=== PATIENT | female | born 1935 | race Caucasian/White ===

== ENCOUNTER → 2017-12-05 | Outpatient (CLI) | payer MEDICARE, OTHER | END | disposition home or self-care (01) | LOC: RADCTMAIN 14:11 | PROVIDERS: ATTEND Thoracic Surgery (Cardiothoracic Vascular Surgery) | DX: I70.213 Atherosclerosis of native arteries of extremities with intermittent claudication, bilateral legs (principal); Z95.828 Presence of other vascular implants and grafts | CPT/HCPCS: 82565; 84520 ==

== ENCOUNTER → 2017-12-12 | Outpatient (CLI) | payer MEDICARE, OTHER | END | disposition home or self-care (01) | LOC: RADCTMAIN 11:49 | PROVIDERS: ATTEND Thoracic Surgery (Cardiothoracic Vascular Surgery) | DX: I70.213 Atherosclerosis of native arteries of extremities with intermittent claudication, bilateral legs (principal); Z95.828 Presence of other vascular implants and grafts | CPT/HCPCS: 82565; 84520 ==

== ENCOUNTER → 2017-12-17 | Outpatient (CLI) | payer MEDICARE, OTHER ==
[~2017-12-17] MED LIST: SODIUM CHLORIDE 0.9% 500 ML IV ONE
== END | disposition home or self-care (01) ==
LOC: RADCTMAIN 07:17
PROVIDERS: ATTEND Thoracic Surgery (Cardiothoracic Vascular Surgery)
DX: Z53.8 Procedure and treatment not carried out for other reasons (principal)
CPT/HCPCS: 82565; 84520

== ENCOUNTER → 2017-12-24 | Outpatient (CLI) | payer MEDICARE, OTHER ==
[2017-12-24 14:59] LABS: Partial Thromboplastin Time 23.9 sec (22.0-30.0); Potassium 4.2 mmol/L (3.5-5.1); Prothrombin Time 10.2 sec (9.0-12.0)
[2017-12-24 15:47] LABS: Appearance,Urine Clear (Clear); Bilirubin,Urine Negative (Negative); Blood,Urine Negative (Negative); Color,Urine Yellow; Glucose,Urine (UA) Negative (Negative); Ketones,Urine Negative (Negative); Leukocyte Esterase,Urine Negative (Negative); Nitrite,Urine Negative (Negative); PH, Urine 5.5 (5.0-8.0); Protein,Urine Negative (Negative); Specific Gravity,Urine 1.009 (1.001-1.035); Urobilinogen,Urine <2.0 mg/dL (<2.0)
[2017-12-24 15:51] LABS: Basophils # (A) 0.1 k/uL (0-0.2); Basophils % (A) 1 %; Eosinophils # (A) 0.3 k/uL (0-0.7); Eosinophils % (A) 4 %; HCT 31.4 % (34.0-46.0); HGB 10.2 gm/dL (11.4-16.0); Lymphocytes # (A) 1.5 k/uL (1.0-4.8); Lymphocytes % (A) 21 %; MCH 32.8 pg (25.0-35.0); MCHC 32.5 g/dL (31.0-37.0); MCV 100.9 fL (80.0-100.0); Macrocytosis Slight; Mean Platelet Volume 8.2; Monocytes # (A) 0.4 k/uL (0-1.0); Monocytes % (A) 6 %; Neutrophils # (A) 4.8 k/uL (1.3-7.7); Neutrophils % (A) 67 %; Platelet Count 311 k/uL (150-450); RBC 3.11 m/uL (3.80-5.40); RDW 13.3 % (11.5-15.5); WBC 7.3 k/uL (3.8-10.6)
== END | disposition home or self-care (01) ==
LOC: LABPAT 14:15
PROVIDERS: ATTEND Thoracic Surgery (Cardiothoracic Vascular Surgery)
DX: Z01.812 Encounter for preprocedural laboratory examination (principal); I73.9 Peripheral vascular disease, unspecified
CPT/HCPCS: 36415; 80051; 81003; 82565; 82947; 84520; 85025; 85610; 85730

== ENCOUNTER 2018-01-07 06:45 | Day surgery (SDC) | payer MEDICARE, OTHER ==
[2018-01-02 15:23] VITALS: BMI 22.3
[~2018-01-07 06:45] MED LIST changes: +ALPRAZolam 0.25 MG TAB PO PRN; +ASPIRIN 325 MG TAB PO STA; +SODIUM CHLORIDE 0.9% 1,000 ML in EMPTY BAG 1 BAG IV ONE; -SODIUM CHLORIDE 0.9% 500 ML IV ONE
[2018-01-07 07:20] LABS: Glucose,Whole Blood 98 mg/dL (75-99)
[2018-01-07] MEDS ORDERED: METOPROLOL TARTRATE 50 MG TAB PO STA (07:25)
[2018-01-07] MEDS ORDERED: LISINOPRIL 20 MG TAB PO STA (07:25)
[2018-01-07] MEDS ORDERED: ISOSORBIDE MONONITRATE ER 60 MG TAB.ER.24H PO STA (07:26)
[2018-01-07 07:32] VITALS: TEMP 98.3
[2018-01-07] MEDS ORDERED: LIDOCAINE 2% INJ 20 MG/ML SQ ONE (11:28)
[2018-01-07] MEDS ORDERED: MIDAZOLAM 2 MG/2 ML VIAL IVP ONE (11:30)
[2018-01-07] MEDS ORDERED: IODIXANOL 320 MG/ML 100 ML INTRAARTER ONE (11:54)
[2018-01-07] MEDS ORDERED: HYDROcodone/APAP 5-325MG 1 EACH TAB PO PRN (12:09)
--- NOTE | 2018-01-07 12:21 | P.OP ---
Date of Procedure: 01/07/18 Preoperative Diagnosis: Bilateral lower extremity disabling claudication Postoperative Diagnosis: 1. 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 2. 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 3. Three-vessel runoff to the ankle. Procedure(s) Performed: Aortogram with bilateral lower extremity runoffs via left brachial artery access under ultrasound guidance. Implants: None Anesthesia: MAC (Moderate sedation 20 minutes with Versed), local Surgeon: Jacinto James Estimated Blood Loss (ml): 5 Pathology: none sent Condition: stable Disposition: PACU Indications for Procedure: This is a 82-year-old female with history of aortobifem bypass presented to the office with complaints of bilateral lower extremity pain with ambulation. She underwent ABIs which demonstrated 0.66 bilaterally. We attempted to perform in a CAT scan which was unable to be obtained due to patient's small vessels. She presents today for aortogram via the left brachial artery. Operative Findings: Aorta: Patent with evidence of aortobifemoral bypass graft which is patent. Iliac: Bilateral common iliac arteries are occluded with bypass grafts in place. Femorals: Bilateral common femoral arteries demonstrate calcification and after scrubbing disease at the anastomosis. The right deep profunda femoral has significant, severe calcification and atherosclerotic disease. The left profunda demonstrates mild calcific atherosclerotic disease. Bilateral SFA vessels are diseased with the left occluded at the takeoff and the right occluded at the midportion just above Yosvany's canal. Both SFAs reconstitute distally at the popliteal. Popliteals: Bilateral popliteal arteries have mild after scrubbing disease but are patent. Tibials: Bilateral TPT trunks are patent with three-vessel runoff to the ankles. Description of Procedure: After written informed consent was obtained the patient all risks benefits competitions were described the patient is brought to the [employer] laid in a supine position with the left arm outstretched on arm board.. The left arm was prepped and draped in usual sterile fashion. Patient was administered Versed and fentanyl for moderate sedation. Timeout was performed in normal fashion. Utilizing ultrasound the left brachial artery was visualized and shown to be patent. Utilizing a micropuncture kit and Salinger technique a 5-Spanish sheath was placed in normal fashion. A .035 J-wire was then placed followed by pigtail catheter and the descending thoracic aorta was entered. Pigtail catheter was then placed at the L1 position and aortogram was obtained. There was then advanced to just above the aortobifem bypass graft and lower extremity runoff was obtained in normal fashion. Due to the significant disease at the bilateral femoral arteries angled views were then obtained of both femoral vessels. Guidewire was then placed in the pigtail on the pigtail and guidewire were removed. Sheath was removed and pressure was placed for hemostasis. Hemostasis was achieved and dressings were placed. The patient all procedure well was sent to PACU for recovery Plan - Discharge Summary Discharge Rx Participant: No New Discharge Prescriptions: No Action Lisinopril [Prinivil] 20 mg PO BID Isosorbide Mononitrate ER [Imdur] 60 mg PO DAILY Aspirin 81 mg PO HS Rosuvastatin Calcium [Crestor] 10 mg PO HS sitaGLIPtin PHOSPHATE [Januvia] 50 mg PO DAILY hydrALAZINE HCL 50 mg PO BID Metoprolol Tartrate [Lopressor] 50 mg PO BID Furosemide [Lasix] 20 mg PO BID Folic Acid 0.4 mg PO DAILY Cyanocobalamin (Vitamin B-12) [Vitamin B-12] 1,000 mcg PO DAILY Cholecalciferol [Vitamin D3] 1,000 unit PO DAILY Discharge Medication List Aspirin 81 mg PO HS 08/10/14 [History] Isosorbide Mononitrate ER [Imdur] 60 mg PO DAILY 08/10/14 [History] Lisinopril [Prinivil] 20 mg PO BID 08/10/14 [History] Rosuvastatin Calcium [Crestor] 10 mg PO HS 01/02/15 [History] Cholecalciferol [Vitamin D3] 1,000 unit PO DAILY 01/02/18 [History] Cyanocobalamin (Vitamin B-12) [Vitamin B-12] 1,000 mcg PO DAILY 01/02/18 [ History] Folic Acid 0.4 mg PO DAILY 01/02/18 [History] Furosemide [Lasix] 20 mg PO BID 01/02/18 [History] Metoprolol Tartrate [Lopressor] 50 mg PO BID 01/02/18 [History] hydrALAZINE HCL 50 mg PO BID 01/02/18 [History] sitaGLIPtin PHOSPHATE [Januvia] 50 mg PO DAILY 01/02/18 [History] Follow up Appointment(s)/Referral(s): Jacinto aJmes DO [STAFF PHYSICIAN] - 1 Week Discharge Disposition: HOME SELF-CARE
[2018-01-07 12:25] LABS: Glucose,Whole Blood 90 mg/dL (75-99)
[2018-01-07 12:46] VITALS: RESP 16
[2018-01-07 14:04] VITALS: BP 146/72; PULSE 77
--- NOTE | 2018-01-09 07:09 | IR ---
EXAMINATION TYPE: IR angio abdominal w runoff DATE OF EXAM: 01/07/2018 CLINICAL HISTORY: Bilateral leg pain. TECHNIQUE: Fluoroscopy. COMPARISON: None. FINDINGS: Fluoroscopic guidance was provided during abdominal angiogram with lower extremity runoff procedure performed by Dr. James. A total of 1.5 minutes of fluoroscopic time was utilized during the procedure and 7 cine runs are acquired. Images acquired show placement of pigtail catheter from upper extremity approach with opacification o f iliac arteries in the pelvis and then subsequent bilateral lower extremity runoff down to feet. Ple ase refer to procedure note for further details as I was not present nor performed procedure. IMPRESSION: As Above.
== END 2018-01-07 14:23 | disposition home or self-care (01) ==
LOC: CATHCVL 06:45
PROVIDERS: ATTEND Surgery
DX: I70.213 Atherosclerosis of native arteries of extremities with intermittent claudication, bilateral legs (principal); I70.92 Chronic total occlusion of artery of the extremities; F17.210 Nicotine dependence, cigarettes, uncomplicated; Z95.820 Peripheral vascular angioplasty status with implants and grafts; I11.0 Hypertensive heart disease with heart failure; I50.9 Heart failure, unspecified; Z95.0 Presence of cardiac pacemaker; E11.51 Type 2 diabetes mellitus with diabetic peripheral angiopathy without gangrene; Z79.84 Long term (current) use of oral hypoglycemic drugs; Z79.82 Long term (current) use of aspirin; Z79.899 Other long term (current) drug therapy
CPT/HCPCS: 36200; 75625; 75716; 76937; C1894 ×2; C1769 ×2; J2001; J2250; Q9967

== ENCOUNTER 2020-03-12 11:44 | Inpatient (IN) | payer MEDICARE, OTHER ==
[2020-03-12] MEDS ORDERED: DIPH,PERTUS(ACELL)TETVAC-LF 0.5 ML VIAL IM ONE (11:52)
--- NOTE | 2020-03-12 11:54 | ED ---
Fall HPI - General Chief Complaint: Fall Stated Complaint: FALL Time Seen by Provider: 03/12/20 11:44 Source: patient, EMS, RN notes reviewed Mode of arrival: EMS - History of Present Illness Initial Comments: This 85-year-old female brought in by EMS secondary to a fall with left hip pain. Patient states she tripped over a rug she did fall onto her left side she complains left hip pain and inability to walk. She has some abrasions apparently to her left hand and wrist area that were bandaged by paramedics. She denies any head neck or back pain no loss of consciousness no other modifying factors. No focal weakness except for the pain to the left hip and decreased mobility left lower extremity. MD Complaint: fall - Related Data Home Medications Medication Instructions Recorded Confirmed Aspirin 81 mg PO HS 08/10/14 01/07/18 Isosorbide Mononitrate ER [Imdur] 60 mg PO DAILY 08/10/14 01/07/18 Lisinopril [Prinivil] 20 mg PO BID 08/10/14 01/07/18 Rosuvastatin Calcium [Crestor] 10 mg PO HS 01/02/15 01/07/18 Cholecalciferol [Vitamin D3] 1,000 unit PO DAILY 01/02/18 01/07/18 Cyanocobalamin (Vitamin B-12) 1,000 mcg PO DAILY 01/02/18 01/07/18 [Vitamin B-12] Folic Acid 0.4 mg PO DAILY 01/02/18 01/07/18 Furosemide [Lasix] 20 mg PO BID 01/02/18 01/07/18 Metoprolol Tartrate [Lopressor] 50 mg PO BID 01/02/18 01/07/18 hydrALAZINE HCL 50 mg PO BID 01/02/18 01/07/18 sitaGLIPtin PHOSPHATE [Januvia] 50 mg PO DAILY 01/02/18 01/07/18 Allergies Allergy/AdvReac Type Severity Reaction Status Date / Time No Known Allergies Allergy Verified 01/02/18 15:04 Review of Systems ROS Statement: Those systems with pertinent positive or pertinent negative responses have been documented in the HPI. ROS Other: All systems not noted in ROS Statement are negative. Past Medical History Past Medical History: Hyperlipidemia, Hypertension, Myocardial Infarction ([place]) Additional Past Medical History / Comment(s): SCIATICA, irregular heartbeat, hx bergers disease Last Myocardial Infarction Date:: 2004 History of Any Multi-Drug Resistant Organisms: None Reported Past Surgical History: AICD, Heart Catheterization, Pacemaker Additional Past Surgical History / Comment(s): aortic bypass with bilateral femoral grafting. RONEY CATARACTS, AICD removed and changed to pacemaker Past Anesthesia/Blood Transfusion Reactions: No Reported Reaction Type of Cardiac Device: Permanent Pacemaker Device Placement Date:: UNKNOWN Past Psychological History: No Psychological Hx Reported Smoking Status: Current every day smoker - Past Family History Father Family Medical History: Cancer Additional Family Medical History / Comment(s): . Mother Family Medical History: No Reported History Additional Family Medical History / Comment(s): MOTHER AT AGE 97 YRS. General Exam - General Exam Comments Initial Comments: This is a well-developed asthenic appearing female who is awake alert oriented 3 demonstrates a Chidi Coma Scale of 15 Limitations: physical limitation General appearance: alert, in no apparent distress Head exam: Present: atraumatic, normocephalic, normal inspection Eye exam: Present: normal appearance, PERRL, EOMI. Absent: scleral icterus, conjunctival injection, periorbital swelling ENT exam: Present: normal exam, mucous membranes moist Neck exam: Present: normal inspection, full ROM. Absent: tenderness, meningismus, lymphadenopathy Respiratory exam: Present: normal lung sounds bilaterally. Absent: respiratory distress, wheezes, rales, rhonchi, stridor Cardiovascular Exam: Present: normal rhythm, bradycardia, normal heart sounds. Absent: systolic murmur, diastolic murmur, rubs, gallop, clicks GI/Abdominal exam: Present: soft, normal bowel sounds. Absent: distended, tenderness, guarding, rebound, rigid Extremities exam: Present: tenderness, normal capillary refill, other (There is shortening and lateral rotation left lower extremity with tenderness palpation of left hip. No definite crepitation or step-off.). Absent: full ROM, pedal edema, joint swelling, calf tenderness Back exam: Present: normal inspection Neurological exam: Present: alert, oriented X3, CN II-XII intact Psychiatric exam: Present: normal affect, normal mood Skin exam: Present: warm, dry, intact, normal color. Absent: rash Course Vital Signs 03/12/20 03/12/20 11:46 11:52 Temperature 98.1 F Pulse Rate 56 L 71 Respiratory 18 18 Rate Blood Pressure 159/69 155/64 O2 Sat by Pulse 98 95 Oximetry Medical Decision Making - Medical Decision Making Did discuss findings with patient as well as with Dr. Lezama facial be admitted for repair of the left hip fracture sound group will be consulted for medical clearance. - Lab Data Result diagrams: 03/12/20 12:05 Lab Results 03/12/20 03/12/20 Range/Units 12:05 12:05 WBC 10.2 (3.8-10.6) k/uL RBC 3.90 (3.80-5.40) m/uL Hgb 13.5 (11.4-16.0) gm/dL Hct 41.5 (34.0-46.0) % MCV 106.2 H (80.0-100.0) fL MCH 34.6 (25.0-35.0) pg MCHC 32.6 (31.0-37.0) g/dL RDW 12.5 (11.5-15.5) % Plt Count 197 (150-450) k/uL Neutrophils % 81 % Lymphocytes % 10 % Monocytes % 5 % Eosinophils % 3 % Basophils % 1 % Neutrophils # 8.2 H (1.3-7.7) k/uL Lymphocytes # 1.0 (1.0-4.8) k/uL Monocytes # 0.5 (0-1.0) k/uL Eosinophils # 0.3 (0-0.7) k/uL Basophils # 0.1 (0-0.2) k/uL Macrocytosis Slight PT 10.3 (9.0-12.0) sec INR 1.0 (<1.2) APTT 22.7 (22.0-30.0) sec - EKG Data -: EKG Interpreted by Me (Paced rhythm frequent premature complexes rate 84 QRS 136 daily since QTC 4) - Radiology Data Radiology results: report reviewed (I did review the imaging and report is evidence of a subcapital left hip fracture), image reviewed Disposition Clinical Impression: Fall, Closed left hip fracture Disposition: ADMITTED IP TO THIS [facility] Condition: Fair Referrals: Mitesh oLwe MD [Primary Care Provider] - 1-2 days
[2020-03-12 12:13] LABS: Basophils # (A) 0.1 k/uL (0-0.2); Basophils % (A) 1 %; Eosinophils # (A) 0.3 k/uL (0-0.7); Eosinophils % (A) 3 %; HCT 41.5 % (34.0-46.0); HGB 13.5 gm/dL (11.4-16.0); Lymphocytes % (A) 10 %; MCH 34.6 pg (25.0-35.0); MCHC 32.6 g/dL (31.0-37.0); MCV 106.2 fL (80.0-100.0); Macrocytosis Slight; Monocytes # (A) 0.5 k/uL (0-1.0); Monocytes % (A) 5 %; Neutrophils # (A) 8.2 k/uL (1.3-7.7); Neutrophils % (A) 81 %; Platelet Count 197 k/uL (150-450); RDW 12.5 % (11.5-15.5); WBC 10.2 k/uL (3.8-10.6)
[2020-03-12 12:22] LABS: Prothrombin Time 10.3 sec (9.0-12.0)
[2020-03-12 12:23] LABS: Partial Thromboplastin Time 22.7 sec (22.0-30.0)
[2020-03-12] MEDS: fentaNYL (PF) 50 MCG/ML 2 ML AMP IVP PRN ×2 (12:24→13:17)
--- NOTE | 2020-03-12 13:01 | XR ---
EXAMINATION TYPE: XR chest 1V portable DATE OF EXAM: 03/12/2020 COMPARISON: Chest x-ray September 28, 2015. CT chest January 02, 2015. HISTORY: Fall injury with chest pain. TECHNIQUE: Single AP portable frontal upright view of the chest is obtained. FINDINGS: There is chronic parenchymal change without suspicious focal air space opacity, pleural effusion, or pneumothorax seen. Marked cardiomegaly with multi lead pacemaker/ICD is redemonstrated along with atherosclerotic thoracic aorta. The osseous structures r emain demineralized. IMPRESSION: Chronic changes and cardiomegaly without acute pulmonary process.
--- NOTE | 2020-03-12 13:04 | XR ---
EXAMINATION TYPE: XR Hip LT and AP Pelvis DATE OF EXAM: 03/12/2020 COMPARISON: NONE HISTORY: Fall injury with pelvic and left hip pain. TECHNIQUE: A single AP view of the pelvis is obtained. Two views of the left hip are obtained. FINDINGS: Osseous structures are demineralized. Acute impacted fracture through the left proximal fem ur felt to basicervical in location is present. No hip joint dislocation. Mild axial joint space loss in both hips. Pubic symphysis is intact. No additional pelvic fracture. Scattered pelvic phleboliths and clips along with vascular calcification extending into bilateral groin region noted. IMPRESSION: There is an acute impacted fracture femoral neck level left hip. (Initial encounter closed type posttraumatic fracture)
[2020-03-12] MEDS ORDERED: NALOXONE 0.4 MG/ML 1 ML VIAL IV PRN (14:11)
[2020-03-12] MEDS ORDERED: ONDANSETRON 4 MG/2 ML VIAL IVP PRN (14:11)
[2020-03-12] MEDS ORDERED: HYDROmorphone 1 MG/ML 1 ML SYRINGE IVP PRN (14:11)
[2020-03-12 15:09] LABS: Albumin 3.5 g/dL (3.5-5.0); Calcium 8.9 mg/dL (8.4-10.2); Potassium 4.3 mmol/L (3.5-5.1); Total Bilirubin 0.5 mg/dL (0.2-1.3); Total Protein 5.9 g/dL (6.3-8.2)
[2020-03-12 15:35] LABS: Appearance,Urine Clear (Clear); Bilirubin,Urine Negative (Negative); Blood,Urine Negative (Negative); Color,Urine Yellow; Glucose,Urine (UA) Negative (Negative); Ketones,Urine Negative (Negative); Leukocyte Esterase,Urine Negative (Negative); Mucus,Urine Rare /hpf; Nitrite,Urine Negative (Negative); PH, Urine 6.5 (5.0-8.0); Protein,Urine 2+ (Negative); RBC,Urine 2 /hpf (0-5); Specific Gravity,Urine 1.015 (1.001-1.035); WBC,Urine 1 /hpf (0-5)
--- NOTE | 2020-03-12 16:01 | P.HPOR ---
History of Present Illness H&P Date: 03/12/20 This patient is an 85-year-old female with a past medical history of coronary artery disease post aortic bypass with bilateral femoral grafting, pacemaker, hyperlipidemia, hypertension, and who is a current cigarette smoker that presented to [facility] emergency department today via EMS after a fall in the home. The patient states she was in a hurry this morning taking care of her who has dementia, and she tripped over a rug. She states she landed directly onto the left side of her body. She experienced immediate pain in the left hip, and she was unable to stand on her own. She called her 's home health aide for help, the aide helped the patient up and called EMS. The patient was then transported to the emergency department for evaluation. Upon arrival in the emergency department, x-rays of the left hip revealed a femoral neck fracture. The patient was admitted under the care of Dr. Avila for surgical intervention, with a consult placed to internal medicine for medical clearance. At the time of my exam, the patient is complaining of isolated left hip pain. She states she has abrasions to the left wrist, which was bandaged by EMS. She states she is not experiencing any pain in the left wrist or hand currently. She denies pain with wrist motion. Patient states the pain in her left hip is currently well controlled. She has no additional complaints at the time of my exam. She denies chest pain, shortness of breath, nausea, vomiting, fevers, chills. Vital signs stable. Past Medical History Past Medical History: Hyperlipidemia, Hypertension, Myocardial Infarction ([place]) Additional Past Medical History / Comment(s): SCIATICA, irregular heartbeat, hx bergers disease Last Myocardial Infarction Date:: 2004 History of Any Multi-Drug Resistant Organisms: None Reported Past Surgical History: AICD, Heart Catheterization, Pacemaker Additional Past Surgical History / Comment(s): aortic bypass with bilateral femoral grafting. RONEY CATARACTS, AICD removed and changed to pacemaker Past Anesthesia/Blood Transfusion Reactions: No Reported Reaction Type of Cardiac Device: Permanent Pacemaker Device Placement Date:: UNKNOWN Past Psychological History: No Psychological Hx Reported Smoking Status: Current every day smoker - Past Family History Father Family Medical History: Cancer Additional Family Medical History / Comment(s): . Mother Family Medical History: No Reported History Additional Family Medical History / Comment(s): MOTHER AT AGE 97 YRS. Medications and Allergies Home Medications Medication Instructions Recorded Confirmed Type Aspirin 81 mg PO HS 08/10/14 03/12/20 History Isosorbide Mononitrate ER [Imdur] 60 mg PO DAILY 08/10/14 03/12/20 History Rosuvastatin Calcium [Crestor] 10 mg PO HS 01/02/15 03/12/20 History Cholecalciferol [Vitamin D3] 1,000 unit PO DAILY 01/02/18 03/12/20 History Cyanocobalamin (Vitamin B-12) 1,000 mcg PO DAILY 01/02/18 03/12/20 History [Vitamin B-12] Folic Acid 0.4 mg PO DAILY 01/02/18 03/12/20 History Furosemide [Lasix] 20 mg PO BID 01/02/18 03/12/20 History Metoprolol Tartrate [Lopressor] 50 mg PO BID 01/02/18 03/12/20 History hydrALAZINE HCL 50 mg PO BID 01/02/18 03/12/20 History Lisinopril [Prinivil] 5 mg PO DAILY 03/12/20 03/12/20 History Allergies Allergy/AdvReac Type Severity Reaction Status Date / Time No Known Allergies Allergy Verified 03/12/20 14:31 Physical Examination On examination, the patient is lying in bed in no apparent distress. She is alert and oriented 3. Her head appears normocephalic and atraumatic. Her breathing appears nonlabored. On inspection of the bilateral upper extremities, there is a bandage overlying the left wrist. There is a very small superficial abrasion overlying the left dorsal hand. No pain on palpation of the fingers, hand, wrist, elbow. No pain with passive range of motion of the left wrist. The right upper extremity shows no signs of trauma or deformity. The right lower extremity shows no obvious deformity or signs of trauma. No pain with passive range of motion of the right hip, knee, ankle. On inspection of the left lower extremity, the extremity is shortened and externally rotated. Inspection of the left hip, there are no lacerations or abrasions. The skin is intact. There is moderate pain on palpation of the left hip. Range of motion of the hip was not tested at this time. No pain on palpation of the right knee, lower leg, ankle, foot. Patient has good strength and range of motion of the left ankle. Dorsalis pedis pulse +2. Left lower extremity is warm and well perfused with brisk capillary refill distally. Motor and sensory function appear to be intact to the left lower extremity. The calves are soft and nontender to palpation bilaterally. Results Left hip x-ray 03/12/20: Left femoral neck fracture - Labs Labs: Abnormal Lab Results - Last 24 Hours (Table) 03/12/20 03/12/20 Range/Units 12:05 14:50 MCV 106.2 H (80.0-100.0) fL Neutrophils # 8.2 H (1.3-7.7) k/uL Chloride 108 H (98-107) mmol/L BUN 20 H (7-17) mg/dL Creatinine 1.33 H (0.52-1.04) mg/dL Total Protein 5.9 L (6.3-8.2) g/dL H & H 03/12/20 Range/Units 12:05 Hgb 13.5 (11.4-16.0) gm/dL Hct 41.5 (34.0-46.0) % Coagulation 03/12/20 Range/Units 12:05 INR 1.0 (<1.2) Result Diagrams: 03/12/20 12:05 03/12/20 14:50 Assessment and Plan Assessment: Left femoral neck fracture status-post fall Plan: - The clinical and imaging findings were discussed with the patient. We will plan for a left hip hemiarthroplasty tomorrow morning with Dr. Avila, pending medical clearance and consent. Patient provided verbal consent for surgery. - Non-weight bearing on left lower extremity. - Pain management as needed. - NPO diet at midnight. - Internal medicine has been consulted for medical clearance, as well as jessy- operative medical management. Patient discussed with Dr. Avila.
[2020-03-12] MEDS: SODIUM CHLORIDE 0.9% 1,000 ML IV SCH (16:11)
--- NOTE | 2020-03-12 16:31 | XR ---
EXAMINATION TYPE: XR wrist complete LT DATE OF EXAM: 03/12/2020 COMPARISON: NONE HISTORY: Wrist pain after fall TECHNIQUE: 4 views FINDINGS: There is narrowing and spurring at the first carpometacarpal joint. Radiocarpal joint space is fairly normal. I see no fracture nor dislocation. IMPRESSION: No fracture seen. 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
--- NOTE | 2020-03-12 17:18 | P.HPIM ---
History of Present Illness H&P Date: 03/12/20 Chief Complaint: fall, left hip pain 85 yo female presents to the ED after falling at home. She had been in her normal state of health this morning, until she tripped over a rug and fell on her left side. Most of the impact was absorbed by her left hip but she did hit her head. She denies any LOC, no syncope, no changes in vision, no new focal weakness or numbness. She denies any dizziness or lightheadedness prior to falling, no chest pain, no dyspnea, no palpitations, no fevers or chills. XR of the hip shows fracture of left femur distally at the hip. Her vitals were stable on admission, but she did become hypoxic after receiving 1 mg of Dilaudid, oxygen saturation dropped to 86% but improved with 2L NC. CXR does not show any acute process. Her pain is currently well controlled, patient has been otherwise stable and has no other complaints. Review of Systems Constitutional: Denies chills, Denies chronic headaches, Denies fever, Denies night sweats, Denies weakness Ears: bilateral: decreased hearing Ears, nose, mouth and throat: Denies dysphagia, Denies headache, Denies sore throat Cardiovascular: Reports high blood pressure, Denies chest pain, Denies dyspnea on exertion, Denies edema, Denies leg edema, Denies lightheadedness, Denies orth opnea, Denies palpitations, Denies paroxysmal nocturnal dyspnea, Denies shortness of breath, Denies syncope Respiratory: Reports cough, Denies dyspnea, Denies home oxygen, Denies wheezing Gastrointestinal: Denies abdominal pain, Denies change in bowel habits, Denies diarrhea, Denies nausea, Denies vomiting Musculoskeletal: Reports fractures, Reports limitation of motion, Reports myalgias, Denies arm numbness/tingling, Denies leg numbness/tingling, Denies morning stiffness, Denies neck pain, Denies neck stiffness Musculoskeletal: left: hip pain Neurological: Denies aphasia, Denies balance difficulties, Denies change in mentation, Denies change in speech, Denies confusion, Denies double vision, Denies headaches, Denies motor disturbance, Denies numbness, Denies seizures, Denies syncope, Denies weakness Past Medical History Past Medical History: Hyperlipidemia, Hypertension, Myocardial Infarction ([place]) Additional Past Medical History / Comment(s): SCIATICA, irregular heartbeat, hx bergers disease Last Myocardial Infarction Date:: 2004 History of Any Multi-Drug Resistant Organisms: None Reported Past Surgical History: AICD, Heart Catheterization, Pacemaker Additional Past Surgical History / Comment(s): aortic bypass with bilateral femoral grafting. RONEY CATARACTS, AICD removed and changed to pacemaker Past Anesthesia/Blood Transfusion Reactions: No Reported Reaction Type of Cardiac Device: Permanent Pacemaker Device Placement Date:: UNKNOWN Past Psychological History: No Psychological Hx Reported Smoking Status: Current every day smoker - Past Family History Father Family Medical History: Cancer Additional Family Medical History / Comment(s): . Mother Family Medical History: No Reported History Additional Family Medical History / Comment(s): MOTHER AT AGE 97 YRS. Medications and Allergies Home Medications Medication Instructions Recorded Confirmed Type Aspirin 81 mg PO HS 08/10/14 03/12/20 History Isosorbide Mononitrate ER [Imdur] 60 mg PO DAILY 08/10/14 03/12/20 History Rosuvastatin Calcium [Crestor] 10 mg PO HS 01/02/15 03/12/20 History Cholecalciferol [Vitamin D3] 1,000 unit PO DAILY 01/02/18 03/12/20 History Cyanocobalamin (Vitamin B-12) 1,000 mcg PO DAILY 01/02/18 03/12/20 History [Vitamin B-12] Folic Acid 0.4 mg PO DAILY 01/02/18 03/12/20 History Furosemide [Lasix] 20 mg PO BID 01/02/18 03/12/20 History Metoprolol Tartrate [Lopressor] 50 mg PO BID 01/02/18 03/12/20 History hydrALAZINE HCL 50 mg PO BID 01/02/18 03/12/20 History Lisinopril [Prinivil] 5 mg PO DAILY 03/12/20 03/12/20 History Allergies Allergy/AdvReac Type Severity Reaction Status Date / Time No Known Allergies Allergy Verified 03/12/20 14:31 Physical Exam Osteopathic Statement: *. No significant issues noted on an osteopathic structural exam other than those noted in the History and Physical/Consult. Vitals: Vital Signs Temp Pulse Pulse Resp BP BP Pulse Ox 03/12/20 16:19 98.1 F 86 16 164/91 94 L 03/12/20 15:24 98.1 F 71 18 155/64 95 03/12/20 15:23 71 18 155/64 95 03/12/20 11:52 71 18 155/64 95 03/12/20 11:46 98.1 F 56 L 18 159/69 98 Intake and Output 03/12/20 03/12/20 03/12/20 06:59 14:59 22:59 Other: Weight 54.431 kg - Constitutional General appearance: average body habitus, cooperative, no acute distress - EENT Eyes: EOMI, PERRLA - Neck Neck: normal ROM, no rigidity - Respiratory Respiratory: bilateral: CTA - Cardiovascular Rhythm: regular Heart sounds: normal: S1, S2 Abnormal Heart Sounds: no systolic murmur - Gastrointestinal General gastrointestinal: no distended, normal bowel sounds, no tenderness - Integumentary Integumentary: no cellulitis, no cyanotic, no jaundiced, normal, no pale - Neurologic Neurologic: CNII-XII intact - Musculoskeletal left lower ext tenderness to palpation proximally. limited range of motion, flexion at the hip and knee due to pain. no gross sensory deficits to light tough, DP and PT pulses 2+ b/l Results CBC & Chem 7: 03/12/20 12:05 03/12/20 14:50 Labs: Abnormal Lab Results - Last 24 Hours (Table) 03/12/20 03/12/20 03/12/20 Range/Units 12:05 14:50 15:20 MCV 106.2 H (80.0-100.0) fL Neutrophils # 8.2 H (1.3-7.7) k/uL Chloride 108 H (98-107) mmol/L BUN 20 H (7-17) mg/dL Creatinine 1.33 H (0.52-1.04) mg/dL Total Protein 5.9 L (6.3-8.2) g/dL Urine Protein 2+ H (Negative) Urine Mucus Rare H (None) /hpf Chest x-ray: report reviewed Thrombosis Risk Factor Assmnt - Choose All That Apply Each Factor Represents 1 point: Medical pt on bed rest Each Risk Factor Represents 3 Points: Age 75 years or older Each Risk Factor Represents 5 Points: Elective major lower extremity arthoplasty, Hip, pelvis, or leg fracture (< 1 month) Thrombosis Risk Factor Assessment Total Risk Factor Score: 14 Thrombosis Risk Factor Assessment Level: High Risk Assessment and Plan Assessment: # Left Femoral Neck Fracture -secondary to fall from ground level -bed rest, immobilize hip -pain control -NPO after midnight -patient has an extensive cardiovascular history with a pacemaker, CAD s/ stents, etc... but has not had any signs or symptoms of decompensation -EKG shows no acute ischemic changes, transient hypoxia in the ED was secondary to IV narcotics, CXR show no acute process -plan for OR tomorrow at 8 am per orthopedic surgery -at acceptable cardiovascular risk for surgery # CKD III -Cr at baseline, avoid nephrotoxins or IV contrast # HTN -continue Metoprolol and Hydralazine for now -Lisinopril on hold, may resume after surgery # CAD -ASA on hold for surgery -continue Statin # regular diet, NPO after midnight # DVT PPX
[2020-03-12] MEDS: FUROSEMIDE 20 MG TAB PO SCH (17:36)
[2020-03-12] MEDS: HEPARIN SODIUM,PORCINE 5,000 UNIT/ML 1 ML VIAL SQ SCH (20:41)
[2020-03-12] MEDS: hydrALAZINE HCL 50 MG TAB PO SCH (20:41)
[2020-03-12] MEDS: ATORVASTATIN 20 MG TAB PO SCH (20:41)
[2020-03-12] MEDS: METOPROLOL TARTRATE 50 MG TAB PO SCH (20:41)
[2020-03-12] MEDS: HYDROmorphone 1 MG/ML 1 ML SYRINGE IVP PRN (20:48)
[2020-03-13] MEDS: SODIUM CHLORIDE 0.9% 1,000 ML IV SCH ×3 (00:56→15:23)
[2020-03-13] MEDS ORDERED: KETAMINE 10 MG/ML 20 ML VIAL ONE (08:15)
[2020-03-13] MEDS ORDERED: fentaNYL (PF) 50 MCG/ML 2 ML AMP ONE (08:15)
[2020-03-13] MEDS ORDERED: MIDAZOLAM 2 MG/2 ML VIAL ONE (08:15)
[2020-03-13] MEDS ORDERED: LACTATED RINGERS 1,000 ML IV ONE ×2 (08:19→08:35)
[2020-03-13] MEDS ORDERED: SODIUM CHLORIDE 0.9% 50 ML with ceFAZolin 1,000 MG IV ONE ×2 (08:40)
[2020-03-13] MEDS ORDERED: ceFAZolin 3,000 MG in SODIUM CHLORIDE 0.9% IRRIGATIO 3,000 ML IRRIGATION ONE (08:53)
--- NOTE | 2020-03-13 09:37 | P.OP ---
Date of Procedure: 03/13/20 Procedure(s) Performed: PREOPERATIVE DIAGNOSIS: Left hip femoral neck fracture POSTOPERATIVE DIAGNOSIS: Left hip femoral neck fracture OPERATION: Left hip cemented unipolar hemiarthroplasty. ANESTHESIA: Spinal ESTIMATED BLOOD LOSS: 100 ml. SEWING MACHINE OPERATOR ZIPPER: Desiree Morse PA-C (assistance with: patient positioning, retraction, exposure, hemostasis, leg positioning, implantation, irrigation, closure, dressing) COMPLICATIONS: None apparent. COMPONENTS IMPLANTED: Jimmy LDFx cemented femoral stem; unipolar femoral head; neck extension augments as needed. INDICATIONS: Mrs. Shay is an 85-year-old female with a history of falling and sustaining a femoral neck fracture. She is extremely hard of hearing, among other issues. I have recommended surgical treatment with a cemented unipolar hemiarthroplasty. I have discussed this procedure in detail and explained the potential risks and complications as being inclusive of, but not limited to: Bleeding, infection, scarring, discomfort, blood vessel and/or nerve damage, limb length inequality, gait disturbance, blood clot, pulmonary embolism, , and other risks. The consent form has been signed. PROCEDURE: After appropriate consent was obtained, the patient was taken to the operating room and placed in supine position. Spinal anesthetic was administered and after confirmation of adequate anesthesia, the patient was placed into the lateral decubitus position with the affected side up. Care was taken to make sure that all pressure points were adequately padded and a Bryan hip positioner was utilized for positioning. The hip was prepped and draped in the usual aseptic fashion using a combination of Chloraprep and alcohol. [place] drape was used for the case and the patient received intravenous antibiotics. The incision was created directly over the greater trochanter and carried slightly posteriorly for a posterior approach to the hip. The incision was then deepened down to subcutaneous tissue and fascia tirso. Fascia tirso was split in line with the incision and split proximally along the fibers of the gluteus max imus. The underlying fibers of the muscle were teased apart using finger dissection and bleeding vessels were picked up and coagulated. Retractor was then placed posteriorly consisting of a blunt Howie. The short external rotators and capsule were exposed and good visualization of the attachment of the external rotators to the femur was established. The short external rotators and capsule were released using electrocautery from their femoral attachments. A hockey stick shaped incision was created in the capsule. Joint fluid and hemarthrosis was evacuated and the patient's hip was internally rotated to expose the fracture site. The femoral neck cut was created approximately 1 cm superior to the lesser trochanter using a reciprocating saw. The femoral head and neck fragment was removed and visualization and palpation of the acetabular vault showed intact hyaline cartilage with no bone exposure or significant degeneration. Attention was then directed back to the proximal femur. Retractors were placed around the proximal femur and box osteotome was used followed by canal finder and trochanteric reamer. Cylindrical reaming was performed. Progressive broaching was then performed starting with a #10 broach and progressing final size, in a position of 10-15 degrees anteversion. [place] anteversion was within 5 degrees of stem position. The final size broach had excellent fit and fill of the patient's metaphysis and diaphysis. Calcar planing was performed. Trial reduction was then performed starting with appropriately sized femoral head and various neck extensions to evaluate stability, limb length equality, and soft tissue tension. Once these parameters were satisfactory, the corresponding final components were then called for. Trial components were removed. The femoral canal was sized for the centralizer and cement plug. Once the cement plug had been inserted distal to the planned length of the femoral component, the canal was pulse lavaged and brushed to remove any unstable bone. It was then dried with a lap sponge. Cement was mixed under vacuum conditions to decrease porosity and inserted into a cement gun. Distal centralizer was placed onto the femoral component with a bit of cement. The cement was allowed to reach a slightly doughy consistency and then the canal was filled retrograde with the cement gun. Thumb pressurization was performed three times. The femoral component was then inserted with the previously determined degree of anteversion. Excess cement was removed before it hardened completely. The femoral head was then impacted onto the Bello taper. Blood and debris were removed from the acetabular socket and the hip was then reduced and checked for stability, limb length and soft tissue tension. These parameters were found to be satisfactory; the wound was then thoroughly irrigated with normal saline. Final hemostasis was obtained using electrocautery. Closure of the capsule was performed meticulously using #3 Vicryl suture. Four [id number] sutures were placed in the posterior capsule along with repair of the external rotators. The fascia tirso was then repaired using combination of #3 Vicryl suture in interrupted fashion and Quill and running fashion. 2-0 Vicryl suture was used for the subcutaneous tissues and 3-0 Quill for the skin. Dermabond or Steri-Strips were then applied. The patient tolerated the procedure well. There were no complications and the wound bed was dry and there was no need for drain placement. Sterile dressing was then applied and the patient was carefully removed from the operating room table, placed on the stretcher and was taken to the recovery room in stable condition. Sponge and needle counts were correct.
[2020-03-13] MEDS: hydrALAZINE HCL 50 MG TAB PO SCH ×2 (09:41→21:03)
[2020-03-13] MEDS: HEPARIN SODIUM,PORCINE 5,000 UNIT/ML 1 ML VIAL SQ SCH ×2 (09:41→21:04)
[2020-03-13] MEDS ORDERED: hydrOXYzine PAMOATE 25 MG CAP PO PRN (10:11)
--- NOTE | 2020-03-13 10:26 | XR ---
EXAMINATION TYPE: XR Hip Limited LT DATE OF EXAM: 03/13/2020 CLINICAL HISTORY: Left hip pain and osteoarthritis. TECHNIQUE: Single AP portable view of left hip is obtained immediately postoperatively. COMPARISON: None. FINDINGS: Metallic hardware from left hip arthroplasty is seen and appears satisfactory in alignment and position. There is evidence of recent surgery with subcutaneous gas noted laterally. Surgical c lips in the left hemipelvis and extensive atherosclerosis noted. IMPRESSION: Metallic hardware from left hip arthroplasty is satisfactory in position.
[2020-03-13] MEDS: FUROSEMIDE 20 MG TAB PO SCH (11:28)
[2020-03-13] MEDS: METOPROLOL TARTRATE 50 MG TAB PO SCH ×2 (11:28→21:03)
[2020-03-13] MEDS: LACTATED RINGERS 1,000 ML IV SCH ×2 (11:29→22:35)
[2020-03-13 12:00] LABS: Basophils % (A) 0 %; Eosinophils # (A) 0.1 k/uL (0-0.7); Eosinophils % (A) 1 %; HCT 41.8 % (34.0-46.0); HGB 12.8 gm/dL (11.4-16.0); Hypochromasia Slight; Lymphocytes # (A) 0.7 k/uL (1.0-4.8); Lymphocytes % (A) 6 %; MCH 32.9 pg (25.0-35.0); MCHC 30.7 g/dL (31.0-37.0); MCV 107.2 fL (80.0-100.0); Macrocytosis Moderate; Mean Platelet Volume 9.6; Monocytes # (A) 0.6 k/uL (0-1.0); Monocytes % (A) 5 %; Neutrophils # (A) 11.1 k/uL (1.3-7.7); Neutrophils % (A) 88 %; Platelet Count 154 k/uL (150-450); RDW 12.2 % (11.5-15.5); WBC 12.6 k/uL (3.8-10.6)
[2020-03-13] MEDS: HYDROmorphone 1 MG/ML 1 ML SYRINGE IVP PRN ×2 (12:04→17:36)
--- NOTE | 2020-03-13 16:45 | P.PN ---
Subjective Progress Note Date: 03/13/20 85-year-old female admitted yesterday for a left distal femur fracture after falling at home. She underwent a hemiarthroplasty this morning which she tolerated well, minimal blood loss, no significant perioperative events. After surgery the patient was brought back to her room in stable condition, her pain is well-controlled, denies any weakness of lower extremities, no fevers or chills, no shortness of breath, no chest pain, nausea or vomiting. She is on 2 L of oxygen as she transiently becomes hypoxic after receiving IV narcotics. Objective - Vital Signs Vital signs: Vital Signs Temp 98.1 F 03/13/20 12:50 Pulse 72 03/13/20 14:56 Resp 17 03/13/20 14:56 BP 142/63 03/13/20 12:50 Pulse Ox 95 03/13/20 12:50 Intake & Output 03/12/20 03/13/20 03/13/20 18:59 06:59 18:59 Intake Total 1480 2621 Output Total 200 900 350 Balance -909 244 0585 Weight 54.431 kg Intake: IV 751 Intake, IV Titration 1000 950 Amount Lactated Ringers 1,000 ml 700 @ 100 mls/hr IV .Q10H [facility] Rx#:[id number] Sodium Chloride 0.9% 1, 1000 200 000 ml @ 100 mls/hr IV . Q10H [facility] Rx#:[id number] ceFAZolin 2 gm In Sodium 50 Chloride 0.9% 50 ml @ 100 mls/hr IVPB Q8HR [facility] Rx# :[id number] Oral 480 920 Output: Urine 200 900 200 Uretheral (Silva) 200 200 Estimated Blood Loss 150 Other: Voiding Method Indwelling Catheter Indwelling Catheter Indwelling Catheter # Voids 1 - Exam Constitutional General appearance: average body habitus, cooperative, no acute distress - EENT Eyes: EOMI, PERRLA - Neck Neck: normal ROM, no rigidity - Respiratory Respiratory: bilateral: CTA - Cardiovascular Rhythm: regular Heart sounds: normal: S1, S2 Abnormal Heart Sounds: no systolic murmur - Gastrointestinal General gastrointestinal: no distended, normal bowel sounds, no tenderness - Integumentary Integumentary: no cellulitis, no cyanotic, no jaundiced, normal, no pale - Neurologic Neurologic: CNII-XII intact - Musculoskeletal left lower ext tenderness to palpation proximally. limited range of motion, flexion at the hip and knee due to pain. no gross sensory deficits to light tough, DP and PT pulses 2+ b/l - Labs CBC & Chem 7: 03/13/20 11:00 03/12/20 14:50 Labs: Abnormal Lab Results - Last 24 Hours (Table) 03/13/20 Range/Units 11:00 WBC 12.6 H (3.8-10.6) k/uL MCV 107.2 H (80.0-100.0) fL MCHC 30.7 L (31.0-37.0) g/dL Neutrophils # 11.1 H (1.3-7.7) k/uL Lymphocytes # 0.7 L (1.0-4.8) k/uL Assessment and Plan Assessment: # Left Femoral Neck Fracture -Status post left hemiarthroplasty on 03/13/2020 -secondary to fall from ground level -pain well-controlled -PT and OT once cleared by Raffy # CKD III -Cr at baseline, avoid nephrotoxins or IV contrast # HTN -continue Metoprolol and Hydralazine -Home doses lisinopril restarted # CAD -ASA restarted -continue Statin # regular diet # DVT PPX
[2020-03-13] MEDS: ATORVASTATIN 20 MG TAB PO SCH (21:03)
[2020-03-13] MEDS: ASPIRIN 81 MG PO SCH (21:03)
[2020-03-13] MEDS: SENNOSIDES-DOCUSATE SODIUM 1 EACH TAB PO SCH (21:03)
[2020-03-13 21:58] LABS: Glucose,Whole Blood 109 mg/dL (75-99)
[2020-03-14] MEDS: SODIUM CHLORIDE 0.9% 1,000 ML IV SCH ×2 (07:23→17:36)
[2020-03-14] MEDS: LACTATED RINGERS 1,000 ML IV SCH ×2 (07:23→17:36)
[2020-03-14 07:41] LABS: Albumin 2.6 g/dL (3.5-5.0); Calcium 8.3 mg/dL (8.4-10.2); Potassium 3.8 mmol/L (3.5-5.1); Total Bilirubin 0.5 mg/dL (0.2-1.3); Total Protein 4.9 g/dL (6.3-8.2)
[2020-03-14] MEDS: HEPARIN SODIUM,PORCINE 5,000 UNIT/ML 1 ML VIAL SQ SCH ×2 (08:32→20:18)
[2020-03-14] MEDS: METOPROLOL TARTRATE 50 MG TAB PO SCH ×2 (08:32→20:19)
[2020-03-14] MEDS: LISINOPRIL 5 MG TAB PO SCH (08:32)
[2020-03-14] MEDS: hydrALAZINE HCL 50 MG TAB PO SCH ×2 (08:32→20:19)
[2020-03-14] MEDS: FUROSEMIDE 20 MG TAB PO SCH (08:32)
[2020-03-14] MEDS: ASPIRIN 81 MG PO SCH ×2 (08:32→20:19)
[2020-03-14] MEDS: HYDROcodone/APAP 7.5-325MG 1 EACH TAB PO PRN (08:46)
--- NOTE | 2020-03-14 14:05 | P.PN ---
Subjective Progress Note Date: 03/14/20 This patient is an 85-year-old female who is status-post left hip arthroplasty on 03/13/2020 Dr. Avila. Today is post-operative day #1. The patient is examined bedside. Patient states the pain in her left hip is currently well-controlled. She has been up with physical therapy this morning and transferred to the bedside chair with no issues. She is ambulating with the use of walker with minimal issues or pain. She has not yet had postoperatively and she denies abdominal pain. She denies chest pain, shortness breath, nausea, vomiting, fevers, chills. Overall the patient feels well this morning. The patient is planning to discharge home with home health services. She has no complaints at the time of my exam. Vital signs stable. Objective - Vital Signs Vital signs: Vital Signs Temp 99.1 F 03/14/20 04:45 Pulse 80 03/14/20 04:45 Resp 16 03/14/20 04:45 BP 136/69 03/14/20 04:45 Pulse Ox 96 03/14/20 04:45 Intake & Output 03/13/20 03/14/20 03/14/20 18:59 06:59 18:59 Intake Total 2621 700 Output Total 1150 300 Balance 1471 400 Intake: IV 751 Intake, IV Titration 950 700 Amount Lactated Ringers 1,000 ml 700 @ 100 mls/hr IV .Q10H [facility] Rx#:[id number] Sodium Chloride 0.9% 1, 200 700 000 ml @ 100 mls/hr IV . Q10H [facility] Rx#:[id number] ceFAZolin 2 gm In Sodium 50 Chloride 0.9% 50 ml @ 100 mls/hr IVPB Q8HR [facility] Rx# :[id number] Oral 920 Output: Urine 1000 300 Uretheral (Silva) 800 Estimated Blood Loss 150 Other: Voiding Method Indwelling Catheter Indwelling Catheter Indwelling Catheter # Voids 1 - Exam On examination, the patient is sitting up at the bedside chair in no apparent distress. She is alert and oriented 3. On inspection of the left hip, there is a clean, dry, intact surgical dressing in place. There is no bleeding or drainage to the dressing. There is mild swelling of the thigh. The thigh is s oft and compressible. The patient has good strength and range of motion of her left ankle. Left lower extremity is warm and well perfused with brisk capillary refill distally. Motor and sensory function are intact in the left lower extremity. Calves are soft and nontender to palpation bilaterally. - Labs CBC & Chem 7: 03/13/20 11:00 03/14/20 06:19 Labs: Abnormal Lab Results - Last 24 Hours (Table) 03/13/20 03/13/20 03/14/20 Range/Units 11:00 21:16 06:19 WBC 12.6 H (3.8-10.6) k/uL MCV 107.2 H (80.0-100.0) fL MCHC 30.7 L (31.0-37.0) g/dL Neutrophils # 11.1 H (1.3-7.7) k/uL Lymphocytes # 0.7 L (1.0-4.8) k/uL Chloride 110 H (98-107) mmol/L Creatinine 1.09 H (0.52-1.04) mg/dL POC Glucose (mg/dL) 109 H (75-99) mg/dL Calcium 8.3 L (8.4-10.2) mg/dL Total Protein 4.9 L (6.3-8.2) g/dL Albumin 2.6 L (3.5-5.0) g/dL Assessment and Plan Assessment: Left femoral neck fracture status-post left hip hemiarthroplasty on 03/13/[address] Avila. Postoperative day #1. Plan: - Patient may weight-bear as tolerated on her operative leg. Up with assistance, up with a walker. - Physical therapy for gait and balance training. - Leave Optifoam dressing in place for 710 days. - [place] and Diluadid as needed for pain control. Decrease use of IV diluadid as tolerated. - 2 doses of post-operative antibiotics complete. - 81mg aspirin BID for DVT prophylaxis. Per internal medicine, patient will also be on Heparin while inpatient. - Anticipate discharge home with home health services tomorrow, pending medical clearance. Patient discussed with Dr. Avila.
--- NOTE | 2020-03-14 19:57 | P.PN ---
Progress Note - Text Progress Note Date: 03/14/20 Presenting complaint: Left hip fracture Interval history: Patient presented with a fall resulting in a femoral neck fracture. Underwent hemiarthroplasty. Today-sitting up in a chair. Pain is controlled. Does not like hospital food. No nausea vomiting. No chest pain. Review of systems: Was done for constitutional, cardiovascular, GI, pulmonary. Musculoskeletal relevant finding as above Active Medications Hydrocodone Bitart/Acetaminophen ([place] 7.5-325) 1 - 2 each PO Q6H PRN PRN Reason: Pain Last Admin: 03/14/20 08:46 Dose: 1 each Documented by: Aspirin (Aspirin) 81 mg PO BID [facility] Last Admin: 03/14/20 08:32 Dose: 81 mg Documented by: Atorvastatin Calcium (Lipitor) 20 mg PO HS [facility] Last Admin: 03/13/20 21:03 Dose: 20 mg Documented by: Furosemide (Lasix) 20 mg PO DAILY [facility] Last Admin: 03/14/20 08:32 Dose: 20 mg Documented by: Heparin Sodium (Porcine) (Heparin) 5,000 unit SQ Q12HR [facility] Last Admin: 03/14/20 08:32 Dose: 5,000 unit Documented by: Hydralazine HCl (Apresoline) 50 mg PO BID [facility] Last Admin: 03/14/20 08:32 Dose: 50 mg Documented by: Hydromorphone HCl (Dilaudid) 1 mg IVP Q3HR PRN PRN Reason: Pain Last Admin: 03/13/20 17:36 Dose: 1 mg Documented by: Hydroxyzine Pamoate (Vistaril) 25 mg PO Q4HR PRN PRN Reason: Mild Nausea and/or Anxiety Sodium Chloride (Saline 0.9%) 1,000 mls @ 100 mls/hr IV .Q10H [facility] Last Admin: 03/14/20 17:36 Dose: Not Given Documented by: Lactated Ringer's (Lactated Ringers) 1,000 mls @ 100 mls/hr IV .Q10H [facility] Last Admin: 03/14/20 17:36 Dose: Not Given Documented by: Lisinopril (Zestril) 5 mg PO DAILY [facility] Last Admin: 03/14/20 08:32 Dose: 5 mg Documented by: Metoprolol Tartrate (Lopressor) 50 mg PO BID [facility] Last Admin: 03/14/20 08:32 Dose: 50 mg Documented by: Naloxone HCl (Narcan) 0.2 mg IV Q2M PRN PRN Reason: Opioid Reversal Ondansetron HCl (Zofran) 4 mg IVP Q8HR PRN PRN Reason: Nausea And Vomiting Senna/Docusate Sodium (Senokot-S) 2 each PO HS [facility] Last Admin: 03/13/20 21:03 Dose: 2 each Documented by: On examination: VITAL SIGNS: 98, 81, 18, 138/68, 96% on 3 L GENERAL APPEARANCE: BMI 20.6, sitting up in a chair, comfortable HEENT: Normal external appearance of nose and ear. Oral cavity normal EYES: Pupils equal. Conjunctiva normal. NECK: JVD not raised. Mass not palpable. RESPIRATORY: Respiratory effort normal. Lungs-decreased breath sounds CARDIOVASCULAR: First and second sounds normal. No edema. ABDOMEN: Soft. Liver and spleen not palpable. No tenderness. No mass palpable. PSYCHIATRY: Alert and oriented x3. Mood and affect normal. MUSCULOSKELETAL: No bruising over the left hip. 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 INVESTIGATIONS, reviewed in the clinical context: White count 12.6 hemoglobin 12.8 potassium 3.8 creatinine 1.09 COVID-19 PCR-not detected Assessment: -Left femoral neck fracture followed by hemiarthroplasty -Hyperlipidemia -Essential hypertension -Coronary artery disease -Peripheral artery disease with prior aortic bypass and bilateral femoral grafting -Permanent pacemaker -Chronic nicotine dependence cigarette smoker Plan: Home medications to continue. Patient's aspirin for DVT prophylaxis. We'll give nicotine patch. Care was discussed with the patient. DC IV fluids Thank you Dr. Avila
[2020-03-14] MEDS: SENNOSIDES-DOCUSATE SODIUM 1 EACH TAB PO SCH (20:18)
[2020-03-14] MEDS: ATORVASTATIN 20 MG TAB PO SCH (20:19)
[2020-03-14] MEDS: NICOTINE 14MG/24HR PATCH TRANSDERM SCH (20:19)
[2020-03-15] MEDS: LACTATED RINGERS 1,000 ML IV SCH ×2 (02:29→13:32)
[2020-03-15] MEDS: HYDROcodone/APAP 7.5-325MG 1 EACH TAB PO PRN ×2 (03:57→14:59)
[2020-03-15 05:52] VITALS: RESP 18
[2020-03-15 07:47] LABS: Basophils % (A) 0 %; Eosinophils # (A) 0.1 k/uL (0-0.7); Eosinophils % (A) 2 %; HCT 32.9 % (34.0-46.0); HGB 10.3 gm/dL (11.4-16.0); Lymphocytes # (A) 0.7 k/uL (1.0-4.8); Lymphocytes % (A) 11 %; MCHC 31.3 g/dL (31.0-37.0); MCV 105.3 fL (80.0-100.0); Macrocytosis Slight; Mean Platelet Volume 10.4; Monocytes # (A) 0.4 k/uL (0-1.0); Monocytes % (A) 7 %; Neutrophils % (A) 78 %; Platelet Count 115 k/uL (150-450); RBC 3.13 m/uL (3.80-5.40); RDW 12.4 % (11.5-15.5); WBC 6.3 k/uL (3.8-10.6)
[2020-03-15] MEDS: FUROSEMIDE 20 MG TAB PO SCH (08:06)
[2020-03-15] MEDS: ASPIRIN 81 MG PO SCH (08:06)
[2020-03-15] MEDS: LISINOPRIL 5 MG TAB PO SCH (08:06)
[2020-03-15] MEDS: hydrALAZINE HCL 50 MG TAB PO SCH (08:06)
[2020-03-15] MEDS: METOPROLOL TARTRATE 50 MG TAB PO SCH (08:06)
[2020-03-15] MEDS: HEPARIN SODIUM,PORCINE 5,000 UNIT/ML 1 ML VIAL SQ SCH (08:07)
[2020-03-15] MEDS: NICOTINE 14MG/24HR PATCH TRANSDERM SCH (08:07)
--- NOTE | 2020-03-15 11:16 | P.DS ---
Providers Date of admission: 03/12/20 14:12 Expected date of discharge: 03/15/20 Attending physician: Jordan Avila Consults: 03/12/20 14:12 Consult Physician Routine Consulting Provider: Bib Yoon Consult Reason/Comments: Medical clearance for surgery Do you want consulting provider notified?: Yes Primary care physician: Mitesh Lowe - Discharge Diagnosis(es) (1) Fracture of femoral neck, left Current Visit: Yes Status: Acute (2) Left hip pain Current Visit: Yes Status: Acute (3) Fall Current Visit: Yes Status: Acute (4) Coronary artery disease Current Visit: Yes Status: Acute (5) History of permanent cardiac pacemaker placement Current Visit: Yes Status: Acute (6) Cigarette smoker Current Visit: Yes Status: Acute (7) HTN (hypertension) Current Visit: No Status: Acute (8) Hyperlipemia Current Visit: No Status: Acute Hospital Course: This is a pleasant 85-year-old female vwho presented with left hip femoral neck fracture status post fall. She was admitted for further treatment and ev aluation. She underwent a left hip hemiarthroplasty performed by Dr. Avila on 03/13/2020. Postoperatively she has had improvement of her left hip pain. She is able to ambulate on the left lower extremity. She does have some pain in her left hip which has been controlled with narcotic pain medication. She does feel she is continuing to improve postoperatively and is ready for discharge today. Condition on day of discharge stable. Patient has been cleared by medicine for discharge home. Patient was cleared preoperatively for surgery by Dr. Padilla. Patient currently denies any nausea, vomiting, fever, or chills. Patient is eating and voiding freely without difficulty. Patient may shower OptiFoam dressing intact. Patient should keep dressing intact until her follow-up appointment with Dr. Avila in 2 weeks postoperatively. Patient may weight-bear as tolerated on the left lower extremity. Patient may use walker to aid in ambulation as needed. Patient states she has 2 walkers at home. Patient will be discharged home with home health services. MAPS has been reviewed today, 03/15/2020, with an Overall Overdose Risk Score of 000. An "Opiod Start Talking" Form has been signed by the patient and myself in place in the patient's chart. A prescription has been written for [place] 7.5 mg/325 mg 1 tab every 6 hours as needed for pain, dispense #28. Patient may resume other previously prescribed home medications. Prescription for aspirin 81 mg in the evening has been discontinued by medicine. Patient is given a new prescription for aspirin 81 mg twice a day. She should take this medicine over the next 30 days and then may resume aspirin 81 mg daily following the completion of the 30 day prescription for twice a day. Medicine has also given prescription for Senokot and nicotine patch. Patient's past medical history includes coronary artery disease with aortic bypass and bilateral femoral grafting, pacemaker, hyperlipidemia, hypertension, and current cigarette smoker. Physical Exam Hip Hemiarthroplasty: Status post surgical day number 2 Patient is examined sitting bedside upright in a chair Patient is awake, alert, and oriented 3 Vital signs stable Good chest excursion with deep inspiration and expiration No signs or symptoms of DVT; no calf pain Lower extremity cuffs not currently in place bilaterally Dressing of the left hip is clean, dry, and intact; no erythema, purulence, or signs of infection No significant pain with palpation over the surgical site Full range of motion of ankles bilaterally Dorsiflexion, plantarflexion, and extensor hallucis longus positive sustained bilaterally Neurovascularly intact bilateral lower extremities Capillary refill less than 2 seconds bilateral lower extremities Procedures: Left hip hemiarthroplasty Patient Condition at Discharge: Stable Plan - Discharge Summary New Discharge Prescriptions: New Sennosides-Docusate Sodium [Senokot-S] 2 each PO HS tab Nicotine 14Mg/24Hr Patch [Habitrol] 1 patch TRANSDERM DAILY #14 patch Aspirin 81 mg PO BID 30 Days #60 chewable HYDROcodone/APAP 7.5-325MG [[place] 7.5-325] 1 each PO Q6HR PRN #28 tab PRN Reason: Pain Continue Isosorbide Mononitrate ER [Imdur] 60 mg PO DAILY Rosuvastatin Calcium [Crestor] 10 mg PO HS hydrALAZINE HCL 50 mg PO BID Metoprolol Tartrate [Lopressor] 50 mg PO BID Folic Acid 0.4 mg PO DAILY Cyanocobalamin (Vitamin B-12) [Vitamin B-12] 1,000 mcg PO DAILY Cholecalciferol [Vitamin D3 (25 Mcg = 1000 Iu)] 1,000 unit PO DAILY Lisinopril [Prinivil] 5 mg PO DAILY Changed Furosemide [Lasix] 20 mg PO DAILY #0 Discontinued Aspirin 81 mg PO HS Discharge Medication List Isosorbide Mononitrate ER [Imdur] 60 mg PO DAILY 08/10/14 [History] Rosuvastatin Calcium [Crestor] 10 mg PO HS 01/02/15 [History] Cholecalciferol [Vitamin D3 (25 Mcg = 1000 Iu)] 1,000 unit PO DAILY 01/02/18 [History] Cyanocobalamin (Vitamin B-12) [Vitamin B-12] 1,000 mcg PO DAILY 01/02/18 [Histor y] Folic Acid 0.4 mg PO DAILY 01/02/18 [History] Metoprolol Tartrate [Lopressor] 50 mg PO BID 01/02/18 [History] hydrALAZINE HCL 50 mg PO BID 01/02/18 [History] Lisinopril [Prinivil] 5 mg PO DAILY 03/12/20 [History] Furosemide [Lasix] 20 mg PO DAILY #0 03/14/20 [Rx] Sennosides-Docusate Sodium [Senokot-S] 2 each PO HS tab 03/14/20 [Rx] Aspirin 81 mg PO BID 30 Days #60 chewable 03/15/20 [Rx] HYDROcodone/APAP 7.5-325MG [[place] 7.5-325] 1 each PO Q6HR PRN #28 tab 03/15/20 [Rx] Nicotine 14Mg/24Hr Patch [Habitrol] 1 patch TRANSDERM DAILY #14 patch 03/15/20 [Rx] Follow up Appointment(s)/Referral(s): Mitesh Lowe MD [Primary Care Provider] - 1-2 days Jordan Avila MD [STAFF PHYSICIAN] - 2 Weeks [facility] Visiting Nurse, [NON-STAFF] - 1 Week Activity/Diet/Wound Care/Special Instructions: 1. Weight-bear as tolerated on left lower extremity. 2. Keep dressing intact over the left hip until her follow-up appointment with Dr. Avila in 2 weeks 3. Take medications as prescribed; take aspirin 81 mg twice a day for 1 month for anticoagulation 4. Any questions concerns may contact [facility] at [phone] Discharge Disposition: HOME WITH HOME HEALTH SERVICES
[2020-03-15 11:49] VITALS: BP 138/63; PULSE 80; TEMP 98.1
--- NOTE | 2020-03-16 21:05 | P.PN ---
Progress Note - Text Progress Note Date: 03/16/20 Presenting complaint: Left hip fracture Interval history: Patient presented with a fall resulting in a femoral neck fracture. Underwent hemiarthroplasty. Today-comfortable. Sitting up in a chair. Did eat some breakfast. Her nausea vomiting. Review of systems: Was done for constitutional, cardiovascular, GI, pulmonary. Musculoskeletal relevant finding as above Current medications reviewed in today's electronic records On examination: VITAL SIGNS: 98.4, 57, 18, 112/66, 93% on room air GENERAL APPEARANCE: sitting up in a chair, comfortable HEENT: Normal external appearance of nose and ear. Oral cavity normal EYES: Pupils equal. Conjunctiva normal. NECK: JVD not raised. Mass not palpable. RESPIRATORY: Respiratory effort normal. Lungs-decreased breath sounds CARDIOVASCULAR: First and second sounds normal. No edema. ABDOMEN: Soft. Liver and spleen not palpable. No tenderness. No mass palpable. PSYCHIATRY: Alert and oriented x3. Mood and affect normal. MUSCULOSKELETAL: No bruising over the left hip. 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 INVESTIGATIONS, reviewed in the clinical context: White count 6.3 hemoglobin 10.3 Previous testing White count 12.6 hemoglobin 12.8 potassium 3.8 creatinine 1.09 COVID-19 PCR-not detected Assessment: -Left femoral neck fracture followed by hemiarthroplasty -Hyperlipidemia -Essential hypertension -Coronary artery disease -Peripheral artery disease with prior aortic bypass and bilateral femoral grafting -Permanent pacemaker -Chronic nicotine dependence cigarette smoker -Acute postprocedure bloodless anemia, expected from surgery Plan: -Continue current medication treatment plan. Discussed with the patient. To follow with family doctor. Thank you Dr. Avila
== END 2020-03-15 16:18 | disposition home health service (06) | DRG 470 ==
LOC: EC 11:44 → 5NMEDONC 14:12
PROVIDERS: ADMIT Orthopaedic Surgery; ATTEND Orthopaedic Surgery
PROC: 0SRS0J9 Replacement of Left Hip Joint, Femoral Surface with Synthetic Substitute, Cemented, Open Approach (ICD-10-PCS; principal; 2020-03-13 08:00)
DX: S72.012A Unspecified intracapsular fracture of left femur, initial encounter for closed fracture (principal); D62 Acute posthemorrhagic anemia; M25.052 Hemarthrosis, left hip; Z11.59 Encounter for screening for other viral diseases; I73.1 Thromboangiitis obliterans [Buerger's disease]; N18.3 Chronic kidney disease, stage 3 (moderate); I73.9 Peripheral vascular disease, unspecified; H91.90 Unspecified hearing loss, unspecified ear; S60.512A Abrasion of left hand, initial encounter; S60.812A Abrasion of left wrist, initial encounter; I12.9 Hypertensive chronic kidney disease with stage 1 through stage 4 chronic kidney disease, or unspecified chronic kidney disease; E78.5 Hyperlipidemia, unspecified; M54.30 Sciatica, unspecified side; F17.210 Nicotine dependence, cigarettes, uncomplicated; R09.02 Hypoxemia; I25.10 Atherosclerotic heart disease of native coronary artery without angina pectoris; T40.2X5A Adverse effect of other opioids, initial encounter; R11.2 Nausea with vomiting, unspecified; W01.0XXA Fall on same level from slipping, tripping and stumbling without subsequent striking against object, initial encounter; Y92.019 Unspecified place in single-family (private) house as the place of occurrence of the external cause; I25.2 Old myocardial infarction; Z79.82 Long term (current) use of aspirin; Z79.899 Other long term (current) drug therapy; Z79.84 Long term (current) use of oral hypoglycemic drugs; Z98.42 Cataract extraction status, left eye; Z98.41 Cataract extraction status, right eye; Z95.828 Presence of other vascular implants and grafts; Z95.0 Presence of cardiac pacemaker; Z95.5 Presence of coronary angioplasty implant and graft; Z80.9 Family history of malignant neoplasm, unspecified
CPT/HCPCS: 36415; 71045; 73501; 73502; 80053; 81001; 82550; 83735; 85025; 85610; 85730; 88305; 88311; 90471; 90715; 93005; 94760; 96374; 96376; 99285

== ENCOUNTER → 2020-03-28 | Outpatient (CLI) | payer MEDICARE, OTHER ==
--- NOTE | 2020-03-28 10:58 | US ---
EXAMINATION TYPE: US venous doppler duplex LE LT DATE OF EXAM: 03/28/2020 10:48 AM COMPARISON: NONE CLINICAL HISTORY: 85-year-old female M25.552 PAIN LT HIP,M25.472 EFFUSION LT ANKLE,I80.9 PHLEBITIS. L eft leg swelling post hip repair 03/12/20 SIDE PERFORMED: Left TECHNIQUE: The lower extremity deep venous system is examined utilizing real time linear array sonog felicia with graded compression, doppler sonography and color-flow sonography. FINDINGS: VESSELS IMAGED: External Iliac Vein (EIV) Common Femoral Vein Deep Femoral Vein Greater Saphenous Vein * Femoral Vein Popliteal Vein Small Saphenous Vein * Proximal Calf Veins (* superficial vessels) Left Leg: Appears negative for DVT *tech impression to office @ 10:52 IMPRESSION: No evidence for DVT within the left lower extremity imaged from the groin to the upper calf.
== END | disposition home or self-care (01) ==
LOC: RADUSWWP 10:21
PROVIDERS: ATTEND Orthopaedic Surgery
DX: M25.552 Pain in left hip (principal); Z48.89 Encounter for other specified surgical aftercare; I80.9 Phlebitis and thrombophlebitis of unspecified site; M79.89 Other specified soft tissue disorders

== ENCOUNTER 2021-04-20 05:06 | Inpatient (IN) | payer MEDICARE, OTHER ==
[2021-04-20] MEDS ORDERED: SODIUM CHLORIDE 0.9% 1,000 ML IV STA ×2 (05:45→06:49)
[2021-04-20] MEDS ORDERED: SODIUM CHLORIDE 0.9% 500 ML 500 ML IV STA (05:45)
[2021-04-20] MEDS ORDERED: PANTOPRAZOLE 40 MG/10 ML VIAL IVP STA (05:45)
--- NOTE | 2021-04-20 05:58 | ED ---
GI Bleed HPI - General Chief complaint: GI Bleed Stated complaint: GI Bleed Time Seen by Provider: 04/20/21 05:14 Source: patient, family, RN notes reviewed, old records reviewed Mode of arrival: wheelchair Limitations: no limitations - History of Present Illness Initial comments: This is an 86-year-old female to the ER for evaluation is today. She presents today for evaluation of bright red blood per rectum. Today patient presents for evaluation regards to bilateral blood pressure rectum and diarrhea. Patient's brought in by family member who noticed bleeding from her rectum. Patient is very weak and frail, With difficulty hearing suicidal poor strain. Presents with daughter for evaluation of bleeding, she has have history of similar GI bl eed complaint: blood streaked emesis, blood streaked stool -: days(s) Radiation: none Severity scale (1-10): 7 Quality: painless Consistency: constant Improves with: none Worsens with: none Context: history of GI bleed Associated Symptoms: denies other symptoms, nausea, vomiting - Related Data Home Medications Medication Instructions Recorded Confirmed Isosorbide Mononitrate ER [Imdur] 60 mg PO DAILY 08/10/14 04/20/21 Rosuvastatin Calcium [Crestor] 10 mg PO HS 01/02/15 04/20/21 Cyanocobalamin (Vitamin B-12) 1,000 mcg PO DAILY 01/02/18 04/20/21 [Vitamin B-12] Folic Acid 0.4 mg PO DAILY 01/02/18 04/20/21 Metoprolol Tartrate [Lopressor] 50 mg PO BID 01/02/18 04/20/21 hydrALAZINE HCL 50 mg PO BID 01/02/18 04/20/21 lisinopriL [Prinivil] 5 mg PO DAILY 03/12/20 04/20/21 Aspirin 81 mg PO DAILY 04/20/21 04/20/21 Cholecalciferol [Vitamin D3 (25 25 mcg PO DAILY 04/20/21 04/20/21 Mcg = 1000 Iu)] Furosemide [Lasix] 20 mg PO BID 04/20/21 04/20/21 Allergies Allergy/AdvReac Type Severity Reaction Status Date / Time No Known Allergies Allergy Verified 04/20/21 07:18 Review of Systems ROS Statement: Those systems with pertinent positive or pertinent negative responses have been documented in the HPI. ROS Other: All systems not noted in ROS Statement are negative. Past Medical History Past Medical History: Hyperlipidemia, Hypertension, Myocardial Infarction ([place]) Additional Past Medical History / Comment(s): SCIATICA, irregular heartbeat, hx bergers disease Last Myocardial Infarction Date:: 2004 History of Any Multi-Drug Resistant Organisms: None Reported Past Surgical History: AICD, Heart Catheterization, Pacemaker Additional Past Surgical History / Comment(s): aortic bypass with bilateral femoral grafting. RONEY CATARACTS, AICD removed and changed to pacemaker Past Anesthesia/Blood Transfusion Reactions: No Reported Reaction Type of Cardiac Device: Permanent Pacemaker Device Placement Date:: UNKNOWN Past Psychological History: No Psychological Hx Reported Smoking Status: Current every day smoker Past Alcohol Use History: Occasional Past Drug Use History: None Reported - Past Family History Father Family Medical History: Cancer Additional Family Medical History / Comment(s): . Mother Family Medical History: No Reported History Additional Family Medical History / Comment(s): MOTHER AT AGE 97 YRS. General Exam Limitations: no limitations General appearance: alert, in no apparent distress Head exam: Present: atraumatic, normocephalic, normal inspection Eye exam: Present: normal appearance, PERRL, EOMI. Absent: scleral icterus, conjunctival injection, periorbital swelling ENT exam: Present: normal exam, mucous membranes moist Neck exam: Present: normal inspection. Absent: tenderness, meningismus, lymphadenopathy Respiratory exam: Present: normal lung sounds bilaterally. Absent: respiratory distress, wheezes, rales, rhonchi, stridor Cardiovascular Exam: Present: regular rate, normal rhythm, normal heart sounds. Absent: systolic murmur, diastolic murmur, rubs, gallop, clicks GI/Abdominal exam: Present: soft, normal bowel sounds. Absent: distended, tenderness, guarding, rebound, rigid Extremities exam: Present: normal inspection, full ROM, normal capillary refill. Absent: tenderness, pedal edema, joint swelling, calf tenderness Back exam: Present: normal inspection Neurological exam: Present: alert, oriented X3, CN II-XII intact Psychiatric exam: Present: normal affect, normal mood Skin exam: Present: warm, dry, intact, normal color. Absent: rash Course Vital Signs 04/20/21 04/20/21 04/20/21 05:11 07:39 09:59 Temperature 98.1 F 98.4 F Pulse Rate 89 80 77 Respiratory 16 16 16 Rate Blood Pressure 98/59 106/51 120/62 O2 Sat by Pulse 95 100 Oximetry 04/20/21 04/20/21 04/20/21 12:22 13:49 15:03 Temperature Pulse Rate 75 73 79 Respiratory 18 16 Rate Blood Pressure 126/63 93/49 O2 Sat by Pulse 96 94 L Oximetry 04/20/21 04/20/21 15:13 16:40 Temperature 97.8 F Pulse Rate 79 77 Respiratory 18 Rate Blood Pressure 117/52 O2 Sat by Pulse 94 L Oximetry - Reevaluation(s) Reevaluation #1: 04/20/21 07:29 Medical record is reviewed Patient symptoms are improved here in the ER Patient is in no acute distress Patient informed results and questions answered Reevaluation #2: Patient does have bleeding per rectum here in the ER clotting blood Medical Decision Making - Medical Decision Making 86 female to the ER for evaluation patient presents for evaluation of bright red blood per rectum. Patient currently not on blood thinners patient will be admitted for monitoring of hemoglobin possible surgical evaluation - Lab Data Result diagrams: 04/20/21 05:49 04/20/21 05:49 Lab Results 04/20/21 04/20/21 04/20/21 Range/Units 05:49 05:49 05:49 WBC 14.6 H (3.8-10.6) k/uL RBC 4.05 (3.80-5.40) m/uL Hgb 13.8 (11.4-16.0) gm/dL Hct 41.0 (34.0-46.0) % MCV 101.1 H (80.0-100.0) fL MCH 34.1 (25.0-35.0) pg MCHC 33.7 (31.0-37.0) g/dL RDW 12.1 (11.5-15.5) % Plt Count 264 (150-450) k/uL MPV 8.5 Neutrophils % 90 % Lymphocytes % 5 % Monocytes % 4 % Eosinophils % 0 % Basophils % 0 % Neutrophils # 13.1 H (1.3-7.7) k/uL Lymphocytes # 0.7 L (1.0-4.8) k/uL Monocytes # 0.6 (0-1.0) k/uL Eosinophils # 0.0 (0-0.7) k/uL Basophils # 0.0 (0-0.2) k/uL PT 10.5 (9.0-12.0) sec INR 1.0 (<1.2) APTT 23.4 (22.0-30.0) sec Sodium 138 (137-145) mmol/L Potassium 4.3 (3.5-5.1) mmol/L Chloride 106 (98-107) mmol/L Carbon Dioxide 22 (22-30) mmol/L Anion Gap 10 mmol/L BUN 40 H (7-17) mg/dL Creatinine 1.76 H (0.52-1.04) mg/dL Est GFR (CKD-EPI)AfAm 30 (>60 ml/min/1.73 sqM) Est GFR (CKD-EPI)NonAf 26 (>60 ml/min/1.73 sqM) Glucose 131 H (74-99) mg/dL Calcium 9.8 (8.4-10.2) mg/dL Magnesium 2.0 (1.6-2.3) mg/dL Total Bilirubin 0.6 (0.2-1.3) mg/dL AST 22 (14-36) U/L ALT 11 (4-34) U/L Alkaline Phosphatase 54 (38-126) U/L Creatine Kinase 37 (30-135) U/L Troponin I (0.000-0.034) ng/mL Total Protein 5.9 L (6.3-8.2) g/dL Albumin 3.6 (3.5-5.0) g/dL Blood Type Blood Type Recheck Bld Type Recheck Status Antibody Screen Spec Expiration Date 04/20/21 04/20/21 Range/Units 05:49 05:49 WBC (3.8-10.6) k/uL RBC (3.80-5.40) m/uL Hgb (11.4-16.0) gm/dL Hct (34.0-46.0) % MCV (80.0-100.0) fL MCH (25.0-35.0) pg MCHC (31.0-37.0) g/dL RDW (11.5-15.5) % Plt Count (150-450) k/uL MPV Neutrophils % % Lymphocytes % % Monocytes % % Eosinophils % % Basophils % % Neutrophils # (1.3-7.7) k/uL Lymphocytes # (1.0-4.8) k/uL Monocytes # (0-1.0) k/uL Eosinophils # (0-0.7) k/uL Basophils # (0-0.2) k/uL PT (9.0-12.0) sec INR (<1.2) APTT (22.0-30.0) sec Sodium (137-145) mmol/L Potassium (3.5-5.1) mmol/L Chloride (98-107) mmol/L Carbon Dioxide (22-30) mmol/L Anion Gap mmol/L BUN (7-17) mg/dL Creatinine (0.52-1.04) mg/dL Est GFR (CKD-EPI)AfAm (>60 ml/min/1.73 sqM) Est GFR (CKD-EPI)NonAf (>60 ml/min/1.73 sqM) Glucose (74-99) mg/dL Calcium (8.4-10.2) mg/dL Magnesium (1.6-2.3) mg/dL Total Bilirubin (0.2-1.3) mg/dL AST (14-36) U/L ALT (4-34) U/L Alkaline Phosphatase (38-126) U/L Creatine Kinase (30-135) U/L Troponin I <0.012 (0.000-0.034) ng/mL Total Protein (6.3-8.2) g/dL Albumin (3.5-5.0) g/dL Blood Type O Positive Blood Type Recheck O Pos Bld Type Recheck Status No Antibody Screen NEGATIVE Spec Expiration Date 04/23/20212348 Disposition Clinical Impression: Atrial fibrillation, Lower gastrointestinal hemorrhage Disposition: ADMITTED IP TO THIS HOSP Condition: Fair Is patient prescribed a controlled substance at d/c from ED?: No
[2021-04-20 06:04] LABS: Basophils % (A) 0 %; Eosinophils % (A) 0 %; HGB 13.8 gm/dL (11.4-16.0); Lymphocytes # (A) 0.7 k/uL (1.0-4.8); Lymphocytes % (A) 5 %; MCH 34.1 pg (25.0-35.0); MCHC 33.7 g/dL (31.0-37.0); MCV 101.1 fL (80.0-100.0); Mean Platelet Volume 8.5; Monocytes # (A) 0.6 k/uL (0-1.0); Monocytes % (A) 4 %; Neutrophils # (A) 13.1 k/uL (1.3-7.7); Neutrophils % (A) 90 %; Platelet Count 264 k/uL (150-450); RBC 4.05 m/uL (3.80-5.40); RDW 12.1 % (11.5-15.5); WBC 14.6 k/uL (3.8-10.6)
[2021-04-20 06:15] LABS: Partial Thromboplastin Time 23.4 sec (22.0-30.0); Prothrombin Time 10.5 sec (9.0-12.0)
[2021-04-20 06:35] LABS: Albumin 3.6 g/dL (3.5-5.0); Calcium 9.8 mg/dL (8.4-10.2); Potassium 4.3 mmol/L (3.5-5.1); Total Bilirubin 0.6 mg/dL (0.2-1.3); Total Protein 5.9 g/dL (6.3-8.2)
[2021-04-20] MEDS ORDERED: NALOXONE 0.4 MG/ML 1 ML VIAL IV PRN (06:49)
[2021-04-20] MEDS ORDERED: MORPHINE SULFATE 4 MG/ML SYRINGE IV PRN (06:49)
[2021-04-20] MEDS ORDERED: ONDANSETRON 4 MG/2 ML VIAL IVP PRN (06:49)
[2021-04-20] MEDS: FOLIC ACID 1 MG TAB PO SCH (11:59)
[2021-04-20] MEDS: METOPROLOL TARTRATE 50 MG TAB PO SCH ×2 (11:59→20:49)
[2021-04-20] MEDS: ISOSORBIDE MONONITRATE ER 60 MG TAB.ER.24H PO SCH (12:20)
[2021-04-20] MEDS: hydrALAZINE HCL 50 MG TAB PO SCH ×2 (12:20→22:39)
[2021-04-20] MEDS: NICOTINE 21MG/24HR PATCH TRANSDERM SCH ×2 (13:56→14:01)
[2021-04-20] MEDS: guaiFENesin 600 MG TABLET.ER PO SCH ×3 (13:56→20:50)
[2021-04-20] MEDS: BUDESONIDE 1 MG/2 ML NEBU INHALATION SCH ×2 (14:31→19:12)
--- NOTE | 2021-04-20 14:31 | CT ---
EXAMINATION TYPE: CT abdomen pelvis wo con DATE OF EXAM: 04/20/2021 COMPARISON: None HISTORY: 86-year-old female Abdominal pain, rectal bleeding CT DLP: 386.4 mGycm. Automated exposure control for dose reduction was used. TECHNIQUE: Contiguous axial scanning of the abdomen and pelvis without IV contrast. Coronal and sagit paul reconstructions performed. FINDINGS: Right atrial, right ventricular, and coronary sinus. AICD leads. Heart borderline enlarged with small 5 mm thick anterior pericardial effusion. There is some circumferential wall thickening of the dista l esophagus and trace right pleural effusion. There is a 1.1 cm inferior posterior right liver lobe cyst. Periportal edema noted. Gallbladder borde rline hydropic measuring 9.7 cm long and 4.1 cm wide. No appreciable wall thickening on this noncontr ast study. Diffuse low-density thickening of the bilateral adrenal glands Right kidney shows an exophytic intermediate attenuating lesion anterior upper pole, probable mildly complex cyst. Additional cortical lesions are present. One along the lateral mid pole could be solid measuring 1.3 cm. Others likely represent hemorrhagic cysts. One is a simple cyst anteriorly and 2.1 cm. Multiple cysts left kidney, at least one is hemorrhagic at the lower pole measuring 1.4 cm. Large kassy tral cyst measuring 4.8 cm. Ureter appears separate from this structure suggesting a large parapelvic cyst rather than hydronephrosis. Lack of IV contrast mild generalized anasarca changes limits the evaluation. Spleen and pancreas show no gross abnormality by noncontrast CT. Unable to exclude focal thickening throughout the stomach. Mild perihepatic and perisplenic ascites. Ascites fluid tracks down the paracolic gutters. Segment of thickened bowel, likely right-sided colon on axial image 46. There is sigmoid diverticulos is. There is moderate to severe wall thickening suggested at the distal sigmoid and rectum with some associated surrounding fluid. Unable to delineate bowel in the pelvis, axial image 65 D8. Bladder appears partially distended. Mild pelvic ascites. Unable to adequately assess for any foci of extraluminal air due to the clumped up crowded bowel and other soft tissue structures in the pelvis. Abdominal aortic bifemoral bypass graft noted. Patency cannot be assessed on this noncontrast study. Bones: Left hip hemiarthroplasty. Osteopenia. Hypertrophic facet arthropathy mid to lower lumbar spin e. Trace grade 1 anterolisthesis L4-L5. IMPRESSION: 1. Very limited exam due to anasarca, lack of IV/oral contrast, and clumped up and crowded soft tiss ue structures. Cardiomegaly, small 5 mm anterior pericardial effusion, trace right pleural effusion, periportal leo a, and mild abdominal ascites. Correlate for fluid overload state or CHF. 2. Sigmoid diverticulosis. Suggestion of moderate to severe wall thickening at the distal sigmoid and rectum and with some associated surrounding fluid. Unable to exclude nonspecific colitis/acute diver ticulitis or neoplasm at this level. 3. Additional areas of wall thickening include the distal esophagus, stomach, and a segment of right hemicolon. Inflammation at some or all of these sites difficult to exclude. 4. Suspect a large 4.8 cm parapelvic cyst rather than left-sided hydronephrosis. Multiple bilateral c ysts demonstrate varying degrees of internal complication. One cortical lesion along the lateral righ t mid pole could be solid measuring 1.3 cm. Follow-up contrast enhanced CT in 6 months to reassess th mamta lesions.
--- NOTE | 2021-04-20 14:52 | P.CONS ---
History of Present Illness - Reason for Consult Consult date: 04/20/21 GI bleed, rectal bleeding Requesting physician: Bib Yoon - Chief Complaint Diarrhea with rectal bleeding - History of Present Illness This is an 86-year-old white female who presented to emergency department this morning with complaints of diarrhea mixed with blood that started last night. She has a past medical history of aortic bypass with femoral graft, coronary artery disease, atrial fibrillation with pacemaker, hypertension and hyperlipidemia. She denies any previous GI bleed in the past. But she does state that she has had a bowel resection which she is unsure why, may be due to diverticulitis in 1996. She states that she had diarrhea a week ago for 1 week along with vomiting, no bleeding at that time. States the diarrhea started again last night with lower abdominal cramping. She denies any sick contacts, new medications, or recent antibiotic use. She denies any previous history of colitis. She states she's had a colonoscopy but that was many years ago. No previous EGD. She denies taking any anticoagulation, she is does take a daily l ow-dose aspirin. Admitting labs WBC 14.5, hemoglobin 13.8, hematocrit 41, platelet count 264,000, INR 1.0, total bilirubin 0.6, alkaline phosphatase 54, AST 22, ALT 11, BUN 40, creatinine 1. on 6. Patient denies any fevers or chills, she was afebrile on presentation. Review of Systems REVIEW OF SYSTEMS: CARDIOPULMONARY: No chest pain or shortness of breath. Gastrointestinal: Lower abdominal cramping. No nausea or vomiting. No hematemesis, coffee-ground emesis. Diarrhea with bright red blood.. GENITOURINARY: No dysuria or hematuria. MUSCULOSKELETAL: Reports normal range of motion., Joint pain. SKIN: No rashes. No jaundice. ENDOCRINE: No chills, fevers. No excessive weight gain or loss. No polydipsia or polyuria. PSYCHIATRIC: Unremarkable. NEUROLOGY: No change in mental status. Denies dizziness, headache. ENT: Vision unremarkable. CONSTITUTIONAL: No recent weight loss. No fever, chills, night sweats. Past Medical History Past Medical History: Hyperlipidemia, Hypertension, Myocardial Infarction ([place]) Additional Past Medical History / Comment(s): SCIATICA, irregular heartbeat, hx bergers disease Last Myocardial Infarction Date:: 2004 History of Any Multi-Drug Resistant Organisms: None Reported Past Surgical History: AICD, Heart Catheterization, Pacemaker Additional Past Surgical History / Comment(s): aortic bypass with bilateral femoral grafting. RONEY CATARACTS, AICD removed and changed to pacemaker Past Anesthesia/Blood Transfusion Reactions: No Reported Reaction Type of Cardiac Device: Permanent Pacemaker Device Placement Date:: UNKNOWN Past Psychological History: No Psychological Hx Reported Smoking Status: Current every day smoker Past Alcohol Use History: Occasional Past Drug Use History: None Reported - Past Family History Father Family Medical History: Cancer Additional Family Medical History / Comment(s): . Mother Family Medical History: No Reported History Additional Family Medical History / Comment(s): MOTHER AT AGE 97 YRS. Medications and Allergies Home Medications Medication Instructions Recorded Confirmed Type Isosorbide Mononitrate ER [Imdur] 60 mg PO DAILY 08/10/14 04/20/21 History Rosuvastatin Calcium [Crestor] 10 mg PO HS 01/02/15 04/20/21 History Cyanocobalamin (Vitamin B-12) 1,000 mcg PO DAILY 01/02/18 04/20/21 History [Vitamin B-12] Folic Acid 0.4 mg PO DAILY 01/02/18 04/20/21 History Metoprolol Tartrate [Lopressor] 50 mg PO BID 01/02/18 04/20/21 History hydrALAZINE HCL 50 mg PO BID 01/02/18 04/20/21 History lisinopriL [Prinivil] 5 mg PO DAILY 03/12/20 04/20/21 History Aspirin 81 mg PO DAILY 04/20/21 04/20/21 History Cholecalciferol [Vitamin D3 (25 25 mcg PO DAILY 04/20/21 04/20/21 History Mcg = 1000 Iu)] Furosemide [Lasix] 20 mg PO BID 04/20/21 04/20/21 History Allergies Allergy/AdvReac Type Severity Reaction Status Date / Time No Known Allergies Allergy Verified 04/20/21 07:18 Physical Exam Vitals: Vital Signs Temp Pulse Resp BP Pulse Ox 04/20/21 09:59 77 16 120/62 100 04/20/21 07:39 98.4 F 80 16 106/51 04/20/21 05:11 98.1 F 89 16 98/59 95 Intake and Output 04/19/21 04/20/21 04/20/21 22:59 06:59 14:59 Other: Weight 52.617 kg General appearance: The patient is alert, oriented, appears in no acute distress. HET: Head is normocephalic and atraumatic. Conjunctiva pink. Sclera anicteric. Neck: Supple without lymphadenopathy. Trachea midline. Heart: S1 S2. Regular rate and rhythm. Lungs: Clear to auscultation. Abdomen: Soft, lower abdominal tenderness, left greater than right, nondistended with bowel sounds. No guarding or rigidity. Skin: No rashes. No jaundice. Extremities: Normal skin color and turgor. No pedal edema. Neurological: No focal deficits. Alert and oriented 3.. Results CBC & Chem 7: 04/20/21 05:49 04/20/21 05:49 Labs: Abnormal Lab Results - Last 24 Hours (Table) 04/20/21 04/20/21 Range/Units 05:49 05:49 WBC 14.6 H (3.8-10.6) k/uL MCV 101.1 H (80.0-100.0) fL Neutrophils # 13.1 H (1.3-7.7) k/uL Lymphocytes # 0.7 L (1.0-4.8) k/uL BUN 40 H (7-17) mg/dL Creatinine 1.76 H (0.52-1.04) mg/dL Glucose 131 H (74-99) mg/dL Total Protein 5.9 L (6.3-8.2) g/dL Assessment and Plan (1) Lower GI bleed Narrative/Plan: 86-year-old female who presented to the emergency room with complaints of bloody diarrhea that began last night. She had previous diarrhea a week ago for one week, and was associated with nausea and vomiting. She had improvement and again last night had an episode of diarrhea and noticed bright red blood mixed in with stool. The patient denies any sick contacts, recent antibiotic use, or new medications. She denies any fever. She has a prior history of bowel resection for which she is unsure of reason, possible diverticulitis. She is complaints of cramping followed by loose stools mixed with blood. She has a history of atrial fibrillation with a pacemaker, she is not on any anticoagulation. She only takes a low-dose aspirin daily. She's had no prior history of GI bleed. Likely dealing with colitis, possible etiologies infectious, inflammatory, or ischemic. Will order CT of the abdomen without contrast due to kidney function. Current Visit: Yes Status: Acute Code(s): K92.2 - GASTROINTESTINAL HEMORRHAGE, UNSPECIFIED SNOMED Code(s): 89320710 (2) Diarrhea Current Visit: Yes Status: Acute Code(s): R19.7 - DIARRHEA, UNSPECIFIED SNOMED Code(s): 78496767 (3) Atrial fibrillation Current Visit: Yes Status: Chronic Code(s): I48.91 - UNSPECIFIED ATRIAL FIBRILLATION SNOMED Code(s): 03484684 Plan: 1. Nothing by mouth except ice chips 2. CT of the abdomen without contrast ordered due to kidney function 3. Stool studies ordered 4. Repeat daily CBC 5. Continue IV fluids 6. Further recommendations pending clinical course Thank you for this consultation, we will continue to follow Dr. Dennis I agree with the dictator's note, documented as a scribe by Ana German.
[2021-04-20] MEDS: IPRATROPIUM-ALBUTEROL 3 ML NEB INHALATION SCH ×2 (15:02→19:12)
--- NOTE | 2021-04-20 15:47 | P.HPIM ---
History of Present Illness H&P Date: 04/20/21 Chief Complaint: Abdominal pain History of presenting complaint: This is a pleasant 86-year-old patient who follows with visiting physicians Dr. Lowe. Chronic stable medical conditions include hyperlipidemia, hypertension, peripheral arterial disease with Bergers disease, AICD permanent pacemaker. Patient continues to smoke a pack a day. Patient about 2 weeks ago had an episode of abdominal pain diarrhea or vomiting. Yesterday started off with having him go pain yet again. We'll do some blood in the stool. No fever no chills. The blood is mixed in the stool. Pain is across the lower abdomen. No exacerbating or relieving features. Patient's niece Marah was also D POA and her sisters both present. Patient also has a congested cough. Not able to expectorate much. Some cough and wheezing. Review of systems: GEN.: Tired EYES: None HEENT: None NECK: None RESPIRATORY: [As above CARDIOVASCULAR: None GASTROINTESTINAL: As above GENITOURINARY: None MUSCULOSKELETAL: Joint pains LYMPHATICS: None HEMATOLOGICAL: None PSYCHIATRY: None NEUROLOGICAL: None Past medical history to include: Hypertension, hyperlipidemia, coronary artery disease with [place], irregular heartbeat,bergers disease about a bypass and bilateral femoral grafting, AICD/removed and changed to permanent pacemaker Social history: Occasionally uses a cane. Lives alone. Smokes over a pack a day for many years. Alcohol occasionally. Family history: Cancer Physical examination: VITAL SIGNS: 98.4, 77, 16, 1 20 x 62, 100% room air GENERAL: BMI 19.9, reclining in bed, tired,. EYES: Pupils equal. Conjunctiva normal. HEENT: External appearance of nose and ears normal, oral cavity grossly normal. NECK: JVD not raised; masses not palpable. HEART: First and second heart sounds are normal; no edema. LUNGS: Respiratory rate increased, decreased breath sounds expiratory wheezing. ABDOMEN: Soft, lower abdominal tenderness, no guarding rigidity, liver spleen not palpable, no masses palpable. 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 NEUROLOGICAL: Cranial nerves grossly intact; no facial asymmetry, power and sensation grossly intact. LYMPHATICS: No lymph nodes palpable in the axilla and neck INVESTIGATIONS, reviewed in the clinical context: WBC 14.6 hemoglobin 13.8 platelets 264 potassium 4.3 BUN 40 creatinine 1.76 Computed tomography scan of the abdomen and pelvis with and without contrast: Cyst present on both the kidneys. Sigmoid diverticulosis. Moderate to severe wall thickening suggested at the distal sigmoid and rectum with some surrounding associated fluid. Abdominal aortic bifemoral bypass graft noted. Assessment and plan: -This is a patient with well known vasculopath long history of smoking now presents with abdominal pain and some blood in the stool. Computed tomography scan showing segment of thickened wall. Most likely ischemic colitis. Patient is put on clear liquids. IV Zosyn. -Acute COPD exacerbation in a current smoker DuoNeb, nebulized steroids, Mucinex -Chronic nicotine dependence, patient cigarette smoker Nicotine patch -Coronary artery disease with prior [place] And aspirin -Peripheral arterial disease Aspirin and continue Crestor -Essential hypertension Continue with Lopressor., Prinivil, hydralazine -Vitamin B12 deficiency Continue B12 supplement -Possible CK D. IV fluids. Renal ultrasound. Check UA -DO NOT RESUSCITATE -DPOA: Marah, niece Care was discussed with the patient's 2 nieces at the bedside. IV fluids. IV Zosyn. Clear liquids. Nebulized bronchodilators, 2-D echocardiogram, renal ultrasound, UA. GI consulted Given the complexity and severity of patient's condition expect the patient to be in the hospital at least for 2 overnights Past Medical History Past Medical History: Hyperlipidemia, Hypertension, Myocardial Infarction ([place]) Additional Past Medical History / Comment(s): SCIATICA, irregular heartbeat, hx bergers disease Last Myocardial Infarction Date:: 2004 History of Any Multi-Drug Resistant Organisms: None Reported Past Surgical History: AICD, Heart Catheterization, Pacemaker Additional Past Surgical History / Comment(s): aortic bypass with bilateral femoral grafting. RONEY CATARACTS, AICD removed and changed to pacemaker Past Anesthesia/Blood Transfusion Reactions: No Reported Reaction Type of Cardiac Device: Permanent Pacemaker Device Placement Date:: UNKNOWN Past Psychological History: No Psychological Hx Reported Smoking Status: Current every day smoker Past Alcohol Use History: Occasional Past Drug Use History: None Reported - Past Family History Father Family Medical History: Cancer Additional Family Medical History / Comment(s): . Mother Family Medical History: No Reported History Additional Family Medical History / Comment(s): MOTHER AT AGE 97 YRS. Medications and Allergies Home Medications Medication Instructions Recorded Confirmed Type Isosorbide Mononitrate ER [Imdur] 60 mg PO DAILY 08/10/14 04/20/21 History Rosuvastatin Calcium [Crestor] 10 mg PO HS 01/02/15 04/20/21 History Cyanocobalamin (Vitamin B-12) 1,000 mcg PO DAILY 01/02/18 04/20/21 History [Vitamin B-12] Folic Acid 0.4 mg PO DAILY 01/02/18 04/20/21 History Metoprolol Tartrate [Lopressor] 50 mg PO BID 01/02/18 04/20/21 History hydrALAZINE HCL 50 mg PO BID 01/02/18 04/20/21 History lisinopriL [Prinivil] 5 mg PO DAILY 03/12/20 04/20/21 History Aspirin 81 mg PO DAILY 04/20/21 04/20/21 History Cholecalciferol [Vitamin D3 (25 25 mcg PO DAILY 04/20/21 04/20/21 History Mcg = 1000 Iu)] Furosemide [Lasix] 20 mg PO BID 04/20/21 04/20/21 History Allergies Allergy/AdvReac Type Severity Reaction Status Date / Time No Known Allergies Allergy Verified 04/20/21 07:18 Physical Exam Vitals: Vital Signs Temp Pulse Resp BP Pulse Ox 04/20/21 09:59 77 16 120/62 100 04/20/21 07:39 98.4 F 80 16 106/51 04/20/21 05:11 98.1 F 89 16 98/59 95 Intake and Output 04/19/21 04/20/21 04/20/21 22:59 06:59 14:59 Other: Weight 52.617 kg Results CBC & Chem 7: 04/20/21 05:49 04/20/21 05:49 Labs: Abnormal Lab Results - Last 24 Hours (Table) 04/20/21 04/20/21 Range/Units 05:49 05:49 WBC 14.6 H (3.8-10.6) k/uL MCV 101.1 H (80.0-100.0) fL Neutrophils # 13.1 H (1.3-7.7) k/uL Lymphocytes # 0.7 L (1.0-4.8) k/uL BUN 40 H (7-17) mg/dL Creatinine 1.76 H (0.52-1.04) mg/dL Glucose 131 H (74-99) mg/dL Total Protein 5.9 L (6.3-8.2) g/dL
[2021-04-20] MEDS ORDERED: PIPERACILLIN-TAZOBACTAM 3.375 GM in SODIUM CHLORIDE 0.9% 100 ML IVPB SCH (16:00)
[2021-04-20] MEDS: SODIUM CHLORIDE 0.9% 1,000 ML IV SCH (16:54)
--- NOTE | 2021-04-20 17:22 | XR ---
EXAMINATION TYPE: XR chest 2V DATE OF EXAM: 04/20/2021 COMPARISON: Chest x-ray March 12, 2020 HISTORY: History of COPD with cough and congestion. TECHNIQUE: Frontal and lateral views of the chest are obtained. FINDINGS: There is chronic parenchymal change without suspicious new focal air space opacity, pleura l effusion, or pneumothorax seen. Persistent cardiomegaly with multi lead pacemaker/defibrillator and atherosclerotic aorta. The osseous structures are demineralized. IMPRESSION: Chronic changes and cardiomegaly without acute pulmonary process.
[2021-04-20] MEDS: PIPERACILLIN-TAZOBACTAM 3.375 GM in SODIUM CHLORIDE 0.9% 100 ML IVPB SCH (17:56)
[2021-04-20] MEDS: ATORVASTATIN 20 MG TAB PO SCH (20:50)
[2021-04-20] MEDS: FAMOTIDINE 20 MG TAB PO SCH (20:50)
[2021-04-20] MEDS ORDERED: PANTOPRAZOLE 40 MG/10 ML VIAL IV SCH (21:00)
--- NOTE | 2021-04-21 00:20 | US ---
EXAMINATION TYPE: US kidneys/renal and bladder DATE OF EXAM: 04/20/2021 COMPARISON: CT CLINICAL HISTORY: assess for CK D. Assess for CKD. EXAM MEASUREMENTS: Right Kidney: 11.4 x 5.1 x 5.2 cm Left Kidney: 12.1 x 5.8 x 6.0 cm Right Kidney: Multiple anechoic areas seen. -Hypoechoic area seen upper pole medially: 1.8 x 2.8 x 1.8 cm. -Hypoechoic area seen mid pole laterally: 1.9 x 1.6 x 1.0 cm. -Largest anechoic area seen upper pole medially: 2.5 x 2.6 x 1.9 cm. Left Kidney: Measures upper limits of normal. Multiple anechoic areas seen. -Anechoic area seen upper pole: 3.9 x 3.5 x 3.9 cm. -Large complex area seen mid pole: 5.0 x 4.7 x 6.2 cm. -Anechoic area seen lower pole laterally: 2.6 x 2.4 x 2.0 cm. Bladder: Not fully distended. Bilateral Jets seen: Right jet seen during exam. Incidental finding: Anechoic-slightly hypoechoic area seen within the right lobe of the liver: 1.0 x 1.4 x 1.1 cm. IMPRESSION: Multiple renal cortical cysts. Some of these cysts are complex. No definite solid renal mass. Left si de ureteral jet was not visible. No evidence of a bladder mass. The renal cysts obscure the calyces o f the kidneys.
[2021-04-21] MEDS: SODIUM CHLORIDE 0.9% 1,000 ML IV SCH ×2 (03:19→16:17)
[2021-04-21] MEDS: PIPERACILLIN-TAZOBACTAM 3.375 GM in SODIUM CHLORIDE 0.9% 100 ML IVPB SCH ×3 (06:25→23:37)
[2021-04-21] MEDS: IPRATROPIUM-ALBUTEROL 3 ML NEB INHALATION SCH ×4 (08:11→20:50)
[2021-04-21] MEDS: BUDESONIDE 1 MG/2 ML NEBU INHALATION SCH ×2 (08:11→20:50)
[2021-04-21 09:30] LABS: Albumin 2.8 g/dL (3.5-5.0); Calcium 8.7 mg/dL (8.4-10.2); Magnesium 1.9 mg/dL (1.6-2.3); Phosphorus 3.5 mg/dL (2.5-4.5); Potassium 3.5 mmol/L (3.5-5.1); Total Bilirubin 0.5 mg/dL (0.2-1.3); Total Protein 4.9 g/dL (6.3-8.2)
--- NOTE | 2021-04-21 09:30 | ECHOF ---
Referral Reason:Assess LV function MEASUREMENTS -------- HEIGHT: 162.6 cm WEIGHT: 52.6 kg BP: RVIDd: 2.8 cm (< 3.3) IVSd: 1.2 cm (0.6 - 1.1) LVIDd: 4.3 cm (3.9 - 5.3) LVPWd: 1.2 cm (0.6 - 1.1) IVSs: 1.5 cm LVIDs: 3.4 cm LVPWs: 1.8 cm LA Diam: 4.3 cm (2.7 - 3.8) LAESV Index (A-L): 55.51 ml/m MV EXCURSION: 19.089 mm (> 18.000) MV EF SLOPE: 46 mm/s (70 - 150) EPSS: 1.3 cm MV E Damon: 0.46 m/s MV DecT: 281 ms MV A Damon: 0.99 m/s MV E/A Ratio: 0.47 RAP: 5.00 mmHg RVSP: 34.93 mmHg FINDINGS -------- Pacerwire seen in RV and RA. This was a technically good study. The left ventricular size is normal. There is mild concentric left ventricular hypertrophy. Overa ll left ventricular systolic function is mild-moderately impaired with, an EF between 40 - 45 %. Ba tra inferior LV wall motion is hypokinetic. The right ventricle is normal in size. LA is severely dilated >40 ml/m2 The right atrial size is normal. There is mild aortic valve sclerosis. There is mild aortic regurgitation. Mild mitral annular calcification present. Mild mitral regurgitation is present. Mild tricuspid regurgitation present. Right ventricular systolic pressure is normal at < 35 mmHg. Trace/mild (physiologic) pulmonic regurgitation. There is no pericardial effusion. CONCLUSIONS -------- 1. The left ventricular size is normal. 2. There is mild concentric left ventricular hypertrophy. 3. Overall left ventricular systolic function is mild-moderately impaired with, an EF between 40 - 45 %. 4. Basal inferior LV wall motion is hypokinetic. 5. The right ventricle is normal in size. 6. LA is severely dilated >40 ml/m2 7. The right atrial size is normal. 8. There is mild aortic valve sclerosis. 9. There is mild aortic regurgitation. 10. Mild mitral annular calcification present. 11. Mild mitral regurgitation is present. 12. Mild tricuspid regurgitation present. 13. Right ventricular systolic pressure is normal at < 35 mmHg. 14. Trace/mild (physiologic) pulmonic regurgitation. 15. There is no pericardial effusion. MAP COLORER: Birgit Anthony RDCS
[2021-04-21 09:55] LABS: Basophils % (A) 0 %; Eosinophils # (A) 0.1 k/uL (0-0.7); Eosinophils % (A) 1 %; HCT 33.8 % (34.0-46.0); HGB 11.6 gm/dL (11.4-16.0); Lymphocytes # (A) 0.8 k/uL (1.0-4.8); Lymphocytes % (A) 9 %; MCH 35.1 pg (25.0-35.0); MCHC 34.2 g/dL (31.0-37.0); MCV 102.6 fL (80.0-100.0); Macrocytosis Slight; Mean Platelet Volume 9.1; Monocytes # (A) 0.5 k/uL (0-1.0); Monocytes % (A) 6 %; Neutrophils # (A) 7.8 k/uL (1.3-7.7); Neutrophils % (A) 84 %; Platelet Count 210 k/uL (150-450); RBC 3.29 m/uL (3.80-5.40); RDW 12.1 % (11.5-15.5); WBC 9.3 k/uL (3.8-10.6)
[2021-04-21] MEDS: FAMOTIDINE 20 MG TAB PO SCH (09:55)
[2021-04-21] MEDS: CYANOCOBALAMIN 500 MCG TAB PO SCH (09:55)
[2021-04-21] MEDS: FOLIC ACID 1 MG TAB PO SCH (09:55)
[2021-04-21] MEDS: METOPROLOL TARTRATE 50 MG TAB PO SCH ×2 (09:56→19:53)
[2021-04-21] MEDS: hydrALAZINE HCL 50 MG TAB PO SCH ×2 (09:56→19:53)
[2021-04-21] MEDS: guaiFENesin 600 MG TABLET.ER PO SCH ×4 (09:56→19:53)
[2021-04-21] MEDS: ISOSORBIDE MONONITRATE ER 60 MG TAB.ER.24H PO SCH (09:56)
[2021-04-21] MEDS: NICOTINE 21MG/24HR PATCH TRANSDERM SCH (09:56)
--- NOTE | 2021-04-21 12:44 | P.PN ---
Subjective Progress Note Date: 04/21/21 Principal diagnosis: Abdominal pain, GI bleed 6-year-old female who presented to the emergency department yesterday with complaints of abdominal cramping followed by loose stools mixed with blood. Patient had no prior similar symptoms. No history of colitis. Patient does state she had a bowel resection in 1996 possibly due to diverticulitis. She had a CT of the abdomen and pelvis yesterday impression stating very limited exam due to anasarca, lack of IV or oral contrast and clumped up in crowded soft tissue structures. Cardiomegaly, small 5 mm anterior pericardial effusion, trace right pleural effusion,. Portal edema, and mild abdominal ascites. Correlate for fluid overload state or CHF. Sigmoid diverticulosis. Suggestion of moderate to severe wall thickening at the distal sigmoid and rectum with some associated surrounding fluid. Unable to exclude nonspecific colitis/acute diverticulitis or neoplasm at this level. Additional areas of wall thickening including the distal esophagus, stomach, kidneys segment of the right hemicolon. Inflammation at some or all of these sites difficult to exclude. Suspect a large 4.8 cm parapelvic cyst rather than left-sided hydronephrosis. Multiple bilateral cysts demonstrate varying degrees of internal complication. One cortical lesion along the lateral right mid pole could be solid measuring 1.3 cm. Follow-up contrast-enhanced CT in 6 months to reassess.the patient states her abdominal pain and cramping has improved, she has had no further bloody diarrhea, states she still passing some light pink tinged mucus. He denies any nausea or vomiting. She has been afebrile. She was started on Zosyn. Objective - Vital Signs Vital signs: Vital Signs Temp 98.4 F 04/21/21 08:00 Pulse 68 04/21/21 08:26 Resp 20 04/21/21 08:00 BP 128/58 04/21/21 08:00 Pulse Ox 95 04/21/21 08:00 Intake & Output 04/20/21 04/21/21 04/21/21 18:59 06:59 18:59 Intake Total 240 480 Output Total 400 Balance -160 480 Weight 52.617 kg 30.5 kg Intake: Oral 240 480 Output: Urine 400 Other: Voiding Method Toilet # Voids 1 # Bowel Movements 1 - Exam General appearance: The patient is alert, oriented, appears in no acute distres s. HET: Head is normocephalic and atraumatic. Conjunctiva pink. Sclera anicteric. Neck: Supple without lymphadenopathy. Abdomen: Soft, nontender, nondistended with bowel sounds. No guarding or rigidity. Extremities: Normal skin color and turgor. No pedal edema Skin: No rashes, no jaundice Neurological: No focal deficits. Alert and oriented 3. - Labs CBC & Chem 7: 04/21/21 07:36 04/21/21 07:36 Labs: Abnormal Lab Results - Last 24 Hours (Table) 04/21/21 04/21/21 Range/Units 07:36 07:36 RBC 3.29 L (3.80-5.40) m/uL Hct 33.8 L (34.0-46.0) % MCV 102.6 H (80.0-100.0) fL MCH 35.1 H (25.0-35.0) pg Neutrophils # 7.8 H (1.3-7.7) k/uL Lymphocytes # 0.8 L (1.0-4.8) k/uL Chloride 112 H (98-107) mmol/L BUN 30 H (7-17) mg/dL Creatinine 1.32 H (0.52-1.04) mg/dL Total Protein 4.9 L (6.3-8.2) g/dL Albumin 2.8 L (3.5-5.0) g/dL Microbiology - Last 24 Hours (Table) 04/20/21 14:10 Stool Culture - Preliminary Stool Assessment and Plan (1) Lower GI bleed Narrative/Plan: 86-year-old female who presented to the emergency room with complaints of bloody diarrhea that began last night. She had previous diarrhea a week ago for one week, and was associated with nausea and vomiting. She had improvement and again last night had an episode of diarrhea and noticed bright red blood mixed in with stool. The patient denies any sick contacts, recent antibiotic use, or new medications. She denies any fever. She has a prior history of bowel resection for which she is unsure of reason, possible diverticulitis. She is complaints of cramping followed by loose stools mixed with blood. She has a history of atrial fibrillation with a pacemaker, she is not on any anticoagulation. She only takes a low-dose aspirin daily. She's had no prior history of GI bleed. Likely dealing with colitis, possible etiologies infectious, inflammatory, or ischemic. Will order CT of the abdomen without contrast due to kidney function. Current Visit: Yes Status: Acute Code(s): K92.2 - GASTROINTESTINAL HEMORRHAGE, UNSPECIFIED SNOMED Code(s): 26050457 (2) Diarrhea Current Visit: Yes Status: Acute Code(s): R19.7 - DIARRHEA, UNSPECIFIED SNOMED Code(s): 84139089 (3) Atrial fibrillation Current Visit: Yes Status: Chronic Code(s): I48.91 - UNSPECIFIED ATRIAL FIBRILLATION SNOMED Code(s): 79728155 (4) Cigarette smoker Current Visit: No Status: Acute Code(s): F17.210 - NICOTINE DEPENDENCE, CIGARETTES, UNCOMPLICATED SNOMED Code(s): 63522854 Plan: 1. Advance to full liquid diet 2. CT of the abdomen and pelvis ordered and reviewed 3. Stool studies ordered, pending 4. Repeat daily CBC 5. Continue IV antibiotics 6. Discussed outpatient EGD/Colonoscopy with patient and her niece 7. Recommend smoking Cessation Thank you for this consultation, we will continue to follow Dr. Pj Duvall I agree with the dictator's note, documented as a scribe by Ana German.
--- NOTE | 2021-04-21 12:52 | P.PN ---
Progress Note - Text Progress Note Date: 04/21/21 Chief Complaint: Abdominal pain History of presenting complaint: This is a pleasant 86-year-old patient who follows with visiting physicians Dr. Lowe. Chronic stable medical conditions include hyperlipidemia, hypertension, peripheral arterial disease with Bergers disease, AICD permanent pacemaker. Patient continues to smoke a pack a day. Patient about 2 weeks ago had an episode of abdominal pain diarrhea or vomiting. Yesterday started off with having him go pain yet again. We'll do some blood in the stool. No fever no chills. The blood is mixed in the stool. Pain is across the lower abdomen. No exacerbating or relieving features. Patient's niece Marah was also D POA and her sisters both present. Patient also has a congested cough. Not able to expectorate much. Some cough and wheezing. Computed tomography scan suggestive of ischemic colitis. Started on IV Zosyn. IV fluids. Also been treated for acute COPD exacerbation. Nebulized bronchodilators and inhaled steroids. March 22: Laying in bed. Abdominal pain a bit better. No nausea and vomiting. Breathing a bit better. Was on a clear liquid diet. Review of systems: Was done for constitutional, cardiovascular, GI, pulmonary. relevant finding as above Active Medications Albuterol/Ipratropium (Ipratropium-Albuterol 3 Ml Neb) 3 ml INHALATION RT-QID [facility] Last Admin: 04/21/21 11:49 Dose: 3 ml Documented by: Atorvastatin Calcium (Atorvastatin 20 Mg Tab) 20 mg PO HS [facility] Last Admin: 04/20/21 20:50 Dose: 20 mg Documented by: Budesonide (Budesonide 1 Mg/2 Ml Nebu) 1 mg INHALATION RT-BID [facility] Last Admin: 04/21/21 08:11 Dose: 1 mg Documented by: Cyanocobalamin (Cyanocobalamin 500 Mcg Tab) 1,000 mcg PO DAILY [facility] Last Admin: 04/21/21 09:55 Dose: 1,000 mcg Documented by: Famotidine (Famotidine 20 Mg Tab) 20 mg PO BID [facility] Last Admin: 04/21/21 09:55 Dose: 20 mg Documented by: Folic Acid (Folic Acid 1 Mg Tab) 0.5 mg PO DAILY [facility] Last Admin: 04/21/21 09:55 Dose: 0.5 mg Documented by: Guaifenesin (Guaifenesin 600 Mg Tablet.Er) 600 mg PO QID [facility] Last Admin: 04/21/21 12:09 Dose: 600 mg Documented by: Hydralazine HCl (Hydralazine Hcl 50 Mg Tab) 50 mg PO BID [facility] Last Admin: 04/21/21 09:56 Dose: 50 mg Documented by: Sodium Chloride (Saline 0.9%) 1,000 mls @ 75 mls/hr IV .[id number] [facility] Last Admin: 04/21/21 03:19 Dose: 75 mls/hr Documented by: Piperacillin Sod/Tazobactam (Sod 3.375 gm/ Sodium Chloride) 100 mls @ 25 mls/hr IVPB Q12H [facility] Last Admin: 04/21/21 06:25 Dose: 25 mls/hr Documented by: Isosorbide Mononitrate (Isosorbide Mononitrate Er 60 Mg Tab.Er.24h) 60 mg PO DAILY [facility] Last Admin: 04/21/21 09:56 Dose: 60 mg Documented by: Metoprolol Tartrate (Metoprolol Tartrate 50 Mg Tab) 50 mg PO BID [facility] Last Admin: 04/21/21 09:56 Dose: 50 mg Documented by: Morphine Sulfate (Morphine Sulfate 4 Mg/Ml Syringe) 4 mg IV Q4HR PRN PRN Reason: Severe Pain Naloxone HCl (Naloxone 0.4 Mg/Ml 1 Ml Vial) 0.2 mg IV Q2M PRN PRN Reason: Opioid Reversal Nicotine (Nicotine 21mg/24hr Patch) 1 patch TRANSDERM DAILY [facility] Last Admin: 04/21/21 09:56 Dose: 1 patch Documented by: Ondansetron HCl (Ondansetron 4 Mg/2 Ml Vial) 4 mg IVP Q8HR PRN PRN Reason: Nausea And Vomiting Past medical history to include: Hypertension, hyperlipidemia, coronary artery disease with [place], irregular heartbeat,bergers disease about a bypass and bilateral femoral grafting, AICD/removed and changed to permanent pacemaker Social history: Occasionally uses a cane. Lives alone. Smokes over a pack a day for many years. Alcohol occasionally. Family history: Cancer Physical examination: VITAL SIGNS: 98.3, 81, 20, 116 x 56, 98% room air GENERAL: BMI 19.9, reclining in bed, awake EYES: Pupils equal. Conjunctiva normal. HEENT: External appearance of nose and ears normal, oral cavity grossly normal. NECK: JVD not raised; masses not palpable. HEART: First and second heart sounds are normal; no edema. LUNGS: Respiratory rate increased, decreased breath sounds improved wheezing ABDOMEN: Soft, decreased abdominal tenderness, no guarding rigidity, liver spleen not palpable, no masses palpable. 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 INVESTIGATIONS, reviewed in the clinical context: April 21: WBC 9.3 hemoglobin 11.6 potassium 3.5 creatinine 1.32 Renal ultrasound: 1. Of bilateral kidney cyst. 2-D echocardiogram: EF 40-45% wall motion abnormality. WBC 14.6 hemoglobin 13.8 platelets 264 potassium 4.3 BUN 40 creatinine 1.76 Computed tomography scan of the abdomen and pelvis with and without contrast: Cyst present on both the kidneys. Sigmoid diverticulosis. Moderate to severe wall thickening suggested at the distal sigmoid and rectum with some surrounding associated fluid. Abdominal aortic bifemoral bypass graft noted. Assessment and plan: -Acute ischemic colitis.: Slow to respond IV Zosyn. -Acute COPD exacerbation in a current smoker: Slow to respond DuoNeb, nebulized steroids, Mucinex -Chronic nicotine dependence, patient cigarette smoker Nicotine patch -Coronary artery disease with prior [place] And aspirin -Chronic congestive heart failure from systolic dysfunction, from ischemic cardiomyopathy. EF 40-45% Follow clinically. Add Aldactone -Peripheral arterial disease Aspirin and continue Crestor -Essential hypertension Continue with Lopressor., Prinivil, hydralazine -Vitamin B12 deficiency Continue B12 supplement -Possible CK D. IV fluids. Renal ultrasound. Check UA -Acute kidney injury, likely ATN Follow labs. Continue IV fluids -DO NOT RESUSCITATE -DPOA: damion Crystal Advance diet to full liquids. Continue with bronchodilators. Decreased IV fluids to 50 mL an hour. Have the patient sit up in a chair and increase activity. Discussed with the patient. Continue with IV Zosyn. Add Aldactone
[2021-04-21 13:56] VITALS: BMI 18.6
--- NOTE | 2021-04-21 14:40 | CDI ---
Documentation Clarification Form Date: 04/21/2021 02:02:05 PM From: Marylou Willoughby RN, CCDS Phone: [phone] Admit Date: 04/20/2021 03:42:00 PM Patient Name: Tatum Shay Visit Number: [id number] Discharge Date: ATTENTION: The Clinical Documentation Specialists (CDI) and [facility] Coding Staff appreciate your assistance in clarifying documentation. Please respond to the clarification below the line at the bottom and electronically sign. The CDI & [facility] Coding staff will review the response and follow-up if needed. Please note: Queries are made part of the Legal Health Record. If you have any questions, please contact the author of this message via ITS. Dr. Bib Yoon Unspecified possible CKD is documented in the H/P and subsequent progress notes Additional clarification regarding the stage of CKD is requested. History/Risk Factors: Patients Historical 03/12/2020 BUN 20 Cr 1.33 GFR 37 Clinical Indicators: 86 year-old female present with complaints of abdominal pain, bloody stools. CT abdomen showing segment of thickened wall. Most likely ischemic colitis. Suspect a large 4.8 cm parapelvic cyst rather than left-sided hydronephrosis 04/20 Admission BUN 40, CR 1.76, GFR 26 04/21 BUN 30, CR 1.32, GFR 37 Treatment: .9NS 1,000 MLS Bolus X2 (04/20) then @ 50 mls/hr 04/21 DC Monitor BUN, CR, GFR Please clarify the stage of the CKD, if known: [ ] CKD Stage 1 (GFR > 90) [ ] CKD Stage 2 (GFR 60-89) [ ] CKD Stage 3 (GFR 30-59) [ ] CKD Stage 3a (GFR 45-59) [ ] CKD Stage 3b (GFR 30-44) [ ] CKD Stage 4 (GFR 15-29) [ ] Other, please specify [ ] Unable to determine (Template Last revised: November 2020) Patient labs improving. Cannot be determined at the present time. MTDD
[2021-04-21] MEDS: ASPIRIN 81 MG PO SCH (16:16)
[2021-04-21] MEDS: ATORVASTATIN 20 MG TAB PO SCH (19:53)
[2021-04-22] MEDS: BUDESONIDE 1 MG/2 ML NEBU INHALATION SCH ×2 (07:32→19:17)
[2021-04-22] MEDS: IPRATROPIUM-ALBUTEROL 3 ML NEB INHALATION SCH ×4 (07:32→19:17)
[2021-04-22] MEDS: CYANOCOBALAMIN 500 MCG TAB PO SCH (08:15)
[2021-04-22] MEDS: ASPIRIN 81 MG PO SCH (08:15)
[2021-04-22] MEDS: NICOTINE 21MG/24HR PATCH TRANSDERM SCH (08:15)
[2021-04-22] MEDS: PIPERACILLIN-TAZOBACTAM 3.375 GM in SODIUM CHLORIDE 0.9% 100 ML IVPB SCH ×3 (08:15→23:58)
[2021-04-22] MEDS: FOLIC ACID 1 MG TAB PO SCH (08:16)
[2021-04-22] MEDS: FAMOTIDINE 20 MG TAB PO SCH (08:16)
[2021-04-22] MEDS: guaiFENesin 600 MG TABLET.ER PO SCH ×4 (08:17→20:03)
[2021-04-22] MEDS: ISOSORBIDE MONONITRATE ER 60 MG TAB.ER.24H PO SCH (08:17)
[2021-04-22] MEDS: hydrALAZINE HCL 50 MG TAB PO SCH ×2 (08:17→20:03)
[2021-04-22] MEDS: METOPROLOL TARTRATE 50 MG TAB PO SCH ×2 (08:17→20:03)
[2021-04-22] MEDS: SPIRONOLACTONE 25 MG TAB PO SCH (08:17)
[2021-04-22 11:36] LABS: Calcium 8.9 mg/dL (8.4-10.2); Potassium 4.1 mmol/L (3.5-5.1)
--- NOTE | 2021-04-22 13:24 | PN ---
PROGRESS NOTE PROGRESS NOTE: Patient is an 86-year-old pleasant white female, admitted to hospital with acute ischemic colitis. She presented with lower abdominal pain and bloody diarrhea of 2 days' duration. She is doing much better. In fact, she had no bowel movements for the last 3 days. Her abdominal pain has improved. No nausea, no vomiting. Hemoglobin continues to remain stable. Hemoglobin yesterday was 11.6 g/dL. PHYSICAL EXAMINATION: She appears comfortable. No apparent distress. Vital signs are stable. Blood pressure is 152/64, pulse rate 72, temperature 98.1. HEENT examination unremarkable. Conjunctivae pink. Sclerae anicteric. Oral cavity no lesions. Neck: No JVD or lymph node enlargement. Chest: Clear to auscultation. Heart: Regular rate and rhythm. Abdomen was soft, it was nontender, nondistended. Bowel sounds are positive. Very minimal tenderness in the left lower quadrant area. Extremities: No pedal edema. Skin: No rashes. Neurologic: Alert and oriented x3. No focal deficits. LABS: From yesterday, WBC 9.3, hemoglobin 11.6 and platelets normal. CBC from today is pending. IMPRESSION: This is a lady who presented to the hospital with acute onset of lower abdominal pain followed by rectal bleeding and CT scan showing thickening of the left colon, all consistent with acute ischemic colitis. The patient presently on broad-spectrum antibiotics and doing well. Her symptoms are resolved, hemoglobin remains stable. No further episodes of bleeding. RECOMMENDATION: 1. Continue with broad-spectrum antibiotics. 2. Advance to regular diet. 3. If her hemoglobin remains stable, she can be discharged home later today or tomorrow. 4. Outpatient colonoscopy in 3-4 weeks. The patient was advised to follow up in the office in 2 weeks following discharge from the hospital. Thank you for this consultation. MMODL / IJN: [id number] /
[2021-04-22] MEDS: SODIUM CHLORIDE 0.9% 1,000 ML IV SCH (15:24)
--- NOTE | 2021-04-22 18:26 | P.PN ---
Progress Note - Text Progress Note Date: 04/22/21 Chief Complaint: Abdominal pain History of presenting complaint: This is a pleasant 86-year-old patient who follows with visiting physicians Dr. Lowe. Chronic stable medical conditions include hyperlipidemia, hypertension, peripheral arterial disease with Bergers disease, AICD permanent pacemaker. Patient continues to smoke a pack a day. Patient about 2 weeks ago had an episode of abdominal pain diarrhea or vomiting. Yesterday started off with having him go pain yet again. We'll do some blood in the stool. No fever no chills. The blood is mixed in the stool. Pain is across the lower abdomen. No exacerbating or relieving features. Patient's niece Marah was also D POA and her sisters both present. Patient also has a congested cough. Not able to expectorate much. Some cough and wheezing. Computed tomography scan suggestive of ischemic colitis. Started on IV Zosyn. IV fluids. Also been treated for acute COPD exacerbation. Nebulized bronchodilators and inhaled steroids. March 22: Laying in bed. Abdominal pain a bit better. No nausea and vomiting. Breathing a bit better. Was on a clear liquid diet. March 23: No abdominal pain. Breathing better. Did tolerate a full liquid diet. Has been out of bed. Review of systems: Was done for constitutional, cardiovascular, GI, pulmonary. relevant finding as above Active Medications Albuterol/Ipratropium (Ipratropium-Albuterol 3 Ml Neb) 3 ml INHALATION RT-QID [facility] Last Admin: 04/22/21 15:38 Dose: 3 ml Documented by: Aspirin (Aspirin 81 Mg) 81 mg PO DAILY [facility] Last Admin: 04/22/21 08:15 Dose: 81 mg Documented by: Atorvastatin Calcium (Atorvastatin 20 Mg Tab) 20 mg PO HS [facility] Last Admin: 04/21/21 19:53 Dose: 20 mg Documented by: Budesonide (Budesonide 1 Mg/2 Ml Nebu) 1 mg INHALATION RT-BID [facility] Last Admin: 04/22/21 07:32 Dose: Not Given Documented by: Cyanocobalamin (Cyanocobalamin 500 Mcg Tab) 1,000 mcg PO DAILY [facility] Last Admin: 04/22/21 08:15 Dose: 1,000 mcg Documented by: Famotidine (Famotidine 20 Mg Tab) 20 mg PO DAILY [facility] Last Admin: 04/22/21 08:16 Dose: 20 mg Documented by: Folic Acid (Folic Acid 1 Mg Tab) 0.5 mg PO DAILY [facility] Last Admin: 04/22/21 08:16 Dose: 0.5 mg Documented by: Guaifenesin (Guaifenesin 600 Mg Tablet.Er) 600 mg PO QID [facility] Last Admin: 04/22/21 17:16 Dose: 600 mg Documented by: Hydralazine HCl (Hydralazine Hcl 50 Mg Tab) 50 mg PO BID [facility] Last Admin: 04/22/21 08:17 Dose: 50 mg Documented by: Sodium Chloride (Saline 0.9%) 1,000 mls @ 50 mls/hr IV .Q20H [facility] Last Admin: 04/22/21 15:24 Dose: Not Given Documented by: Piperacillin Sod/Tazobactam (Sod 3.375 gm/ Sodium Chloride) 100 mls @ 25 mls/hr IVPB Q8HR [facility] Last Admin: 04/22/21 15:37 Dose: 25 mls/hr Documented by: Isosorbide Mononitrate (Isosorbide Mononitrate Er 60 Mg Tab.Er.24h) 60 mg PO DAILY [facility] Last Admin: 04/22/21 08:17 Dose: 60 mg Documented by: Metoprolol Tartrate (Metoprolol Tartrate 50 Mg Tab) 50 mg PO BID [facility] Last Admin: 04/22/21 08:17 Dose: 50 mg Documented by: Morphine Sulfate (Morphine Sulfate 4 Mg/Ml Syringe) 4 mg IV Q4HR PRN PRN Reason: Severe Pain Naloxone HCl (Naloxone 0.4 Mg/Ml 1 Ml Vial) 0.2 mg IV Q2M PRN PRN Reason: Opioid Reversal Nicotine (Nicotine 21mg/24hr Patch) 1 patch TRANSDERM DAILY [facility] Last Admin: 04/22/21 08:15 Dose: 1 patch Documented by: Ondansetron HCl (Ondansetron 4 Mg/2 Ml Vial) 4 mg IVP Q8HR PRN PRN Reason: Nausea And Vomiting Spironolactone (Spironolactone 25 Mg Tab) 25 mg PO DAILY [facility] Last Admin: 04/22/21 08:17 Dose: 25 mg Documented by: Past medical history to include: Hypertension, hyperlipidemia, coronary artery disease with [place], irregular heartbeat,bergers disease about a bypass and bilateral femoral grafting, AICD/removed and changed to permanent pacemaker Social history: Occasionally uses a cane. Lives alone. Smokes over a pack a day for many years. Alcohol occasionally. Family history: Cancer Physical examination: VITAL SIGNS: 98.1, 78, 18, 129/60, 98% room air GENERAL: BMI 19.9, reclining in bed, awake EYES: Pupils equal. Conjunctiva normal. HEENT: External appearance of nose and ears normal, oral cavity grossly normal. NECK: JVD not raised; masses not palpable. HEART: First and second heart sounds are normal; no edema. LUNGS: Respiratory rate increased, decreased breath sounds improved wheezing ABDOMEN: Soft, no tenderness, no guarding rigidity, liver spleen not palpable, no masses palpable. 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 INVESTIGATIONS, reviewed in the clinical context: April 22: Potassium 4.1 creatinine 1.11 April 21: WBC 9.3 hemoglobin 11.6 potassium 3.5 creatinine 1.32 Renal ultrasound: f bilateral kidney cyst. 2-D echocardiogram: EF 40-45% wall motion abnormality. WBC 14.6 hemoglobin 13.8 platelets 264 potassium 4.3 BUN 40 creatinine 1.76 Computed tomography scan of the abdomen and pelvis with and without contrast: Cyst present on both the kidneys. Sigmoid diverticulosis. Moderate to severe wall thickening suggested at the distal sigmoid and rectum with some surrounding associated fluid. Abdominal aortic bifemoral bypass graft noted. Assessment and plan: -Acute ischemic colitis.: Improving IV Zosyn. Diet advanced to regular this afternoon. -Acute COPD exacerbation in a current smoker: Improving DuoNeb, nebulized steroids, Mucinex -Chronic nicotine dependence, patient cigarette smoker Nicotine patch -Coronary artery disease with prior [place] And aspirin -Chronic congestive heart failure from systolic dysfunction, from ischemic cardiomyopathy. EF 40-45% Follow clinically. Add Aldactone -Peripheral arterial disease Aspirin and continue Crestor -Essential hypertension Continue with Lopressor., Prinivil, hydralazine -Vitamin B12 deficiency Continue B12 supplement -Possible CK D. IV fluids. Renal ultrasound. Check UA -Acute kidney injury, likely ATN-improving Follow labs. Continue IV fluids -DO NOT RESUSCITATE -DPOA: Marah, niece Continue with IV fluids today. Diet advanced to regular. Repeat BMP in the morning. Discussed with the patient. Hopefully discharge tomorrow.
[2021-04-22] MEDS: ATORVASTATIN 20 MG TAB PO SCH (20:03)
[2021-04-23] MEDS: BUDESONIDE 1 MG/2 ML NEBU INHALATION SCH (07:18)
[2021-04-23] MEDS: IPRATROPIUM-ALBUTEROL 3 ML NEB INHALATION SCH ×2 (07:18→11:18)
[2021-04-23 07:52] LABS: Calcium 9.4 mg/dL (8.4-10.2); Potassium 4.2 mmol/L (3.5-5.1)
[2021-04-23] MEDS: PIPERACILLIN-TAZOBACTAM 3.375 GM in SODIUM CHLORIDE 0.9% 100 ML IVPB SCH (08:51)
[2021-04-23] MEDS: FAMOTIDINE 20 MG TAB PO SCH (08:52)
[2021-04-23] MEDS: guaiFENesin 600 MG TABLET.ER PO SCH ×2 (08:52→12:30)
[2021-04-23] MEDS: ASPIRIN 81 MG PO SCH (08:52)
[2021-04-23] MEDS: FOLIC ACID 1 MG TAB PO SCH (08:52)
[2021-04-23] MEDS: CYANOCOBALAMIN 500 MCG TAB PO SCH (08:52)
[2021-04-23] MEDS: SPIRONOLACTONE 25 MG TAB PO SCH (08:53)
[2021-04-23] MEDS: NICOTINE 21MG/24HR PATCH TRANSDERM SCH (08:53)
[2021-04-23] MEDS: hydrALAZINE HCL 50 MG TAB PO SCH (08:53)
[2021-04-23] MEDS: METOPROLOL TARTRATE 50 MG TAB PO SCH (08:53)
[2021-04-23] MEDS: ISOSORBIDE MONONITRATE ER 60 MG TAB.ER.24H PO SCH (08:53)
--- NOTE | 2021-04-23 10:20 | PN ---
PROGRESS NOTE DATE OF SERVICE: 04/23/2021 INTERVAL HISTORY: Patient is an 86-year-old pleasant white female admitted to the hospital with acute ischemic colitis. She is doing better. Abdominal pain has resolved. No further episodes of bleeding or diarrhea. She developed some cough yesterday and became somewhat short of breath and presently on 6 L of supplemental oxygen. She denies any chest pain, no shortness of breath. PHYSICAL EXAMINATION: GENERAL: She appears comfortable. VITAL SIGNS: Stable. Blood pressure 149/83, pulse rate 89, temperature 98. HEENT: Examination unremarkable. Conjunctivae are pink. Sclerae anicteric. Oral cavity no lesions. NECK: No JVD or lymph node enlargement. CHEST: Clear to auscultation. HEART: Regular rate and rhythm. ABDOMEN: Soft, bowel sounds were positive, no organomegaly. EXTREMITIES: No pedal edema. NEURO: She is alert and oriented x3. No focal deficits. LABS: Lab from today, BUN 19, creatinine 1.20. Basic metabolic panel is within normal limits. No CBC available. Stool was also negative. IMPRESSION: 1. Acute ischemic colitis, resolving. Patient doing well. Remains on IV antibiotics. 2. Shortness of breath and acute cough. Rule out bronchitis. Rule out pneumonia. RECOMMENDATION: 1. Continue with broad-spectrum antibiotics. 2. Advance diet as tolerated. 3. Monitor CBC daily. 4. Colonoscopy on an outpatient basis. Thank you for this consultation. MMCHASTITYL / SABINAN: [id number] /
[2021-04-23 11:11] VITALS: BP 125/67; RESP 18; TEMP 98.5
[2021-04-23 11:21] VITALS: PULSE 72
[2021-04-23] MEDS: SODIUM CHLORIDE 0.9% 1,000 ML IV SCH (12:20)
--- NOTE | 2021-04-24 19:47 | P.DS ---
Providers Date of admission: 04/20/21 15:42 Expected date of discharge: 04/23/21 Attending physician: Bib Yoon Consults: 04/20/21 06:50 Consult Physician Routine Consulting Provider: Sean Dennis Reason/Comments: gib Do you want consulting provider notified?: Yes Primary care physician: Mitesh [facility] Course: Chief Complaint: Abdominal pain History of presenting complaint: This is a pleasant 86-year-old patient who follows with visiting physicians Dr. Lowe. Chronic stable medical conditions include hyperlipidemia, hypertension, peripheral arterial disease with Bergers disease, AICD permanent pacemaker. Patient continues to smoke a pack a day. Patient about 2 weeks ago had an episode of abdominal pain diarrhea or vomiting. Yesterday started off with having him go pain yet again. We'll do some blood in the stool. No fever no chills. The blood is mixed in the stool. Pain is across the lower abdomen. No exacerbating or relieving features. Patient's niece Marah was also D POA and her sisters both present. Patient also has a congested cough. Not able to expectorate much. Some cough and wheezing. Computed tomography scan suggestive of ischemic colitis. Started on IV Zosyn. IV fluids. Also been treated for acute COPD exacerbation. Nebulized bronchodilators and inhaled steroids. March 22: Laying in bed. Abdominal pain a bit better. No nausea and vomiting. Breathing a bit better. Was on a clear liquid diet. March 23: No abdominal pain. Breathing better. Did tolerate a full liquid diet. Has been out of bed. March 24: Abdominal pain. Good oral intake. Had a bowel movement. Breathing is stable. Smoke counseling was done again. Questions were answered. Antibiotic being changed over to Augmentin Discussion and discharge planning more than 35 minutes Consultation: Dr. Pj Duvall from GI Past medical history to include: Hypertension, hyperlipidemia, coronary artery disease with ND, irregular heartbeat,bergers disease about a bypass and bilateral femoral grafting, AICD/removed and changed to permanent pacemaker Social history: Occasionally uses a cane. Lives alone. Smokes over a pack a day for many years. Alcohol occasionally. Family history: Cancer Physical examination: VITAL SIGNS: 98.5, 79, 18, 1 25 x 67, 97% room air GENERAL: BMI 19.9, reclining in bed, awake EYES: Pupils equal. Conjunctiva normal. HEENT: External appearance of nose and ears normal, oral cavity grossly normal. NECK: JVD not raised; masses not palpable. HEART: First and second heart sounds are normal; no edema. LUNGS: Respiratory rate increased, decreased breath sounds improved wheezing ABDOMEN: Soft, no tenderness, no guarding rigidity, liver spleen not palpable, no masses palpable. 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 INVESTIGATIONS, reviewed in the clinical context: April 23: Potassium 4.2 creatinine 1.2 April 22: Potassium 4.1 creatinine 1.11 April 21: WBC 9.3 hemoglobin 11.6 potassium 3.5 creatinine 1.32 Renal ultrasound: f bilateral kidney cyst. 2-D echocardiogram: EF 40-45% wall motion abnormality. WBC 14.6 hemoglobin 13.8 platelets 264 potassium 4.3 BUN 40 creatinine 1.76 Computed tomography scan of the abdomen and pelvis with and without contrast: Cyst present on both the kidneys. Sigmoid diverticulosis. Moderate to severe wall thickening suggested at the distal sigmoid and rectum with some surrounding associated fluid. Abdominal aortic bifemoral bypass graft noted. Assessment and plan: -Acute ischemic colitis.: Responded IV Zosyn. We'll discharge on Augmentin -Acute COPD exacerbation in a current smoker: Improved DuoNeb, nebulized steroids, Mucinex -Chronic nicotine dependence, patient cigarette smoker Nicotine patch. Counseled -Coronary artery disease with prior ND And aspirin -Chronic congestive heart failure from systolic dysfunction, from ischemic cardiomyopathy. EF 40-45% Follow clinically. Add Aldactone -Peripheral arterial disease Aspirin and continue Crestor -Essential hypertension Continue with Lopressor., Prinivil, hydralazine -Vitamin B12 deficiency Continue B12 supplement -Chronic kidney disease stage III likely nephrosclerosis Follow-up with PCP -Acute kidney injury, likely ATN-improving Creatinine did drop from 1.76 down to 1.2 -DO NOT RESUSCITATE -DPOA: Marah, niece Disposition: Home Patient Condition at Discharge: Stable Plan - Discharge Summary Discharge Rx Participant: Yes New Discharge Prescriptions: New Amoxicillin/Potassium Clav [Augmentin 875-125 Tablet] 1 tab PO Q12HR #6 tab Nicotine 21Mg/24Hr Patch [Habitrol] 1 patch TRANSDERM DAILY #30 patch guaiFENesin [Mucinex] 600 mg PO BID #60 tablet.er Famotidine [Pepcid] 20 mg PO DAILY #30 tab Budesonide/Formoterol Fumarate [Symbicort 80-4.5 Mcg Inhaler] 1 puff INHAL ATION BID #1 inhaler Albuterol Sulfate [Albuterol Sulfate Hfa] 1 puff PO Q4H PRN #1 inhaler PRN Reason: Wheezing Spironolactone [Aldactone] 25 mg PO DAILY #30 tab Continue Isosorbide Mononitrate ER [Imdur] 60 mg PO DAILY Rosuvastatin Calcium [Crestor] 10 mg PO HS hydrALAZINE HCL 50 mg PO BID Metoprolol Tartrate [Lopressor] 50 mg PO BID Folic Acid 0.4 mg PO DAILY Cyanocobalamin (Vitamin B-12) [Vitamin B-12] 1,000 mcg PO DAILY lisinopriL [Prinivil] 5 mg PO DAILY Aspirin 81 mg PO DAILY Cholecalciferol [Vitamin D3 (25 Mcg = 1000 Iu)] 25 mcg PO DAILY Discontinued Furosemide [Lasix] 20 mg PO BID Discharge Medication List Isosorbide Mononitrate ER [Imdur] 60 mg PO DAILY 08/10/14 [History] Rosuvastatin Calcium [Crestor] 10 mg PO HS 01/02/15 [History] Cyanocobalamin (Vitamin B-12) [Vitamin B-12] 1,000 mcg PO DAILY 01/02/18 [History] Folic Acid 0.4 mg PO DAILY 01/02/18 [History] Metoprolol Tartrate [Lopressor] 50 mg PO BID 01/02/18 [History] hydrALAZINE HCL 50 mg PO BID 01/02/18 [History] lisinopriL [Prinivil] 5 mg PO DAILY 03/12/20 [History] Aspirin 81 mg PO DAILY 04/20/21 [History] Cholecalciferol [Vitamin D3 (25 Mcg = 1000 Iu)] 25 mcg PO DAILY 04/20/21 [History] Albuterol Sulfate [Albuterol Sulfate Hfa] 1 puff PO Q4H PRN #1 inhaler 04/23/21 [Rx] Amoxicillin/Potassium Clav [Augmentin 875-125 Tablet] 1 tab PO Q12HR #6 tab 04/23/21 [Rx] Budesonide/Formoterol Fumarate [Symbicort 80-4.5 Mcg Inhaler] 1 puff INHALATION BID #1 inhaler 04/23/21 [Rx] Famotidine [Pepcid] 20 mg PO DAILY #30 tab 04/23/21 [Rx] Nicotine 21Mg/24Hr Patch [Habitrol] 1 patch TRANSDERM DAILY #30 patch 04/23/21 [Rx] Spironolactone [Aldactone] 25 mg PO DAILY #30 tab 04/23/21 [Rx] guaiFENesin [Mucinex] 600 mg PO BID #60 tablet.er 04/23/21 [Rx] Follow up Appointment(s)/Referral(s): Mitesh Lowe MD [Primary Care Provider] - 1-2 days Discharge Disposition: HOME SELF-CARE
== END 2021-04-23 13:05 | disposition home or self-care (01) | DRG 393 ==
LOC: EC 05:06 → 3SCARD 06:49 → OBSVTOIN 15:42 → 3SCARD 16:17
PROVIDERS: ADMIT Hospitalist; ATTEND Hospitalist
DX: K55.039 Acute (reversible) ischemia of large intestine, extent unspecified (principal); N17.0 Acute kidney failure with tubular necrosis; J44.1 Chronic obstructive pulmonary disease with (acute) exacerbation; I13.0 Hypertensive heart and chronic kidney disease with heart failure and stage 1 through stage 4 chronic kidney disease, or unspecified chronic kidney disease; I50.22 Chronic systolic (congestive) heart failure; R18.8 Other ascites; I31.3 Pericardial effusion (noninflammatory); N02.8 Recurrent and persistent hematuria with other morphologic changes; J90 Pleural effusion, not elsewhere classified; Q61.01 Congenital single renal cyst; I73.9 Peripheral vascular disease, unspecified; I25.10 Atherosclerotic heart disease of native coronary artery without angina pectoris; I48.91 Unspecified atrial fibrillation; F17.210 Nicotine dependence, cigarettes, uncomplicated; M54.30 Sciatica, unspecified side; E78.5 Hyperlipidemia, unspecified; E53.8 Deficiency of other specified B group vitamins; I25.5 Ischemic cardiomyopathy; K57.30 Diverticulosis of large intestine without perforation or abscess without bleeding; N18.30 Chronic kidney disease, stage 3 unspecified; Z20.822 Contact with and (suspected) exposure to COVID-19; I25.2 Old myocardial infarction; Z95.810 Presence of automatic (implantable) cardiac defibrillator; Z66 Do not resuscitate; Z79.82 Long term (current) use of aspirin; Z79.899 Other long term (current) drug therapy; Z90.49 Acquired absence of other specified parts of digestive tract; Z87.19 Personal history of other diseases of the digestive system; Z98.42 Cataract extraction status, left eye; Z98.41 Cataract extraction status, right eye
CPT/HCPCS: 36415; 71046; 74176; 76770; 80048; 80053; 82550; 83735; 84100; 84484; 85025; 85610; 85730; 86850; 86900; 86901; 87045; 87046; 87324; 87328; 87329; 93005; 93306; 94640; 96361; 96374; 99285

== ENCOUNTER 2021-05-08 01:02 | Emergency (ER) | payer MEDICARE, OTHER ==
[2021-05-08 01:08] VITALS: RESP 18
[2021-05-08] MEDS ORDERED: FAMOTIDINE 20 MG/2 ML VIAL IV STA (01:28)
[2021-05-08] MEDS ORDERED: methylPREDNISolone SOD SUCCI 125 MG/2 ML VIAL IV STA (01:28)
[2021-05-08] MEDS ORDERED: diphenhydrAMINE 50 MG/ML 1 ML VIAL IVP STA (01:28)
--- NOTE | 2021-05-08 01:33 | ED ---
Allergic Reaction HPI - General Source: patient Mode of arrival: ambulatory Limitations: no limitations <Julio Cesar Gar - Last Filed: 05/08/21 03:16> <Jacinto Helton - Last Filed: 05/08/21 10:26> - General Chief complaint: Allergic Reaction Stated complaint: Tongue Swelling Time Seen by Provider: 05/08/21 01:17 - History of Present Illness Initial Comments: 86-year-old female presents to emergency Department with a chief complaint of tongue swelling. Patient reports this occurred about 11 PM which was about 2 hours prior to arrival. Patient reports she went to sleep at 10 PM without any difficulties and then woke up one hour later and her tongue felt "weird." Patient reports she has difficulty speaking due to the large tongue. She denies any particular pain with a tongue. She denies any difficulty swallowing or breathing at this time. Denies any injuries or possible insect bites to the tongue. Denies taking new medications today. (Julio Cesar Gar) - Related Data Home Medications Medication Instructions Recorded Confirmed Isosorbide Mononitrate ER [Imdur] 60 mg PO DAILY 08/10/14 04/20/21 Rosuvastatin Calcium [Crestor] 10 mg PO HS 01/02/15 04/20/21 Cyanocobalamin (Vitamin B-12) 1,000 mcg PO DAILY 01/02/18 04/20/21 [Vitamin B-12] Folic Acid 0.4 mg PO DAILY 01/02/18 04/20/21 Metoprolol Tartrate [Lopressor] 50 mg PO BID 01/02/18 04/20/21 hydrALAZINE HCL 50 mg PO BID 01/02/18 04/20/21 lisinopriL [Prinivil] 5 mg PO DAILY 03/12/20 04/20/21 Aspirin 81 mg PO DAILY 04/20/21 04/20/21 Cholecalciferol [Vitamin D3 (25 25 mcg PO DAILY 04/20/21 04/20/21 Mcg = 1000 Iu)] Previous Rx's Medication Instructions Recorded Albuterol Sulfate [Albuterol 1 puff PO Q4H PRN #1 inhaler 04/23/21 Sulfate Hfa] Amoxicillin/Potassium Clav 1 tab PO Q12HR #6 tab 04/23/21 [Augmentin 875-125 Tablet] Budesonide/Formoterol Fumarate 1 puff INHALATION BID #1 inhaler 04/23/21 [Symbicort 80-4.5 Mcg Inhaler] Famotidine [Pepcid] 20 mg PO DAILY #30 tab 04/23/21 Nicotine 21Mg/24Hr Patch [Habitrol] 1 patch TRANSDERM DAILY #30 patch 04/23/21 Spironolactone [Aldactone] 25 mg PO DAILY #30 tab 04/23/21 guaiFENesin [Mucinex] 600 mg PO BID #60 tablet.er 04/23/21 Allergies Allergy/AdvReac Type Severity Reaction Status Date / Time No Known Allergies Allergy Verified 05/08/21 01:06 Review of Systems ROS Other: All systems not noted in ROS Statement are negative. <Julio Cesar Gar - Last Filed: 05/08/21 03:16> ROS Other: All systems not noted in ROS Statement are negative. <Jacinto Helton - Last Filed: 05/08/21 10:26> ROS Statement: Those systems with pertinent positive or pertinent negative responses have been documented in the HPI. Past Medical History Past Medical History: Hyperlipidemia, Hypertension, Myocardial Infarction ([place]) Additional Past Medical History / Comment(s): SCIATICA, irregular heartbeat, hx bergers disease Last Myocardial Infarction Date:: 2004 History of Any Multi-Drug Resistant Organisms: None Reported Past Surgical History: AICD, Heart Catheterization, Pacemaker Additional Past Surgical History / Comment(s): aortic bypass with bilateral femoral grafting. RONEY CATARACTS, AICD removed and changed to pacemaker Past Anesthesia/Blood Transfusion Reactions: No Reported Reaction Type of Cardiac Device: Permanent Pacemaker Device Placement Date:: UNKNOWN Past Psychological History: No Psychological Hx Reported Smoking Status: Current some day smoker Past Alcohol Use History: Occasional Past Drug Use History: None Reported - Past Family History Father Family Medical History: Cancer Additional Family Medical History / Comment(s): . Mother Family Medical History: No Reported History Additional Family Medical History / Comment(s): MOTHER AT AGE 97 YRS. <Julio Cesar Gar - Last Filed: 05/08/21 03:16> General Exam Limitations: no limitations General appearance: alert, in no apparent distress Head exam: Present: atraumatic, normocephalic, normal inspection Eye exam: Present: normal appearance, PERRL, EOMI Pupils: Present: normal accommodation ENT exam: Present: normal exam, normal oropharynx (Enlarged tongue), mucous membranes moist Neck exam: Present: normal inspection, full ROM. Absent: tenderness Respiratory exam: Present: normal lung sounds bilaterally. Absent: respiratory distress Cardiovascular Exam: Present: regular rate, normal rhythm, normal heart sounds. Absent: systolic murmur Extremities exam: Present: normal inspection, full ROM Back exam: Present: normal inspection, full ROM. Absent: tenderness Neurological exam: Present: alert, oriented X3 Psychiatric exam: Present: normal affect, normal mood Skin exam: Present: warm, dry, intact, normal color <Julio Cesar Gar - Last Filed: 05/08/21 03:16> Course Vital Signs 05/08/21 05/08/21 05/08/21 01:06 01:30 03:18 Temperature 97.4 F L 97.2 F L Pulse Rate 80 82 Respiratory 18 18 Rate Blood Pressure 199/69 193/98 176/84 O2 Sat by Pulse 98 97 Oximetry Medical Decision Making - Lab Data Result diagrams: 05/08/21 01:35 05/08/21 01:35 <Julio Cesar Gar - Last Filed: 05/08/21 03:16> - Lab Data Result diagrams: 05/08/21 01:35 05/08/21 01:35 <Jacinto Helton - Last Filed: 05/08/21 10:26> - Medical Decision Making 86-year-old female presents to emergency Department with a chief complaint of tongue swelling. On physical examination, patient had enlarged tongue, however she still able to speak. No signs of respiratory distress. Her vital signs are within normal limits. She was hypertensive, however states this is somewhat of her baseline. She was curling taking stephanie inhibitors. Patient was given Benadryl, Solu-Medrol and Pepcid. CBC is unremarkable. CMP shows elevated BUN/creatinine, however this appears to be the patient's baseline. On reevaluation, patient reports improvement in symptoms. The tongue was visibly smaller. She will follow up with a primary care physician. Return parameters were thoroughly discussed patient is a 11-year-old. Case discussed with physician (Julio Cesar Gar) I saw this patient in conjunction with the physician child development assistant. I performed independent history and physical exam. Agree with case management. (Jacinto Helton) - Lab Data Lab Results 05/08/21 05/08/21 Range/Units 01:35 01:35 WBC 9.3 (3.8-10.6) k/uL RBC 3.62 L (3.80-5.40) m/uL Hgb 12.3 (11.4-16.0) gm/dL Hct 38.0 (34.0-46.0) % MCV 105.1 H (80.0-100.0) fL MCH 33.9 (25.0-35.0) pg MCHC 32.2 (31.0-37.0) g/dL RDW 12.7 (11.5-15.5) % Plt Count 268 (150-450) k/uL MPV 8.7 Neutrophils % 74 % Lymphocytes % 15 % Monocytes % 9 % Eosinophils % 1 % Basophils % 1 % Neutrophils # 6.9 (1.3-7.7) k/uL Lymphocytes # 1.4 (1.0-4.8) k/uL Monocytes # 0.8 (0-1.0) k/uL Eosinophils # 0.1 (0-0.7) k/uL Basophils # 0.0 (0-0.2) k/uL Macrocytosis Slight Sodium 140 (137-145) mmol/L Potassium 4.5 (3.5-5.1) mmol/L Chloride 107 (98-107) mmol/L Carbon Dioxide 26 (22-30) mmol/L Anion Gap 7 mmol/L BUN 26 H (7-17) mg/dL Creatinine 1.32 H (0.52-1.04) mg/dL Est GFR (CKD-EPI)AfAm 43 (>60 ml/min/1.73 sqM) Est GFR (CKD-EPI)NonAf 37 (>60 ml/min/1.73 sqM) Glucose 118 H (74-99) mg/dL Calcium 10.4 H (8.4-10.2) mg/dL Total Bilirubin 0.4 (0.2-1.3) mg/dL AST 21 (14-36) U/L ALT 9 (4-34) U/L Alkaline Phosphatase 66 (38-126) U/L Total Protein 6.2 L (6.3-8.2) g/dL Albumin 3.8 (3.5-5.0) g/dL Disposition Is patient prescribed a controlled substance at d/c from ED?: No Time of Disposition: 03:19 <Julio Cesar Gar - Last Filed: 05/08/21 03:16> <Jacinto Helton - Last Filed: 05/08/21 10:26> Clinical Impression: Enlarged tongue Disposition: HOME SELF-CARE Condition: Stable Instructions (If sedation given, give patient instructions): Lisinopril (By mouth) Additional Instructions: Follow with her primary care physician. Return to emergency department if symptoms worsen. Referrals: Mitesh Lowe MD [Primary Care Provider] - 1-2 days
[2021-05-08 02:09] LABS: Basophils % (A) 1 %; Eosinophils # (A) 0.1 k/uL (0-0.7); Eosinophils % (A) 1 %; HGB 12.3 gm/dL (11.4-16.0); Lymphocytes # (A) 1.4 k/uL (1.0-4.8); Lymphocytes % (A) 15 %; MCH 33.9 pg (25.0-35.0); MCHC 32.2 g/dL (31.0-37.0); MCV 105.1 fL (80.0-100.0); Macrocytosis Slight; Mean Platelet Volume 8.7; Monocytes # (A) 0.8 k/uL (0-1.0); Monocytes % (A) 9 %; Neutrophils # (A) 6.9 k/uL (1.3-7.7); Neutrophils % (A) 74 %; Platelet Count 268 k/uL (150-450); RBC 3.62 m/uL (3.80-5.40); RDW 12.7 % (11.5-15.5); WBC 9.3 k/uL (3.8-10.6)
[2021-05-08 02:14] LABS: Albumin 3.8 g/dL (3.5-5.0); Calcium 10.4 mg/dL (8.4-10.2); Potassium 4.5 mmol/L (3.5-5.1); Total Bilirubin 0.4 mg/dL (0.2-1.3); Total Protein 6.2 g/dL (6.3-8.2)
[2021-05-08 03:20] VITALS: BP 176/84; PULSE 82; TEMP 97.2
== END 2021-05-08 03:50 | disposition home or self-care (01) ==
LOC: EC 01:02
DX: K14.8 Other diseases of tongue (principal); E78.5 Hyperlipidemia, unspecified; F17.200 Nicotine dependence, unspecified, uncomplicated; I10 Essential (primary) hypertension; I25.2 Old myocardial infarction; Z79.51 Long term (current) use of inhaled steroids; Z79.82 Long term (current) use of aspirin; Z95.810 Presence of automatic (implantable) cardiac defibrillator; Z79.899 Other long term (current) drug therapy
CPT/HCPCS: 36415; 80053; 85025; 99283; 96374; 96375; J1200; J2930

== ENCOUNTER 2021-05-24 09:38 | Inpatient (IN) | payer MEDICARE, OTHER ==
[2021-05-24] MEDS ORDERED: SODIUM CHLORIDE 0.9% 1,000 ML IV STA (09:56)
[2021-05-24] MEDS ORDERED: SODIUM CHLORIDE 0.9% 500 ML 500 ML IV STA (09:56)
--- NOTE | 2021-05-24 09:58 | ED ---
SOB HPI - General Chief Complaint: Shortness of Breath Stated Complaint: SOB Time Seen by Provider: 05/24/21 09:48 Source: patient, family, RN notes reviewed Mode of arrival: wheelchair Limitations: no limitations - History of Present Illness Initial Comments: This is an 86-year-old female who presents with complaints of the onset shortness of breath around 3:30 AM this morning. She denies any fevers chills nausea vomiting sweats has a slight cough and does states she feels a little dizzy when she gets up walks. No headache no focal weakness no other modifying factors or complaints at this time she was evaluated by home nurse and thought she might have some evidence a left lower lobe pneumonia. MD Complaint: shortness of breath - Related Data Home Medications Medication Instructions Recorded Confirmed Isosorbide Mononitrate ER [Imdur] 60 mg PO DAILY 08/10/14 05/24/21 Rosuvastatin Calcium [Crestor] 10 mg PO HS 01/02/15 05/24/21 Cyanocobalamin (Vitamin B-12) 1,000 mcg PO DAILY 01/02/18 05/24/21 [Vitamin B-12] Folic Acid 0.4 mg PO DAILY 01/02/18 05/24/21 Metoprolol Tartrate [Lopressor] 50 mg PO BID 01/02/18 05/24/21 hydrALAZINE HCL 50 mg PO BID 01/02/18 05/24/21 Aspirin 81 mg PO DAILY 04/20/21 05/24/21 Cholecalciferol [Vitamin D3 (25 25 mcg PO DAILY 04/20/21 05/24/21 Mcg = 1000 Iu)] Albuterol Sulfate [Albuterol 1 puff INHALATION RT-Q4H PRN 05/24/21 05/24/21 Sulfate Hfa] Budesonide/Formoterol Fumarate 1 puff INHALATION RT-BID 05/24/21 05/24/21 [Symbicort 80-4.5 Mcg Inhaler] Previous Rx's Medication Instructions Recorded Famotidine [Pepcid] 20 mg PO DAILY #30 tab 04/23/21 Nicotine 21Mg/24Hr Patch [Habitrol] 1 patch TRANSDERM DAILY #30 patch 04/23/21 Spironolactone [Aldactone] 25 mg PO DAILY #30 tab 04/23/21 guaiFENesin [Mucinex] 600 mg PO BID #60 tablet.er 04/23/21 Allergies Allergy/AdvReac Type Severity Reaction Status Date / Time lisinopril Allergy Anaphylaxis Verified 05/24/21 11:56 Review of Systems ROS Statement: Those systems with pertinent positive or pertinent negative responses have been documented in the HPI. ROS Other: All systems not noted in ROS Statement are negative. Past Medical History Past Medical History: Hyperlipidemia, Hypertension, Myocardial Infarction ([place]) Additional Past Medical History / Comment(s): SCIATICA, irregular heartbeat, hx bergers disease Last Myocardial Infarction Date:: 2004 History of Any Multi-Drug Resistant Organisms: None Reported Past Surgical History: AICD, Heart Catheterization, Pacemaker Additional Past Surgical History / Comment(s): aortic bypass with bilateral femoral grafting. RONEY CATARACTS, AICD removed and changed to pacemaker Past Anesthesia/Blood Transfusion Reactions: No Reported Reaction Type of Cardiac Device: Permanent Pacemaker Device Placement Date:: UNKNOWN Past Psychological History: No Psychological Hx Reported Smoking Status: Current some day smoker Past Alcohol Use History: Occasional Past Drug Use History: None Reported - Past Family History Father Family Medical History: Cancer Additional Family Medical History / Comment(s): . Mother Family Medical History: No Reported History Additional Family Medical History / Comment(s): MOTHER AT AGE 97 YRS. General Exam - General Exam Comments Initial Comments: This is a well-developed well-nourished awake alert oriented 3 female Limitations: no limitations General appearance: alert Head exam: Present: atraumatic, normocephalic, normal inspection Eye exam: Present: normal appearance, PERRL, EOMI. Absent: scleral icterus, conjunctival injection, periorbital swelling ENT exam: Present: mucous membranes dry Neck exam: Present: normal inspection. Absent: tenderness, meningismus, lymphadenopathy Respiratory exam: Present: rhonchi (Left lower lobe), decreased breath sounds. Absent: respiratory distress, wheezes, rales, stridor Cardiovascular Exam: Present: regular rate, normal rhythm, normal heart sounds. Absent: systolic murmur, diastolic murmur, rubs, gallop, clicks GI/Abdominal exam: Present: soft, normal bowel sounds. Absent: distended, tenderness, guarding, rebound, rigid Extremities exam: Present: normal inspection, full ROM, normal capillary refill. Absent: tenderness, pedal edema, joint swelling, calf tenderness Back exam: Present: normal inspection Neurological exam: Present: alert, oriented X3, CN II-XII intact Psychiatric exam: Present: normal affect, normal mood Skin exam: Present: warm, dry, intact, normal color. Absent: rash Course Vital Signs 05/24/21 05/24/21 05/24/21 09:41 09:49 11:00 Temperature 99 F Pulse Rate 77 73 86 Respiratory 16 20 20 Rate Blood Pressure 189/82 178/86 159/65 O2 Sat by Pulse 95 95 96 Oximetry 05/24/21 13:06 Temperature Pulse Rate 74 Respiratory Rate Blood Pressure O2 Sat by Pulse Oximetry Medical Decision Making - Medical Decision Making I did discuss findings with the patient family as well as with Dr. Greenberg the patient will be admitted for inpatient IV antibiotics - Lab Data Result diagrams: 05/24/21 09:59 05/24/21 09:59 Lab Results 05/24/21 05/24/21 05/24/21 Range/Units 09:59 09:59 09:59 WBC 12.9 H (3.8-10.6) k/uL RBC 3.66 L (3.80-5.40) m/uL Hgb 12.2 (11.4-16.0) gm/dL Hct 38.1 (34.0-46.0) % MCV 104.1 H (80.0-100.0) fL MCH 33.4 (25.0-35.0) pg MCHC 32.1 (31.0-37.0) g/dL RDW 12.4 (11.5-15.5) % Plt Count 274 (150-450) k/uL MPV 8.4 Neutrophils % 88 % Lymphocytes % 6 % Monocytes % 5 % Eosinophils % 1 % Basophils % 0 % Neutrophils # 11.4 H (1.3-7.7) k/uL Lymphocytes # 0.7 L (1.0-4.8) k/uL Monocytes # 0.6 (0-1.0) k/uL Eosinophils # 0.1 (0-0.7) k/uL Basophils # 0.1 (0-0.2) k/uL Macrocytosis Slight PT 10.5 (9.0-12.0) sec INR 1.0 (<1.2) APTT 24.6 (22.0-30.0) sec Sodium 137 (137-145) mmol/L Potassium 4.5 (3.5-5.1) mmol/L Chloride 109 H (98-107) mmol/L Carbon Dioxide 22 (22-30) mmol/L Anion Gap 6 mmol/L BUN 26 H (7-17) mg/dL Creatinine 1.35 H (0.52-1.04) mg/dL Est GFR (CKD-EPI)AfAm 42 (>60 ml/min/1.73 sqM) Est GFR (CKD-EPI)NonAf 36 (>60 ml/min/1.73 sqM) Glucose 110 H (74-99) mg/dL Plasma Lactic Acid Miguelito (0.7-2.0) mmol/L Calcium 9.9 (8.4-10.2) mg/dL Magnesium 2.0 (1.6-2.3) mg/dL Total Bilirubin 0.5 (0.2-1.3) mg/dL AST 26 (14-36) U/L ALT 11 (4-34) U/L Alkaline Phosphatase 68 (38-126) U/L Creatine Kinase 37 (30-135) U/L Troponin I (0.000-0.034) ng/mL NT-Pro-B Natriuret Pep pg/mL Total Protein 6.2 L (6.3-8.2) g/dL Albumin 3.7 (3.5-5.0) g/dL 05/24/21 05/24/21 05/24/21 Range/Units 09:59 09:59 09:59 WBC (3.8-10.6) k/uL RBC (3.80-5.40) m/uL Hgb (11.4-16.0) gm/dL Hct (34.0-46.0) % MCV (80.0-100.0) fL MCH (25.0-35.0) pg MCHC (31.0-37.0) g/dL RDW (11.5-15.5) % Plt Count (150-450) k/uL MPV Neutrophils % % Lymphocytes % % Monocytes % % Eosinophils % % Basophils % % Neutrophils # (1.3-7.7) k/uL Lymphocytes # (1.0-4.8) k/uL Monocytes # (0-1.0) k/uL Eosinophils # (0-0.7) k/uL Basophils # (0-0.2) k/uL Macrocytosis PT (9.0-12.0) sec INR (<1.2) APTT (22.0-30.0) sec Sodium (137-145) mmol/L Potassium (3.5-5.1) mmol/L Chloride (98-107) mmol/L Carbon Dioxide (22-30) mmol/L Anion Gap mmol/L BUN (7-17) mg/dL Creatinine (0.52-1.04) mg/dL Est GFR (CKD-EPI)AfAm (>60 ml/min/1.73 sqM) Est GFR (CKD-EPI)NonAf (>60 ml/min/1.73 sqM) Glucose (74-99) mg/dL Plasma Lactic Acid Miguelito 0.7 (0.7-2.0) mmol/L Calcium (8.4-10.2) mg/dL Magnesium (1.6-2.3) mg/dL Total Bilirubin (0.2-1.3) mg/dL AST (14-36) U/L ALT (4-34) U/L Alkaline Phosphatase (38-126) U/L Creatine Kinase (30-135) U/L Troponin I 0.023 (0.000-0.034) ng/mL NT-Pro-B Natriuret Pep 04358 pg/mL Total Protein (6.3-8.2) g/dL Albumin (3.5-5.0) g/dL - EKG Data -: EKG Interpreted by [place] EKG shows normal: sinus rhythm EKG Comments: Sinus rhythm with PVC rate 74 NH interval 114 QRS 140 QT/QTC 450/499 evidence of RVH nonspecific interventricular block nonspecific septal configuration also lateral changes seen - Radiology Data Radiology results: report reviewed (Imaging reviewed evidence of pneumonia exactly report), image reviewed Disposition Clinical Impression: Pneumonia, COPD (chronic obstructive pulmonary disease), Renal insufficiency syndrome, Febrile illness, acute Disposition: ADMITTED IP TO THIS [facility] Condition: Fair Referrals: Mitesh Lowe MD [Primary Care Provider] - 1-2 days
[2021-05-24 10:18] LABS: Basophils # (A) 0.1 k/uL (0-0.2); Basophils % (A) 0 %; Eosinophils # (A) 0.1 k/uL (0-0.7); Eosinophils % (A) 1 %; HCT 38.1 % (34.0-46.0); HGB 12.2 gm/dL (11.4-16.0); Lymphocytes # (A) 0.7 k/uL (1.0-4.8); Lymphocytes % (A) 6 %; MCH 33.4 pg (25.0-35.0); MCHC 32.1 g/dL (31.0-37.0); MCV 104.1 fL (80.0-100.0); Macrocytosis Slight; Mean Platelet Volume 8.4; Monocytes # (A) 0.6 k/uL (0-1.0); Monocytes % (A) 5 %; Neutrophils # (A) 11.4 k/uL (1.3-7.7); Neutrophils % (A) 88 %; Platelet Count 274 k/uL (150-450); RBC 3.66 m/uL (3.80-5.40); RDW 12.4 % (11.5-15.5); WBC 12.9 k/uL (3.8-10.6)
--- NOTE | 2021-05-24 10:19 | XR ---
EXAMINATION TYPE: XR chest 2V DATE OF EXAM: 05/24/2021 COMPARISON: 04/20/2021 INDICATION: Difficulty breathing short of breath TECHNIQUE: Single frontal view of the chest is obtained. FINDINGS: The heart size is moderately prominent. The pulmonary vasculature is normal. Some scattered infiltrate is present throughout the lung martinez. Findings are nonspecific. Consider a typical pneumonia. Atelectasis could be considered. IMPRESSION: 1. Cardiomegaly. 2. Scattered nonspecific infiltrate. Atelectasis and atypical pneumonia could be considered
[2021-05-24 10:31] LABS: Albumin 3.7 g/dL (3.5-5.0); Calcium 9.9 mg/dL (8.4-10.2); Potassium 4.5 mmol/L (3.5-5.1); Total Bilirubin 0.5 mg/dL (0.2-1.3); Total Protein 6.2 g/dL (6.3-8.2)
[2021-05-24 11:40] LABS: Partial Thromboplastin Time 24.6 sec (22.0-30.0); Prothrombin Time 10.5 sec (9.0-12.0)
[2021-05-24] MEDS ORDERED: PNEUMONIA PROTOCOL UTILIZED 1 EACH MISC PO PRN (13:48)
[2021-05-24] MEDS ORDERED: AZITHROMYCIN 500 MG in SODIUM CHLORIDE 0.9% 250 ML IVPB STA (13:48)
[2021-05-24] MEDS: cefTRIAXone IN SWFI 1,000 MG/10 ML SYRINGE IVP SCH ×2 (15:06→15:07)
[2021-05-24] MEDS: ALBUTEROL NEBULIZED 2.5 MG/3 ML INHALATION PRN ×2 (15:07→18:46)
[2021-05-24] MEDS ORDERED: SYMBICORT 80-4.5 MCG INHALER INHALATION SCH (20:00)
[2021-05-24] MEDS: hydrALAZINE HCL 50 MG TAB PO SCH (20:31)
[2021-05-24] MEDS: METOPROLOL TARTRATE 50 MG TAB PO SCH (20:31)
[2021-05-24] MEDS: guaiFENesin 600 MG TABLET.ER PO SCH (20:31)
[2021-05-24] MEDS: ATORVASTATIN 20 MG TAB PO SCH (20:31)
--- NOTE | 2021-05-24 21:26 | P.HPIM ---
History of Present Illness H&P Date: 05/24/21 Chief Complaint: Short of breath History of presenting complaint: This is a pleasant 86-year-old patient who follows with visiting physicians Dr. Lowe. Chronic stable medical conditions include hyperlipidemia, hypertension, peripheral arterial disease with Bergers disease, AICD permanent pacemaker. CHF EF 40-45%, CAD, CK D stage III Patient is admitted to the hospital about a month ago with acute ischemic colitis and COPD exacerbation. Patient discontinued smoking since then. Patient now presents with increasing shortness of breath wheezing. Dry cough. No fever no chills. Appetite is fair. Diet. Check stat x-rays in the ER did show some pneumonia and was started on antibiotics and bronchodilators. Review of systems: GEN.: Tired EYES: None HEENT: None NECK: None RESPIRATORY: As above CARDIOVASCULAR: None GASTROINTESTINAL: None GENITOURINARY: None MUSCULOSKELETAL: Joint pains LYMPHATICS: None HEMATOLOGICAL: None PSYCHIATRY: None NEUROLOGICAL: None Past medical history to include: Hypertension, hyperlipidemia, coronary artery disease with SC, irregular heartbeat,bergers disease , peripheral bypass and bilateral femoral grafting, AICD/removed and changed to permanent pacemaker, ischemic colitis Social history: Occasionally uses a cane. Lives alone. Smoked for many years, stopped 4 weeks ago. Alcohol occasionally. Family history: Cancer Physical examination: VITAL SIGNS: 99, 77, 16, 159/65, 96% room air GENERAL: BMI 19, laying in bed, tired EYES: Pupils equal. Conjunctiva normal. HEENT: External appearance of nose and ears normal, oral cavity grossly normal. NECK: JVD not raised; masses not palpable. HEART: First and second heart sounds are normal; no edema. LUNGS: Respiratory rate increased, decreased breath sounds expiratory wheezing. ABDOMEN: Soft, no tenderness, no guarding rigidity, liver spleen not palpable, no masses palpable. 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 NEUROLOGICAL: Cranial nerves grossly intact; no facial asymmetry, power and sensation grossly intact. LYMPHATICS: No lymph nodes palpable in the axilla and neck INVESTIGATIONS, reviewed in the clinical context: WBC 12.9 hemoglobin 12.2 platelets 234 potassium 4.5 BUN 26 creatinine 1.35 EKG tracing personally reviewed by me-normal sinus rhythm, intraventricular block Chest x-ray film: Possible infiltrate. Cardiomegaly Assessment and plan: -Acute COPD exacerbation in a previous smoker: DuoNeb every 4, nebulized steroids, inhaled long-acting beta agonist , IV Solu- Medrol -Possible pneumonia, suspect gram-negative organism IV ceftriaxone, Zithromax. Check pro-calcitonin -Coronary artery disease with prior SC aspirin -Chronic congestive heart failure from systolic dysfunction, from ischemic cardiomyopathy. EF 40-45% Follow clinically. Add Aldactone -Peripheral arterial disease Aspirin and continue Crestor -Essential hypertension Continue with Lopressor., Prinivil, hydralazine -Vitamin B12 deficiency Continue B12 supplement -Chronic kidney disease stage III likely nephrosclerosis Follow BMP -DO NOT RESUSCITATE -DPOA: Marah, niece IV ceftriaxone, Zithromax, nebulized bronchodilators, IV and inhaled steroids, long-acting beta agonist. Home medications renewed. Discussed with the patient. Subcu Lovenox. Check procalcitonin Given the complexity and severity of patient's condition expect the patient to be in the hospital at least for 2 overnights Past Medical History Past Medical History: Hyperlipidemia, Hypertension, Myocardial Infarction (SC) Additional Past Medical History / Comment(s): SCIATICA, irregular heartbeat, hx bergers disease Last Myocardial Infarction Date:: 2004 History of Any Multi-Drug Resistant Organisms: None Reported Past Surgical History: AICD, Heart Catheterization, Pacemaker Additional Past Surgical History / Comment(s): aortic bypass with bilateral femoral grafting. RONEY CATARACTS, AICD removed and changed to pacemaker Past Anesthesia/Blood Transfusion Reactions: No Reported Reaction Type of Cardiac Device: Permanent Pacemaker Device Placement Date:: UNKNOWN Past Psychological History: No Psychological Hx Reported Additional Psychological History / Comment(s): . Smoking Status: Former smoker Past Alcohol Use History: Occasional Additional Past Alcohol Use History / Comment(s): smokes 1- 1 1/2 PPD, STARTED SMOKING 1978, quit for 18 yrs and restarted Past Drug Use History: None Reported - Past Family History Father Family Medical History: Cancer Additional Family Medical History / Comment(s): . Mother Family Medical History: No Reported History Additional Family Medical History / Comment(s): MOTHER AT AGE 97 YRS. Medications and Allergies Home Medications Medication Instructions Recorded Confirmed Type Isosorbide Mononitrate ER [Imdur] 60 mg PO DAILY 08/10/14 05/24/21 History Rosuvastatin Calcium [Crestor] 10 mg PO HS 01/02/15 05/24/21 History Cyanocobalamin (Vitamin B-12) 1,000 mcg PO DAILY 01/02/18 05/24/21 History [Vitamin B-12] Folic Acid 0.4 mg PO DAILY 01/02/18 05/24/21 History Metoprolol Tartrate [Lopressor] 50 mg PO BID 01/02/18 05/24/21 History hydrALAZINE HCL 50 mg PO BID 01/02/18 05/24/21 History Aspirin 81 mg PO DAILY 04/20/21 05/24/21 History Cholecalciferol [Vitamin D3 (25 25 mcg PO DAILY 04/20/21 05/24/21 History Mcg = 1000 Iu)] Famotidine [Pepcid] 20 mg PO DAILY #30 tab 04/23/21 05/24/21 Rx Nicotine 21Mg/24Hr Patch [Habitrol] 1 patch TRANSDERM DAILY #30 patch 04/23/21 05/24/21 Rx Spironolactone [Aldactone] 25 mg PO DAILY #30 tab 04/23/21 05/24/21 Rx guaiFENesin [Mucinex] 600 mg PO BID #60 tablet.er 04/23/21 05/24/21 Rx Albuterol Sulfate [Albuterol 1 puff INHALATION RT-Q4H PRN 05/24/21 05/24/21 History Sulfate Hfa] Budesonide/Formoterol Fumarate 1 puff INHALATION RT-BID 05/24/21 05/24/21 History [Symbicort 80-4.5 Mcg Inhaler] Allergies Allergy/AdvReac Type Severity Reaction Status Date / Time lisinopril Allergy Anaphylaxis Verified 05/24/21 11:56 Physical Exam Vitals: Vital Signs Temp Pulse Pulse Resp BP BP Pulse Ox 05/24/21 19:08 98.1 F 93 14 144/60 98 05/24/21 18:59 92 05/24/21 18:46 96 05/24/21 17:09 98.7 F 81 18 184/81 100 05/24/21 16:02 78 20 182/68 96 05/24/21 15:19 74 05/24/21 15:16 75 20 182/68 98 05/24/21 15:10 76 05/24/21 13:06 74 05/24/21 11:00 86 20 159/65 96 05/24/21 09:49 73 20 178/86 95 05/24/21 09:41 99 F 77 16 189/82 95 Intake and Output 05/24/21 05/24/21 05/24/21 06:59 14:59 22:59 Intake Total 540 Balance 540 Intake: Oral 540 Other: Weight 47.174 kg 47.174 kg Results CBC & Chem 7: 05/24/21 09:59 05/24/21 09:59 Labs: Abnormal Lab Results - Last 24 Hours (Table) 05/24/21 05/24/21 Range/Units 09:59 09:59 WBC 12.9 H (3.8-10.6) k/uL RBC 3.66 L (3.80-5.40) m/uL MCV 104.1 H (80.0-100.0) fL Neutrophils # 11.4 H (1.3-7.7) k/uL Lymphocytes # 0.7 L (1.0-4.8) k/uL Chloride 109 H (98-107) mmol/L BUN 26 H (7-17) mg/dL Creatinine 1.35 H (0.52-1.04) mg/dL Glucose 110 H (74-99) mg/dL Total Protein 6.2 L (6.3-8.2) g/dL Thrombosis Risk Factor Assmnt - Choose All That Apply Any of the Below Risk Factors Present?: No Other Risk Factors: Yes Each Risk Factor Represents 3 Points: Age 75 years or older Other congenital or acquired thrombophilia - If yes, enter type in comment: No Thrombosis Risk Factor Assessment Total Risk Factor Score: 3 Thrombosis Risk Factor Assessment Level: Moderate Risk
[2021-05-24] MEDS: IPRATROPIUM-ALBUTEROL 3 ML NEB INHALATION SCH (22:30)
[2021-05-24] MEDS: methylPREDNISolone SOD SUCCI 40 MG/ML 1 ML VIAL IV SCH (22:35)
[2021-05-25] MEDS: methylPREDNISolone SOD SUCCI 40 MG/ML 1 ML VIAL IV SCH ×4 (00:43→23:45)
[2021-05-25] MEDS: IPRATROPIUM-ALBUTEROL 3 ML NEB INHALATION SCH ×6 (03:57→18:52)
[2021-05-25] MEDS: BUDESONIDE 1 MG/2 ML NEBU INHALATION SCH ×2 (07:11→18:52)
[2021-05-25] MEDS: FORMOTEROL FUMARATE 20 MCG/2 ML NEBU INHALATION SCH ×2 (07:11→18:52)
--- NOTE | 2021-05-25 07:20 | XR ---
EXAMINATION TYPE: XR chest 2V DATE OF EXAM: 05/25/2021 COMPARISON: 05/24/2021 HISTORY: 86-year-old female pneumonia TECHNIQUE: PA and lateral views FINDINGS: Left anterior chest wall AICD generator with right atrial, right ventricular, and a coronary sinus le ad. Heart is enlarged. Hyperinflation. Some interstitial densities persist. Mild patchy retrocardiac opacity similar to slightly increased. Trace effusions on the lateral view. IMPRESSION: 1. COPD and cardiomegaly with interstitial changes. Trace pleural effusions on the lateral view. Trang elate for possible CHF with pulmonary vascular congestion. 2. Mild patchy atelectasis or infiltrate at the retrocardiac region slightly increased.
[2021-05-25] MEDS: CYANOCOBALAMIN 500 MCG TAB PO SCH (08:52)
[2021-05-25] MEDS: guaiFENesin 600 MG TABLET.ER PO SCH ×4 (08:52→21:21)
[2021-05-25] MEDS: FOLIC ACID 1 MG TAB PO SCH (08:52)
[2021-05-25] MEDS: hydrALAZINE HCL 50 MG TAB PO SCH ×2 (08:52→21:21)
[2021-05-25] MEDS: SPIRONOLACTONE 25 MG TAB PO SCH (08:53)
[2021-05-25] MEDS: ISOSORBIDE MONONITRATE ER 60 MG TAB.ER.24H PO SCH (08:53)
[2021-05-25] MEDS: FAMOTIDINE 20 MG TAB PO SCH (08:53)
[2021-05-25] MEDS: ASPIRIN 81 MG PO SCH (08:53)
[2021-05-25] MEDS: CHOLECALCIFEROL 25 MCG (1000 IU) TABLET PO SCH (08:53)
[2021-05-25] MEDS: METOPROLOL TARTRATE 50 MG TAB PO SCH ×2 (08:53→21:21)
[2021-05-25] MEDS ORDERED: NICOTINE 21MG/24HR PATCH TRANSDERM SCH (09:00)
[2021-05-25] MEDS ORDERED: AZITHROMYCIN 500 MG in SODIUM CHLORIDE 0.9% 250 ML IVPB SCH (09:00)
[2021-05-25] MEDS ORDERED: ENOXAPARIN 40 MG/0.4 ML SYRINGE SQ SCH (09:00)
[2021-05-25] MEDS: AZITHROMYCIN 500 MG TAB PO SCH (09:47)
--- NOTE | 2021-05-25 12:15 | P.PN ---
Progress Note - Text Progress Note Date: 05/25/21 Chief Complaint: Short of breath History of presenting complaint: This is a pleasant 86-year-old patient who follows with visiting physicians Dr. Lowe. Chronic stable medical conditions include hyperlipidemia, hypertension, peripheral arterial disease with Bergers disease, AICD permanent pacemaker. CHF EF 40-45%, CAD, CK D stage III Patient is admitted to the hospital about a month ago with acute ischemic colitis and COPD exacerbation. Patient discontinued smoking since then. Patient now presents with increasing shortness of breath wheezing. Dry cough. No fever no chills. Appetite is fair. Diet. Check stat x-rays in the ER did show some pneumonia and was started on antibiotics and bronchodilators. Admitted with severe COPD exacerbation, possible pneumonia. Started on nebulized bronchodilators, IV steroids, long-acting beta agonist, IV ceftriaxone May 25: Slight improvement in shortness of breath. Congested cough. Not able to expectorate. Mucinex added. Had about 35% of her breakfast. Have patient set up in a chair Review of systems: Was done for constitutional, cardiovascular, GI, pulmonary. relevant finding as above Active Medications Albuterol Sulfate (Albuterol Nebulized 2.5 Mg/3 Ml) 2.5 mg INHALATION RT-Q4H PRN PRN Reason: Wheezing Last Admin: 05/24/21 18:46 Dose: 2.5 mg Documented by: Albuterol/Ipratropium (Ipratropium-Albuterol 3 Ml Neb) 3 ml INHALATION RT-Q4H [facility] Last Admin: 05/25/21 11:11 Dose: 3 ml Documented by: Aspirin (Aspirin 81 Mg) 81 mg PO DAILY [facility] Last Admin: 05/25/21 08:53 Dose: 81 mg Documented by: Atorvastatin Calcium (Atorvastatin 20 Mg Tab) 20 mg PO HS [facility] Last Admin: 05/24/21 20:31 Dose: 20 mg Documented by: Azithromycin (Azithromycin 500 Mg Tab) 500 mg PO DAILY [facility] Stop: 05/26/21 09:01 Last Admin: 05/25/21 09:47 Dose: 500 mg Documented by: Budesonide (Budesonide 1 Mg/2 Ml Nebu) 1 mg INHALATION RT-BID [facility] Last Admin: 05/25/21 07:11 Dose: 1 mg Documented by: Cholecalciferol (Cholecalciferol 25 Mcg (1000 Iu) Tablet) 25 mcg PO DAILY [facility] Last Admin: 05/25/21 08:53 Dose: 25 mcg Documented by: Cyanocobalamin (Cyanocobalamin 500 Mcg Tab) 1,000 mcg PO DAILY [facility] Last Admin: 05/25/21 08:52 Dose: 1,000 mcg Documented by: Enoxaparin Sodium (Enoxaparin 30 Mg/0.3 Ml Syringe) 30 mg SQ DAILY [facility] Famotidine (Famotidine 20 Mg Tab) 20 mg PO DAILY [facility] Last Admin: 05/25/21 08:53 Dose: 20 mg Documented by: Folic Acid (Folic Acid 1 Mg Tab) 1 mg PO DAILY [facility] Last Admin: 05/25/21 08:52 Dose: 1 mg Documented by: Formoterol Fumarate (Formoterol Fumarate 20 Mcg/2 Ml Nebu) 20 mcg INHALATION RT-BID [facility] Last Admin: 05/25/21 07:11 Dose: 20 mcg Documented by: Guaifenesin (Guaifenesin 600 Mg Tablet.Er) 600 mg PO QID [facility] Hydralazine HCl (Hydralazine Hcl 50 Mg Tab) 50 mg PO BID [facility] Last Admin: 05/25/21 08:52 Dose: 50 mg Documented by: Ceftriaxone Sodium 2 gm/ (Sodium Chloride) 50 mls @ 100 mls/hr IVPB Q24HR [facility] Stop: 05/28/21 09:29 Last Admin: 05/25/21 09:47 Dose: 100 mls/hr Documented by: Isosorbide Mononitrate (Isosorbide Mononitrate Er 60 Mg Tab.Er.24h) 60 mg PO DAILY [facility] Last Admin: 05/25/21 08:53 Dose: 60 mg Documented by: Methylprednisolone Sodium Succinate (Methylprednisolone Sod Succi 40 Mg/Ml 1 Ml Vial) 40 mg IV Q8HR [facility] Last Admin: 05/25/21 08:53 Dose: 40 mg Documented by: Metoprolol Tartrate (Metoprolol Tartrate 50 Mg Tab) 50 mg PO BID [facility] Last Admin: 05/25/21 08:53 Dose: 50 mg Documented by: Miscellaneous Information (Pneumonia Protocol Utilized 1 Each [facility] [place]) 1 each PO ONCE PRN PRN Reason: Per Protocol Spironolactone (Spironolactone 25 Mg Tab) 25 mg PO DAILY [facility] Last Admin: 05/25/21 08:53 Dose: 25 mg Documented by: Past medical history to include: Hypertension, hyperlipidemia, coronary artery disease with ID, irregular heartbeat,bergers disease , peripheral bypass and bilateral femoral grafting, AICD/removed and changed to permanent pacemaker, ischemic colitis Social history: Occasionally uses a cane. Lives alone. Smoked for many years, stopped 4 weeks ago. Alcohol occasionally. Family history: Cancer Physical examination: VITAL SIGNS: 98, 73, 16, 128/72, 95% on 2 L GENERAL: Awake,, reclining in bed EYES: Pupils equal. Conjunctiva normal. HEENT: External appearance of nose and ears normal, oral cavity grossly normal. NECK: JVD not raised; masses not palpable. HEART: First and second heart sounds are normal; no edema. LUNGS: Respiratory rate increased, decreased breath sounds , expiratory crackles ABDOMEN: Soft, no tenderness, no guarding rigidity, liver spleen not palpable, no masses palpable. 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 INVESTIGATIONS, reviewed in the clinical context: WBC 12.9 hemoglobin 12.2 platelets 234 potassium 4.5 BUN 26 creatinine 1.35 EKG tracing personally reviewed by me-normal sinus rhythm, intraventricular block Chest x-ray film: Possible infiltrate. Cardiomegaly Assessment and plan: -Acute COPD exacerbation in a previous smoker: DuoNeb every 4, nebulized steroids, inhaled long-acting beta agonist , IV Solu- Medrol -Possible pneumonia, suspect gram-negative organism IV ceftriaxone, Zithromax. Check pro-calcitonin -Coronary artery disease with prior ID aspirin -Chronic congestive heart failure from systolic dysfunction, from ischemic cardiomyopathy. EF 40-45% Follow clinically. Add Aldactone -Peripheral arterial disease Aspirin and continue Crestor -Essential hypertension Continue with Lopressor., Prinivil, hydralazine -Vitamin B12 deficiency Continue B12 supplement -Chronic kidney disease stage III likely nephrosclerosis Follow BMP -DO NOT RESUSCITATE -DPOA: Marah, niece Continue IV ceftriaxone, Zithromax, bronchodilators, IV steroids. Increase Mucinex. Has a patient sit up in a chair. Discussed with the patient.
[2021-05-25] MEDS: ATORVASTATIN 20 MG TAB PO SCH (21:21)
[2021-05-26] MEDS: IPRATROPIUM-ALBUTEROL 3 ML NEB INHALATION SCH ×7 (00:58→23:38)
[2021-05-26 06:54] LABS: African American GFR (CKD) 53 (>60 ml/min/1.73 sqM); Anion Gap 6 mmol/L; Blood Urea Nitrogen 31 mg/dL (7-17); Calcium 9.6 mg/dL (8.4-10.2); Carbon Dioxide 23 mmol/L (22-30); Chloride 109 mmol/L (98-107); Glucose 130 mg/dL (74-99); Non-African American GFR(CKD) 46 (>60 ml/min/1.73 sqM); Potassium 4.7 mmol/L (3.5-5.1); Sodium 138 mmol/L (137-145)
[2021-05-26] MEDS: FAMOTIDINE 20 MG TAB PO SCH (08:28)
[2021-05-26] MEDS: FORMOTEROL FUMARATE 20 MCG/2 ML NEBU INHALATION SCH ×2 (08:52→19:17)
[2021-05-26] MEDS: BUDESONIDE 1 MG/2 ML NEBU INHALATION SCH ×2 (08:52→19:17)
[2021-05-26] MEDS: METOPROLOL TARTRATE 50 MG TAB PO SCH ×2 (09:14→21:31)
[2021-05-26] MEDS: ISOSORBIDE MONONITRATE ER 60 MG TAB.ER.24H PO SCH (09:14)
[2021-05-26] MEDS: guaiFENesin 600 MG TABLET.ER PO SCH ×4 (09:14→21:31)
[2021-05-26] MEDS: hydrALAZINE HCL 50 MG TAB PO SCH ×2 (09:14→21:31)
[2021-05-26] MEDS: ASPIRIN 81 MG PO SCH (09:14)
[2021-05-26] MEDS: CHOLECALCIFEROL 25 MCG (1000 IU) TABLET PO SCH (09:14)
[2021-05-26] MEDS: SPIRONOLACTONE 25 MG TAB PO SCH (09:14)
[2021-05-26] MEDS: CYANOCOBALAMIN 500 MCG TAB PO SCH (09:14)
[2021-05-26] MEDS: FOLIC ACID 1 MG TAB PO SCH (09:14)
[2021-05-26] MEDS: ENOXAPARIN 30 MG/0.3 ML SYRINGE SQ SCH (09:14)
[2021-05-26] MEDS: methylPREDNISolone SOD SUCCI 40 MG/ML 1 ML VIAL IV SCH ×3 (09:23→23:49)
[2021-05-26] MEDS: AZITHROMYCIN 500 MG TAB PO SCH (09:27)
--- NOTE | 2021-05-26 19:40 | P.PN ---
Progress Note - Text Progress Note Date: 05/26/21 Chief Complaint: Short of breath History of presenting complaint: This is a pleasant 86-year-old patient who follows with visiting physicians Dr. Lowe. Chronic stable medical conditions include hyperlipidemia, hypertension, peripheral arterial disease with Bergers disease, AICD permanent pacemaker. CHF EF 40-45%, CAD, CK D stage III Patient is admitted to the hospital about a month ago with acute ischemic colitis and COPD exacerbation. Patient discontinued smoking since then. Patient now presents with increasing shortness of breath wheezing. Dry cough. No fever no chills. Appetite is fair. Diet. Check stat x-rays in the ER did show some pneumonia and was started on antibiotics and bronchodilators. Admitted with severe COPD exacerbation, possible pneumonia. Started on nebulized bronchodilators, IV steroids, long-acting beta agonist, IV ceftriaxone May 25: Slight improvement in shortness of breath. Congested cough. Not able to expectorate. Mucinex added. Had about 35% of her breakfast. Have patient set up in a chair May 26: Slight improvement in shortness breath. Oral intake better. This afternoon had an episode of wheezing shortness of breath. Better after bronchodilator. Review of systems: Was done for constitutional, cardiovascular, GI, pulmonary. relevant finding as above Active Medications Albuterol Sulfate (Albuterol Nebulized 2.5 Mg/3 Ml) 2.5 mg INHALATION RT-Q4H PRN PRN Reason: Wheezing Last Admin: 05/24/21 18:46 Dose: 2.5 mg Documented by: Albuterol/Ipratropium (Ipratropium-Albuterol 3 Ml Neb) 3 ml INHALATION RT-Q4H [facility] Last Admin: 05/26/21 19:17 Dose: 3 ml Documented by: Aspirin (Aspirin 81 Mg) 81 mg PO DAILY [facility] Last Admin: 05/26/21 09:14 Dose: 81 mg Documented by: Atorvastatin Calcium (Atorvastatin 20 Mg Tab) 20 mg PO HS [facility] Last Admin: 05/25/21 21:21 Dose: 20 mg Documented by: Budesonide (Budesonide 1 Mg/2 Ml Nebu) 1 mg INHALATION RT-BID [facility] Last Admin: 05/26/21 19:17 Dose: 1 mg Documented by: Cholecalciferol (Cholecalciferol 25 Mcg (1000 Iu) Tablet) 25 mcg PO DAILY [facility] Last Admin: 05/26/21 09:14 Dose: 25 mcg Documented by: Cyanocobalamin (Cyanocobalamin 500 Mcg Tab) 1,000 mcg PO DAILY [facility] Last Admin: 05/26/21 09:14 Dose: 1,000 mcg Documented by: Enoxaparin Sodium (Enoxaparin 30 Mg/0.3 Ml Syringe) 30 mg SQ DAILY [facility] Last Admin: 05/26/21 09:14 Dose: 30 mg Documented by: Famotidine (Famotidine 20 Mg Tab) 20 mg PO DAILY [facility] Last Admin: 05/26/21 08:28 Dose: 20 mg Documented by: Folic Acid (Folic Acid 1 Mg Tab) 1 mg PO DAILY [facility] Last Admin: 05/26/21 09:14 Dose: 1 mg Documented by: Formoterol Fumarate (Formoterol Fumarate 20 Mcg/2 Ml Nebu) 20 mcg INHALATION RT-BID [facility] Last Admin: 05/26/21 19:17 Dose: 20 mcg Documented by: Guaifenesin (Guaifenesin 600 Mg Tablet.Er) 600 mg PO QID [facility] Last Admin: 05/26/21 16:53 Dose: 600 mg Documented by: Hydralazine HCl (Hydralazine Hcl 50 Mg Tab) 50 mg PO BID [facility] Last Admin: 05/26/21 09:14 Dose: 50 mg Documented by: Ceftriaxone Sodium 2 gm/ (Sodium Chloride) 50 mls @ 100 mls/hr IVPB Q24HR [facility] Stop: 05/28/21 09:29 Last Admin: 05/26/21 09:14 Dose: 100 mls/hr Documented by: Isosorbide Mononitrate (Isosorbide Mononitrate Er 60 Mg Tab.Er.24h) 60 mg PO D AILY [facility] Last Admin: 05/26/21 09:14 Dose: 60 mg Documented by: Methylprednisolone Sodium Succinate (Methylprednisolone Sod Succi 40 Mg/Ml 1 Ml Vial) 40 mg IV Q8HR [facility] Last Admin: 05/26/21 16:53 Dose: 40 mg Documented by: Metoprolol Tartrate (Metoprolol Tartrate 50 Mg Tab) 50 mg PO BID [facility] Last Admin: 05/26/21 09:14 Dose: 50 mg Documented by: Miscellaneous Information (Pneumonia Protocol Utilized 1 Each Misc) 1 each PO ONCE PRN PRN Reason: Per Protocol Spironolactone (Spironolactone 25 Mg Tab) 25 mg PO DAILY [facility] Last Admin: 05/26/21 09:14 Dose: 25 mg Documented by: Past medical history to include: Hypertension, hyperlipidemia, coronary artery disease with CT, irregular heartbeat,bergers disease , peripheral bypass and bilateral femoral grafting, AICD/removed and changed to permanent pacemaker, ischemic colitis Social history: Occasionally uses a cane. Lives alone. Smoked for many years, stopped 4 weeks ago. Alcohol occasionally. Family history: Cancer Physical examination: VITAL SIGNS: 97.9, 76, 20, 149/68, 94% room air GENERAL: Awake, sitting on the edge of the bed, a bit tired EYES: Pupils equal. Conjunctiva normal. HEENT: External appearance of nose and ears normal, oral cavity grossly normal. NECK: JVD not raised; masses not palpable. HEART: First and second heart sounds are normal; no edema. LUNGS: Respiratory rate increased, decreased breath sounds , prolonged expiration ABDOMEN: Soft, no tenderness, no guarding rigidity, liver spleen not palpable, no masses palpable. 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 INVESTIGATIONS, reviewed in the clinical context: May 26: Potassium 4.7 BUN 31-1.11 WBC 12.9 hemoglobin 12.2 platelets 234 potassium 4.5 BUN 26 creatinine 1.35 EKG tracing personally reviewed by me-normal sinus rhythm, intraventricular block Chest x-ray film: Possible infiltrate. Cardiomegaly Assessment and plan: -Acute COPD exacerbation in a previous smoker: Slow to respond DuoNeb every 4, nebulized steroids, inhaled long-acting beta agonist , IV Solu- Medrol -Possible pneumonia, suspect gram-negative organism IV ceftriaxone, Zithromax. Check pro-calcitonin -Coronary artery disease with prior CT aspirin -Chronic congestive heart failure from systolic dysfunction, from ischemic cardiomyopathy. EF 40-45% Follow clinically. Add Aldactone -Peripheral arterial disease Aspirin and continue Crestor -Essential hypertension Continue with Lopressor., Prinivil, hydralazine -Vitamin B12 deficiency Continue B12 supplement -Chronic kidney disease stage III likely nephrosclerosis Follow BMP -DO NOT RESUSCITATE -DPOA: Marah, niece Patient had a bout of wheezing and shortness of breath this afternoon. Better after bronchodilators. Discussed with the patient. Watch for at least another 24 hours. Continue IV stretch bronchodilators
[2021-05-26] MEDS: ATORVASTATIN 20 MG TAB PO SCH (21:31)
[2021-05-27] MEDS: IPRATROPIUM-ALBUTEROL 3 ML NEB INHALATION SCH ×5 (02:22→19:22)
[2021-05-27] MEDS: hydrALAZINE HCL 50 MG TAB PO SCH ×4 (03:11→20:14)
[2021-05-27] MEDS: BUDESONIDE 1 MG/2 ML NEBU INHALATION SCH ×2 (07:16→19:23)
[2021-05-27] MEDS: FORMOTEROL FUMARATE 20 MCG/2 ML NEBU INHALATION SCH ×2 (07:16→19:23)
[2021-05-27 09:00] LABS: African American GFR (CKD) 56 (>60 ml/min/1.73 sqM); Anion Gap 10 mmol/L; Blood Urea Nitrogen 38 mg/dL (7-17); Calcium 9.9 mg/dL (8.4-10.2); Carbon Dioxide 17 mmol/L (22-30); Chloride 110 mmol/L (98-107); Glucose 131 mg/dL (74-99); Non-African American GFR(CKD) 48 (>60 ml/min/1.73 sqM); Potassium 4.6 mmol/L (3.5-5.1); Sodium 137 mmol/L (137-145)
[2021-05-27] MEDS: CHOLECALCIFEROL 25 MCG (1000 IU) TABLET PO SCH (09:59)
[2021-05-27] MEDS: ASPIRIN 81 MG PO SCH (09:59)
[2021-05-27] MEDS: FAMOTIDINE 20 MG TAB PO SCH (09:59)
[2021-05-27] MEDS: FOLIC ACID 1 MG TAB PO SCH (09:59)
[2021-05-27] MEDS: CYANOCOBALAMIN 500 MCG TAB PO SCH (09:59)
[2021-05-27] MEDS: methylPREDNISolone SOD SUCCI 40 MG/ML 1 ML VIAL IV SCH (09:59)
[2021-05-27] MEDS: ENOXAPARIN 30 MG/0.3 ML SYRINGE SQ SCH (09:59)
[2021-05-27] MEDS: guaiFENesin 600 MG TABLET.ER PO SCH ×4 (09:59→20:14)
[2021-05-27] MEDS: ISOSORBIDE MONONITRATE ER 60 MG TAB.ER.24H PO SCH (09:59)
[2021-05-27] MEDS: SPIRONOLACTONE 25 MG TAB PO SCH (09:59)
[2021-05-27] MEDS: METOPROLOL TARTRATE 50 MG TAB PO SCH ×2 (10:00→20:14)
[2021-05-27] MEDS: predniSONE 20 MG TAB PO SCH (12:56)
[2021-05-27] MEDS: SODIUM BICARBONATE TAB 650 MG TAB PO SCH ×3 (12:56→20:14)
--- NOTE | 2021-05-27 14:36 | P.PN ---
Progress Note - Text Progress Note Date: 05/27/21 Chief Complaint: Short of breath History of presenting complaint: This is a pleasant 86-year-old patient who follows with visiting physicians Dr. Lowe. Chronic stable medical conditions include hyperlipidemia, hypertension, peripheral arterial disease with Bergers disease, AICD permanent pacemaker. CHF EF 40-45%, CAD, CK D stage III Patient is admitted to the hospital about a month ago with acute ischemic colitis and COPD exacerbation. Patient discontinued smoking since then. Patient now presents with increasing shortness of breath wheezing. Dry cough. No fever no chills. Appetite is fair. Diet. Check stat x-rays in the ER did show some pneumonia and was started on antibiotics and bronchodilators. Admitted with severe COPD exacerbation, possible pneumonia. Started on nebulized bronchodilators, IV steroids, long-acting beta agonist, IV ceftriaxone May 25: Slight improvement in shortness of breath. Congested cough. Not able to expectorate. Mucinex added. Had about 35% of her breakfast. Have patient set up in a chair May 26: Slight improvement in shortness breath. Oral intake better. This afternoon had an episode of wheezing shortness of breath. Better after bronchodilator. May 27: Intermittently short of breath. But better than admission. Patient was slightly delirious last night. Patient's family at the bedside. Plan is to cut back on steroids. Questions answered. Overall guarded prognosis in view of COPD discussed. Changed to by mouth prednisone Review of systems: Was done for constitutional, cardiovascular, GI, pulmonary. relevant finding as above Active Medications Albuterol Sulfate (Albuterol Nebulized 2.5 Mg/3 Ml) 2.5 mg INHALATION RT-Q4H PRN PRN Reason: Wheezing Last Admin: 05/24/21 18:46 Dose: 2.5 mg Documented by: Albuterol/Ipratropium (Ipratropium-Albuterol 3 Ml Neb) 3 ml INHALATION RT-Q4H [facility] Last Admin: 05/27/21 10:54 Dose: 3 ml Documented by: Aspirin (Aspirin 81 Mg) 81 mg PO DAILY [facility] Last Admin: 05/27/21 09:59 Dose: 81 mg Documented by: Atorvastatin Calcium (Atorvastatin 20 Mg Tab) 20 mg PO HS [facility] Last Admin: 05/26/21 21:31 Dose: 20 mg Documented by: Budesonide (Budesonide 1 Mg/2 Ml Nebu) 1 mg INHALATION RT-BID [facility] Last Admin: 05/27/21 07:16 Dose: 1 mg Documented by: Cholecalciferol (Cholecalciferol 25 Mcg (1000 Iu) Tablet) 25 mcg PO DAILY [facility] Last Admin: 05/27/21 09:59 Dose: 25 mcg Documented by: Cyanocobalamin (Cyanocobalamin 500 Mcg Tab) 1,000 mcg PO DAILY [facility] Last Admin: 05/27/21 09:59 Dose: 1,000 mcg Documented by: Enoxaparin Sodium (Enoxaparin 30 Mg/0.3 Ml Syringe) 30 mg SQ DAILY [facility] Last Admin: 05/27/21 09:59 Dose: 30 mg Documented by: Famotidine (Famotidine 20 Mg Tab) 20 mg PO DAILY [facility] Last Admin: 05/27/21 09:59 Dose: 20 mg Documented by: Folic Acid (Folic Acid 1 Mg Tab) 1 mg PO DAILY [facility] Last Admin: 05/27/21 09:59 Dose: 1 mg Documented by: Formoterol Fumarate (Formoterol Fumarate 20 Mcg/2 Ml Nebu) 20 mcg INHALATION RT-BID [facility] Last Admin: 05/27/21 07:16 Dose: 20 mcg Documented by: Guaifenesin (Guaifenesin 600 Mg Tablet.Er) 600 mg PO QID [facility] Last Admin: 05/27/21 12:56 Dose: 600 mg Documented by: Hydralazine HCl (Hydralazine Hcl 50 Mg Tab) 50 mg PO TID [facility] Last Admin: 05/27/21 09:59 Dose: 50 mg Documented by: Ceftriaxone Sodium 2 gm/ (Sodium Chloride) 50 mls @ 100 mls/hr IVPB Q24HR [facility] Stop: 05/28/21 09:29 Last Admin: 05/27/21 10:00 Dose: 100 mls/hr Documented by: Isosorbide Mononitrate (Isosorbide Mononitrate Er 60 Mg Tab.Er.24h) 60 mg PO DAILY [facility] Last Admin: 05/27/21 09:59 Dose: 60 mg Documented by: Metoprolol Tartrate (Metoprolol Tartrate 50 Mg Tab) 50 mg PO BID [facility] Last Admin: 05/27/21 10:00 Dose: 50 mg Documented by: Miscellaneous Information (Pneumonia Protocol Utilized 1 Each Misc) 1 each PO ONCE PRN PRN Reason: Per Protocol Prednisone (Prednisone 20 Mg Tab) 40 mg PO DAILY [facility] Last Admin: 05/27/21 12:56 Dose: 40 mg Documented by: Sodium Bicarbonate (Sodium Bicarbonate Tab 650 Mg Tab) 650 mg PO TID [facility] Last Admin: 05/27/21 12:56 Dose: 650 mg Documented by: Spironolactone (Spironolactone 25 Mg Tab) 25 mg PO DAILY [facility] Last Admin: 05/27/21 09:59 Dose: 25 mg Documented by: Past medical history to include: Hypertension, hyperlipidemia, coronary artery disease with [place], irregular heartbeat,bergers disease , peripheral bypass and bilateral femoral grafting, AICD/removed and changed to permanent pacemaker, ischemic colitis Social history: Occasionally uses a cane. Lives alone. Smoked for many years, stopped 4 weeks ago. Alcohol occasionally. Family history: Cancer Physical examination: VITAL SIGNS: 97.5, 64, 17, 161/75, 93% room air GENERAL: Awake, reclining in bed, tired EYES: Pupils equal. Conjunctiva normal. HEENT: External appearance of nose and ears normal, oral cavity grossly normal. NECK: JVD not raised; masses not palpable. HEART: First and second heart sounds are normal; no edema. LUNGS: Respiratory rate increased, decreased breath sounds , prolonged expiration ABDOMEN: Soft, no tenderness, no guarding rigidity, liver spleen not palpable, no masses palpable. 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 INVESTIGATIONS, reviewed in the clinical context: May 27: Potassium 4.6 creatinine 1.06 May 26: Potassium 4.7 BUN 31-1.11 WBC 12.9 hemoglobin 12.2 platelets 234 potassium 4.5 BUN 26 creatinine 1.35 EKG tracing personally reviewed by me-normal sinus rhythm, intraventricular block Chest x-ray film: Possible infiltrate. Cardiomegaly Assessment and plan: -Acute COPD exacerbation in a previous smoker: Slow to respond DuoNeb every 4, nebulized steroids, inhaled long-acting beta agonist , IV Itol-Ufizet-pndyoup to by mouth prednisone -Possible pneumonia, suspect gram-negative organism IV ceftriaxone, Zithromax. Check pro-calcitonin -Coronary artery disease with prior [place] aspirin -Chronic congestive heart failure from systolic dysfunction, from ischemic cardiomyopathy. EF 40-45% Follow clinically. Add Aldactone -Peripheral arterial disease Aspirin and continue Crestor -Essential hypertension Continue with Lopressor., Prinivil, hydralazine -Vitamin B12 deficiency Continue B12 supplement -Chronic kidney disease stage III likely nephrosclerosis Follow BMP -DO NOT RESUSCITATE -DPOA: Marah, niece Care was discussed with patient's knees Marah the bedside and . And the patient. Questions answered. We will watch for another 24 hours. Changed to by mouth prednisone. Total time spent today about 40 minutes with over 20 minutes of discussion.
[2021-05-27] MEDS: ATORVASTATIN 20 MG TAB PO SCH (20:14)
[2021-05-28] MEDS: IPRATROPIUM-ALBUTEROL 3 ML NEB INHALATION SCH ×7 (00:07→23:29)
[2021-05-28] MEDS: BUDESONIDE 1 MG/2 ML NEBU INHALATION SCH ×2 (07:12→19:42)
[2021-05-28] MEDS: FORMOTEROL FUMARATE 20 MCG/2 ML NEBU INHALATION SCH ×2 (07:12→19:42)
[2021-05-28] MEDS: guaiFENesin 600 MG TABLET.ER PO SCH ×4 (08:22→20:10)
[2021-05-28] MEDS: METOPROLOL TARTRATE 50 MG TAB PO SCH ×2 (08:22→20:10)
[2021-05-28] MEDS: SODIUM BICARBONATE TAB 650 MG TAB PO SCH ×3 (08:22→20:10)
[2021-05-28] MEDS: predniSONE 20 MG TAB PO SCH (08:22)
[2021-05-28] MEDS: CHOLECALCIFEROL 25 MCG (1000 IU) TABLET PO SCH (08:23)
[2021-05-28] MEDS: ISOSORBIDE MONONITRATE ER 60 MG TAB.ER.24H PO SCH (08:23)
[2021-05-28] MEDS: ENOXAPARIN 30 MG/0.3 ML SYRINGE SQ SCH (08:23)
[2021-05-28] MEDS: FOLIC ACID 1 MG TAB PO SCH (08:23)
[2021-05-28] MEDS: FAMOTIDINE 20 MG TAB PO SCH (08:23)
[2021-05-28] MEDS: ASPIRIN 81 MG PO SCH (08:23)
[2021-05-28] MEDS: SPIRONOLACTONE 25 MG TAB PO SCH (08:23)
[2021-05-28] MEDS: hydrALAZINE HCL 50 MG TAB PO SCH ×3 (08:23→20:10)
[2021-05-28] MEDS: CYANOCOBALAMIN 500 MCG TAB PO SCH (08:25)
[2021-05-28] MEDS ORDERED: FLUCONAZOLE 100 MG TAB PO ONE (11:28)
[2021-05-28] MEDS: THEOPHYLLINE 24 HOUR 300 MG CAP.ER.24H PO SCH (12:07)
--- NOTE | 2021-05-28 14:55 | P.PN ---
Progress Note - Text Progress Note Date: 05/28/21 Chief Complaint: Short of breath History of presenting complaint: This is a pleasant 86-year-old patient who follows with visiting physicians Dr. Lowe. Chronic stable medical conditions include hyperlipidemia, hypertension, peripheral arterial disease with Bergers disease, AICD permanent pacemaker. CHF EF 40-45%, CAD, CK D stage III Patient is admitted to the hospital about a month ago with acute ischemic colitis and COPD exacerbation. Patient discontinued smoking since then. Patient now presents with increasing shortness of breath wheezing. Dry cough. No fever no chills. Appetite is fair. Diet. Check stat x-rays in the ER did show some pneumonia and was started on antibiotics and bronchodilators. Admitted with severe COPD exacerbation, possible pneumonia. Started on nebulized bronchodilators, IV steroids, long-acting beta agonist, IV ceftriaxone May 25: Slight improvement in shortness of breath. Congested cough. Not able to expectorate. Mucinex added. Had about 35% of her breakfast. Have patient set up in a chair May 26: Slight improvement in shortness breath. Oral intake better. This afternoon had an episode of wheezing shortness of breath. Better after bronchodilator. May 27: Intermittently short of breath. But better than admission. Patient was slightly delirious last night. Patient's family at the bedside. Plan is to cut back on steroids. Questions answered. Overall guarded prognosis in view of COPD discussed. Changed to by mouth prednisone May 28: Having intermittent bouts of shortness of breath. Feeling better otherwise. Oral intake fair. Congested cough. Review of systems: Was done for constitutional, cardiovascular, GI, pulmonary. relevant finding as above Active Medications Albuterol Sulfate (Albuterol Nebulized 2.5 Mg/3 Ml) 2.5 mg INHALATION RT-Q4H PRN PRN Reason: Wheezing Last Admin: 05/24/21 18:46 Dose: 2.5 mg Documented by: Albuterol/Ipratropium (Ipratropium-Albuterol 3 Ml Neb) 3 ml INHALATION RT-Q4H [facility] Last Admin: 05/28/21 10:44 Dose: 3 ml Documented by: Aspirin (Aspirin 81 Mg) 81 mg PO DAILY [facility] Last Admin: 05/28/21 08:23 Dose: 81 mg Documented by: Atorvastatin Calcium (Atorvastatin 20 Mg Tab) 20 mg PO HS [facility] Last Admin: 05/27/21 20:14 Dose: 20 mg Documented by: Budesonide (Budesonide 1 Mg/2 Ml Nebu) 1 mg INHALATION RT-BID [facility] Last Admin: 05/28/21 07:12 Dose: 1 mg Documented by: Cholecalciferol (Cholecalciferol 25 Mcg (1000 Iu) Tablet) 25 mcg PO DAILY [facility] Last Admin: 05/28/21 08:23 Dose: 25 mcg Documented by: Cyanocobalamin (Cyanocobalamin 500 Mcg Tab) 1,000 mcg PO DAILY [facility] Last Admin: 05/28/21 08:25 Dose: 1,000 mcg Documented by: Enoxaparin Sodium (Enoxaparin 30 Mg/0.3 Ml Syringe) 30 mg SQ DAILY [facility] Last Admin: 05/28/21 08:23 Dose: 30 mg Documented by: Famotidine (Famotidine 20 Mg Tab) 20 mg PO DAILY [facility] Last Admin: 05/28/21 08:23 Dose: 20 mg Documented by: Fluconazole (Fluconazole 100 Mg Tab) 100 mg PO DAILY [facility] Folic Acid (Folic Acid 1 Mg Tab) 1 mg PO DAILY [facility] Last Admin: 05/28/21 08:23 Dose: 1 mg Documented by: Formoterol Fumarate (Formoterol Fumarate 20 Mcg/2 Ml Nebu) 20 mcg INHALATION RT-BID [facility] Last Admin: 05/28/21 07:12 Dose: 20 mcg Documented by: Guaifenesin (Guaifenesin 600 Mg Tablet.Er) 600 mg PO QID [facility] Last Admin: 05/28/21 12:08 Dose: 600 mg Documented by: Hydralazine HCl (Hydralazine Hcl 50 Mg Tab) 50 mg PO TID [facility] Last Admin: 05/28/21 08:23 Dose: 50 mg Documented by: Isosorbide Mononitrate (Isosorbide Mononitrate Er 60 Mg Tab.Er.24h) 60 mg PO DAILY [facility] Last Admin: 05/28/21 08:23 Dose: 60 mg Documented by: Metoprolol Tartrate (Metoprolol Tartrate 50 Mg Tab) 50 mg PO BID [facility] Last Admin: 05/28/21 08:22 Dose: 50 mg Documented by: Miscellaneous Information (Pneumonia Protocol Utilized 1 Each Misc) 1 each PO ONCE PRN PRN Reason: Per Protocol Prednisone (Prednisone 20 Mg Tab) 40 mg PO DAILY [facility] Last Admin: 05/28/21 08:22 Dose: 40 mg Documented by: Sodium Bicarbonate (Sodium Bicarbonate Tab 650 Mg Tab) 650 mg PO TID [facility] Last Admin: 05/28/21 08:22 Dose: 650 mg Documented by: Spironolactone (Spironolactone 25 Mg Tab) 25 mg PO DAILY [facility] Last Admin: 05/28/21 08:23 Dose: 25 mg Documented by: Theophylline (Theophylline 24 Hour 300 Mg Cap.Er.24h) 300 mg PO DAILY [facility] Last Admin: 05/28/21 12:07 Dose: 300 mg Documented by: Past medical history to include: Hypertension, hyperlipidemia, coronary artery disease with [place], irregular heartbeat,bergers disease , peripheral bypass and bilateral femoral grafting, AICD/removed and changed to permanent pacemaker, ischemic colitis Social history: Occasionally uses a cane. Lives alone. Smoked for many years, stopped 4 weeks ago. Alcohol occasionally. Family history: Cancer Physical examination: VITAL SIGNS: 97.6, 85, 18, 1 62 x 78, 95% on 1 L GENERAL: Awake, reclining in bed, tired EYES: Pupils equal. Conjunctiva normal. HEENT: External appearance of nose and ears normal, oral cavity: White spots NECK: JVD not raised; masses not palpable. HEART: First and second heart sounds are normal; no edema. LUNGS: Respiratory rate increased, decreased breath sounds , prolonged expiration ABDOMEN: Soft, no tenderness, no guarding rigidity, liver spleen not palpable, no masses palpable. 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 INVESTIGATIONS, reviewed in the clinical context: May 27: Potassium 4.6 creatinine 1.06 May 26: Potassium 4.7 BUN 31-1.11 WBC 12.9 hemoglobin 12.2 platelets 234 potassium 4.5 BUN 26 creatinine 1.35 EKG tracing personally reviewed by me-normal sinus rhythm, intraventricular block Chest x-ray film: Possible infiltrate. Cardiomegaly Assessment and plan: -Acute COPD exacerbation in a previous smoker: Slow to respond DuoNeb every 4, nebulized steroids, inhaled long-acting beta agonist , IV Solu-Medrol-- prednisone. Add theophylline 300 mg daily -Possible pneumonia, suspect gram-negative organism IV ceftriaxone, Check pro-calcitonin -Oropharyngeal candidiasis secondary to steroids: Diagnosis Start Diflucan -Coronary artery disease with prior [place] aspirin -Chronic congestive heart failure from systolic dysfunction, from ischemic cardiomyopathy. EF 40-45% Follow clinically. Add Aldactone -Peripheral arterial disease Aspirin and continue Crestor -Essential hypertension Continue with Lopressor., Prinivil, hydralazine -Vitamin B12 deficiency Continue B12 supplement -Chronic kidney disease stage III likely nephrosclerosis Follow BMP -DO NOT RESUSCITATE -DPOA: damion Crystal Add Diflucan 200 mg today and 100 from tomorrow. Add theophylline 300 mg daily. Discussed with the patient. Prognosis guarded long-term. Continue bronchodilators. Follow
[2021-05-28] MEDS: ATORVASTATIN 20 MG TAB PO SCH (20:10)
[2021-05-29] MEDS: IPRATROPIUM-ALBUTEROL 3 ML NEB INHALATION SCH ×4 (03:21→16:56)
[2021-05-29] MEDS: SODIUM BICARBONATE TAB 650 MG TAB PO SCH (07:22)
[2021-05-29] MEDS: predniSONE 20 MG TAB PO SCH (07:22)
[2021-05-29] MEDS: hydrALAZINE HCL 50 MG TAB PO SCH (07:22)
[2021-05-29] MEDS: guaiFENesin 600 MG TABLET.ER PO SCH ×2 (07:23→12:39)
[2021-05-29] MEDS: METOPROLOL TARTRATE 50 MG TAB PO SCH (07:23)
[2021-05-29] MEDS: ENOXAPARIN 30 MG/0.3 ML SYRINGE SQ SCH (07:23)
[2021-05-29] MEDS: FAMOTIDINE 20 MG TAB PO SCH (07:23)
[2021-05-29] MEDS: THEOPHYLLINE 24 HOUR 300 MG CAP.ER.24H PO SCH (07:23)
[2021-05-29] MEDS: CYANOCOBALAMIN 500 MCG TAB PO SCH (07:23)
[2021-05-29] MEDS: ASPIRIN 81 MG PO SCH (07:23)
[2021-05-29] MEDS: CHOLECALCIFEROL 25 MCG (1000 IU) TABLET PO SCH (07:23)
[2021-05-29] MEDS: ISOSORBIDE MONONITRATE ER 60 MG TAB.ER.24H PO SCH (07:23)
[2021-05-29] MEDS: FOLIC ACID 1 MG TAB PO SCH (07:23)
[2021-05-29] MEDS: SPIRONOLACTONE 25 MG TAB PO SCH (07:23)
[2021-05-29] MEDS: BUDESONIDE 1 MG/2 ML NEBU INHALATION SCH (07:52)
[2021-05-29] MEDS: FORMOTEROL FUMARATE 20 MCG/2 ML NEBU INHALATION SCH (07:52)
[2021-05-29 08:08] VITALS: BP 169/90; RESP 19; TEMP 98.2
[2021-05-29] MEDS ORDERED: FLUCONAZOLE 100 MG TAB PO SCH (09:00)
[2021-05-29 11:28] VITALS: PULSE 82
--- NOTE | 2021-05-29 13:32 | P.DS ---
Providers Date of admission: 05/24/21 13:48 Expected date of discharge: 05/29/21 Attending physician: Bib Yoon Primary care physician: Mitesh Lowe [facility] Course: Chief Complaint: Short of breath History of presenting complaint: This is a pleasant 86-year-old patient who follows with visiting physicians Dr. Lowe. Chronic stable medical conditions include hyperlipidemia, hypertension, peripheral arterial disease with Bergers disease, AICD permanent pacemaker. CHF EF 40-45%, CAD, CK D stage III Patient is admitted to the hospital about a month ago with acute ischemic colitis and COPD exacerbation. Patient discontinued smoking since then. Patient now presents with increasing shortness of breath wheezing. Dry cough. No fever no chills. Appetite is fair. Diet. Check stat x-rays in the ER did show some pneumonia and was started on antibiotics and bronchodilators. Admitted with severe COPD exacerbation, possible pneumonia. Started on nebulized bronchodilators, IV steroids, long-acting beta agonist, IV ceftriaxone May 25: Slight improvement in shortness of breath. Congested cough. Not able to expectorate. Mucinex added. Had about 35% of her breakfast. Have patient set up in a chair May 26: Slight improvement in shortness breath. Oral intake better. This afternoon had an episode of wheezing shortness of breath. Better after bronchodilator. May 27: Intermittently short of breath. But better than admission. Patient was slightly delirious last night. Patient's family at the bedside. Plan is to cut back on steroids. Questions answered. Overall guarded prognosis in view of COPD discussed. Changed to by mouth prednisone May 28: Having intermittent bouts of shortness of breath. Feeling better otherwise. Oral intake fair. Congested cough. On to oral candidiasis. Started on Diflucan. Started on theophylline 300 mg May 29: Patient doing better today. Oral thrush present. Had a lengthy talk with the patient regarding she'll eat help at home and niece needs to strongly consider assisted living. This is also discussed with patient's niece who agrees the same. Discussion and discharge planning more than 35 minutes Past medical history to include: Hypertension, hyperlipidemia, coronary artery disease with [place], irregular heartbeat,bergers disease , peripheral bypass and bilateral femoral grafting, AICD/removed and changed to permanent pacemaker, ischemic colitis Social history: Occasionally uses a cane. Lives alone. Smoked for many years, stopped 4 weeks ago. Alcohol occasionally. Family history: Cancer Physical examination: VITAL SIGNS: 98.2, 91, 19, 169/90, 82% with activity GENERAL: Awake, reclining in bed, tired EYES: Pupils equal. Conjunctiva normal. HEENT: External appearance of nose and ears normal, oral cavity: White spots NECK: JVD not raised; masses not palpable. HEART: First and second heart sounds are normal; no edema. LUNGS: Respiratory rate increased, decreased breath sounds , prolonged expiration ABDOMEN: Soft, no tenderness, no guarding rigidity, liver spleen not palpable, no masses palpable. 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 INVESTIGATIONS, reviewed in the clinical context: May 27: Potassium 4.6 creatinine 1.06 May 26: Potassium 4.7 BUN 31-1.11 WBC 12.9 hemoglobin 12.2 platelets 234 potassium 4.5 BUN 26 creatinine 1.35 EKG tracing personally reviewed by me-normal sinus rhythm, intraventricular block Chest x-ray film: Possible infiltrate. Cardiomegaly Assessment and plan: -Acute COPD exacerbation in a previous smoker: Slow to respond DuoNeb every 4, nebulized steroids, inhaled long-acting beta agonist , IV Solu-Medrol-- prednisone. Add theophylline 300 mg daily -Possible pneumonia, suspect gram-negative organism IV ceftriaxone, -Oropharyngeal candidiasis secondary to steroids: Diflucan for 7 more days -Coronary artery disease with prior [place] aspirin -Chronic congestive heart failure from systolic dysfunction, from ischemic cardiomyopathy. EF 40-45% Follow clinically. Add Aldactone -Peripheral arterial disease Aspirin and continue Crestor -Acute hypoxic respiratory failure from COPD exacerbation 82% with activity. DC with home oxygen -Essential hypertension Continue with Lopressor., Prinivil, hydralazine -Vitamin B12 deficiency Continue B12 supplement -Chronic kidney disease stage III likely nephrosclerosis Follow BMP -DO NOT RESUSCITATE -DPOA: Marah, niece Disposition: Home 82% on room air with activity. DC over 2 L of oxygen. Patient Condition at Discharge: Fair Plan - Discharge Summary Discharge Rx Participant: No New Discharge Prescriptions: New Ipratropium-Albuterol Nebulize [Duoneb 0.5 mg-3 mg/3 ml Soln] 3 ml INHALATION QID #120 ml Sodium Bicarbonate Tab 650 mg PO TID #30 tab Fluconazole [Diflucan] 100 mg PO DAILY #7 tab Theophylline 24 Hour [Bill-24] 300 mg PO HS #30 cap.er.24h predniSONE 10 mg PO DAILY #30 tab Continue Isosorbide Mononitrate ER [Imdur] 60 mg PO DAILY Rosuvastatin Calcium [Crestor] 10 mg PO HS Metoprolol Tartrate [Lopressor] 50 mg PO BID Folic Acid 0.4 mg PO DAILY Cyanocobalamin (Vitamin B-12) [Vitamin B-12] 1,000 mcg PO DAILY guaiFENesin [Mucinex] 600 mg PO BID #60 tablet.er Famotidine [Pepcid] 20 mg PO DAILY #30 tab Budesonide/Formoterol Fumarate [Symbicort 80-4.5 Mcg Inhaler] 1 puff INHALATION RT-BID Aspirin 81 mg PO DAILY Cholecalciferol [Vitamin D3 (25 Mcg = 1000 Iu)] 25 mcg PO DAILY Spironolactone [Aldactone] 25 mg PO DAILY #30 tab Albuterol Sulfate [Albuterol Sulfate Hfa] 1 puff INHALATION RT-Q4H PRN PRN Reason: Wheezing Changed hydrALAZINE HCL 50 mg PO TID #90 tab Discontinued Nicotine 21Mg/24Hr Patch [Habitrol] 1 patch TRANSDERM DAILY #30 patch Discharge Medication List Isosorbide Mononitrate ER [Imdur] 60 mg PO DAILY 08/10/14 [History] Rosuvastatin Calcium [Crestor] 10 mg PO HS 01/02/15 [History] Cyanocobalamin (Vitamin B-12) [Vitamin B-12] 1,000 mcg PO DAILY 01/02/18 [History] Folic Acid 0.4 mg PO DAILY 01/02/18 [History] Metoprolol Tartrate [Lopressor] 50 mg PO BID 01/02/18 [History] Aspirin 81 mg PO DAILY 04/20/21 [History] Cholecalciferol [Vitamin D3 (25 Mcg = 1000 Iu)] 25 mcg PO DAILY 04/20/21 [History] Famotidine [Pepcid] 20 mg PO DAILY #30 tab 04/23/21 [Rx] Spironolactone [Aldactone] 25 mg PO DAILY #30 tab 04/23/21 [Rx] guaiFENesin [Mucinex] 600 mg PO BID #60 tablet.er 04/23/21 [Rx] Albuterol Sulfate [Albuterol Sulfate Hfa] 1 puff INHALATION RT-Q4H PRN 05/24/21 [History] Budesonide/Formoterol Fumarate [Symbicort 80-4.5 Mcg Inhaler] 1 puff INHALATION RT-BID 05/24/21 [History] Fluconazole [Diflucan] 100 mg PO DAILY #7 tab 05/29/21 [Rx] Ipratropium-Albuterol Nebulize [Duoneb 0.5 mg-3 mg/3 ml Soln] 3 ml INHALATION QID #120 ml 05/29/21 [Rx] Sodium Bicarbonate Tab 650 mg PO TID #30 tab 05/29/21 [Rx] Theophylline 24 Hour [Bill-24] 300 mg PO HS #30 cap.er.24h 05/29/21 [Rx] hydrALAZINE HCL 50 mg PO TID #90 tab 05/29/21 [Rx] predniSONE 10 mg PO DAILY #30 tab 05/29/21 [Rx] Follow up Appointment(s)/Referral(s): [facility] [NON-STAFF] - As Needed (Nebulizer and Oxygen) [facility] [NON-STAFF] - As Needed Mitesh Lowe MD [Primary Care Provider] - 1-2 days (Please call when you arrive home )
== END 2021-05-29 16:47 | disposition home health service (06) | DRG 190 ==
LOC: EC 09:38 → 4SSUR 13:48
PROVIDERS: ADMIT Hospitalist; ATTEND Hospitalist
DX: J44.0 Chronic obstructive pulmonary disease with (acute) lower respiratory infection (principal); J15.6 Pneumonia due to other Gram-negative bacteria; J96.01 Acute respiratory failure with hypoxia; B37.0 Candidal stomatitis; B37.89 Other sites of candidiasis; I13.0 Hypertensive heart and chronic kidney disease with heart failure and stage 1 through stage 4 chronic kidney disease, or unspecified chronic kidney disease; I50.22 Chronic systolic (congestive) heart failure; K55.9 Vascular disorder of intestine, unspecified; N02.8 Recurrent and persistent hematuria with other morphologic changes; J44.1 Chronic obstructive pulmonary disease with (acute) exacerbation; I25.10 Atherosclerotic heart disease of native coronary artery without angina pectoris; E53.8 Deficiency of other specified B group vitamins; I45.4 Nonspecific intraventricular block; E78.5 Hyperlipidemia, unspecified; F17.210 Nicotine dependence, cigarettes, uncomplicated; T38.0X5A Adverse effect of glucocorticoids and synthetic analogues, initial encounter; N18.30 Chronic kidney disease, stage 3 unspecified; Z20.822 Contact with and (suspected) exposure to COVID-19; Z66 Do not resuscitate; I25.2 Old myocardial infarction; I25.5 Ischemic cardiomyopathy; I49.9 Cardiac arrhythmia, unspecified; I73.9 Peripheral vascular disease, unspecified; Z79.51 Long term (current) use of inhaled steroids; Z79.82 Long term (current) use of aspirin; Z79.899 Other long term (current) drug therapy; Z88.8 Allergy status to other drugs, medicaments and biological substances; Z95.810 Presence of automatic (implantable) cardiac defibrillator
CPT/HCPCS: 36415; 71046; 80048; 80053; 82550; 83605; 83735; 83880; 84145; 84484; 85025; 85610; 85730; 87040; 87635; 93005; 94640; 94760

== ENCOUNTER 2021-07-11 17:19 | Inpatient (IN) | payer MEDICARE, OTHER ==
--- NOTE | 2021-07-11 18:18 | ED ---
General Adult HPI - General Chief complaint: Shortness of Breath Stated complaint: LILIAM Time Seen by Provider: 07/11/21 17:45 Source: patient, family, RN notes reviewed, old records reviewed Mode of arrival: wheelchair Limitations: no limitations - History of Present Illness Initial comments: This is an 86-year-old female who presents emergency Department complaining of shortness of breath which started earlier today. Patient has a history of COPD and still smokes. Patient did not get the COVID vaccine. Patient denies any fever chills or cough. Patient denies any chest pain. Patient denies any abdominal pain patient denies nausea vomiting diarrhea. Patient denies lightheadedness or dizziness. Patient states it was difficult to speak earlier today. Patient is intoxicated currently 100% on room air - Related Data Home Medications Medication Instructions Recorded Confirmed Isosorbide Mononitrate ER [Imdur] 60 mg PO DAILY 08/10/14 05/24/21 Rosuvastatin Calcium [Crestor] 10 mg PO HS 01/02/15 05/24/21 Cyanocobalamin (Vitamin B-12) 1,000 mcg PO DAILY 01/02/18 05/24/21 [Vitamin B-12] Folic Acid 0.4 mg PO DAILY 01/02/18 05/24/21 Metoprolol Tartrate [Lopressor] 50 mg PO BID 01/02/18 05/24/21 Aspirin 81 mg PO DAILY 04/20/21 05/24/21 Cholecalciferol [Vitamin D3 (25 25 mcg PO DAILY 04/20/21 05/24/21 Mcg = 1000 Iu)] Albuterol Sulfate [Albuterol 1 puff INHALATION RT-Q4H PRN 05/24/21 05/24/21 Sulfate Hfa] Budesonide/Formoterol Fumarate 1 puff INHALATION RT-BID 05/24/21 05/24/21 [Symbicort 80-4.5 Mcg Inhaler] Previous Rx's Medication Instructions Recorded Famotidine [Pepcid] 20 mg PO DAILY #30 tab 04/23/21 Spironolactone [Aldactone] 25 mg PO DAILY #30 tab 04/23/21 guaiFENesin [Mucinex] 600 mg PO BID #60 tablet.er 04/23/21 Fluconazole [Diflucan] 100 mg PO DAILY #7 tab 05/29/21 Ipratropium-Albuterol Nebulize 3 ml INHALATION QID #120 ml 05/29/21 [Duoneb 0.5 mg-3 mg/3 ml Soln] Sodium Bicarbonate Tab 650 mg PO TID #30 tab 05/29/21 Theophylline 24 Hour [Bill-24] 300 mg PO HS #30 cap.er.24h 05/29/21 hydrALAZINE HCL 50 mg PO TID #90 tab 05/29/21 predniSONE 10 mg PO DAILY #30 tab 05/29/21 Allergies Allergy/AdvReac Type Severity Reaction Status Date / Time lisinopril Allergy Anaphylaxis Verified 05/24/21 11:56 Review of Systems ROS Statement: Those systems with pertinent positive or pertinent negative responses have been documented in the HPI. ROS Other: All systems not noted in ROS Statement are negative. Past Medical History Past Medical History: Hyperlipidemia, Hypertension, Myocardial Infarction ([place]) Additional Past Medical History / Comment(s): SCIATICA, irregular heartbeat, hx bergers disease Last Myocardial Infarction Date:: 2004 History of Any Multi-Drug Resistant Organisms: None Reported Past Surgical History: AICD, Heart Catheterization, Pacemaker Additional Past Surgical History / Comment(s): aortic bypass with bilateral femoral grafting. RONEY CATARACTS, AICD removed and changed to pacemaker Past Anesthesia/Blood Transfusion Reactions: No Reported Reaction Type of Cardiac Device: Permanent Pacemaker Device Placement Date:: UNKNOWN Past Psychological History: No Psychological Hx Reported Smoking Status: Former smoker Past Alcohol Use History: Occasional Past Drug Use History: None Reported - Past Family History Father Family Medical History: Cancer Additional Family Medical History / Comment(s): . Mother Family Medical History: No Reported History Additional Family Medical History / Comment(s): MOTHER AT AGE 97 YRS. General Exam - General Exam Comments Initial Comments: GENERAL: Patient is well-developed and well-nourished. Patient is nontoxic and well- hydrated and is in no acute distress. ENT: Neck is soft and supple. No significant lymphadenopathy is noted. Oropharynx is clear. Moist mucous membranes. Neck has full range of motion without eliciting any pain. EYES: The sclera were anicteric and conjunctiva were pink and moist. Extraocular movements were intact and pupils were equal round and reactive to light. Eyelids were unremarkable. PULMONARY: Unlabored respirations. Good breath sounds bilaterally. No audible rales rhonchi or wheezing was noted. CARDIOVASCULAR: There is a regular rate and rhythm without any murmurs gallops or rubs. ABDOMEN: Soft and nontender with normal bowel sounds. SKIN: Skin is clear with no lesions or rashes and otherwise unremarkable. NEUROLOGIC: Patient is alert and oriented x3. Cranial nerves II through XII are grossly intact. Motor and sensory are also intact. Normal speech, volume and content. Symmetrical smile. MUSCULOSKELETAL: Normal extremities with adequate strength and full range of motion. 1+ swelling of her ankles LYMPHATICS: No significant lymphadenopathy is noted PSYCHIATRIC: Normal psychiatric evaluation. Limitations: no limitations Course Vital Signs 07/11/21 07/11/21 07/11/21 17:42 18:11 18:52 Temperature 98.3 F Pulse Rate 74 52 L Respiratory 19 22 22 Rate Blood Pressure 151/70 141/78 O2 Sat by Pulse 100 100 Oximetry 07/11/21 20:00 Temperature Pulse Rate 87 Respiratory 22 Rate Blood Pressure 150/84 O2 Sat by Pulse 95 Oximetry Medical Decision Making - Medical Decision Making EKG shows a sinus rhythm with occasional PVCs and PACs. NH interval is 132 QRS is 108 QT interval 424 QTC is 513. EKG shows no ST segment elevation Patient's x-ray showed congestive heart failure. Patient's troponin was elevated so started the patient on heparin. Patient's d-dimer was elevated psychotic CAT scan of the chest to rule out PE. Patient also received Lasix and Nitropaste in the emergency department. I spoke with Dr. Yoon agreed to admit the patient admitted the patient wrote admitting orders. - Lab Data Result diagrams: 07/11/21 18:52 07/11/21 18:52 Lab Results 07/11/21 07/11/21 07/11/21 Range/Units 18:52 18:52 18:52 WBC 8.9 (3.8-10.6) k/uL RBC 3.58 L (3.80-5.40) m/uL Hgb 12.6 (11.4-16.0) gm/dL Hct 37.1 (34.0-46.0) % MCV 103.8 H (80.0-100.0) fL MCH 35.2 H (25.0-35.0) pg MCHC 34.0 (31.0-37.0) g/dL RDW 14.4 (11.5-15.5) % Plt Count 344 (150-450) k/uL MPV 8.3 Neutrophils % 84 % Lymphocytes % 8 % Monocytes % 6 % Eosinophils % 1 % Basophils % 0 % Neutrophils # 7.5 (1.3-7.7) k/uL Lymphocytes # 0.7 L (1.0-4.8) k/uL Monocytes # 0.5 (0-1.0) k/uL Eosinophils # 0.0 (0-0.7) k/uL Basophils # 0.0 (0-0.2) k/uL Macrocytosis Slight PT 10.5 (9.0-12.0) sec INR 1.0 (<1.2) APTT 23.4 (22.0-30.0) sec D-Dimer 5.38 H (<0.60) mg/L FEU Sodium 134 L (137-145) mmol/L Potassium 5.0 (3.5-5.1) mmol/L Chloride 106 (98-107) mmol/L Carbon Dioxide 24 (22-30) mmol/L Anion Gap 4 mmol/L BUN 24 H (7-17) mg/dL Creatinine 1.04 (0.52-1.04) mg/dL Est GFR (CKD-EPI)AfAm 57 (>60 ml/min/1.73 sqM) Est GFR (CKD-EPI)NonAf 49 (>60 ml/min/1.73 sqM) Glucose 91 (74-99) mg/dL Plasma Lactic Acid Miguelito (0.7-2.0) mmol/L Calcium 9.7 (8.4-10.2) mg/dL Magnesium 2.2 (1.6-2.3) mg/dL Total Bilirubin 0.6 (0.2-1.3) mg/dL AST 32 (14-36) U/L ALT 13 (4-34) U/L Alkaline Phosphatase 49 (38-126) U/L Troponin I (0.000-0.034) ng/mL NT-Pro-B Natriuret Pep pg/mL Total Protein 5.3 L (6.3-8.2) g/dL Albumin 2.9 L (3.5-5.0) g/dL Coronavirus (PCR) (Not Detectd) 07/11/21 07/11/21 07/11/21 Range/Units 18:52 18:52 18:52 WBC (3.8-10.6) k/uL RBC (3.80-5.40) m/uL Hgb (11.4-16.0) gm/dL Hct (34.0-46.0) % MCV (80.0-100.0) fL MCH (25.0-35.0) pg MCHC (31.0-37.0) g/dL RDW (11.5-15.5) % Plt Count (150-450) k/uL MPV Neutrophils % % Lymphocytes % % Monocytes % % Eosinophils % % Basophils % % Neutrophils # (1.3-7.7) k/uL Lymphocytes # (1.0-4.8) k/uL Monocytes # (0-1.0) k/uL Eosinophils # (0-0.7) k/uL Basophils # (0-0.2) k/uL Macrocytosis PT (9.0-12.0) sec INR (<1.2) APTT (22.0-30.0) sec D-Dimer (<0.60) mg/L FEU Sodium (137-145) mmol/L Potassium (3.5-5.1) mmol/L Chloride (98-107) mmol/L Carbon Dioxide (22-30) mmol/L Anion Gap mmol/L BUN (7-17) mg/dL Creatinine (0.52-1.04) mg/dL Est GFR (CKD-EPI)AfAm (>60 ml/min/1.73 sqM) Est GFR (CKD-EPI)NonAf (>60 ml/min/1.73 sqM) Glucose (74-99) mg/dL Plasma Lactic Acid Miguelito 0.8 (0.7-2.0) mmol/L Calcium (8.4-10.2) mg/dL Magnesium (1.6-2.3) mg/dL Total Bilirubin (0.2-1.3) mg/dL AST (14-36) U/L ALT (4-34) U/L Alkaline Phosphatase (38-126) U/L Troponin I 0.105 H* (0.000-0.034) ng/mL NT-Pro-B Natriuret Pep 64674 pg/mL Total Protein (6.3-8.2) g/dL Albumin (3.5-5.0) g/dL Coronavirus (PCR) (Not Detectd) 07/11/21 Range/Units 18:52 WBC (3.8-10.6) k/uL RBC (3.80-5.40) m/uL Hgb (11.4-16.0) gm/dL Hct (34.0-46.0) % MCV (80.0-100.0) fL MCH (25.0-35.0) pg MCHC (31.0-37.0) g/dL RDW (11.5-15.5) % Plt Count (150-450) k/uL MPV Neutrophils % % Lymphocytes % % Monocytes % % Eosinophils % % Basophils % % Neutrophils # (1.3-7.7) k/uL Lymphocytes # (1.0-4.8) k/uL Monocytes # (0-1.0) k/uL Eosinophils # (0-0.7) k/uL Basophils # (0-0.2) k/uL Macrocytosis PT (9.0-12.0) sec INR (<1.2) APTT (22.0-30.0) sec D-Dimer (<0.60) mg/L FEU Sodium (137-145) mmol/L Potassium (3.5-5.1) mmol/L Chloride (98-107) mmol/L Carbon Dioxide (22-30) mmol/L Anion Gap mmol/L BUN (7-17) mg/dL Creatinine (0.52-1.04) mg/dL Est GFR (CKD-EPI)AfAm (>60 ml/min/1.73 sqM) Est GFR (CKD-EPI)NonAf (>60 ml/min/1.73 sqM) Glucose (74-99) mg/dL Plasma Lactic Acid Miguelito (0.7-2.0) mmol/L Calcium (8.4-10.2) mg/dL Magnesium (1.6-2.3) mg/dL Total Bilirubin (0.2-1.3) mg/dL AST (14-36) U/L ALT (4-34) U/L Alkaline Phosphatase (38-126) U/L Troponin I (0.000-0.034) ng/mL NT-Pro-B Natriuret Pep pg/mL Total Protein (6.3-8.2) g/dL Albumin (3.5-5.0) g/dL Coronavirus (PCR) Not Detected (Not Detectd) Critical Care Time Critical Care Time: Yes Total Critical Care Time: 35 Disposition Clinical Impression: Acute pulmonary edema, Elevated troponin Disposition: ADMITTED IP TO THIS HOSP Referrals: Mitesh Lowe MD [Primary Care Provider] - 1-2 days Time of Disposition: 20:48
--- NOTE | 2021-07-11 18:49 | XR ---
EXAMINATION TYPE: XR chest 2V DATE OF EXAM: 07/11/2021 COMPARISON: 05/25/2021 HISTORY: Difficulty breathing TECHNIQUE: 2 views FINDINGS: There is pulmonary vascular congestion. Heart is enlarged. There is left axillary pacemaker . There is right paratracheal infiltrate. There is blunting of the costophrenic angles. IMPRESSION: Congestive heart failure with pleural effusions that is increased compared to old exam. T here is some increasing 7 x 4 cm right paratracheal infiltrate and consolidation compared to old exam .
[2021-07-11 19:06] LABS: Basophils % (A) 0 %; Eosinophils % (A) 1 %; HCT 37.1 % (34.0-46.0); HGB 12.6 gm/dL (11.4-16.0); Lymphocytes # (A) 0.7 k/uL (1.0-4.8); Lymphocytes % (A) 8 %; MCH 35.2 pg (25.0-35.0); MCV 103.8 fL (80.0-100.0); Macrocytosis Slight; Mean Platelet Volume 8.3; Monocytes # (A) 0.5 k/uL (0-1.0); Monocytes % (A) 6 %; Neutrophils # (A) 7.5 k/uL (1.3-7.7); Neutrophils % (A) 84 %; Platelet Count 344 k/uL (150-450); RBC 3.58 m/uL (3.80-5.40); RDW 14.4 % (11.5-15.5); WBC 8.9 k/uL (3.8-10.6)
[2021-07-11 19:14] LABS: Albumin 2.9 g/dL (3.5-5.0); Calcium 9.7 mg/dL (8.4-10.2); Magnesium 2.2 mg/dL (1.6-2.3); Total Bilirubin 0.6 mg/dL (0.2-1.3); Total Protein 5.3 g/dL (6.3-8.2)
[2021-07-11 19:32] LABS: Partial Thromboplastin Time 23.4 sec (22.0-30.0); Prothrombin Time 10.5 sec (9.0-12.0)
[2021-07-11] MEDS ORDERED: HEPARIN SODIUM 1,000 UN/ML (10ML VL) IV ONE (19:32)
[2021-07-11] MEDS ORDERED: FUROSEMIDE 10 MG/ML 4 ML VIAL IV STA (19:32)
[2021-07-11] MEDS ORDERED: HEPARIN SOD,PORK IN 0.45% NACL 25,000 UNIT in 0.45% NACL 1 250ML.BAG IV SCH (19:45)
--- NOTE | 2021-07-11 21:23 | CT ---
EXAMINATION TYPE: CT chest angio for PE DATE OF EXAM: 07/11/2021 COMPARISON: 01/02/2015 HISTORY: elevated d-dimer, SOB CT DLP: 234.4 mGycm Automated exposure control for dose reduction was used. CONTRAST: Performed with IV Contrast, patient injected with 85cc mL of Isovue 370. There are moderately large bilateral pleural effusions. Heart is enlarged. There is pericardial effus ion. There is masslike consolidation at the right pulmonary hilum that measures approximately 8 x 4 c m Thoracic aorta is atheromatous. There is no dissection. There are large pulmonary arteries. I see no evidence of filling defect in the pulmonary arteries. There is enlarged 2.5 cm pretracheal lymph node . There are enlarged anterior mediastinal lymph nodes up to 2 cm. Thoracic spine shows normal alignment of the vertebra. There is mild anterior wedging of mid thoracic vertebra up to 20%. There is some contrast reflux into the inferior vena cava suggestive of congesti ve heart failure. IMPRESSION: No evidence of pulmonary embolism. Cardiomegaly with pleural fluid consistent with chronic congestive heart failure. Mild pericardial ef fusion. Right upper lobe mass consolidation adjacent to the pulmonary hilum and mediastinum is suspicious for primary tumor. Follow-up recommended. There is mediastinal adenopathy.
[2021-07-11] MEDS ORDERED: ALBUTEROL NEBULIZED 2.5 MG/3 ML INHALATION PRN (22:14)
[2021-07-11] MEDS ORDERED: IPRATROPIUM-ALBUTEROL 3 ML NEB INHALATION PRN (22:14)
[2021-07-11] MEDS ORDERED: ACETAMINOPHEN TAB 325 MG TAB PO PRN (22:15)
[2021-07-11] MEDS ORDERED: MELATONIN 3 MG TABLET PO PRN (22:15)
[2021-07-11] MEDS ORDERED: LACTULOSE 20 GM/30 ML CUP PO PRN (22:15)
[2021-07-11] MEDS ORDERED: NALOXONE 0.4 MG/ML 1 ML VIAL IV PRN (22:15)
[2021-07-11] MEDS ORDERED: CALCIUM CARBONATE 500 MG CHEWABLE PO PRN (22:15)
[2021-07-11] MEDS ORDERED: ONDANSETRON 4 MG/2 ML VIAL IVP PRN (22:15)
[2021-07-11] MEDS ORDERED: MAG HYDROX/AL HYDROX/SIMETH 30 ML CUP PO PRN (22:15)
[2021-07-11] MEDS ORDERED: LORazepam 0.5 MG TAB PO PRN (22:30)
[2021-07-11] MEDS: NITROGLYCERIN OINT 1 INCH/GM PACKET TOPICAL SCH (22:56)
[2021-07-11] MEDS: SYMBICORT 80-4.5 MCG INHALER INHALATION SCH (23:20)
[2021-07-11] MEDS: FUROSEMIDE 10 MG/ML 4 ML VIAL IV SCH (23:35)
[2021-07-11] MEDS: hydrALAZINE HCL 50 MG TAB PO SCH (23:35)
[2021-07-11] MEDS: METOPROLOL TARTRATE 50 MG TAB PO SCH (23:35)
[2021-07-11] MEDS: ATORVASTATIN 20 MG TAB PO SCH (23:35)
[2021-07-12] MEDS: THEOPHYLLINE 24 HOUR 300 MG CAP.ER.24H PO SCH ×2 (00:13→20:48)
[2021-07-12 03:07] LABS: Potassium 4.2 mmol/L (3.5-5.1)
[2021-07-12] MEDS: SYMBICORT 80-4.5 MCG INHALER INHALATION SCH ×2 (07:01→21:10)
[2021-07-12] MEDS: CYANOCOBALAMIN 500 MCG TAB PO SCH (09:06)
[2021-07-12] MEDS: ASPIRIN 81 MG PO SCH (09:06)
[2021-07-12] MEDS: SPIRONOLACTONE 25 MG TAB PO SCH (09:06)
[2021-07-12] MEDS: CHOLECALCIFEROL 25 MCG (1000 IU) TABLET PO SCH (09:07)
[2021-07-12] MEDS: hydrALAZINE HCL 50 MG TAB PO SCH ×3 (09:07→23:02)
[2021-07-12] MEDS: FOLIC ACID 1 MG TAB PO SCH (09:07)
[2021-07-12] MEDS: ISOSORBIDE MONONITRATE ER 60 MG TAB.ER.24H PO SCH (09:07)
[2021-07-12] MEDS: METOPROLOL TARTRATE 50 MG TAB PO SCH ×2 (09:07→20:48)
[2021-07-12] MEDS: NITROGLYCERIN OINT 1 INCH/GM PACKET TOPICAL SCH ×3 (09:07→17:44)
[2021-07-12] MEDS: FUROSEMIDE 10 MG/ML 4 ML VIAL IV SCH ×3 (09:07→20:48)
[2021-07-12] MEDS: FAMOTIDINE 20 MG TAB PO SCH (09:07)
--- NOTE | 2021-07-12 11:45 | P.CRDCN ---
History of Present Illness History of present illness: HISTORY OF PRESENTING ILLNESS This is a pleasant 86-year-old female past medical history significant for coronary artery disease, hypertension, dyslipidemia, diabetes mellitus and ischemic cardiomyopathy status post AICD. She follows in the office with Dr. Gonzalez. We have been asked to see in consultation for heart failure. She presented to the hospital with symptoms of 2 days of worsening shortness of breath. She states the breathing is exacerbated by laying down and improves with ambulation or activity. She was started on IV diuretics. Chest x-ray reveals congestive heart failure with pleural effusions and increasing right paratracheal infiltrate/consolidation. CTA is negative for pulmonary embolism, right upper lobe mass adjacent to the pulmonary hilum and mediastinum suspicious for tumor and a mild pericardial effusion noted. EKG revealsSR with APC's and PVC's. Laboratory data reviewed, WBC 8.9, hemoglobin 12.6, platelets 344, d- dimer 5.38, sodium 135, potassium 4.2, creatinine on admission 1.04 and repeat today 1.17, magnesium 2.2, troponin 0.105, NT proBNP 40,500. Current daily cardiac medications include aspirin 81 mg daily, Imdur 60 mg daily, Lopressor 50 mg twice a day, hydralazine 50 mg 3 times a day, rosuvastatin 10 mg daily and Aldactone 25 mg daily. Most recent echocardiogram obtained April 2021 revealed impaired LV systolic function with ejection fraction 42%, basal inferior hypokinesia, mild aortic regurgitation, mild mitral regurgitation and mild tricuspid regurgitation. Cardiac catheterization performed in 2016 revealed ejection fraction at that time was 20% with a lesion noted in the mid LAD 10%, mid circumflex 50% and mid RCA 100%. She states her breathing was normal this morning and she slept good last night. REVIEW OF SYSTEMS At the time of my exam: CONSTITUTIONAL: Denies fever or chills. CARDIOVASCULAR: Denies chest pain, shortness of breath, orthopnea, PND or palpitations. RESPIRATORY: Denies cough. GASTROINTESTINAL: Denies abdominal pain, diarrhea, constipation, nausea or vomiting. MUSCULOSKELETAL: Denies myalgias. NEUROLOGIC: Denies numbness, tingling, headache or weakness. ENDOCRINE: Denies fatigue, weight change, polydipsia or polyurina. GENITOURINARY: Denies burning, hematuria or urgency with micturation. HEMATOLOGIC: Denies history of anemia or bleeding. PHYSICAL EXAMINATION Blood pressure 137/98 heart rate 79 afebrile and maintaining oxygen saturation on nasal cannula. CONSTITUTIONAL: No apparent distress. HEENT: Head is normocephalic. Pupils are equal, round. Sclerae anicteric. Mucous membranes of the mouth are moist. No JVD. No carotid bruit. CHEST EXAMINATION: Lungs are clear to auscultation. No chest wall tenderness is noted on palpation or with deep breathing. HEART EXAMINATION: Regular rate and rhythm. S1, S2 heard. Systolic ejection murmur at the base, no gallops or rub. ABDOMEN: Soft, nontender. EXTREMITIES: 2+ peripheral pulses, no lower extremity edema and no calf tende rness. NEUROLOGIC EXAMINATION: Patient is awake, alert and oriented x3. ASSESSMENT Acute on chronic systolic heart failure Coronary artery disease Ischemic cardiomyopathy status post AICD Hypertension Dyslipidemia Diabetes mellitus Former nicotine dependence PLAN Transition to oral Lasix. Add losartan 50 mg daily to her regimen. Obtain limited echocardiogram to assess for pericardial effusion. Request pulmonary evaluation secondary to abnormal computed tomography scan. Further recommendations to follow based upon clinical course. Thank you kindly for this consultation. Nurse Practitioner note has been reviewed, I agree with a documented findings and plan of care. Patient was seen and examined. Past Medical History Past Medical History: Hyperlipidemia, Hypertension, Myocardial Infarction ([place]) Additional Past Medical History / Comment(s): SCIATICA, irregular heartbeat, hx bergers disease Last Myocardial Infarction Date:: 2004 History of Any Multi-Drug Resistant Organisms: None Reported Past Surgical History: AICD, Heart Catheterization, Pacemaker Additional Past Surgical History / Comment(s): aortic bypass with bilateral femoral grafting. RONEY CATARACTS, AICD removed and changed to pacemaker Past Anesthesia/Blood Transfusion Reactions: No Reported Reaction Type of Cardiac Device: Permanent Pacemaker Device Placement Date:: UNKNOWN Past Psychological History: No Psychological Hx Reported Additional Psychological History / Comment(s): . Smoking Status: Former smoker Past Alcohol Use History: Occasional Additional Past Alcohol Use History / Comment(s): smokes 1- 1 1/2 PPD, STARTED SMOKING 1978, quit for 18 yrs and restarted, patients states she does not smoke everyday but when she does she only has about 3 Past Drug Use History: None Reported - Past Family History Father Family Medical History: Cancer Additional Family Medical History / Comment(s): . Mother Family Medical History: No Reported History Additional Family Medical History / Comment(s): MOTHER AT AGE 97 YRS. Medications and Allergies Home Medications Medication Instructions Recorded Confirmed Type Isosorbide Mononitrate ER [Imdur] 60 mg PO DAILY 08/10/14 07/11/21 History Rosuvastatin Calcium [Crestor] 10 mg PO HS 01/02/15 07/11/21 History Cyanocobalamin (Vitamin B-12) 1,000 mcg PO DAILY 01/02/18 07/11/21 History [Vitamin B-12] Folic Acid 0.4 mg PO DAILY 01/02/18 07/11/21 History Metoprolol Tartrate [Lopressor] 50 mg PO BID 01/02/18 07/11/21 History Aspirin 81 mg PO DAILY 04/20/21 07/11/21 History Cholecalciferol [Vitamin D3 (25 25 mcg PO DAILY 04/20/21 07/11/21 History Mcg = 1000 Iu)] Famotidine [Pepcid] 20 mg PO DAILY #30 tab 04/23/21 07/11/21 Rx Spironolactone [Aldactone] 25 mg PO DAILY #30 tab 04/23/21 07/11/21 Rx Albuterol Sulfate [Albuterol 1 puff INHALATION RT-Q4H PRN 05/24/21 07/11/21 History Sulfate Hfa] Budesonide/Formoterol Fumarate 1 puff INHALATION RT-BID 05/24/21 07/11/21 History [Symbicort 80-4.5 Mcg Inhaler] Theophylline 24 Hour [Bill-24] 300 mg PO HS #30 cap.er.24h 05/29/21 07/11/21 Rx hydrALAZINE HCL 50 mg PO TID #90 tab 05/29/21 07/11/21 Rx Ipratropium-Albuterol Nebulize 3 ml INHALATION RT-QID PRN 07/11/21 07/11/21 History [Duoneb 0.5 mg-3 mg/3 ml Soln] Allergies Allergy/AdvReac Type Severity Reaction Status Date / Time lisinopril Allergy Anaphylaxis, Verified 07/11/21 20:50 Angioedema Physical Exam Vitals: Vital Signs Temp Pulse Pulse Resp BP BP Pulse Ox 07/12/21 07:01 96 07/12/21 05:54 78 07/12/21 05:45 77 07/12/21 03:54 98.3 F 88 16 145/69 97 07/12/21 01:27 83 16 07/11/21 23:58 98.0 F 83 16 158/74 97 07/11/21 22:15 99 07/11/21 21:38 98.1 F 84 17 152/82 99 07/11/21 21:29 67 18 146/90 98 07/11/21 20:00 87 22 150/84 95 07/11/21 18:52 52 L 22 141/78 100 07/11/21 18:11 22 07/11/21 17:42 98.3 F 74 19 151/70 100 Intake and Output 07/11/21 07/12/21 07/12/21 22:59 06:59 14:59 Intake Total 39.19 Output Total 650 Balance -610.81 Intake: Intake, IV Titration 39.19 Amount Heparin Sod,Pork in 0.45% 39.19 NaCl 25,000 unit In 0.45 % NaCl 1 250ml.bag @ 12 UNITS/KG/HR 5.443 mls/hr IV .Q24H [facility] Rx#: [id number] Output: Urine 650 Other: Weight 45.359 kg 52.3 kg Results 07/11/21 18:52 07/12/21 02:35 Cardiac Enzymes 07/11/21 07/11/21 Range/Units 18:52 18:52 AST 32 (14-36) U/L Troponin I 0.105 H* (0.000-0.034) ng/mL Coagulation 07/11/21 07/12/21 Range/Units 18:52 02:35 PT 10.5 (9.0-12.0) sec APTT 23.4 35.0 H (22.0-30.0) sec CBC 07/11/21 Range/Units 18:52 WBC 8.9 (3.8-10.6) k/uL RBC 3.58 L (3.80-5.40) m/uL Hgb 12.6 (11.4-16.0) gm/dL Hct 37.1 (34.0-46.0) % Plt Count 344 (150-450) k/uL Comprehensive Metabolic Panel 07/11/21 07/12/21 Range/Units 18:52 02:35 Sodium 134 L 135 L (137-145) mmol/L Potassium 5.0 4.2 (3.5-5.1) mmol/L Chloride 106 104 (98-107) mmol/L Carbon Dioxide 24 29 (22-30) mmol/L BUN 24 H 23 H (7-17) mg/dL Creatinine 1.04 1.17 H (0.52-1.04) mg/dL Glucose 91 96 (74-99) mg/dL Calcium 9.7 10.0 (8.4-10.2) mg/dL AST 32 (14-36) U/L ALT 13 (4-34) U/L Alkaline Phosphatase 49 (38-126) U/L Total Protein 5.3 L (6.3-8.2) g/dL Albumin 2.9 L (3.5-5.0) g/dL Current Medications Generic Name Dose Route Start Last Admin Trade Name Freq PRN Reason Stop Dose Admin Acetaminophen 650 mg 07/11/21 22:15 Acetaminophen Tab 325 Mg Tab PO Q6HR PRN Mild Pain or Fever > 100.5 Al Hydroxide/Mg Hydroxide 15 ml 07/11/21 22:15 Mag Hydrox/Al Hydrox/Simeth 30 Ml Cup PO Q6HR PRN Indigestion Albuterol Sulfate 2.5 mg 07/11/21 22:14 Albuterol Nebulized 2.5 Mg/3 Ml INHALATION RT-Q4H PRN Shortness Of Breath Albuterol/Ipratropium 3 ml 07/11/21 22:14 07/12/21 05:45 Ipratropium-Albuterol 3 Ml Neb INHALATION 3 ml RT-QID PRN Administration Shortness Of Breath Aspirin 81 mg 07/12/21 09:00 Aspirin 81 Mg PO DAILY [facility] Atorvastatin Calcium 20 mg 07/11/21 22:30 07/11/21 23:35 Atorvastatin 20 Mg Tab PO 20 mg HS [facility] Administration Budesonide/Formoterol Fumarate 1 puff 07/11/21 22:14 07/12/21 07:01 Symbicort 80-4.5 Mcg Inhaler INHALATION 1 puff RT-BID [facility] Administration Calcium Carbonate/Glycine 1,000 mg 07/11/21 22:15 Calcium Carbonate 500 Mg Chewable PO Q4HR PRN Dyspepsia Cholecalciferol 25 mcg 07/12/21 09:00 Cholecalciferol 25 Mcg (1000 Iu) Tablet PO DAILY [facility] Cyanocobalamin 1,000 mcg 07/12/21 09:00 Cyanocobalamin 500 Mcg Tab PO DAILY [facility] Famotidine 20 mg 07/12/21 09:00 Famotidine 20 Mg Tab PO DAILY [facility] Folic Acid 0.5 mg 07/12/21 09:00 Folic Acid 1 Mg Tab PO DAILY [facility] Furosemide 40 mg 07/12/21 00:00 07/11/21 23:35 Furosemide 10 Mg/Ml 4 Ml Vial IV 40 mg Q8HR [facility] Administration Hydralazine HCl 50 mg 07/11/21 22:15 07/11/21 23:35 Hydralazine Hcl 50 Mg Tab PO 50 mg TID [facility] Administration Heparin Sodium/Sodium Chloride 250 mls @ 5.443 mls/hr 07/11/21 19:45 07/12/21 03:32 25,000 unit/ Sodium Chloride IV 14 units/kg/hr .Q24H [facility] 6.35 mls/hr Titration Protocol 12 UNITS/KG/HR Isosorbide Mononitrate 60 mg 07/12/21 09:00 Isosorbide Mononitrate Er 60 Mg Tab.Er.24h PO DAILY [facility] Lactulose 20 gm 07/11/21 22:15 Lactulose 20 Gm/30 Ml Cup PO DAILY PRN Constipation Lorazepam 0.5 mg 07/11/21 22:30 Lorazepam 0.5 Mg Tab PO Q6HR PRN Anxiety Melatonin 3 mg 07/11/21 22:15 Melatonin 3 Mg Tablet PO HS PRN Insomnia Metoprolol Tartrate 50 mg 07/11/21 22:30 07/11/21 23:35 Metoprolol Tartrate 50 Mg Tab PO 50 mg BID [facility] Administration Naloxone HCl 0.2 mg 07/11/21 22:15 Naloxone 0.4 Mg/Ml 1 Ml Vial IV Q2M PRN Opioid Reversal Nitroglycerin 1 inch 07/11/21 22:00 07/11/21 22:56 Nitroglycerin Oint 1 Inch/Gm Packet TOPICAL Not Given QID [facility] Ondansetron HCl 4 mg 07/11/21 22:15 Ondansetron 4 Mg/2 Ml Vial IVP Q8HR PRN Nausea And Vomiting Spironolactone 25 mg 07/12/21 09:00 Spironolactone 25 Mg Tab PO DAILY [facility] Theophylline 300 mg 07/11/21 22:45 07/12/21 00:13 Theophylline 24 Hour 300 Mg Cap.Er.24h PO 300 mg HS [facility] Administration Intake and Output 07/11/21 07/12/21 07/12/21 22:59 06:59 14:59 Intake Total 39.19 Output Total 650 Balance -610.81 Intake: Intake, IV Titration 39.19 Amount Heparin Sod,Pork in 0.45% 39.19 NaCl 25,000 unit In 0.45 % NaCl 1 250ml.bag @ 12 UNITS/KG/HR 5.443 mls/hr IV .Q24H [facility] Rx#: [id number] Output: Urine 650 Other: Weight 45.359 kg 52.3 kg 07/11/21 18:52 07/12/21 02:35
--- NOTE | 2021-07-12 11:56 | P.CNPUL ---
History of Present Illness Consult date: 07/12/21 Reason for consult: dyspnea, lung mass History of present illness: 86-year-old female patient, known having congestion heart failure with an ejec tion fraction of 40-45%, CAD, chronic kidney disease stage III, previous history of ASD placement, hypertension, hyperlipidemia, peripheral vascular disease with previous history of Buerger's disease. The patient has undergone previous vascular bypass surgery in the lower extremities. She also carries history of COPD presented last month the hospital for worsening shortness of breath and COPD exacerbation and CHF exacerbation, treated and she was discharged home. She is still smoking cigarettes. The patient came into the emergency department yesterday because of worsening shortness of breath. She denies having any fever or chills or cough or sputum production. She denies having any chest pain. She denied having any abdominal pain. Patient had really difficulties and her speech because of increased shortness of breath and she was having labored breathing. She was hemodynamically stable. BP was 151/70 at the time of admission. White cell count was 8.9 with a hemoglobin of 12.6 and the platelet count of 344. Electrolytes were normal with a sodium level of 134, normal renal function, glucose was 91. COVID-19 testing was negative. ProBNP level was 40,500 and a troponin was at 0.1. As part of further investigation, a CT angiogram of the chest was done that showed no evidence of any pulmonary embolism. There was bilateral pleural effusions that were essentially moderate in size. There was cardiomegaly. There was pericardial effusion and a masslike consolidation in the right hilar area measuring 8 x 4 cm in size. This was a right paratracheal mass extending in the subcarinal area. There was also enlarged 3 tracheal lymph nodes measuring 2.5 cm an enlarging anterior mediastinal lymph node measuring up to 2 cm. The patient also had a mild anterior wedge and mid thoracic vertebral fracture up to 20%. She is currently on oxygen at 2 L with a pulse ox of 97%. She was started on diuretics and the patient is currently on Lasix 40 mg by mouth on a daily basis. Home medications were resumed. Past Medical History Past Medical History: Hyperlipidemia, Hypertension, Myocardial Infarction ([place]) Additional Past Medical History / Comment(s): SCIATICA, irregular heartbeat, hx bergers disease Last Myocardial Infarction Date:: 2004 History of Any Multi-Drug Resistant Organisms: None Reported Past Surgical History: AICD, Heart Catheterization, Pacemaker Additional Past Surgical History / Comment(s): aortic bypass with bilateral femoral grafting. RONEY CATARACTS, AICD removed and changed to pacemaker Past Anesthesia/Blood Transfusion Reactions: No Reported Reaction Type of Cardiac Device: Permanent Pacemaker Device Placement Date:: UNKNOWN Past Psychological History: No Psychological Hx Reported Additional Psychological History / Comment(s): . Smoking Status: Former smoker Past Alcohol Use History: Occasional Additional Past Alcohol Use History / Comment(s): smokes 1- 1 1/2 PPD, STARTED S MOKING 1978, quit for 18 yrs and restarted, patients states she does not smoke everyday but when she does she only has about 3 Past Drug Use History: None Reported - Past Family History Father Family Medical History: Cancer Additional Family Medical History / Comment(s): . Mother Family Medical History: No Reported History Additional Family Medical History / Comment(s): MOTHER AT AGE 97 YRS. Medications and Allergies Home Medications Medication Instructions Recorded Confirmed Type Isosorbide Mononitrate ER [Imdur] 60 mg PO DAILY 08/10/14 07/11/21 History Rosuvastatin Calcium [Crestor] 10 mg PO HS 01/02/15 07/11/21 History Cyanocobalamin (Vitamin B-12) 1,000 mcg PO DAILY 01/02/18 07/11/21 History [Vitamin B-12] Folic Acid 0.4 mg PO DAILY 01/02/18 07/11/21 History Metoprolol Tartrate [Lopressor] 50 mg PO BID 01/02/18 07/11/21 History Aspirin 81 mg PO DAILY 04/20/21 07/11/21 History Cholecalciferol [Vitamin D3 (25 25 mcg PO DAILY 04/20/21 07/11/21 History Mcg = 1000 Iu)] Famotidine [Pepcid] 20 mg PO DAILY #30 tab 04/23/21 07/11/21 Rx Spironolactone [Aldactone] 25 mg PO DAILY #30 tab 04/23/21 07/11/21 Rx Albuterol Sulfate [Albuterol 1 puff INHALATION RT-Q4H PRN 05/24/21 07/11/21 History Sulfate Hfa] Budesonide/Formoterol Fumarate 1 puff INHALATION RT-BID 05/24/21 07/11/21 History [Symbicort 80-4.5 Mcg Inhaler] Theophylline 24 Hour [Bill-24] 300 mg PO HS #30 cap.er.24h 05/29/21 07/11/21 Rx hydrALAZINE HCL 50 mg PO TID #90 tab 05/29/21 07/11/21 Rx Ipratropium-Albuterol Nebulize 3 ml INHALATION RT-QID PRN 07/11/21 07/11/21 History [Duoneb 0.5 mg-3 mg/3 ml Soln] Allergies Allergy/AdvReac Type Severity Reaction Status Date / Time lisinopril Allergy Anaphylaxis, Verified 07/11/21 20:50 Angioedema Physical Exam Vitals: Vital Signs Temp Pulse Pulse Pulse Resp BP BP 07/12/21 09:02 97.8 F 79 16 137/98 07/12/21 07:01 07/12/21 05:54 78 07/12/21 05:45 77 07/12/21 03:54 98.3 F 88 16 145/69 07/12/21 01:27 83 16 07/11/21 23:58 98.0 F 83 16 158/74 07/11/21 22:15 07/11/21 21:38 98.1 F 84 17 152/82 07/11/21 21:29 67 18 146/90 07/11/21 20:00 87 22 150/84 07/11/21 18:52 52 L 22 141/78 07/11/21 18:11 22 07/11/21 17:42 98.3 F 74 19 151/70 Pulse Ox 07/12/21 09:02 97 07/12/21 07:01 96 07/12/21 05:54 07/12/21 05:45 07/12/21 03:54 97 07/12/21 01:27 07/11/21 23:58 97 07/11/21 22:15 99 07/11/21 21:38 99 07/11/21 21:29 98 07/11/21 20:00 95 07/11/21 18:52 100 07/11/21 18:11 07/11/21 17:42 100 Intake and Output 07/11/21 07/12/21 07/12/21 22:59 06:59 14:59 Intake Total 39.19 120 Output Total 650 Balance -610.81 120 Intake: Intake, IV Titration 39.19 Amount Heparin Sod,Pork in 0.45% 39.19 NaCl 25,000 unit In 0.45 % NaCl 1 250ml.bag @ 12 UNITS/KG/HR 5.443 mls/hr IV .Q24H [facility] Rx#: [id number] Oral 120 Output: Urine 650 Other: Voiding Method External Catheter Weight 45.359 kg 52.3 kg EYES: Pupils equal. Conjunctiva normal. HEENT: External appearance of nose and ears normal, oral cavity grossly normal. NECK: JVD not raised; masses not palpable. HEART: First and second heart sounds are normal; no edema. LUNGS: Respiratory rate increased, decreased breath sounds expiratory wheezing. the patient has crackles in lung bases bilaterally. ABDOMEN: Soft, no tenderness, no guarding rigidity, liver spleen not palpable, no masses palpable. 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 NEUROLOGICAL: Cranial nerves grossly intact; no facial asymmetry, power and sensation grossly intact. LYMPHATICS: No lymph nodes palpable in the axilla and neck Results - Laboratory Findings CBC and BMP: 07/11/21 18:52 07/12/21 02:35 PT/INR, D-dimer PT 10.5 sec (9.0-12.0) 07/11/21 18:52 INR 1.0 (<1.2) 07/11/21 18:52 D-Dimer 5.38 mg/L FEU (<0.60) H 07/11/21 18:52 Abnormal lab findings: Abnormal Labs 07/11/21 07/11/21 07/11/21 18:52 18:52 18:52 RBC 3.58 L MCV 103.8 H MCH 35.2 H Lymphocytes # 0.7 L APTT D-Dimer 5.38 H Sodium 134 L BUN 24 H Creatinine Troponin I Total Protein 5.3 L Albumin 2.9 L 07/11/21 07/12/21 07/12/21 18:52 02:35 02:35 RBC MCV MCH Lymphocytes # APTT 35.0 H D-Dimer Sodium 135 L BUN 23 H Creatinine 1.17 H Troponin I 0.105 H* Total Protein Albumin - Diagnostic Findings Chest x-ray: image reviewed CT scan - chest: image reviewed Assessment and Plan Plan: 1 mediastinal mass in the right hilar area measuring 8 x 4 cm in size extending to the subcarinal and pretracheal and anterior tracheal area. Findings are highly suspicious for malignancy including primary bronchogenic carcinoma. 2 COPD 3 acute decompensated heart failure with second and shortness of breath and development of bilateral pleural effusion secondary to decompensated heart failure, malignancy or malignant pleural effusions felt to be less likely. The patient's proBNP level is quite elevated. The patient would benefit from diuretics. 4 Coronary artery disease with prior [place] 5 Chronic congestive heart failure from systolic dysfunction, from ischemic cardiomyopathy. EF 40-45% 6 Peripheral arterial disease 7 Essential hypertension 8 Vitamin B12 deficiency 9 Chronic kidney disease stage III likely nephrosclerosis 10 DO NOT RESUSCITATE 11 smoker 12 impaired performance and functional status. The patient's baseline performance and functional status is poor. She walks without a walker. She has chronic exertional dyspnea. 13 history of ischemic colitis, inactive in stable 14 hyperlipidemia 15 previous vascular intervention vessel bypass involving the lower extremities due to severe peripheral vascular disease Plan Discussed the findings with the primary care team. We'll discuss further with the family. Obviously the patient has a poor baseline performance and functional status and establishing a diagnosis of lung cancer may not change her overall medical outcome as the patient may not be a candidate for any further treatment. Nevertheless, if willing establish a tissue diagnosis and the final diagnosis, a bronchoscopy with EBUS of the right hilar mass may be able to give us the final diagnosis. It final decision will be done once the patient's condition is further stabilized and once further discussion is done with the family and the patient. For now, will optimize the CHF with diuretics. May consider a thoracentesis. Nevertheless, the fluid in her lungs are most likely a transudate from CHF rather than a malignant effusion. This may not be diagnostic for lung cancer. Optimize CHF. We'll continue to follow.
--- NOTE | 2021-07-12 13:23 | ECHOF ---
Referral Reason:ef, wall motion and effusion MEASUREMENTS -------- HEIGHT: 154.9 cm WEIGHT: 52.2 kg BP: 137/98 AV maxP.58 mmHg AV meanP.10 mmHg AR PHT: 731 ms FINDINGS -------- Sinus rhythm. Limited Study Overall left ventricular systolic function is moderate-severely impaired with, an EF between 30 - 35 %. There is mild aortic valve sclerosis. There is mild aortic regurgitation. There is mild aortic st enosis present. Peak/mean gradient across the Aortic Valve is 16.58mmHg / 8.10mmHg. Mild mitral regurgitation is present. Mild tricuspid regurgitation present. Trace/mild (physiologic) pulmonic regurgitation. There is a small, generalized pericardial effusion present. Small Pleural Effusion. CONCLUSIONS -------- 1. Overall left ventricular systolic function is moderate-severely impaired with, an EF between 30 - 35 %. 2. There is mild aortic valve sclerosis. 3. There is mild aortic regurgitation. 4. There is mild aortic stenosis present. 5. Peak/mean gradient across the Aortic Valve is 16.58mmHg / 8.10mmHg. 6. Mild mitral regurgitation is present. 7. Mild tricuspid regurgitation present. 8. Trace/mild (physiologic) pulmonic regurgitation. 9. There is a small, generalized pericardial effusion present. 10. Small Pleural Effusion. HOUSING MANAGEMENT OFFICER: Maida Kelly RDCS
[2021-07-12 13:32] VITALS: BMI 21.7
--- NOTE | 2021-07-12 20:38 | P.HPIM ---
History of Present Illness H&P Date: 07/11/21 Chief Complaint: Short of breath History of presenting complaint: This is a pleasant 86-year-old patient who follows with visiting physicians Dr. Lowe. Chronic stable medical conditions include hyperlipidemia, hypertension, peripheral arterial disease with Bergers disease, AICD permanent pacemaker. CHF EF 40-45%, CAD, CK D stage III . Patient cut back on smoking about 2 months ago. Down to a few cigarettes a day. Patient was in the hospital just over a month ago for COPD exacerbation and pneumonia. Patient presents with worsening shortness of breath. Some cough. No fever no chills. Some wheezing. No edema. Lives by herself. Able to get from the hospital. Tired and rundown. Review of systems: GEN.: Tired EYES: None HEENT: None NECK: None RESPIRATORY: As above CARDIOVASCULAR: As above GASTROINTESTINAL: None GENITOURINARY: None MUSCULOSKELETAL: Joint pains LYMPHATICS: None HEMATOLOGICAL: None PSYCHIATRY: None NEUROLOGICAL: None Past medical history to include: Hypertension, hyperlipidemia, coronary artery disease with [place], irregular heartbeat,bergers disease , peripheral bypass and bilateral femoral grafting, AICD/removed and changed to permanent pacemaker, ischemic colitis Social history: Occasionally uses a cane. Lives alone. Smoked for many years, stopped 4 weeks ago. Alcohol occasionally. Family history: Cancer Physical examination: VITAL SIGNS: 98.1, 84, 17, 152/82, 99% on 2 L GENERAL: BMI 21.8, laying in bed, tired, loss of muscle mass and subcutaneous fat EYES: Pupils equal. Conjunctiva normal. HEENT: External appearance of nose and ears normal, oral cavity grossly normal. NECK: JVD not raised; masses not palpable. HEART: First and second heart sounds are normal; no edema. LUNGS: Respiratory rate increased, decreased breath sounds expiratory wheezing. ABDOMEN: Soft, no tenderness, no guarding rigidity, liver spleen not palpable, no masses palpable. 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 NEUROLOGICAL: Cranial nerves grossly intact; no facial asymmetry, power and sensation grossly intact. LYMPHATICS: No lymph nodes palpable in the axilla and neck INVESTIGATIONS, reviewed in the clinical context: WBC 8.9 hemoglobin 12.6 platelets 344 d-dimer 5.3 potassium 5. 24 creatinine 1.04 Troponin I 0.105 ProBNP 95856 albumin 2.9 Coronavirus [PCR]: Not detected EKG tracing personally reviewed by me-normal sinus rhythm, PVC, poor R-wave progression, paced rhythm Chest x-ray film personally reviewed by me-pleural effusion, venous prominence Chest CTA: Moderately large bilateral pleural effusion. Heart is enlarged. Pericardial effusion. Mass like consolidation at the right pulmonary hilum 8 cm x 4 cm. Large pulmonary arteries. Negative for PE Assessment and plan: -Acute on Chronic congestive heart failure from systolic dysfunction, from ischemic cardiomyopathy. EF 40-45% Lasix. I's and O's. -Bilateral pleural effusion from CHF IV Lasix -Acute COPD exacerbation in a previous heavy smoker, patient is still doing a few cigarettes a day: DuoNeb 4 times a day, Symbicort .theophylline 300 mg daily -Lung mass 8 x 4 cm. At the right hilum. Follow-up with pulmonary -Coronary artery disease with prior [place] aspirin -Peripheral arterial disease Aspirin and continue Crestor -Chronic hypoxic respiratory failure from COPD Home oxygen 2 L -Essential hypertension Continue with Lopressor., Prinivil, hydralazine -Vitamin B12 deficiency Continue B12 supplement -Chronic kidney disease stage III likely nephrosclerosis Follow BMP -DO NOT RESUSCITATE -DPOA: Marah, niece Patient placement IV Lasix 40 mg every 12. Strict I's and O's. Home medications resumed. Care was discussed with the patient. Consultation to cardiology and pulmonary. Follow clinically and labs. Given the complexity and severity of patient's condition expect the patient to be in the hospital at least for 2 overnights Past Medical History Past Medical History: Hyperlipidemia, Hypertension, Myocardial Infarction ([place]) Additional Past Medical History / Comment(s): SCIATICA, irregular heartbeat, hx bergers disease Last Myocardial Infarction Date:: 2004 History of Any Multi-Drug Resistant Organisms: None Reported Past Surgical History: AICD, Heart Catheterization, Pacemaker Additional Past Surgical History / Comment(s): aortic bypass with bilateral femoral grafting. RONEY CATARACTS, AICD removed and changed to pacemaker Past Anesthesia/Blood Transfusion Reactions: No Reported Reaction Type of Cardiac Device: Permanent Pacemaker Device Placement Date:: UNKNOWN Past Psychological History: No Psychological Hx Reported Additional Psychological History / Comment(s): . Smoking Status: Former smoker Past Alcohol Use History: Occasional Additional Past Alcohol Use History / Comment(s): smokes 1- 1 1/2 PPD, STARTED SMOKING 1978, quit for 18 yrs and restarted, patients states she does not smoke everyday but when she does she only has about 3 Past Drug Use History: None Reported - Past Family History Father Family Medical History: Cancer Additional Family Medical History / Comment(s): . Mother Family Medical History: No Reported History Additional Family Medical History / Comment(s): MOTHER AT AGE 97 YRS. Medications and Allergies Home Medications Medication Instructions Recorded Confirmed Type Isosorbide Mononitrate ER [Imdur] 60 mg PO DAILY 08/10/14 07/11/21 History Rosuvastatin Calcium [Crestor] 10 mg PO HS 01/02/15 07/11/21 History Cyanocobalamin (Vitamin B-12) 1,000 mcg PO DAILY 01/02/18 07/11/21 History [Vitamin B-12] Folic Acid 0.4 mg PO DAILY 01/02/18 07/11/21 History Metoprolol Tartrate [Lopressor] 50 mg PO BID 01/02/18 07/11/21 History Aspirin 81 mg PO DAILY 04/20/21 07/11/21 History Cholecalciferol [Vitamin D3 (25 25 mcg PO DAILY 04/20/21 07/11/21 History Mcg = 1000 Iu)] Famotidine [Pepcid] 20 mg PO DAILY #30 tab 04/23/21 07/11/21 Rx Spironolactone [Aldactone] 25 mg PO DAILY #30 tab 04/23/21 07/11/21 Rx Albuterol Sulfate [Albuterol 1 puff INHALATION RT-Q4H PRN 05/24/21 07/11/21 History Sulfate Hfa] Budesonide/Formoterol Fumarate 1 puff INHALATION RT-BID 05/24/21 07/11/21 History [Symbicort 80-4.5 Mcg Inhaler] Theophylline 24 Hour [Bill-24] 300 mg PO HS #30 cap.er.24h 05/29/21 07/11/21 Rx hydrALAZINE HCL 50 mg PO TID #90 tab 05/29/21 07/11/21 Rx Ipratropium-Albuterol Nebulize 3 ml INHALATION RT-QID PRN 07/11/21 07/11/21 History [Duoneb 0.5 mg-3 mg/3 ml Soln] Allergies Allergy/AdvReac Type Severity Reaction Status Date / Time lisinopril Allergy Anaphylaxis, Verified 07/11/21 20:50 Angioedema Physical Exam Vitals: Vital Signs Temp Pulse Pulse Resp BP BP Pulse Ox 07/11/21 21:38 98.1 F 84 17 152/82 99 07/11/21 21:29 67 18 146/90 98 07/11/21 20:00 87 22 150/84 95 07/11/21 18:52 52 L 22 141/78 100 07/11/21 18:11 22 07/11/21 17:42 98.3 F 74 19 151/70 100 Intake and Output 07/11/21 07/11/21 07/11/21 06:59 14:59 22:59 Other: Weight 45.359 kg Results CBC & Chem 7: 07/11/21 18:52 07/12/21 02:35 Labs: Abnormal Lab Results - Last 24 Hours (Table) 07/11/21 07/11/21 07/11/21 Range/Units 18:52 18:52 18:52 RBC 3.58 L (3.80-5.40) m/uL MCV 103.8 H (80.0-100.0) fL MCH 35.2 H (25.0-35.0) pg Lymphocytes # 0.7 L (1.0-4.8) k/uL D-Dimer 5.38 H (<0.60) mg/L FEU Sodium 134 L (137-145) mmol/L BUN 24 H (7-17) mg/dL Troponin I (0.000-0.034) ng/mL Total Protein 5.3 L (6.3-8.2) g/dL Albumin 2.9 L (3.5-5.0) g/dL 07/11/21 Range/Units 18:52 RBC (3.80-5.40) m/uL MCV (80.0-100.0) fL MCH (25.0-35.0) pg Lymphocytes # (1.0-4.8) k/uL D-Dimer (<0.60) mg/L FEU Sodium (137-145) mmol/L BUN (7-17) mg/dL Troponin I 0.105 H* (0.000-0.034) ng/mL Total Protein (6.3-8.2) g/dL Albumin (3.5-5.0) g/dL Thrombosis Risk Factor Assmnt - Choose All That Apply Any of the Below Risk Factors Present?: No Other Risk Factors: Yes Each Risk Factor Represents 3 Points: Age 75 years or older Thrombosis Risk Factor Assessment Total Risk Factor Score: 3 Thrombosis Risk Factor Assessment Level: Moderate Risk
--- NOTE | 2021-07-12 20:45 | P.PN ---
Progress Note - Text Progress Note Date: 07/12/21 Chief Complaint: Short of breath History of presenting complaint: This is a pleasant 86-year-old patient who follows with visiting physicians Dr. Lowe. Chronic stable medical conditions include hyperlipidemia, hypertension, peripheral arterial disease with Bergers disease, AICD permanent pacemaker. CHF EF 40-45%, CAD, CK D stage III . Patient cut back on smoking about 2 months ago. Down to a few cigarettes a day. Patient was in the hospital just over a month ago for COPD exacerbation and pneumonia. Patient presents with worsening shortness of breath. Some cough. No fever no chills. Some wheezing. No edema. Lives by herself. Able to get around the house. Tired and rundown. July 12: Patient placed on IV Lasix for CHF. Discussed with Dr. Dodge. Spoke to patient's niece Marah over the phone. Given patient's comorbidities, fragility, does not wish to proceed any further put the lung mass. Patient's diet. Short of breath. Congested cough. Review of systems: Was done for constitutional, cardiovascular, GI, pulmonary. relevant finding as above Active Medications Acetaminophen (Acetaminophen Tab 325 Mg Tab) 650 mg PO Q6HR PRN PRN Reason: Mild Pain or Fever > 100.5 Al Hydroxide/Mg Hydroxide (Mag Hydrox/Al Hydrox/Simeth 30 Ml Cup) 15 ml PO Q6HR PRN PRN Reason: Indigestion Albuterol Sulfate (Albuterol Nebulized 2.5 Mg/3 Ml) 2.5 mg INHALATION RT-Q4H PRN PRN Reason: Shortness Of Breath Albuterol/Ipratropium (Ipratropium-Albuterol 3 Ml Neb) 3 ml INHALATION RT-QID [facility] Aspirin (Aspirin 81 Mg) 81 mg PO DAILY [facility] Last Admin: 07/12/21 09:06 Dose: 81 mg Documented by: Atorvastatin Calcium (Atorvastatin 20 Mg Tab) 20 mg PO HS [facility] Last Admin: 07/11/21 23:35 Dose: 20 mg Documented by: Budesonide/Formoterol Fumarate (Symbicort 80-4.5 Mcg Inhaler) 1 puff INHALATION RT-BID [facility] Last Admin: 07/12/21 07:01 Dose: 1 puff Documented by: Calcium Carbonate/Glycine (Calcium Carbonate 500 Mg Chewable) 1,000 mg PO Q4HR PRN PRN Reason: Dyspepsia Cholecalciferol (Cholecalciferol 25 Mcg (1000 Iu) Tablet) 25 mcg PO DAILY [facility] Last Admin: 07/12/21 09:07 Dose: 25 mcg Documented by: Cyanocobalamin (Cyanocobalamin 500 Mcg Tab) 1,000 mcg PO DAILY [facility] Last Admin: 07/12/21 09:06 Dose: 1,000 mcg Documented by: Famotidine (Famotidine 20 Mg Tab) 20 mg PO DAILY [facility] Last Admin: 07/12/21 09:07 Dose: 20 mg Documented by: Folic Acid (Folic Acid 1 Mg Tab) 0.5 mg PO DAILY [facility] Last Admin: 07/12/21 09:07 Dose: 0.5 mg Documented by: Furosemide (Furosemide 10 Mg/Ml 4 Ml Vial) 40 mg IV Q12HR [facility] Last Admin: 07/12/21 13:49 Dose: 40 mg Documented by: Hydralazine HCl (Hydralazine Hcl 50 Mg Tab) 50 mg PO TID [facility] Last Admin: 07/12/21 16:42 Dose: 50 mg Documented by: Isosorbide Mononitrate (Isosorbide Mononitrate Er 60 Mg Tab.Er.24h) 60 mg PO DAILY [facility] Last Admin: 07/12/21 09:07 Dose: 60 mg Documented by: Lactulose (Lactulose 20 Gm/30 Ml Cup) 20 gm PO DAILY PRN PRN Reason: Constipation Lorazepam (Lorazepam 0.5 Mg Tab) 0.5 mg PO Q6HR PRN PRN Reason: Anxiety Losartan Potassium (Losartan 50 Mg Tab) 50 mg PO HS [facility] Melatonin (Melatonin 3 Mg Tablet) 3 mg PO HS PRN PRN Reason: Insomnia Metoprolol Tartrate (Metoprolol Tartrate 50 Mg Tab) 50 mg PO BID [facility] Last Admin: 07/12/21 09:07 Dose: 50 mg Documented by: Naloxone HCl (Naloxone 0.4 Mg/Ml 1 Ml Vial) 0.2 mg IV Q2M PRN PRN Reason: Opioid Reversal Nitroglycerin (Nitroglycerin Oint 1 Inch/Gm Packet) 1 inch TOPICAL QID [facility] Last Admin: 07/12/21 17:44 Dose: 1 inch Documented by: Ondansetron HCl (Ondansetron 4 Mg/2 Ml Vial) 4 mg IVP Q8HR PRN PRN Reason: Nausea And Vomiting Spironolactone (Spironolactone 25 Mg Tab) 25 mg PO DAILY [facility] Last Admin: 07/12/21 09:06 Dose: 25 mg Documented by: Theophylline (Theophylline 24 Hour 300 Mg Cap.Er.24h) 300 mg PO HS [facility] Last Admin: 07/12/21 00:13 Dose: 300 mg Documented by: Past medical history to include: Hypertension, hyperlipidemia, coronary artery disease with [place], irregular heartbeat,bergers disease , peripheral bypass and bilateral femoral grafting, AICD/removed and changed to permanent pacemaker, ischemic colitis Social history: Occasionally uses a cane. Lives alone. Smoked for many years, stopped 4 weeks ago. Alcohol occasionally. Family history: Cancer Physical examination: VITAL SIGNS: 98.6, 78, 22, 146/67, 95% on 2 L GENERAL: laying in bed, tired, loss of muscle mass and subcutaneous fat, congested cough EYES: Pupils equal. Conjunctiva normal. HEENT: External appearance of nose and ears normal, oral cavity grossly normal. NECK: JVD raised; masses not palpable. HEART: First and second heart sounds are normal; no edema. LUNGS: Respiratory rate increased, decreased breath sounds expiratory wheezing. ABDOMEN: Soft, no tenderness, no guarding rigidity, liver spleen not palpable, no masses palpable. 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 INVESTIGATIONS, reviewed in the clinical context: July 12: Potassium 4.2 BUN 23 creatinine 1.17 WBC 8.9 hemoglobin 12.6 platelets 344 d-dimer 5.3 potassium 5. 24 creatinine 1.04 Troponin I 0.105 ProBNP 96641 albumin 2.9 Coronavirus [PCR]: Not detected EKG tracing personally reviewed by me-normal sinus rhythm, PVC, poor R-wave progression, paced rhythm Chest x-ray film personally reviewed by me-pleural effusion, venous prominence Chest CTA: Moderately large bilateral pleural effusion. Heart is enlarged. Pericardial effusion. Mass like consolidation at the right pulmonary hilum 8 cm x 4 cm. Large pulmonary arteries. Negative for PE Assessment and plan: -Acute on Chronic congestive heart failure from systolic dysfunction, from ischemic cardiomyopathy. EF 40-45%: Slow to respond IV Lasix 40 mg every 12 I's and O's. -Bilateral pleural effusion from CHF IV Lasix -Acute COPD exacerbation in a previous heavy smoker, patient is still doing a few cigarettes a day: DuoNeb 4 times a day, Symbicort .theophylline 300 mg daily -Lung mass 8 x 4 cm. At the right hilum. Discussed with Dr. Dodge earlier today. Spoke to damion Crystal. Not keen for any further investigations which rather reasonable. -Coronary artery disease with prior [place] aspirin -Peripheral arterial disease Aspirin Crestor -Chronic hypoxic respiratory failure from COPD Home oxygen 2 L -Essential hypertension Lopressor 50 mg twice a day., Cozaar 50 mg daily at bedtime, hydralazine 50 mg 3 times a day -Vitamin B12 deficiency Continue B12 supplement -Chronic kidney disease stage III likely nephrosclerosis Follow BMP -DO NOT RESUSCITATE -DPOA: damion Crystal IV Lasix 40 mg every 12. Strict I's and O's. Home medications resumed. Care was discussed with the patient. Not for further investigation of the lung mass per damion Crystal which is very reasonable Total time spent today about 40 minutes with over 25 minutes of discussion
[2021-07-12] MEDS: LOSARTAN 50 MG TAB PO SCH (20:48)
[2021-07-12] MEDS: ATORVASTATIN 20 MG TAB PO SCH (20:48)
[2021-07-12] MEDS: IPRATROPIUM-ALBUTEROL 3 ML NEB INHALATION SCH (21:10)
[2021-07-13] MEDS: IPRATROPIUM-ALBUTEROL 3 ML NEB INHALATION SCH ×4 (07:18→20:43)
[2021-07-13] MEDS: SYMBICORT 80-4.5 MCG INHALER INHALATION SCH ×2 (07:18→20:42)
[2021-07-13 08:23] LABS: Basophils # (A) 0.1 k/uL (0-0.2); Basophils % (A) 1 %; Eosinophils % (A) 0 %; HCT 42.5 % (34.0-46.0); HGB 13.4 gm/dL (11.4-16.0); Lymphocytes % (A) 10 %; MCH 32.4 pg (25.0-35.0); MCHC 31.4 g/dL (31.0-37.0); MCV 103.1 fL (80.0-100.0); Macrocytosis Slight; Mean Platelet Volume 8.1; Monocytes # (A) 0.6 k/uL (0-1.0); Monocytes % (A) 7 %; Neutrophils # (A) 8.1 k/uL (1.3-7.7); Neutrophils % (A) 82 %; Platelet Count 338 k/uL (150-450); RBC 4.12 m/uL (3.80-5.40); RDW 14.1 % (11.5-15.5); WBC 9.9 k/uL (3.8-10.6)
[2021-07-13] MEDS: CYANOCOBALAMIN 500 MCG TAB PO SCH (08:36)
[2021-07-13] MEDS: ASPIRIN 81 MG PO SCH (08:37)
[2021-07-13] MEDS: SPIRONOLACTONE 25 MG TAB PO SCH (08:37)
[2021-07-13] MEDS: FAMOTIDINE 20 MG TAB PO SCH (08:37)
[2021-07-13] MEDS: FUROSEMIDE 10 MG/ML 4 ML VIAL IV SCH (08:37)
[2021-07-13] MEDS: CHOLECALCIFEROL 25 MCG (1000 IU) TABLET PO SCH (08:37)
[2021-07-13] MEDS: METOPROLOL TARTRATE 50 MG TAB PO SCH ×2 (08:37→20:18)
[2021-07-13] MEDS: ISOSORBIDE MONONITRATE ER 60 MG TAB.ER.24H PO SCH (08:37)
[2021-07-13] MEDS: hydrALAZINE HCL 50 MG TAB PO SCH ×2 (08:37→17:39)
[2021-07-13] MEDS: FOLIC ACID 1 MG TAB PO SCH (08:37)
[2021-07-13 08:53] LABS: Calcium 10.4 mg/dL (8.4-10.2); Potassium 3.9 mmol/L (3.5-5.1)
[2021-07-13] MEDS ORDERED: FUROSEMIDE 40 MG TAB PO SCH (09:00)
[2021-07-13] MEDS ORDERED: METOPROLOL TARTRATE 25 MG TAB PO STA (09:10)
--- NOTE | 2021-07-13 12:17 | P.PN ---
Subjective HISTORY OF PRESENTING ILLNESS This is a pleasant 86-year-old female past medical history significant for coronary artery disease, hypertension, dyslipidemia, diabetes mellitus and ischemic cardiomyopathy status post AICD. She follows in the office with Dr. Gonzalez. We have been asked to see in consultation for heart failure. She presen zach to the hospital with symptoms of 2 days of worsening shortness of breath. She states the breathing is exacerbated by laying down and improves with ambulation or activity. She was started on IV diuretics. Chest x-ray reveals congestive heart failure with pleural effusions and increasing right paratracheal infiltrate/consolidation. CTA is negative for pulmonary embolism, right upper lobe mass adjacent to the pulmonary hilum and mediastinum suspicious for tumor and a mild pericardial effusion noted. EKG revealsSR with APC's and PVC's. Laboratory data reviewed, WBC 8.9, hemoglobin 12.6, platelets 344, d- dimer 5.38, sodium 135, potassium 4.2, creatinine on admission 1.04 and repeat today 1.17, magnesium 2.2, troponin 0.105, NT proBNP 40,500. Current daily cardiac medications include aspirin 81 mg daily, Imdur 60 mg daily, Lopressor 50 mg twice a day, hydralazine 50 mg 3 times a day, rosuvastatin 10 mg daily and Aldactone 25 mg daily. Most recent echocardiogram obtained April 2021 revealed impaired LV systolic function with ejection fraction 42%, basal inferior hypokinesia, mild aortic regurgitation, mild mitral regurgitation and mild tricuspid regurgitation. Cardiac catheterization performed in 2015 revealed ejection fraction at that time was 20% with a lesion noted in the mid LAD 10%, mid circumflex 50% and mid RCA 100%. She states her breathing was normal this morning and she slept good last night. 07/13/2021 Patient seen and examined sitting up in bed in no acute distress. Breathing is stable. She was placed on IV diuretics last night. Pulmonary has evaluated her and recommended conservative approach to pulmonary mass. Possible bronchoscopy for definitive diagnosis. Blood pressure 124/64 heart rate 72 afebrile maintaining oxygen saturation on nasal cannula. Laboratory data reviewed, WBC 9.9, hemoglobin 13.4, platelets 338, sodium 134, potassium 3.9, creatinine 1.26. Limited echo obtained reveals impaired LV systolic function with ejection fraction 30-35%, mild aortic stenosis with a mean gradient of 8 mmHg and mild tricuspid regurgitation noted. PHYSICAL EXAMINATION CONSTITUTIONAL: No apparent distress. HEENT: Head is normocephalic. Pupils are equal, round. Sclerae anicteric. Mucous membranes of the mouth are moist. No JVD. No carotid bruit. CHEST EXAMINATION: Lungs are clear to auscultation. No chest wall tenderness is noted on palpation or with deep breathing. HEART EXAMINATION: Regular rate and rhythm. S1, S2 heard. Systolic ejection murmur at the base, no gallops or rub. EXTREMITIES: 2+ peripheral pulses, no lower extremity edema and no calf tenderness. ASSESSMENT Acute on chronic systolic heart failure Coronary artery disease Ischemic cardiomyopathy status post AICD Hypertension Dyslipidemia Diabetes mellitus Former nicotine dependence PLAN Continue IV diuresis. Follow renal function and electrolytes in the morning. Further recommendations to follow based upon clinical course. Nurse Practitioner note has been reviewed, I agree with a documented findings and plan of care. Patient was seen and examined. Objective - Vital Signs Vital signs: Vital Signs Temp 97.7 F 07/13/21 08:00 Pulse 72 07/13/21 11:41 Resp 18 07/13/21 03:43 BP 124/64 07/13/21 08:00 Pulse Ox 97 07/13/21 08:00 Intake & Output 07/12/21 07/13/21 07/13/21 18:59 06:59 18:59 Intake Total 120 300 Output Total 500 Balance -380 300 Weight 52.3 kg 48.7 kg Intake: Oral 120 300 Output: Urine 500 Other: Voiding Method External Catheter External Catheter # Voids 1 1 - Labs CBC & Chem 7: 07/13/21 07:49 07/13/21 07:49 Labs: Abnormal Lab Results - Last 24 Hours (Table) 07/13/21 07/13/21 Range/Units 07:49 07:49 MCV 103.1 H (80.0-100.0) fL Neutrophils # 8.1 H (1.3-7.7) k/uL Sodium 134 L (137-145) mmol/L Chloride 96 L (98-107) mmol/L Carbon Dioxide 33 H (22-30) mmol/L BUN 25 H (7-17) mg/dL Creatinine 1.26 H (0.52-1.04) mg/dL Calcium 10.4 H (8.4-10.2) mg/dL
--- NOTE | 2021-07-13 12:25 | P.PN ---
Subjective Progress Note Date: 07/13/21 On today's evaluation of 07/13/2021, the patient is being seen for a follow-up. Elderly female patient who currently has a lung mass and the same time the patient came in with decompensated heart failure with bilateral pleural effusions. Currently she subjected to diuretic that she is responding nicely to diuresis. No new complaints otherwise for now. Her BUN is at 25 with a creatinine of 1.2. Sodium is at 134. White cell count is at 9.9 with a hemoglobin of 13.4. Her fluid balance over the past 24 hours is been negative and the patient is negative more liters over the past 24 hours. She is receiving Lasix 60 mg IV every 12 hours. She is also on bronchodilators and she is on Symbicort as maintenance. She is on theophylline regarding her COPD. I was informed by Dr. monteiro the patient and her family decided not to proceed with endoscopy and biopsy regarding her lung mass. Objective - Vital Signs Vital signs: Vital Signs Temp 97.7 F 07/13/21 08:00 Pulse 72 07/13/21 11:41 Resp 18 07/13/21 03:43 BP 124/64 07/13/21 08:00 Pulse Ox 97 07/13/21 08:00 Intake & Output 07/12/21 07/13/21 07/13/21 18:59 06:59 18:59 Intake Total 120 300 Output Total 500 Balance -380 300 Weight 52.3 kg 48.7 kg Intake: Oral 120 300 Output: Urine 500 Other: Voiding Method External Catheter External Catheter # Voids 1 1 - Exam EYES: Pupils equal. Conjunctiva normal. HEENT: External appearance of nose and ears normal, oral cavity grossly normal. NECK: JVD not raised; masses not palpable. HEART: First and second heart sounds are normal; no edema. LUNGS: Respiratory rate increased, decreased breath sounds expiratory wheezing. the patient has crackles in lung bases bilaterally. ABDOMEN: Soft, no tenderness, no guarding rigidity, liver spleen not palpable, no masses palpable. 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 NEUROLOGICAL: Cranial nerves grossly intact; no facial asymmetry, power and sensation grossly intact. 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 Findings are highly suspicious for malignancy including primary bronchogenic carcinoma. 2 COPD 3 acute decompensated heart failure with second and shortness of breath and development of bilateral pleural effusion secondary to decompensated heart failure, malignancy or malignant pleural effusions felt to be less likely. The patient's proBNP level is quite elevated. The patient would benefit from diuretics. The patient is responding to diuretics and currently she is on 60 mg IV Lasix every 12 hours. She is less short of breath compared to yesterday. 4 Coronary artery disease with prior [place] 5 Chronic congestive heart failure from systolic dysfunction, from ischemic cardiomyopathy. EF 30% 6 Peripheral arterial disease 7 Essential hypertension 8 Vitamin B12 deficiency 9 Chronic kidney disease stage III likely nephrosclerosis 10 DO NOT RESUSCITATE 11 smoker 12 impaired performance and functional status. The patient's baseline performance and functional status is poor. She walks without a walker. She has chronic exertional dyspnea. 13 history of ischemic colitis, inactive in stable 14 hyperlipidemia 15 previous vascular intervention vessel bypass involving the lower extremities due to severe peripheral vascular disease Plan Patient declined bronchoscopy Continue diuresis No need for thoracentesis at this point as long as the patient's responding to diuretics Repeat chest x-ray in the morning Monitor renal function Echocardiogram showed an ejection fraction of 30-35% We'll may readdress this issue of lung mass on outpatient basis time of discharge. No plans for biopsy for now based on the patient and her family's wishes.
--- NOTE | 2021-07-13 15:49 | P.PN ---
Progress Note - Text Progress Note Date: 07/13/21 Chief Complaint: Short of breath History of presenting complaint: This is a pleasant 86-year-old patient who follows with visiting physicians Dr. Lowe. Chronic stable medical conditions include hyperlipidemia, hypertension, peripheral arterial disease with Bergers disease, AICD permanent pacemaker. CHF EF 40-45%, CAD, CK D stage III . Patient cut back on smoking about 2 months ago. Down to a few cigarettes a day. Patient was in the hospital just over a month ago for COPD exacerbation and pneumonia. Patient presents with worsening shortness of breath. Some cough. No fever no chills. Some wheezing. No edema. Lives by herself. Able to get around the house. Tired and rundown. July 12: Patient placed on IV Lasix for CHF. Discussed with Dr. Dodge. Spoke to patient's niece Marah over the phone. Given patient's comorbidities, fragility, does not wish to proceed any further put the lung mass. Patient's diet. Short of breath. Congested cough. July 13: Continues on IV Lasix. Good urine output. Eyes and nose nocturnal documented. Cough. Tired. Oral intake better. IV Lasix increased to 60 mg every 12. Review of systems: Was done for constitutional, cardiovascular, GI, pulmonary. relevant finding as above Active Medications Acetaminophen (Acetaminophen Tab 325 Mg Tab) 650 mg PO Q6HR PRN PRN Reason: Mild Pain or Fever > 100.5 Al Hydroxide/Mg Hydroxide (Mag Hydrox/Al Hydrox/Simeth 30 Ml Cup) 15 ml PO Q6HR PRN PRN Reason: Indigestion Albuterol Sulfate (Albuterol Nebulized 2.5 Mg/3 Ml) 2.5 mg INHALATION RT-Q4H PRN PRN Reason: Shortness Of Breath Albuterol/Ipratropium (Ipratropium-Albuterol 3 Ml Neb) 3 ml INHALATION RT-QID [facility] Last Admin: 07/13/21 11:29 Dose: 3 ml Documented by: Aspirin (Aspirin 81 Mg) 81 mg PO DAILY [facility] Last Admin: 07/13/21 08:37 Dose: 81 mg Documented by: Atorvastatin Calcium (Atorvastatin 20 Mg Tab) 20 mg PO HS [facility] Last Admin: 07/12/21 20:48 Dose: 20 mg Documented by: Budesonide/Formoterol Fumarate (Symbicort 80-4.5 Mcg Inhaler) 1 puff INHALATION RT-BID [facility] Last Admin: 07/13/21 07:18 Dose: 1 puff Documented by: Calcium Carbonate/Glycine (Calcium Carbonate 500 Mg Chewable) 1,000 mg PO Q4HR PRN PRN Reason: Dyspepsia Cholecalciferol (Cholecalciferol 25 Mcg (1000 Iu) Tablet) 25 mcg PO DAILY [facility] Last Admin: 07/13/21 08:37 Dose: 25 mcg Documented by: Cyanocobalamin (Cyanocobalamin 500 Mcg Tab) 1,000 mcg PO DAILY [facility] Last Admin: 07/13/21 08:36 Dose: 1,000 mcg Documented by: Famotidine (Famotidine 20 Mg Tab) 20 mg PO DAILY [facility] Last Admin: 07/13/21 08:37 Dose: 20 mg Documented by: Folic Acid (Folic Acid 1 Mg Tab) 0.5 mg PO DAILY [facility] Last Admin: 07/13/21 08:37 Dose: 0.5 mg Documented by: Furosemide (Furosemide 10 Mg/Ml 10 Ml Vial) 60 mg IV Q12HR [facility] Hydralazine HCl (Hydralazine Hcl 50 Mg Tab) 50 mg PO TID [facility] Last Admin: 07/13/21 08:37 Dose: 50 mg Documented by: Isosorbide Mononitrate (Isosorbide Mononitrate Er 60 Mg Tab.Er.24h) 60 mg PO DAILY [facility] Last Admin: 07/13/21 08:37 Dose: 60 mg Documented by: Lactulose (Lactulose 20 Gm/30 Ml Cup) 20 gm PO DAILY PRN PRN Reason: Constipation Last Admin: 07/13/21 08:36 Dose: 20 gm Documented by: Lorazepam (Lorazepam 0.5 Mg Tab) 0.5 mg PO Q6HR PRN PRN Reason: Anxiety Losartan Potassium (Losartan 50 Mg Tab) 50 mg PO HS [facility] Last Admin: 07/12/21 20:48 Dose: 50 mg Documented by: Melatonin (Melatonin 3 Mg Tablet) 3 mg PO HS PRN PRN Reason: Insomnia Metoprolol Tartrate (Metoprolol Tartrate 50 Mg Tab) 75 mg PO BID [facility] Naloxone HCl (Naloxone 0.4 Mg/Ml 1 Ml Vial) 0.2 mg IV Q2M PRN PRN Reason: Opioid Reversal Ondansetron HCl (Ondansetron 4 Mg/2 Ml Vial) 4 mg IVP Q8HR PRN PRN Reason: Nausea And Vomiting Spironolactone (Spironolactone 25 Mg Tab) 25 mg PO DAILY [facility] Last Admin: 07/13/21 08:37 Dose: 25 mg Documented by: Theophylline (Theophylline 24 Hour 300 Mg Cap.Er.24h) 300 mg PO HS [facility] Last Admin: 07/12/21 20:48 Dose: 300 mg Documented by: Past medical history to include: Hypertension, hyperlipidemia, coronary artery disease with [place], irregular heartbeat,bergers disease , peripheral bypass and bilateral femoral grafting, AICD/removed and changed to permanent pacemaker, ischemic colitis Social history: Occasionally uses a cane. Lives alone. Smoked for many years, stopped 4 weeks ago. Alcohol occasionally. Family history: Cancer Physical examination: VITAL SIGNS: 97.7, 97, 20, 124/64, 97% on 2 L GENERAL: laying in bed, tired, loss of muscle mass and subcutaneous fat, congested cough EYES: Pupils equal. Conjunctiva normal. HEENT: External appearance of nose and ears normal, oral cavity grossly normal. NECK: JVD raised; masses not palpable. HEART: First and second heart sounds are normal; no edema. LUNGS: Respiratory rate increased, decreased breath sounds expiratory wheezing. Some crackles ABDOMEN: Soft, no tenderness, no guarding rigidity, liver spleen not palpable, no masses palpable. 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 INVESTIGATIONS, reviewed in the clinical context: July 13: WBC 9.9 hemoglobin 13.4 platelets 338 potassium 3.9 BUN 25 creatinine 1.26 bicarb July 12: Potassium 4.2 BUN 23 creatinine 1.17 WBC 8.9 hemoglobin 12.6 platelets 344 d-dimer 5.3 potassium 5. 24 creatinine 1.04 Troponin I 0.105 ProBNP 21411 albumin 2.9 Coronavirus [PCR]: Not detected EKG tracing personally reviewed by me-normal sinus rhythm, PVC, poor R-wave progression, paced rhythm Chest x-ray film personally reviewed by me-pleural effusion, venous prominence Chest CTA: Moderately large bilateral pleural effusion. Heart is enlarged. Pericardial effusion. Mass like consolidation at the right pulmonary hilum 8 cm x 4 cm. Large pulmonary arteries. Negative for PE Assessment and plan: -Acute on Chronic congestive heart failure from systolic dysfunction, from ischemic cardiomyopathy. EF 40-45%: Slow to respond Increase IV Lasix 60 mg every 12 I's and O's. -Bilateral pleural effusion from CHF IV Lasix. Repeat check stat x-ray -Acute COPD exacerbation in a previous heavy smoker, patient is still doing a few cigarettes a day: DuoNeb 4 times a day, Symbicort .theophylline 300 mg daily -Lung mass 8 x 4 cm. At the right hilum. Not keen for any further investigations which rather reasonable. -Coronary artery disease with prior [place] aspirin -Peripheral arterial disease Aspirin Crestor -Chronic hypoxic respiratory failure from COPD Home oxygen 2 L -Essential hypertension Lopressor 50 mg twice a day., Cozaar 50 mg daily at bedtime, hydralazine 50 mg 3 times a day -Vitamin B12 deficiency Continue B12 supplement -Chronic kidney disease stage III likely nephrosclerosis Follow BMP -DO NOT RESUSCITATE -DPOA: damion Crystal Increase IV Lasix 60 mg every 12. Strict I's and O's. Continue other medications. Add Diamox of metabolic alkalosis. Repeat check 6 and the morning.
[2021-07-13] MEDS: acetaZOLAMIDE 250 MG TAB PO SCH ×2 (17:39→20:18)
[2021-07-13] MEDS: FUROSEMIDE 10 MG/ML 10 ML VIAL IV SCH (20:17)
[2021-07-13] MEDS: ATORVASTATIN 20 MG TAB PO SCH (20:18)
[2021-07-13] MEDS: LOSARTAN 50 MG TAB PO SCH (20:18)
[2021-07-13] MEDS: THEOPHYLLINE 24 HOUR 300 MG CAP.ER.24H PO SCH (20:18)
[2021-07-14] MEDS: hydrALAZINE HCL 50 MG TAB PO SCH ×3 (00:34→17:27)
--- NOTE | 2021-07-14 06:58 | XR ---
EXAMINATION TYPE: XR chest 2V DATE OF EXAM: 07/14/2021 COMPARISON: 07/11/2021 INDICATION: CHF follow-up TECHNIQUE: Frontal and lateral views of the chest are obtained. FINDINGS: The heart size is mildly prominent. The pulmonary vasculature is prominent. Mild diffuse increased lung markings are present. A small left pleural effusion is present. Bibasilar infiltrates are improving. IMPRESSION: 1. Improving congestive heart failure. Continued follow-up is recommended
[2021-07-14] MEDS: SYMBICORT 80-4.5 MCG INHALER INHALATION SCH ×2 (08:11→20:55)
[2021-07-14] MEDS: IPRATROPIUM-ALBUTEROL 3 ML NEB INHALATION SCH ×4 (08:11→20:55)
[2021-07-14 08:48] LABS: Calcium 10.4 mg/dL (8.4-10.2); Potassium 3.4 mmol/L (3.5-5.1)
[2021-07-14] MEDS: SPIRONOLACTONE 25 MG TAB PO SCH (09:15)
[2021-07-14] MEDS: ASPIRIN 81 MG PO SCH (09:15)
[2021-07-14] MEDS: CYANOCOBALAMIN 500 MCG TAB PO SCH (09:15)
[2021-07-14] MEDS: ISOSORBIDE MONONITRATE ER 60 MG TAB.ER.24H PO SCH (09:16)
[2021-07-14] MEDS: FAMOTIDINE 20 MG TAB PO SCH (09:16)
[2021-07-14] MEDS: CHOLECALCIFEROL 25 MCG (1000 IU) TABLET PO SCH (09:16)
[2021-07-14] MEDS: METOPROLOL TARTRATE 50 MG TAB PO SCH (09:16)
[2021-07-14] MEDS: acetaZOLAMIDE 250 MG TAB PO SCH ×2 (09:16→20:11)
[2021-07-14] MEDS: FOLIC ACID 1 MG TAB PO SCH (09:17)
[2021-07-14] MEDS: FUROSEMIDE 10 MG/ML 10 ML VIAL IV SCH (09:17)
[2021-07-14] MEDS ORDERED: Potassium Replacement Protocol 1 EACH MISC MISCELLANE PRN (10:05)
[2021-07-14] MEDS: POTASSIUM CHLORIDE ER 20 MEQ TAB.ER PO SCH ×2 (13:09→14:09)
--- NOTE | 2021-07-14 13:35 | PN ---
PROGRESS NOTE Mrs. Shay is feeling better today. Her breathing is easier. We will switch her from IV to oral Lasix at 60 mg b.i.d. Potassium is low. Will supplement it. She has cardiomyopathy, congestive heart failure, but appears to be doing better. Vitals are stable. JVD is evident. S1-S2 heard normally. Short systolic murmur noted. Lungs reveal improved air entry with fine basal rales. Abdomen is soft. Rest of physical exam unchanged. MMODL / IJN: [id number] /
--- NOTE | 2021-07-14 13:59 | P.PN ---
Subjective Progress Note Date: 07/14/21 07/14/2021, the patient continues to be on diuretics. She is currently receiving Lasix at a dose of 60 mg by mouth twice a day. The fluid balance has been -1.9 L over the past 24 hours. She is currently on oxygen on 2 L and her pulse ox is around 99%. As such, her volume status is optimized. Repeat chest x-ray that was done today showed cardiomegaly and left-sided pleural effusion and a smaller right-sided pleural effusion. The patient also has a DIC the/pacer in place. She has no other new complaints otherwise for now. She is currently on oral Lasix. No chest pain. As stated earlier, no intentions to biopsy the lung mass which most likely is a carcinoma. She is improving and there is improvement in her CHF for now. Objective - Vital Signs Vital signs: Vital Signs Temp 97.6 F 07/14/21 11:53 Pulse 66 07/14/21 11:53 Resp 18 07/14/21 11:53 BP 100/53 07/14/21 11:53 Pulse Ox 99 07/14/21 11:53 Intake & Output 07/13/21 07/14/21 07/14/21 18:59 06:59 18:59 Intake Total 780 360 Output Total 850 1850 Balance -70 -1850 360 Weight 47.4 kg Intake: Oral 780 360 Output: Urine 850 1850 Other: Voiding Method Toilet Toilet # Voids 1 1 - Exam EYES: Pupils equal. Conjunctiva normal. Currently on 2 L of oxygen by nasal cannula. HEENT: External appearance of nose and ears normal, oral cavity grossly normal. NECK: JVD not raised; masses not palpable. HEART: First and second heart sounds are normal; no edema. LUNGS: Respiratory rate increased, decreased breath sounds expiratory wheezing. the patient has crackles in lung bases bilaterally. ABDOMEN: Soft, no tenderness, no guarding rigidity, liver spleen not palpable, no masses palpable. 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 NEUROLOGICAL: Cranial nerves grossly intact; no facial asymmetry, power and sensation grossly intact. 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 Findings are highly suspicious for malignancy including primary bronchogenic carcinoma. 2 COPD 3 acute decompensated heart failure with second and shortness of breath and development of bilateral pleural effusion secondary to decompensated heart failure, malignancy or malignant pleural effusions felt to be less likely. The patient's proBNP level is quite elevated. The patient benefits quite a bit of diuresis. Chest x-ray is improving. Oxygenation is stable for now. 4 Coronary artery disease with prior [place] 5 Chronic congestive heart failure from systolic dysfunction, from ischemic cardiomyopathy. EF 30% 6 Peripheral arterial disease 7 Essential hypertension 8 Vitamin B12 deficiency 9 Chronic kidney disease stage III likely nephrosclerosis 10 DO NOT RESUSCITATE 11 smoker 12 impaired performance and functional status. The patient's baseline performance and functional status is poor. She walks without a walker. She has chronic exertional dyspnea. 13 history of ischemic colitis, inactive in stable 14 hyperlipidemia 15 previous vascular intervention vessel bypass involving the lower extremities due to severe peripheral vascular disease Plan Patient declined bronchoscopy Continue diuresis currently on oral Lasix 60 mg by mouth twice a day. She has been negative fluid balance. No need for thoracentesis at this point as long as the patient's responding to diuretics, repeat chest x-ray shows improvement in CHF findings Repeat chest x-ray in the morning was noted and there is improvement in CHF findings Monitor renal function, and her renal function currently is stable and there is a slight the rise in the creatinine up to 1.6.As such, the patient was placed on oral diuretics Echocardiogram showed an ejection fraction of 30-35% We'll may readdress this issue of lung mass on outpatient basis time of discharge. No plans for biopsy for now based on the patient and her family's wishes. no plans for bronchoscopy, and the patient will be seen on an ion mated basis.
--- NOTE | 2021-07-14 15:15 | P.PN ---
Progress Note - Text Progress Note Date: 07/14/21 Chief Complaint: Short of breath History of presenting complaint: This is a pleasant 86-year-old patient who follows with visiting physicians Dr. Lowe. Chronic stable medical conditions include hyperlipidemia, hypertension, peripheral arterial disease with Bergers disease, AICD permanent pacemaker. CHF EF 40-45%, CAD, CK D stage III . Patient cut back on smoking about 2 months ago. Down to a few cigarettes a day. Patient was in the hospital just over a month ago for COPD exacerbation and pneumonia. Patient presents with worsening shortness of breath. Some cough. No fever no chills. Some wheezing. No edema. Lives by herself. Able to get around the house. Tired and rundown. July 12: Patient placed on IV Lasix for CHF. Discussed with Dr. Dodge. Spoke to patient's niece Marah over the phone. Given patient's comorbidities, fragility, does not wish to proceed any further put the lung mass. Patient's diet. Short of breath. Congested cough. July 13: Continues on IV Lasix. Good urine output. Eyes and nose nocturnal documented. Cough. Tired. Oral intake better. IV Lasix increased to 60 mg every 12. July 14: Breathing better. Has made good urine output. Slight cough. Eating about 50%. Keen to go home. Changed over to oral Lasix. Review of systems: Was done for constitutional, cardiovascular, GI, pulmonary. relevant finding as above Active Medications Acetaminophen (Acetaminophen Tab 325 Mg Tab) 650 mg PO Q6HR PRN PRN Reason: Mild Pain or Fever > 100.5 Acetazolamide (Acetazolamide 250 Mg Tab) 250 mg PO BID PENDING SALE TO [facility] Last Admin: 07/14/21 09:16 Dose: 250 mg Documented by: Al Hydroxide/Mg Hydroxide (Mag Hydrox/Al Hydrox/Simeth 30 Ml Cup) 15 ml PO Q6HR PRN PRN Reason: Indigestion Albuterol Sulfate (Albuterol Nebulized 2.5 Mg/3 Ml) 2.5 mg INHALATION RT-Q4H PRN PRN Reason: Shortness Of Breath Albuterol/Ipratropium (Ipratropium-Albuterol 3 Ml Neb) 3 ml INHALATION RT-QID PENDING SALE TO [facility] Last Admin: 07/14/21 11:38 Dose: 3 ml Documented by: Aspirin (Aspirin 81 Mg) 81 mg PO DAILY PENDING SALE TO [facility] Last Admin: 07/14/21 09:15 Dose: 81 mg Documented by: Atorvastatin Calcium (Atorvastatin 20 Mg Tab) 20 mg PO HS PENDING SALE TO [facility] Last Admin: 07/13/21 20:18 Dose: 20 mg Documented by: Budesonide/Formoterol Fumarate (Symbicort 80-4.5 Mcg Inhaler) 1 puff INHALATION RT-BID PENDING SALE TO [facility] Last Admin: 07/14/21 08:11 Dose: 1 puff Documented by: Calcium Carbonate/Glycine (Calcium Carbonate 500 Mg Chewable) 1,000 mg PO Q4HR PRN PRN Reason: Dyspepsia Cholecalciferol (Cholecalciferol 25 Mcg (1000 Iu) Tablet) 25 mcg PO DAILY PENDING SALE TO [facility] Last Admin: 07/14/21 09:16 Dose: 25 mcg Documented by: Cyanocobalamin (Cyanocobalamin 500 Mcg Tab) 1,000 mcg PO DAILY PENDING SALE TO [facility] Last Admin: 07/14/21 09:15 Dose: 1,000 mcg Documented by: Famotidine (Famotidine 20 Mg Tab) 20 mg PO DAILY PENDING SALE TO [facility] Last Admin: 07/14/21 09:16 Dose: 20 mg Documented by: Folic Acid (Folic Acid 1 Mg Tab) 0.5 mg PO DAILY PENDING SALE TO [facility] Last Admin: 07/14/21 09:17 Dose: 0.5 mg Documented by: Furosemide (Furosemide 20 Mg Tab) 60 mg PO BID@0900,1600 PENDING SALE TO [facility] Hydralazine HCl (Hydralazine Hcl 50 Mg Tab) 50 mg PO TID PENDING SALE TO [facility] Last Admin: 07/14/21 09:16 Dose: 50 mg Documented by: Isosorbide Mononitrate (Isosorbide Mononitrate Er 60 Mg Tab.Er.24h) 60 mg PO DAILY PENDING SALE TO [facility] Last Admin: 07/14/21 09:16 Dose: 60 mg Documented by: Lactulose (Lactulose 20 Gm/30 Ml Cup) 20 gm PO DAILY PRN PRN Reason: Constipation Last Admin: 07/13/21 08:36 Dose: 20 gm Documented by: Lorazepam (Lorazepam 0.5 Mg Tab) 0.5 mg PO Q6HR PRN PRN Reason: Anxiety Losartan Potassium (Losartan 50 Mg Tab) 50 mg PO HS PENDING SALE TO [facility] Last Admin: 07/13/21 20:18 Dose: 50 mg Documented by: Melatonin (Melatonin 3 Mg Tablet) 3 mg PO HS PRN PRN Reason: Insomnia Metoprolol Tartrate (Metoprolol Tartrate 25 Mg Tab) 75 mg PO BID PENDING SALE TO [facility] Miscellaneous Information (Potassium Replacement Protocol 1 Each Misc) 1 each MISCELLANE DAILY PRN; Protocol PRN Reason: Per Protocol Naloxone HCl (Naloxone 0.4 Mg/Ml 1 Ml Vial) 0.2 mg IV Q2M PRN PRN Reason: Opioid Reversal Ondansetron HCl (Ondansetron 4 Mg/2 Ml Vial) 4 mg IVP Q8HR PRN PRN Reason: Nausea And Vomiting Spironolactone (Spironolactone 25 Mg Tab) 25 mg PO DAILY PENDING SALE TO [facility] Last Admin: 07/14/21 09:15 Dose: 25 mg Documented by: Theophylline (Theophylline 24 Hour 300 Mg Cap.Er.24h) 300 mg PO HS PENDING SALE TO [facility] Last Admin: 07/13/21 20:18 Dose: 300 mg Documented by: Past medical history to include: Hypertension, hyperlipidemia, coronary artery disease with [place], irregular heartbeat,bergers disease , peripheral bypass and bilateral femoral grafting, AICD/removed and changed to permanent pacemaker, ischemic colitis Social history: Occasionally uses a cane. Lives alone. Smoked for many years, stopped 4 weeks ago. Alcohol occasionally. Family history: Cancer Physical examination: VITAL SIGNS: 97.6, 66, 18, 100/53, 99% on 2 L GENERAL: laying in bed, [ loss of muscle mass and subcutaneous fat,] breathing better EYES: Pupils equal. Conjunctiva normal. HEENT: External appearance of nose and ears normal, oral cavity grossly normal. NECK: JVD raised; masses not palpable. HEART: First and second heart sounds are normal; no edema. LUNGS: Respiratory rate increased, decreased breath sounds ABDOMEN: Soft, no tenderness, no guarding rigidity, liver spleen not palpable, no masses palpable. 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 INVESTIGATIONS, reviewed in the clinical context: July 14: Sodium 134 potassium 3.4 bicarb 36 BUN 26 creatinine 1.63. Chest x- ray pleural effusion improved July 13: WBC 9.9 hemoglobin 13.4 platelets 338 potassium 3.9 BUN 25 creatinine 1.26 bicarb 23 July 12: Potassium 4.2 BUN 23 creatinine 1.17 WBC 8.9 hemoglobin 12.6 platelets 344 d-dimer 5.3 potassium 5. 24 creatinine 1.04 Troponin I 0.105 ProBNP 98766 albumin 2.9 Coronavirus [PCR]: Not detected EKG tracing personally reviewed by me-normal sinus rhythm, PVC, poor R-wave progression, paced rhythm Chest x-ray film personally reviewed by me-pleural effusion, venous prominence Chest CTA: Moderately large bilateral pleural effusion. Heart is enlarged. Pericardial effusion. Mass like consolidation at the right pulmonary hilum 8 cm x 4 cm. Large pulmonary arteries. Negative for PE Assessment and plan: -Acute on Chronic congestive heart failure from systolic dysfunction, from ischemic cardiomyopathy. EF 40-45%: Improved Increase IV Lasix 60 mg every 12 , changed over to by mouth Lasix -Bilateral pleural effusion from CHF, improving Changed to by mouth Lasix -Acute COPD exacerbation in a previous heavy smoker, patient is still doing a few cigarettes a day: DuoNeb 4 times a day, Symbicort .theophylline 300 mg daily -Lung mass 8 x 4 cm. At the right hilum. Not keen for any further investigations which rather reasonable. -Coronary artery disease with prior [place] aspirin -Peripheral arterial disease Aspirin Crestor -Chronic hypoxic respiratory failure from COPD Home oxygen 2 L -Essential hypertension Lopressor 50 mg twice a day., Cozaar 50 mg daily at bedtime, hydralazine 50 mg 3 times a day -Vitamin B12 deficiency Continue B12 supplement -Chronic kidney disease stage III likely nephrosclerosis Follow BMP -Acute kidney injury, prerenal from diuresis Follow renal function -DO NOT RESUSCITATE -DPOA: Marah, niece Patient's changed to to by mouth Lasix. Repeat labs in the morning. Discussed with the patient. Hopefully home tomorrow.
[2021-07-14] MEDS: FUROSEMIDE 20 MG TAB PO SCH (15:21)
[2021-07-14] MEDS: LOSARTAN 50 MG TAB PO SCH (20:08)
[2021-07-14] MEDS: METOPROLOL TARTRATE 25 MG TAB PO SCH (20:11)
[2021-07-14] MEDS: THEOPHYLLINE 24 HOUR 300 MG CAP.ER.24H PO SCH (20:11)
[2021-07-14] MEDS: ATORVASTATIN 20 MG TAB PO SCH (20:11)
[2021-07-15] MEDS: hydrALAZINE HCL 50 MG TAB PO SCH ×4 (00:35→23:20)
[2021-07-15] MEDS: SYMBICORT 80-4.5 MCG INHALER INHALATION SCH ×2 (08:39→20:07)
[2021-07-15] MEDS: IPRATROPIUM-ALBUTEROL 3 ML NEB INHALATION SCH ×4 (08:39→20:07)
[2021-07-15] MEDS: CYANOCOBALAMIN 500 MCG TAB PO SCH (08:52)
[2021-07-15] MEDS: ASPIRIN 81 MG PO SCH (08:52)
[2021-07-15] MEDS: METOPROLOL TARTRATE 25 MG TAB PO SCH ×2 (08:52→21:07)
[2021-07-15] MEDS: SPIRONOLACTONE 25 MG TAB PO SCH (08:52)
[2021-07-15] MEDS: FUROSEMIDE 20 MG TAB PO SCH ×2 (08:52→17:14)
[2021-07-15] MEDS: FAMOTIDINE 20 MG TAB PO SCH (08:52)
[2021-07-15] MEDS: FOLIC ACID 1 MG TAB PO SCH (08:53)
[2021-07-15] MEDS: acetaZOLAMIDE 250 MG TAB PO SCH ×2 (08:53→21:07)
[2021-07-15] MEDS: CHOLECALCIFEROL 25 MCG (1000 IU) TABLET PO SCH (08:53)
[2021-07-15] MEDS: ISOSORBIDE MONONITRATE ER 60 MG TAB.ER.24H PO SCH (08:53)
[2021-07-15 10:12] LABS: Calcium 10.6 mg/dL (8.4-10.2); Potassium 3.7 mmol/L (3.5-5.1)
--- NOTE | 2021-07-15 11:16 | PN ---
PROGRESS NOTE Mrs. Shay is doing well. Breathing is easier. Her oral Lasix is at 60 mg b.i.d. She has no chest pain or shortness of breath. Her shortness of breath has improved. Vitals are stable. JVD 1 cm. No carotid bruit. S1, S2 heard normally. Short systolic murmur noted. Lungs reveal improved air entry. Abdomen and lower extremity exam unchanged. Plan is to increase activity and discharge her today. MMODL / IJN: [id number] /
--- NOTE | 2021-07-15 11:57 | P.PN ---
Subjective Progress Note Date: 07/15/212020, the patient is doing well. She is on room air oxygen. She has been feeling better and she is less short of breath and she has no interest and bronchoscopy. Her creatinine is stable at 1.6 and the patient is currently on Lasix 60 mg by mouth twice a day. Rest of the medications included Aldactone. She is also on bronchodilators. Objective - Vital Signs Vital signs: Vital Signs Temp 98.0 F 07/15/21 08:00 Pulse 61 07/15/21 08:00 Resp 18 07/15/21 08:00 BP 104/51 07/15/21 08:00 Pulse Ox 94 L 07/15/21 08:00 Intake & Output 07/14/21 07/15/21 07/15/21 18:59 06:59 18:59 Intake Total 1160 240 Output Total 400 650 300 Balance 760 -650 -60 Weight 48.7 kg Intake: Oral 1160 240 Output: Urine 400 650 300 Other: Voiding Method Toilet Toilet Toilet Diaper Diaper # Voids 1 # Bowel Movements 1 - Exam EYES: Pupils equal. Conjunctiva normal. Currently on room air oxygen HEENT: External appearance of nose and ears normal, oral cavity grossly normal. NECK: JVD not raised; masses not palpable. HEART: First and second heart sounds are normal; no edema. LUNGS: Respiratory rate increased, decreased breath sounds expiratory wheezing. the patient has crackles in lung bases bilaterally. ABDOMEN: Soft, no tenderness, no guarding rigidity, liver spleen not palpable, no masses palpable. 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 NEUROLOGICAL: Cranial nerves grossly intact; no facial asymmetry, power and sensation grossly intact. 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 Findings are highly suspicious for malignancy including primary bronchogenic carcinoma. 2 COPD 3 acute decompensated heart failure with second and shortness of breath and development of bilateral pleural effusion secondary to decompensated heart failure, malignancy or malignant pleural effusions felt to be less likely. The patient's proBNP level is quite elevated. The patient benefits quite a bit of diuresis. Chest x-ray is improving. Oxygenation is stable for now. 4 Coronary artery disease with prior [place] 5 Chronic congestive heart failure from systolic dysfunction, from ischemic cardiomyopathy. EF 30% 6 Peripheral arterial disease 7 Essential hypertension 8 Vitamin B12 deficiency 9 Chronic kidney disease stage III likely nephrosclerosis 10 DO NOT RESUSCITATE 11 smoker 12 impaired performance and functional status. The patient's baseline performance and functional status is poor. She walks without a walker. She has chronic exertional dyspnea. 13 history of ischemic colitis, inactive in stable 14 hyperlipidemia 15 previous vascular intervention vessel bypass involving the lower extremities due to severe peripheral vascular disease Plan Patient declined bronchoscopy Continue diuresis currently on oral Lasix 60 mg by mouth twice a day. She has been negative fluid balance. No need for thoracentesis at this point as long as the patient's responding to diuretics, repeat chest x-ray shows improvement in CHF findings She is currently on room air oxygen any We'll sign off the case. Follow-up the patient office. We'll revisit the issue of bronchoscopy at a later stage on outpatient basis if there is any interest in the future to have the procedure done. I do not sense that the patient has any interest at this point in time. Based on all this, we'll sign off the case.
--- NOTE | 2021-07-15 17:33 | P.PN ---
Progress Note - Text Progress Note Date: 07/15/21 Chief Complaint: Short of breath History of presenting complaint: This is a pleasant 86-year-old patient who follows with visiting physicians Dr. Lowe. Chronic stable medical conditions include hyperlipidemia, hypertension, peripheral arterial disease with Bergers disease, AICD permanent pacemaker. CHF EF 40-45%, CAD, CK D stage III . Patient cut back on smoking about 2 months ago. Down to a few cigarettes a day. Patient was in the hospital just over a month ago for COPD exacerbation and pneumonia. Patient presents with worsening shortness of breath. Some cough. No fever no chills. Some wheezing. No edema. Lives by herself. Able to get around the house. Tired and rundown. July 12: Patient placed on IV Lasix for CHF. Discussed with Dr. Dodge. Spoke to patient's niece Marah over the phone. Given patient's comorbidities, fragility, does not wish to proceed any further put the lung mass. Patient's diet. Short of breath. Congested cough. July 13: Continues on IV Lasix. Good urine output. Eyes and nose nocturnal documented. Cough. Tired. Oral intake better. IV Lasix increased to 60 mg every 12. July 14: Breathing better. Has made good urine output. Slight cough. Eating about 50%. Keen to go home. Changed over to oral Lasix. July 15: Breathing is improved. Eating about 50%. Some further bump in creatinine. Review of systems: Was done for constitutional, cardiovascular, GI, pulmonary. relevant finding as above Active Medications Acetaminophen (Acetaminophen Tab 325 Mg Tab) 650 mg PO Q6HR PRN PRN Reason: Mild Pain or Fever > 100.5 Acetazolamide (Acetazolamide 250 Mg Tab) 250 mg PO BID [facility] Last Admin: 07/15/21 08:53 Dose: 250 mg Documented by: Al Hydroxide/Mg Hydroxide (Mag Hydrox/Al Hydrox/Simeth 30 Ml Cup) 15 ml PO Q6HR PRN PRN Reason: Indigestion Albuterol Sulfate (Albuterol Nebulized 2.5 Mg/3 Ml) 2.5 mg INHALATION RT-Q4H PRN PRN Reason: Shortness Of Breath Albuterol/Ipratropium (Ipratropium-Albuterol 3 Ml Neb) 3 ml INHALATION RT-QID [facility] Last Admin: 07/15/21 16:00 Dose: Not Given Documented by: Aspirin (Aspirin 81 Mg) 81 mg PO DAILY [facility] Last Admin: 07/15/21 08:52 Dose: 81 mg Documented by: Atorvastatin Calcium (Atorvastatin 20 Mg Tab) 20 mg PO HS [facility] Last Admin: 07/14/21 20:11 Dose: 20 mg Documented by: Budesonide/Formoterol Fumarate (Symbicort 80-4.5 Mcg Inhaler) 1 puff INHALATION RT-BID [facility] Last Admin: 07/15/21 08:39 Dose: Not Given Documented by: Calcium Carbonate/Glycine (Calcium Carbonate 500 Mg Chewable) 1,000 mg PO Q4HR PRN PRN Reason: Dyspepsia Cholecalciferol (Cholecalciferol 25 Mcg (1000 Iu) Tablet) 25 mcg PO DAILY [facility] Last Admin: 07/15/21 08:53 Dose: 25 mcg Documented by: Cyanocobalamin (Cyanocobalamin 500 Mcg Tab) 1,000 mcg PO DAILY [facility] Last Admin: 07/15/21 08:52 Dose: 1,000 mcg Documented by: Famotidine (Famotidine 20 Mg Tab) 20 mg PO DAILY [facility] Last Admin: 07/15/21 08:52 Dose: 20 mg Documented by: Folic Acid (Folic Acid 1 Mg Tab) 0.5 mg PO DAILY [facility] Last Admin: 07/15/21 08:53 Dose: 0.5 mg Documented by: Furosemide (Furosemide 20 Mg Tab) 60 mg PO BID@0900,1600 [facility] Last Admin: 07/15/21 17:14 Dose: 60 mg Documented by: Hydralazine HCl (Hydralazine Hcl 50 Mg Tab) 50 mg PO TID [facility] Last Admin: 07/15/21 17:14 Dose: 50 mg Documented by: Isosorbide Mononitrate (Isosorbide Mononitrate Er 60 Mg Tab.Er.24h) 60 mg PO DAILY [facility] Last Admin: 07/15/21 08:53 Dose: 60 mg Documented by: Lactulose (Lactulose 20 Gm/30 Ml Cup) 20 gm PO DAILY PRN PRN Reason: Constipation Last Admin: 07/13/21 08:36 Dose: 20 gm Documented by: Lorazepam (Lorazepam 0.5 Mg Tab) 0.5 mg PO Q6HR PRN PRN Reason: Anxiety Losartan Potassium (Losartan 50 Mg Tab) 50 mg PO HS [facility] Last Admin: 07/14/21 20:08 Dose: Not Given Documented by: Melatonin (Melatonin 3 Mg Tablet) 3 mg PO HS PRN PRN Reason: Insomnia Metoprolol Tartrate (Metoprolol Tartrate 25 Mg Tab) 75 mg PO BID [facility] Last Admin: 07/15/21 08:52 Dose: 75 mg Documented by: Miscellaneous Information (Potassium Replacement Protocol 1 Each Misc) 1 each MISCELLANE DAILY PRN; Protocol PRN Reason: Per Protocol Naloxone HCl (Naloxone 0.4 Mg/Ml 1 Ml Vial) 0.2 mg IV Q2M PRN PRN Reason: Opioid Reversal Ondansetron HCl (Ondansetron 4 Mg/2 Ml Vial) 4 mg IVP Q8HR PRN PRN Reason: Nausea And Vomiting Spironolactone (Spironolactone 25 Mg Tab) 25 mg PO DAILY [facility] Last Admin: 07/15/21 08:52 Dose: 25 mg Documented by: Theophylline (Theophylline 24 Hour 300 Mg Cap.Er.24h) 300 mg PO HS [facility] Last Admin: 07/14/21 20:11 Dose: 300 mg Documented by: Past medical history to include: Hypertension, hyperlipidemia, coronary artery disease with MS, irregular heartbeat,bergers disease , peripheral bypass and bilateral femoral grafting, AICD/removed and changed to permanent pacemaker, ischemic colitis Social history: Occasionally uses a cane. Lives alone. Smoked for many years, stopped 4 weeks ago. Alcohol occasionally. Family history: Cancer Physical examination: VITAL SIGNS: 98, 61, 18, 104/51, 94% on room air GENERAL: laying in bed, [ loss of muscle mass and subcutaneous fat,] breathing better EYES: Pupils equal. Conjunctiva normal. HEENT: External appearance of nose and ears normal, oral cavity grossly normal. NECK: JVD raised; masses not palpable. HEART: First and second heart sounds are normal; no edema. LUNGS: Respiratory rate increased, decreased breath sounds ABDOMEN: Soft, no tenderness, no guarding rigidity, liver spleen not palpable, no masses palpable. 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 INVESTIGATIONS, reviewed in the clinical context: July 15: Sodium 134 potassium 3.7 bicarb 23 BUN 31 creatinine 1.69 July 14: Sodium 134 potassium 3.4 bicarb 36 BUN 26 creatinine 1.63. Chest x- ray pleural effusion improved July 13: WBC 9.9 hemoglobin 13.4 platelets 338 potassium 3.9 BUN 25 creatinine 1.26 bicarb 23 July 12: Potassium 4.2 BUN 23 creatinine 1.17 WBC 8.9 hemoglobin 12.6 platelets 344 d-dimer 5.3 potassium 5. 24 creatinine 1.04 Troponin I 0.105 ProBNP 38715 albumin 2.9 Coronavirus [PCR]: Not detected EKG tracing personally reviewed by me-normal sinus rhythm, PVC, poor R-wave progression, paced rhythm Chest x-ray film personally reviewed by me-pleural effusion, venous prominence Chest CTA: Moderately large bilateral pleural effusion. Heart is enlarged. Pericardial effusion. Mass like consolidation at the right pulmonary hilum 8 cm x 4 cm. Large pulmonary arteries. Negative for PE Assessment and plan: -Acute on Chronic congestive heart failure from systolic dysfunction, from ischemic cardiomyopathy. EF 40-45%: Improved Increase IV Lasix 60 mg every 12 , changed over to by mouth Lasix -Bilateral pleural effusion from CHF, improving Changed to by mouth Lasix -Acute COPD exacerbation in a previous heavy smoker, patient is still doing a few cigarettes a day: DuoNeb 4 times a day, Symbicort .theophylline 300 mg daily -Lung mass 8 x 4 cm. At the right hilum. Not keen for any further investigations which rather reasonable. -Coronary artery disease with prior MS aspirin -Peripheral arterial disease Aspirin Crestor -Chronic hypoxic respiratory failure from COPD Home oxygen 2 L -Essential hypertension Lopressor 50 mg twice a day., Cozaar 50 mg daily at bedtime, hydralazine 50 mg 3 times a day -Vitamin B12 deficiency Continue B12 supplement -Chronic kidney disease stage III likely nephrosclerosis Follow BMP -Acute kidney injury, prerenal from diuresis Follow renal function -DO NOT RESUSCITATE -DPOA: damion Crystal We'll hold off p.m. dose of Lasix today. Other medications to continue. Recheck BMP in the morning. If no worsening will DC home.
[2021-07-15] MEDS ORDERED: POTASSIUM CHLORIDE ER 20 MEQ TAB.ER PO SCH (20:00)
[2021-07-15] MEDS: ATORVASTATIN 20 MG TAB PO SCH (21:07)
[2021-07-15] MEDS: LOSARTAN 50 MG TAB PO SCH (21:07)
[2021-07-15] MEDS: THEOPHYLLINE 24 HOUR 300 MG CAP.ER.24H PO SCH (21:07)
[2021-07-16 08:06] LABS: Calcium 10.5 mg/dL (8.4-10.2); Potassium 3.6 mmol/L (3.5-5.1)
[2021-07-16] MEDS: SYMBICORT 80-4.5 MCG INHALER INHALATION SCH (08:09)
[2021-07-16] MEDS: IPRATROPIUM-ALBUTEROL 3 ML NEB INHALATION SCH ×2 (08:09→12:05)
[2021-07-16] MEDS ORDERED: POTASSIUM CHLORIDE ER 20 MEQ TAB.ER PO STA (08:21)
[2021-07-16 08:40] VITALS: RESP 18; TEMP 97.9
[2021-07-16] MEDS: FAMOTIDINE 20 MG TAB PO SCH (10:13)
[2021-07-16] MEDS: FUROSEMIDE 20 MG TAB PO SCH (10:13)
[2021-07-16] MEDS: CHOLECALCIFEROL 25 MCG (1000 IU) TABLET PO SCH (10:13)
[2021-07-16] MEDS: acetaZOLAMIDE 250 MG TAB PO SCH (10:13)
[2021-07-16] MEDS: ISOSORBIDE MONONITRATE ER 60 MG TAB.ER.24H PO SCH (10:14)
[2021-07-16] MEDS: ASPIRIN 81 MG PO SCH (10:14)
[2021-07-16] MEDS: FOLIC ACID 1 MG TAB PO SCH (10:14)
[2021-07-16] MEDS: CYANOCOBALAMIN 500 MCG TAB PO SCH (10:14)
[2021-07-16] MEDS: SPIRONOLACTONE 25 MG TAB PO SCH (10:14)
[2021-07-16] MEDS: METOPROLOL TARTRATE 25 MG TAB PO SCH (10:14)
[2021-07-16] MEDS: hydrALAZINE HCL 50 MG TAB PO SCH (10:14)
[2021-07-16 12:56] VITALS: BP 92/53; PULSE 71
--- NOTE | 2021-07-16 17:08 | P.DS ---
Providers Date of admission: 07/11/21 20:48 Expected date of discharge: 07/16/21 Attending physician: Bib Yoon Consults: 07/11/21 20:48 Consult Physician Routine Consulting Provider: [facility] Consult Reason/Comments: Elevated troponin Do you want consulting provider notified?: Yes 07/12/21 09:11 Consult Physician Routine Consulting Provider: Chris Dodge Consult Reason/Comments: abnormal CT, mass Do you want consulting provider notified?: Yes Primary care physician: Mitesh [facility] Course: Chief Complaint: Short of breath History of presenting complaint: This is a pleasant 86-year-old patient who follows with visiting physicians Dr. Lowe. Chronic stable medical conditions include hyperlipidemia, hypertension, peripheral arterial disease with Bergers disease, AICD permanent pacemaker. CHF EF 40-45%, CAD, CK D stage III . Patient cut back on smoking about 2 months ago. Down to a few cigarettes a day. Patient was in the hospital just over a month ago for COPD exacerbation and pneumonia. Patient presents with worsening shortness of breath. Some cough. No fever no chills. Some wheezing. No edema. Lives by herself. Able to get around the house. Tired and rundown. July 12: Patient placed on IV Lasix for CHF. Discussed with Dr. Dodge. Spoke to patient's niece Marah over the phone. Given patient's comorbidities, fragility, does not wish to proceed any further put the lung mass. Patient's diet. Short of breath. Congested cough. Patient responded well to IV Lasix. Appetite better. Breathing better. July 16: Breathing stable. Oral intake fair. Discussed with the patient. DC home. Consultation: Dr. Dodge from pulmonary Dr. NURYS Stevenson from cardiology Past medical history to include: Hypertension, hyperlipidemia, coronary artery disease with HI, irregular heartbeat,bergers disease , peripheral bypass and bilateral femoral grafting, AICD/removed and changed to permanent pacemaker, ischemic colitis Social history: Occasionally uses a cane. Lives alone. Smoked for many years, stopped 4 weeks ago. Alcohol occasionally. Family history: Cancer Physical examination: VITAL SIGNS: 97.9, 73, 18, 150/71, 97% room air GENERAL: laying in bed, [ loss of muscle mass and subcutaneous fat,] comfortable EYES: Pupils equal. Conjunctiva normal. HEENT: External appearance of nose and ears normal, oral cavity grossly normal. NECK: JVD raised; masses not palpable. HEART: First and second heart sounds are normal; no edema. LUNGS: Respiratory rate increased, decreased breath sounds ABDOMEN: Soft, no tenderness, no guarding rigidity, liver spleen not palpable, no masses palpable. PSYCH: Alert and oriented x3; mood and affect normal MUSCULAR skeletal: Evidence of OA in multiple joints. INVESTIGATIONS, reviewed in the clinical context: July 16: Sodium 134 potassium 3.6 BUN 32 creatinine 1.56 July 14: Chest x-ray pleural effusion improved WBC 8.9 hemoglobin 12.6 platelets 344 d-dimer 5.3 potassium 5. 24 creatinine 1.04 Troponin I 0.105 ProBNP 67393 albumin 2.9 Coronavirus [PCR]: Not detected EKG tracing personally reviewed by me-normal sinus rhythm, PVC, poor R-wave progression, paced rhythm Chest x-ray film personally reviewed by me-pleural effusion, venous prominence Chest CTA: Moderately large bilateral pleural effusion. Heart is enlarged. Pericardial effusion. Mass like consolidation at the right pulmonary hilum 8 cm x 4 cm. Large pulmonary arteries. Negative for PE Assessment and plan: -Acute on Chronic congestive heart failure from systolic dysfunction, from ischemic cardiomyopathy. EF 40-45%: Improved IV Lasix 60 mg every 12 . Changed to Lasix 40 mg by mouth daily -Bilateral pleural effusion from CHF, improved Changed to by mouth Lasix -Acute COPD exacerbation in a previous heavy smoker, patient is still doing a few cigarettes a day: Improved DuoNeb 4 times a day, Symbicort .theophylline 300 mg daily -Lung mass 8 x 4 cm. At the right hilum. Not keen for any further investigations which rather reasonable. -Coronary artery disease with prior HI aspirin -Peripheral arterial disease Aspirin Crestor -Chronic hypoxic respiratory failure from COPD Home oxygen 2 L -Essential hypertension Lopressor 50 mg twice a day., Cozaar 50 mg daily at bedtime, hydralazine 50 mg 3 times a day -Vitamin B12 deficiency Continue B12 supplement -Chronic kidney disease stage III likely nephrosclerosis Follow BMP -Acute kidney injury, prerenal from diuresis, started to improve Follow renal function -DO NOT RESUSCITATE -DPOA: Marah, niece Disposition: Home Plan - Discharge Summary Discharge Rx Participant: No New Discharge Prescriptions: New Losartan [Cozaar] 50 mg PO HS #30 tab Potassium Chloride ER [K-Dur 10] 10 meq PO DAILY #30 tab Furosemide [Lasix] 40 mg PO DAILY #30 tablet Metoprolol Tartrate [Lopressor] 75 mg PO BID #120 tab Continue Isosorbide Mononitrate ER [Imdur] 60 mg PO DAILY Rosuvastatin Calcium [Crestor] 10 mg PO HS Folic Acid 0.4 mg PO DAILY Cyanocobalamin (Vitamin B-12) [Vitamin B-12] 1,000 mcg PO DAILY Famotidine [Pepcid] 20 mg PO DAILY #30 tab Budesonide/Formoterol Fumarate [Symbicort 80-4.5 Mcg Inhaler] 1 puff INHALATION RT-BID Ipratropium-Albuterol Nebulize [Duoneb 0.5 mg-3 mg/3 ml Soln] 3 ml INHALATION RT-QID PRN PRN Reason: Shortness Of Breath Aspirin 81 mg PO DAILY Cholecalciferol [Vitamin D3 (25 Mcg = 1000 Iu)] 25 mcg PO DAILY Spironolactone [Aldactone] 25 mg PO DAILY #30 tab Albuterol Sulfate [Albuterol Sulfate Hfa] 1 puff INHALATION RT-Q4H PRN PRN Reason: Shortness Of Breath Theophylline 24 Hour [Bill-24] 300 mg PO HS #30 cap.er.24h hydrALAZINE HCL 50 mg PO TID #90 tab Discontinued Metoprolol Tartrate [Lopressor] 50 mg PO BID Discharge Medication List Isosorbide Mononitrate ER [Imdur] 60 mg PO DAILY 08/10/14 [History] Rosuvastatin Calcium [Crestor] 10 mg PO HS 01/02/15 [History] Cyanocobalamin (Vitamin B-12) [Vitamin B-12] 1,000 mcg PO DAILY 01/02/18 [History] Folic Acid 0.4 mg PO DAILY 01/02/18 [History] Aspirin 81 mg PO DAILY 04/20/21 [History] Cholecalciferol [Vitamin D3 (25 Mcg = 1000 Iu)] 25 mcg PO DAILY 04/20/21 [History] Famotidine [Pepcid] 20 mg PO DAILY #30 tab 04/23/21 [Rx] Spironolactone [Aldactone] 25 mg PO DAILY #30 tab 04/23/21 [Rx] Albuterol Sulfate [Albuterol Sulfate Hfa] 1 puff INHALATION RT-Q4H PRN 05/24/21 [History] Budesonide/Formoterol Fumarate [Symbicort 80-4.5 Mcg Inhaler] 1 puff INHALATION RT-BID 05/24/21 [History] Theophylline 24 Hour [Bill-24] 300 mg PO HS #30 cap.er.24h 05/29/21 [Rx] hydrALAZINE HCL 50 mg PO TID #90 tab 05/29/21 [Rx] Ipratropium-Albuterol Nebulize [Duoneb 0.5 mg-3 mg/3 ml Soln] 3 ml INHALATION RT-QID PRN 07/11/21 [History] Furosemide [Lasix] 40 mg PO DAILY #30 tablet 07/16/21 [Rx] Losartan [Cozaar] 50 mg PO HS #30 tab 07/16/21 [Rx] Metoprolol Tartrate [Lopressor] 75 mg PO BID #120 tab 07/16/21 [Rx] Potassium Chloride ER [K-Dur 10] 10 meq PO DAILY #30 tab 07/16/21 [Rx] Follow up Appointment(s)/Referral(s): Julianne Reardon [NON-STAFF] - Mitesh Lowe MD [Primary Care Provider] - 1-2 days (Office closed; please call to make a follow-up appointment.) Discharge Disposition: HOME SELF-CARE
== END 2021-07-16 14:51 | disposition home or self-care (01) | DRG 291 ==
LOC: EC 17:19 → 3SCARD 20:48
PROVIDERS: ADMIT Hospitalist; ATTEND Hospitalist
DX: I13.0 Hypertensive heart and chronic kidney disease with heart failure and stage 1 through stage 4 chronic kidney disease, or unspecified chronic kidney disease (principal); I50.23 Acute on chronic systolic (congestive) heart failure; I31.3 Pericardial effusion (noninflammatory); E87.3 Alkalosis; J44.1 Chronic obstructive pulmonary disease with (acute) exacerbation; J96.11 Chronic respiratory failure with hypoxia; N17.9 Acute kidney failure, unspecified; M48.54XA Collapsed vertebra, not elsewhere classified, thoracic region, initial encounter for fracture; N02.8 Recurrent and persistent hematuria with other morphologic changes; I25.10 Atherosclerotic heart disease of native coronary artery without angina pectoris; I25.2 Old myocardial infarction; I25.5 Ischemic cardiomyopathy; I49.3 Ventricular premature depolarization; Z87.01 Personal history of pneumonia (recurrent); Z20.822 Contact with and (suspected) exposure to COVID-19; E11.22 Type 2 diabetes mellitus with diabetic chronic kidney disease; E11.51 Type 2 diabetes mellitus with diabetic peripheral angiopathy without gangrene; Z99.81 Dependence on supplemental oxygen; E53.8 Deficiency of other specified B group vitamins; E78.5 Hyperlipidemia, unspecified; F17.210 Nicotine dependence, cigarettes, uncomplicated; N18.30 Chronic kidney disease, stage 3 unspecified; T50.2X5A Adverse effect of carbonic-anhydrase inhibitors, benzothiadiazides and other diuretics, initial encounter; R05 Cough; Z66 Do not resuscitate; Z79.51 Long term (current) use of inhaled steroids; Z79.82 Long term (current) use of aspirin; Z79.899 Other long term (current) drug therapy; Z95.0 Presence of cardiac pacemaker; Z98.890 Other specified postprocedural states; Z80.9 Family history of malignant neoplasm, unspecified; Z98.42 Cataract extraction status, left eye; Z98.41 Cataract extraction status, right eye; R59.0 Localized enlarged lymph nodes; M54.30 Sciatica, unspecified side; Z88.8 Allergy status to other drugs, medicaments and biological substances
CPT/HCPCS: 36415; 71046; 71275; 80048; 80053; 83605; 83735; 83880; 84484; 85025; 85379; 85610; 85730; 87635; 93005; 93308; 94640; 94760; 96365; 96375; 99291

== ENCOUNTER 2021-09-11 07:36 | Inpatient (IN) | payer MEDICARE, OTHER ==
[2021-09-11] MEDS ORDERED: ALBUTEROL HFA INHALER INHALATION STA (08:00)
--- NOTE | 2021-09-11 08:06 | ED ---
General Adult HPI - General Chief complaint: Shortness of Breath Stated complaint: SOB Time Seen by Provider: 09/11/21 07:37 Source: patient, EMS, RN notes reviewed Mode of arrival: ambulatory Limitations: no limitations - History of Present Illness Initial comments: Patient is a pleasant 86-year-old female presenting to the emergency department with difficulty in breathing. Onset of symptoms was 2-3 days ago. Patient does have history of similar symptoms previously associated with COPD. Patient also has history of CHF. Patient has had some mild chest discomfort that has been difficult to describe. Patient does have cough with clear sputum. No fevers. Patient states she has not been vaccinated. - Related Data Home Medications Medication Instructions Recorded Confirmed Isosorbide Mononitrate ER [Imdur] 60 mg PO DAILY 08/10/14 07/11/21 Rosuvastatin Calcium [Crestor] 10 mg PO HS 01/02/15 07/11/21 Cyanocobalamin (Vitamin B-12) 1,000 mcg PO DAILY 01/02/18 07/11/21 [Vitamin B-12] Folic Acid 0.4 mg PO DAILY 01/02/18 07/11/21 Aspirin 81 mg PO DAILY 04/20/21 07/11/21 Cholecalciferol [Vitamin D3 (25 25 mcg PO DAILY 04/20/21 07/11/21 Mcg = 1000 Iu)] Albuterol Sulfate [Albuterol 1 puff INHALATION RT-Q4H PRN 05/24/21 07/11/21 Sulfate Hfa] Budesonide/Formoterol Fumarate 1 puff INHALATION RT-BID 05/24/21 07/11/21 [Symbicort 80-4.5 Mcg Inhaler] Ipratropium-Albuterol Nebulize 3 ml INHALATION RT-QID PRN 07/11/21 07/11/21 [Duoneb 0.5 mg-3 mg/3 ml Soln] Previous Rx's Medication Instructions Recorded Famotidine [Pepcid] 20 mg PO DAILY #30 tab 04/23/21 Spironolactone [Aldactone] 25 mg PO DAILY #30 tab 04/23/21 Theophylline 24 Hour [Bill-24] 300 mg PO HS #30 cap.er.24h 05/29/21 hydrALAZINE HCL 50 mg PO TID #90 tab 05/29/21 Furosemide [Lasix] 40 mg PO DAILY #30 tablet 07/16/21 Losartan [Cozaar] 50 mg PO HS #30 tab 07/16/21 Metoprolol Tartrate [Lopressor] 75 mg PO BID #120 tab 07/16/21 Potassium Chloride ER [K-Dur 10] 10 meq PO DAILY #30 tab 07/16/21 Allergies Allergy/AdvReac Type Severity Reaction Status Date / Time lisinopril Allergy Anaphylaxis, Verified 09/11/21 07:42 Angioedema Review of Systems ROS Statement: Those systems with pertinent positive or pertinent negative responses have been documented in the HPI. ROS Other: All systems not noted in ROS Statement are negative. Constitutional: Denies: fever Eyes: Denies: eye pain ENT: Denies: ear pain Respiratory: Reports: as per HPI, cough, dyspnea Cardiovascular: Denies: chest pain Endocrine: Denies: fatigue Gastrointestinal: Denies: abdominal pain Genitourinary: Denies: dysuria Musculoskeletal: Denies: back pain Skin: Denies: rash Neurological: Denies: weakness Past Medical History Past Medical History: Hyperlipidemia, Hypertension, Myocardial Infarction ([place]) Additional Past Medical History / Comment(s): SCIATICA, irregular heartbeat, hx bergers disease Last Myocardial Infarction Date:: 2004 History of Any Multi-Drug Resistant Organisms: None Reported Past Surgical History: AICD, Heart Catheterization, Pacemaker Additional Past Surgical History / Comment(s): aortic bypass with bilateral fem oral grafting. RONEY CATARACTS, AICD removed and changed to pacemaker Past Anesthesia/Blood Transfusion Reactions: No Reported Reaction Type of Cardiac Device: Permanent Pacemaker Device Placement Date:: UNKNOWN Past Psychological History: No Psychological Hx Reported Smoking Status: Former smoker Past Alcohol Use History: Occasional Past Drug Use History: None Reported - Past Family History Father Family Medical History: Cancer Additional Family Medical History / Comment(s): . Mother Family Medical History: No Reported History Additional Family Medical History / Comment(s): MOTHER AT AGE 97 YRS. General Exam Limitations: no limitations General appearance: alert, in no apparent distress Head exam: Present: normocephalic Eye exam: Present: normal appearance Neck exam: Present: normal inspection Respiratory exam: Present: rhonchi, decreased breath sounds Cardiovascular Exam: Present: regular rate, normal rhythm GI/Abdominal exam: Present: soft. Absent: tenderness Extremities exam: Present: normal inspection. Absent: pedal edema, calf tenderness Neurological exam: Present: alert Psychiatric exam: Present: normal affect, normal mood Skin exam: Present: normal color Course Vital Signs 09/11/21 09/11/21 09/11/21 07:39 09:28 11:06 Temperature 99.1 F 98.3 F Pulse Rate 86 88 79 Respiratory 22 22 20 Rate Blood Pressure 126/69 126/64 99/51 O2 Sat by Pulse 100 98 98 Oximetry - Reevaluation(s) Reevaluation #1: 09/11/21 09:29 Patient reevaluated and updated. Patient is a candidate for monoclonal antibodies and this has been ordered. EKG Findings - EKG Comments: EKG Findings:: Sinus arrhythmia with rate of 90. [place] 114. QRS 104. QT 382. QTC 467. Superior axis. PVC present. Nonspecific T waves. Medical Decision Making - Medical Decision Making Patient reevaluated and updated. Patient given monoclonal antibodies. Case discussed with that., Who will admit covering for Dr. Dewitt. Patient will be held secondary to changes and cardiac enzymes and BNP is unclear if this that she could be cardiac or related to cold infection. Cardiology and pulmonary will be consulted per request of Dr. Yoon. - Lab Data Result diagrams: 09/11/21 08:08 09/11/21 08:08 Lab Results 09/11/21 09/11/21 09/11/21 Range/Units 08:08 08:08 08:08 WBC 4.5 (3.8-10.6) k/uL RBC 3.26 L (3.80-5.40) m/uL Hgb 10.5 L (11.4-16.0) gm/dL Hct 32.2 L (34.0-46.0) % MCV 98.7 (80.0-100.0) fL MCH 32.2 (25.0-35.0) pg MCHC 32.6 (31.0-37.0) g/dL RDW 14.1 (11.5-15.5) % Plt Count 125 L D (150-450) k/uL MPV 8.5 Neutrophils % 79 % Lymphocytes % 14 % Monocytes % 6 % Eosinophils % 0 % Basophils % 0 % Neutrophils # 3.5 (1.3-7.7) k/uL Lymphocytes # 0.6 L (1.0-4.8) k/uL Monocytes # 0.3 (0-1.0) k/uL Eosinophils # 0.0 (0-0.7) k/uL Basophils # 0.0 (0-0.2) k/uL PT 10.1 (9.0-12.0) sec INR 0.9 (<1.2) APTT 27.9 (22.0-30.0) sec Sodium 134 L (137-145) mmol/L Potassium 4.4 (3.5-5.1) mmol/L Chloride 107 (98-107) mmol/L Carbon Dioxide 22 (22-30) mmol/L Anion Gap 5 mmol/L BUN 31 H (7-17) mg/dL Creatinine 1.28 H (0.52-1.04) mg/dL Est GFR (CKD-EPI)AfAm 44 (>60 ml/min/1.73 sqM) Est GFR (CKD-EPI)NonAf 38 (>60 ml/min/1.73 sqM) Glucose 91 (74-99) mg/dL Plasma Lactic Acid Miguelito (0.7-2.0) mmol/L Calcium 9.1 (8.4-10.2) mg/dL Total Bilirubin 0.3 (0.2-1.3) mg/dL AST 52 H (14-36) U/L ALT 22 (4-34) U/L Alkaline Phosphatase 49 (38-126) U/L Troponin I (0.000-0.034) ng/mL NT-Pro-B Natriuret Pep pg/mL Total Protein 5.2 L (6.3-8.2) g/dL Albumin 2.7 L (3.5-5.0) g/dL Theophylline 10.1 ug/mL Coronavirus (PCR) (Not Detectd) 09/11/21 09/11/21 09/11/21 Range/Units 08:08 08:08 08:08 WBC (3.8-10.6) k/uL RBC (3.80-5.40) m/uL Hgb (11.4-16.0) gm/dL Hct (34.0-46.0) % MCV (80.0-100.0) fL MCH (25.0-35.0) pg MCHC (31.0-37.0) g/dL RDW (11.5-15.5) % Plt Count (150-450) k/uL MPV Neutrophils % % Lymphocytes % % Monocytes % % Eosinophils % % Basophils % % Neutrophils # (1.3-7.7) k/uL Lymphocytes # (1.0-4.8) k/uL Monocytes # (0-1.0) k/uL Eosinophils # (0-0.7) k/uL Basophils # (0-0.2) k/uL PT (9.0-12.0) sec INR (<1.2) APTT (22.0-30.0) sec Sodium (137-145) mmol/L Potassium (3.5-5.1) mmol/L Chloride (98-107) mmol/L Carbon Dioxide (22-30) mmol/L Anion Gap mmol/L BUN (7-17) mg/dL Creatinine (0.52-1.04) mg/dL Est GFR (CKD-EPI)AfAm (>60 ml/min/1.73 sqM) Est GFR (CKD-EPI)NonAf (>60 ml/min/1.73 sqM) Glucose (74-99) mg/dL Plasma Lactic Acid Miguelito 0.9 (0.7-2.0) mmol/L Calcium (8.4-10.2) mg/dL Total Bilirubin (0.2-1.3) mg/dL AST (14-36) U/L ALT (4-34) U/L Alkaline Phosphatase (38-126) U/L Troponin I 0.039 H* (0.000-0.034) ng/mL NT-Pro-B Natriuret Pep pg/mL Total Protein (6.3-8.2) g/dL Albumin (3.5-5.0) g/dL Theophylline ug/mL Coronavirus (PCR) Detected A (Not Detectd) 09/11/21 Range/Units 08:08 WBC (3.8-10.6) k/uL RBC (3.80-5.40) m/uL Hgb (11.4-16.0) gm/dL Hct (34.0-46.0) % MCV (80.0-100.0) fL MCH (25.0-35.0) pg MCHC (31.0-37.0) g/dL RDW (11.5-15.5) % Plt Count (150-450) k/uL MPV Neutrophils % % Lymphocytes % % Monocytes % % Eosinophils % % Basophils % % Neutrophils # (1.3-7.7) k/uL Lymphocytes # (1.0-4.8) k/uL Monocytes # (0-1.0) k/uL Eosinophils # (0-0.7) k/uL Basophils # (0-0.2) k/uL PT (9.0-12.0) sec INR (<1.2) APTT (22.0-30.0) sec Sodium (137-145) mmol/L Potassium (3.5-5.1) mmol/L Chloride (98-107) mmol/L Carbon Dioxide (22-30) mmol/L Anion Gap mmol/L BUN (7-17) mg/dL Creatinine (0.52-1.04) mg/dL Est GFR (CKD-EPI)AfAm (>60 ml/min/1.73 sqM) Est GFR (CKD-EPI)NonAf (>60 ml/min/1.73 sqM) Glucose (74-99) mg/dL Plasma Lactic Acid Miguelito (0.7-2.0) mmol/L Calcium (8.4-10.2) mg/dL Total Bilirubin (0.2-1.3) mg/dL AST (14-36) U/L ALT (4-34) U/L Alkaline Phosphatase (38-126) U/L Troponin I (0.000-0.034) ng/mL NT-Pro-B Natriuret Pep 27997 pg/mL Total Protein (6.3-8.2) g/dL Albumin (3.5-5.0) g/dL Theophylline ug/mL Coronavirus (PCR) (Not Detectd) - Radiology Data Radiology results: image reviewed (Chest x-ray does show patchy infiltrates) Disposition Clinical Impression: COVID-19, Chest pain Disposition: ADMITTED IP TO THIS HOSP Is patient prescribed a controlled substance at d/c from ED?: No Referrals: Mitesh Lowe MD [Primary Care Provider] - 1-2 days Decision Time: 11:20
[2021-09-11 08:19] LABS: Basophils % (A) 0 %; Eosinophils % (A) 0 %; HCT 32.2 % (34.0-46.0); HGB 10.5 gm/dL (11.4-16.0); Lymphocytes # (A) 0.6 k/uL (1.0-4.8); Lymphocytes % (A) 14 %; MCH 32.2 pg (25.0-35.0); MCHC 32.6 g/dL (31.0-37.0); MCV 98.7 fL (80.0-100.0); Mean Platelet Volume 8.5; Monocytes # (A) 0.3 k/uL (0-1.0); Monocytes % (A) 6 %; Neutrophils # (A) 3.5 k/uL (1.3-7.7); Neutrophils % (A) 79 %; RBC 3.26 m/uL (3.80-5.40); RDW 14.1 % (11.5-15.5); WBC 4.5 k/uL (3.8-10.6)
[2021-09-11 08:36] LABS: Albumin 2.7 g/dL (3.5-5.0); Calcium 9.1 mg/dL (8.4-10.2); Potassium 4.4 mmol/L (3.5-5.1); Total Bilirubin 0.3 mg/dL (0.2-1.3); Total Protein 5.2 g/dL (6.3-8.2)
[2021-09-11 08:40] LABS: Platelet Count 125 k/uL (150-450)
[2021-09-11 08:46] LABS: INR 0.9 (<1.2); Partial Thromboplastin Time 27.9 sec (22.0-30.0); Prothrombin Time 10.1 sec (9.0-12.0)
[2021-09-11 09:08] LABS: Theophylline 10.1 ug/mL
[2021-09-11] MEDS ORDERED: ACETAMINOPHEN TAB 325 MG TAB PO STA (09:09)
--- NOTE | 2021-09-11 09:36 | XR ---
EXAMINATION TYPE: XR chest 2V DATE OF EXAM: 09/11/2021 COMPARISON: 07/14/2021 HISTORY: Shortness of breath TECHNIQUE: Frontal and lateral views of the chest are obtained. FINDINGS: Scattered senescent parenchymal changes noted. Hyperinflation compatible with COPD. Patchy infiltrate throughout both lung martinez right greater than left compatible with underlying pneu monia. Heart size is stable. Mediastinal structures are stable and grossly unremarkable. No evidence for hilar prominence. Degenerative changes dorsal spine. IMPRESSION: 1. Patchy infiltrate throughout both lung martinez right greater than left compatible with underlying p neumonia.
[2021-09-11] MEDS ORDERED: CASIRIVIMAB (REGN10933) (EUA) 600 MG, IMDEVIMAB (REGN10987) (EUA) 600 MG in SODIUM CHLO... IVPB ONE (10:30)
[2021-09-11] MEDS ORDERED: SODIUM CHLORIDE 0.9% 50 ML IVPB ONE (11:00)
[2021-09-11] MEDS ORDERED: NITROGLYCERIN SL TABS 0.4 MG TAB SUBLINGUAL PRN (11:20)
[2021-09-11] MEDS ORDERED: ASPIRIN 81 MG PO STA (11:20)
[2021-09-11] MEDS: ZINC SULFATE 220 MG CAP PO SCH (12:02)
[2021-09-11] MEDS: ASCORBIC ACID 500 MG TAB PO SCH ×2 (12:02→20:32)
[2021-09-11] MEDS ORDERED: FUROSEMIDE 10 MG/ML 4 ML VIAL IV STA (12:39)
[2021-09-11] MEDS ORDERED: HEPARIN SODIUM 1,000 UN/ML (10ML VL) IV ONE (12:40)
[2021-09-11] MEDS ORDERED: HEPARIN SODIUM 1,000 UN/ML (10ML VL) IV PRN (12:40)
[2021-09-11] MEDS ORDERED: HEPARIN SOD,PORK IN 0.45% NACL 25,000 UNIT in 0.45% NACL 1 250ML.BAG IV SCH (12:45)
[2021-09-11 13:15] LABS: INR 0.9 (<1.2); Partial Thromboplastin Time 31.8 sec (22.0-30.0); Prothrombin Time 10.1 sec (9.0-12.0)
[2021-09-11] MEDS ORDERED: ALBUTEROL HFA INHALER INHALATION PRN (13:16)
--- NOTE | 2021-09-11 13:31 | P.CRDCN ---
History of Present Illness History of present illness: HISTORY OF PRESENTING ILLNESS This is a pleasant 86-year-old female past medical history significant for coronary artery disease (no stents), hypertension, dyslipidemia, diabetes me llitus and ischemic cardiomyopathy status post AICD, COPD, chronic kidney disease, peripheral vascular disease, 06/2021 CTA revealed mass-like consolidation in the right hilar area measuring 8 x 4 cm in size. She follows in the office with Dr. Gonzalez. We have been asked to see in consultation for c hest pain. She presented to the hospital with chest discomfort and shortness of breath. Her symptoms started 3 days ago. Her chest pain is located on the left side of her chest, it is non-radiating. Unable to give specific aggravating or alleviating factors. She denies diaphoresis, lightheadedness, dizziness, or nausea. She describes her symptoms as similar to when she has a COPD exacerbation. She was found to be COVID-19 positive, she has not been vaccinated. Patient was admitted in 06/2021 with shortness of breath. She was diagnosed with acute systolic heart failure she was diuresed. 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 Pulmonary evaluated the patient and states that findings were highly suspicious for malignancy including primary bronchogenic carcinoma. Patient declined bronchoscopy at that time. DIAGNOSTICS Chest x-ray reveals patchy infiltrates throughout both lung martinez right greater than left compatible with underlying pneumonia. EKG reveals sinus rhythm, HR 90, with PACS and PVC, no acute ischemia. Prior EKG with similar findings Telemetry reviewed, patient in sinus with frequent PACs. Laboratory data reviewed, Initial troponin 0.039, WBC 4.5, hemoglobin 10.5, platelets 125, sodium 134, potassium 4.4, BUN 31, serum creatinine 1.2, proBNP 16,000,: 19 PCR positive Current daily cardiac medications include aspirin 81 mg daily, Imdur 60 mg daily, Lopressor 50 mg twice a day, hydralazine 50 mg 3 times a day, rosuvastatin 10 mg daily and Aldactone 25 mg daily. Most recent echocardiogram obtained 07/12/2021- EF 3035%, mild aortic regurgitation, mild aortic stenosis peak/mean gradient of 17 mmHg/8 mmHg, mild mitral regurgitation, tricuspid regurgitation small general lies pericardial effusion, small pleural effusion Cardiac catheterization performed in 2005 revealed ejection fraction at that time was 20% with a lesion noted in the mid LAD 10%, mid circumflex 50% and mid RCA 100%. REVIEW OF SYSTEMS At the time of my exam: CONSTITUTIONAL: Denies fever or chills. CARDIOVASCULAR: + chest pain,+ shortness of breath, Denies orthopnea, PND or palpitations. RESPIRATORY: +cough. GASTROINTESTINAL: Denies abdominal pain, diarrhea, constipation, nausea or vomiting. MUSCULOSKELETAL: Denies myalgias. NEUROLOGIC: Denies numbness, tingling, headache or weakness. ENDOCRINE: Denies fatigue, weight change, polydipsia or polyurina. GENITOURINARY: Denies burning, hematuria or urgency with micturation. HEMATOLOGIC: Denies history of anemia or bleeding. PHYSICAL EXAMINATION Blood pressure 126/64, heart rate 79, afebrile, saturations greater than 92% on room air CONSTITUTIONAL: No apparent distress. EXTREMITIES: 2+ peripheral pulses, no lower extremity edema and no calf tenderness. NEUROLOGIC EXAMINATION: Patient is awake, alert and oriented x3. [place] of Hearing. 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 Past Medical History Past Medical History: Hyperlipidemia, Hypertension, Myocardial Infarction ([place]) Additional Past Medical History / Comment(s): SCIATICA, irregular heartbeat, hx bergers disease Last Myocardial Infarction Date:: 2004 History of Any Multi-Drug Resistant Organisms: None Reported Past Surgical History: AICD, Heart Catheterization, Pacemaker Additional Past Surgical History / Comment(s): aortic bypass with bilateral femoral grafting. RONEY CATARACTS, AICD removed and changed to pacemaker Past Anesthesia/Blood Transfusion Reactions: No Reported Reaction Type of Cardiac Device: Permanent Pacemaker Device Placement Date:: UNKNOWN Past Psychological History: No Psychological Hx Reported Smoking Status: Former smoker Past Alcohol Use History: Occasional Past Drug Use History: None Reported - Past Family History Father Family Medical History: Cancer Additional Family Medical History / Comment(s): . Mother Family Medical History: No Reported History Additional Family Medical History / Comment(s): MOTHER AT AGE 97 YRS. Medications and Allergies Home Medications Medication Instructions Recorded Confirmed Type Isosorbide Mononitrate ER [Imdur] 60 mg PO DAILY 08/10/14 07/11/21 History Rosuvastatin Calcium [Crestor] 10 mg PO HS 01/02/15 07/11/21 History Cyanocobalamin (Vitamin B-12) 1,000 mcg PO DAILY 01/02/18 07/11/21 History [Vitamin B-12] Folic Acid 0.4 mg PO DAILY 01/02/18 07/11/21 History Aspirin 81 mg PO DAILY 04/20/21 07/11/21 History Cholecalciferol [Vitamin D3 (25 25 mcg PO DAILY 04/20/21 07/11/21 History Mcg = 1000 Iu)] Famotidine [Pepcid] 20 mg PO DAILY #30 tab 04/23/21 07/11/21 Rx Spironolactone [Aldactone] 25 mg PO DAILY #30 tab 04/23/21 07/11/21 Rx Albuterol Sulfate [Albuterol 1 puff INHALATION RT-Q4H PRN 05/24/21 07/11/21 History Sulfate Hfa] Budesonide/Formoterol Fumarate 1 puff INHALATION RT-BID 05/24/21 07/11/21 History [Symbicort 80-4.5 Mcg Inhaler] Theophylline 24 Hour [Bill-24] 300 mg PO HS #30 cap.er.24h 05/29/21 07/11/21 Rx hydrALAZINE HCL 50 mg PO TID #90 tab 05/29/21 07/11/21 Rx Ipratropium-Albuterol Nebulize 3 ml INHALATION RT-QID PRN 07/11/21 07/11/21 History [Duoneb 0.5 mg-3 mg/3 ml Soln] Furosemide [Lasix] 40 mg PO DAILY #30 tablet 07/16/21 Rx Losartan [Cozaar] 50 mg PO HS #30 tab 07/16/21 Rx Metoprolol Tartrate [Lopressor] 75 mg PO BID #120 tab 07/16/21 Rx Potassium Chloride ER [K-Dur 10] 10 meq PO DAILY #30 tab 07/16/21 Rx Allergies Allergy/AdvReac Type Severity Reaction Status Date / Time lisinopril Allergy Anaphylaxis, Verified 09/11/21 07:42 Angioedema Physical Exam Vitals: Vital Signs Temp Pulse Resp BP Pulse Ox 09/11/21 11:06 98.3 F 79 20 99/51 98 09/11/21 09:28 88 22 126/64 98 09/11/21 07:39 99.1 F 86 22 126/69 100 Intake and Output 09/10/21 09/11/21 09/11/21 22:59 06:59 14:59 Other: Weight 50.349 kg Results 09/11/21 08:08 09/11/21 08:08 Cardiac Enzymes 09/11/21 09/11/21 Range/Units 08:08 08:08 AST 52 H (14-36) U/L Troponin I 0.039 H* (0.000-0.034) ng/mL Coagulation 09/11/21 Range/Units 08:08 PT 10.1 (9.0-12.0) sec APTT 27.9 (22.0-30.0) sec CBC 09/11/21 Range/Units 08:08 WBC 4.5 (3.8-10.6) k/uL RBC 3.26 L (3.80-5.40) m/uL Hgb 10.5 L (11.4-16.0) gm/dL Hct 32.2 L (34.0-46.0) % Plt Count 125 L D (150-450) k/uL Comprehensive Metabolic Panel 09/11/21 Range/Units 08:08 Sodium 134 L (137-145) mmol/L Potassium 4.4 (3.5-5.1) mmol/L Chloride 107 (98-107) mmol/L Carbon Dioxide 22 (22-30) mmol/L BUN 31 H (7-17) mg/dL Creatinine 1.28 H (0.52-1.04) mg/dL Glucose 91 (74-99) mg/dL Calcium 9.1 (8.4-10.2) mg/dL AST 52 H (14-36) U/L ALT 22 (4-34) U/L Alkaline Phosphatase 49 (38-126) U/L Total Protein 5.2 L (6.3-8.2) g/dL Albumin 2.7 L (3.5-5.0) g/dL Current Medications Generic Name Dose Route Start Last Admin Trade Name Messiq PRN Reason Stop Dose Admin Ascorbic Acid 500 mg 09/11/21 11:45 Ascorbic Acid 500 Mg Tab PO BID CARMELINA Aspirin 325 mg 09/12/21 09:00 Aspirin 325 Mg Tab PO DAILY CARMELINA Nitroglycerin 0.4 mg 09/11/21 11:20 Nitroglycerin Sl Tabs 0.4 Mg Tab SUBLINGUAL Q5M PRN Chest Pain Zinc Sulfate 220 mg 09/11/21 11:45 Zinc Sulfate 220 Mg Cap PO DAILY CARMELINA Intake and Output 09/10/21 09/11/21 09/11/21 22:59 06:59 14:59 Other: Weight 50.349 kg Patient Weight 09/12/21 06:59 Weight 50.349 kg 09/11/21 08:08 09/11/21 08:08
--- NOTE | 2021-09-11 14:59 | P.HPIM ---
History of Present Illness H&P Date: 09/11/21 Chief Complaint: Short of breath History of presenting complaint: This is a pleasant 86-year-old patient who follows with visiting physicians Dr. Lowe. Chronic stable medical conditions include hyperlipidemia, hypertension, peripheral arterial disease with Bergers disease, AICD permanent pacemaker. CHF EF 40-45%, CAD, CKD stage III . Continues to smoke few cigarettes a day. Patient also has a lung mass. Because of patient's comorbidities and fragility not for any further workup. Patient presents with worsening short of breath. Wheezing. Heart a short of breath at rest. Has a code congested cough. Little sputum. No fever and chills. Poor appetite. Tired rundown. Patient did not take the COVID-19 vaccine. Tested positive year. Generalized tiredness. No headaches. No diarrhea. Patient did receive monoclonal antibodies in the ER. Review of systems: GEN.: Tired, decreased appetite EYES: None HEENT: None, hard of hearing NECK: None RESPIRATORY: As above CARDIOVASCULAR: As above GASTROINTESTINAL: None GENITOURINARY: None MUSCULOSKELETAL: Joint pains LYMPHATICS: None HEMATOLOGICAL: None PSYCHIATRY: None NEUROLOGICAL: None Past medical history to include: Hypertension, hyperlipidemia, coronary artery disease with SD, irregular heartbeat,bergers disease , peripheral bypass and bilateral femoral grafting, AICD/removed and changed to permanent pacemaker, ischemic colitis. CHF EF 30- 40% Social history: Occasionally uses a cane. Lives alone. Smoked for many years, now a few cigarettes a day. Alcohol occasionally. niece Marah is the POA Family history: Cancer Physical examination: VITAL SIGNS: 99.1, 86, 22, 126.69, 100% on 4 L GENERAL: Declining in bed, [ loss of muscle mass and subcutaneous fat,] short of breath, congested cough EYES: Pupils equal. Conjunctiva normal. HEENT: External appearance of nose and ears normal, oral cavity grossly normal. NECK: JVD raised; masses not palpable. HEART: First and second heart sounds are normal; no edema. LUNGS: Respiratory rate increased, decreased breath sounds ABDOMEN: Soft, no tenderness, no guarding rigidity, liver spleen not palpable, no masses palpable. PSYCH: Alert and oriented x3; mood and affect anxious MUSCULAR skeletal: Evidence of OA in multiple joints. INVESTIGATIONS, reviewed in the clinical context: WBC 4.5 hemoglobin 10.5 platelets 125 sodium 134 potassium 4.4 BUN 31 and 1.28 Troponin I 0.039, 0.039 albumin 2.7 Coronavirus [PCR]: Detected EKG tracing personally reviewed by me-normal sinus rhythm, PVC, intraventricular block Chest x-ray film personally reviewed by me-scattered infiltrates Assessment and plan: -Acute COVID 19 pneumonitis in non- vaccinated patient. Symptoms present for 3 days prior to presentation Received monoclonal antibodies in the ER. Vitamin C vitamin D and zinc. -Acute on Chronic congestive heart failure from systolic dysfunction, from ischemic cardiomyopathy. EF 40-45%: IV Lasix 1 dose given by cardiology. Lasix 40 mg daily. - pleural effusion from CHF IV Lasix -Acute COPD exacerbation in a previous heavy smoker, patient is still doing a few cigarettes a day: Ventolin HFA 4 puffs 4 times a day, Symbicort.theophylline 300 mg daily -Lung mass 8 x 4 cm. At the right hilum. Not keen for any further investigations which rather reasonable. -Chronic nicotine dependence, cigarette smoker Nicotine patch -Likely acute myocarditis from COVID-19 Telemetry -Coronary artery disease with prior SD aspirin -Peripheral arterial disease Aspirin Crestor -Chronic hypoxic respiratory failure from COPD Home oxygen 2 L -Essential hypertension Lopressor 50 mg twice a day., Cozaar 50 mg daily at bedtime, hydralazine 50 mg 3 times a day -Vitamin B12 deficiency Continue B12 supplement -Chronic kidney disease stage III likely nephrosclerosis Follow BMP -DO NOT RESUSCITATE -DPOA: damion Crystal Vitamin C, vitamin D. Zinc 1 dose of IV Lasix. Bronchodilators. Resume home medications. Nicotine patch. Telemetry. Consultation to cardiology and pulmonary. Past Medical History Past Medical History: Hyperlipidemia, Hypertension, Myocardial Infarction (SD) Additional Past Medical History / Comment(s): SCIATICA, irregular heartbeat, hx bergers disease Last Myocardial Infarction Date:: 2004 History of Any Multi-Drug Resistant Organisms: None Reported Past Surgical History: AICD, Heart Catheterization, Pacemaker Additional Past Surgical History / Comment(s): aortic bypass with bilateral femoral grafting. RONEY CATARACTS, AICD removed and changed to pacemaker Past Anesthesia/Blood Transfusion Reactions: No Reported Reaction Type of Cardiac Device: Permanent Pacemaker Device Placement Date:: UNKNOWN Past Psychological History: No Psychological Hx Reported Smoking Status: Former smoker Past Alcohol Use History: Occasional Past Drug Use History: None Reported - Past Family History Father Family Medical History: Cancer Additional Family Medical History / Comment(s): . Mother Family Medical History: No Reported History Additional Family Medical History / Comment(s): MOTHER AT AGE 97 YRS. Medications and Allergies Home Medications Medication Instructions Recorded Confirmed Type Isosorbide Mononitrate ER [Imdur] 60 mg PO DAILY 08/10/14 09/11/21 History Rosuvastatin Calcium [Crestor] 10 mg PO HS 01/02/15 09/11/21 History Cyanocobalamin (Vitamin B-12) 1,000 mcg PO DAILY 01/02/18 09/11/21 History [Vitamin B-12] Folic Acid 0.4 mg PO DAILY 01/02/18 09/11/21 History Aspirin 81 mg PO DAILY 04/20/21 09/11/21 History Cholecalciferol [Vitamin D3 (25 25 mcg PO DAILY 04/20/21 09/11/21 History Mcg = 1000 Iu)] Famotidine [Pepcid] 20 mg PO DAILY #30 tab 04/23/21 09/11/21 Rx Spironolactone [Aldactone] 25 mg PO DAILY #30 tab 04/23/21 09/11/21 Rx Albuterol Sulfate [Albuterol 1 puff INHALATION RT-Q4H PRN 05/24/21 09/11/21 History Sulfate Hfa] Theophylline 24 Hour [Bill-24] 300 mg PO HS #30 cap.er.24h 05/29/21 09/11/21 Rx hydrALAZINE HCL 50 mg PO TID #90 tab 05/29/21 09/11/21 Rx Ipratropium-Albuterol Nebulize 3 ml INHALATION RT-QID PRN 07/11/21 09/11/21 History [Duoneb 0.5 mg-3 mg/3 ml Soln] Furosemide [Lasix] 40 mg PO DAILY #30 tablet 07/16/21 09/11/21 Rx Losartan [Cozaar] 50 mg PO HS #30 tab 07/16/21 09/11/21 Rx Potassium Chloride ER [K-Dur 10] 10 meq PO DAILY #30 tab 07/16/21 09/11/21 Rx Budesonide/Formoterol Fumarate 2 puff INHALATION RT-BID 09/11/21 09/11/21 History [Symbicort 160-4.5 Mcg Inhaler] Fluticasone/Salmeterol [Advair 1 puff INHALATION RT-BID 09/11/21 09/11/21 History 250-50 Diskus] Melatonin 3 mg PO HS 09/11/21 09/11/21 History Metoprolol Tartrate [Lopressor] 50 mg PO BID 09/11/21 09/11/21 History guaiFENesin [Mucinex] 600 mg PO BID 09/11/21 09/11/21 History Allergies Allergy/AdvReac Type Severity Reaction Status Date / Time lisinopril Allergy Anaphylaxis, Verified 09/11/21 13:27 Angioedema Physical Exam Vitals: Vital Signs Temp Pulse Resp BP Pulse Ox 09/11/21 11:06 98.3 F 79 20 99/51 98 09/11/21 09:28 88 22 126/64 98 09/11/21 07:39 99.1 F 86 22 126/69 100 Intake and Output 09/10/21 09/11/21 09/11/21 22:59 06:59 14:59 Other: Weight 50.349 kg Results CBC & Chem 7: 09/11/21 08:08 09/11/21 08:08 Labs: Abnormal Lab Results - Last 24 Hours (Table) 09/11/21 09/11/21 09/11/21 Range/Units 08:08 08:08 08:08 RBC 3.26 L (3.80-5.40) m/uL Hgb 10.5 L (11.4-16.0) gm/dL Hct 32.2 L (34.0-46.0) % Plt Count 125 L D (150-450) k/uL Lymphocytes # 0.6 L (1.0-4.8) k/uL APTT (22.0-30.0) sec Sodium 134 L (137-145) mmol/L BUN 31 H (7-17) mg/dL Creatinine 1.28 H (0.52-1.04) mg/dL AST 52 H (14-36) U/L Troponin I 0.039 H* (0.000-0.034) ng/mL Total Protein 5.2 L (6.3-8.2) g/dL Albumin 2.7 L (3.5-5.0) g/dL Coronavirus (PCR) (Not Detectd) 09/11/21 09/11/21 09/11/21 Range/Units 08:08 12:44 12:44 RBC (3.80-5.40) m/uL Hgb (11.4-16.0) gm/dL Hct (34.0-46.0) % Plt Count (150-450) k/uL Lymphocytes # (1.0-4.8) k/uL APTT 31.8 H (22.0-30.0) sec Sodium (137-145) mmol/L BUN (7-17) mg/dL Creatinine (0.52-1.04) mg/dL AST (14-36) U/L Troponin I 0.039 H* (0.000-0.034) ng/mL Total Protein (6.3-8.2) g/dL Albumin (3.5-5.0) g/dL Coronavirus (PCR) Detected A (Not Detectd)
[2021-09-11] MEDS ORDERED: ALBUTEROL HFA INHALER INHALATION SCH (16:00)
[2021-09-11] MEDS: ALBUTEROL HFA INHALER INHALATION SCH ×2 (16:35→19:53)
[2021-09-11] MEDS: NICOTINE 7MG/24HR PATCH TRANSDERM SCH (16:38)
[2021-09-11] MEDS: CHOLECALCIFEROL 25 MCG (1000 IU) TABLET PO SCH (16:41)
[2021-09-11] MEDS: guaiFENesin 600 MG TABLET.ER PO SCH ×3 (16:41→20:32)
[2021-09-11] MEDS: FOLIC ACID 1 MG TAB PO SCH (16:42)
[2021-09-11] MEDS: hydrALAZINE HCL 50 MG TAB PO SCH ×2 (17:05→22:33)
--- NOTE | 2021-09-11 17:39 | P.CNPUL ---
History of Present Illness Consult date: 09/11/21 Reason for consult: dyspnea, hypoxemia, pneumonia, lung mass History of present illness: From previous hospitalization. The patient is known to have COPD and a large 8 x 4 cm mass in the right hilar area extending into the subcarinal and paratr acheal and anterior tracheal area very highly suspicious for malignancy. Nevertheless, the patient was not interested in doing any further diagnostic or testing to establish diagnosis. She is known to have CAD, CHF with systolic heart failure with an EF of around 30%, PAD, hypertension, chronic stage III kidney disease and hypertensive nephrosclerosis. The patient has also hypertension and hyperlipidemia and has a permanent AICD in place. The patient continues to smoke a few cigarettes on a daily basis. The patient presented to the hospital because of worsening shortness of breath. She had a congested cough. Minimal amount of sputum. She was also having some chest pain. She was feeling rundown and tired along with a poor appetite. She tested positive for COVID 19. She has not been vaccinated for the same by this. The patient received monoclonal antibodies in the emergency department and subsequently the patient was hospitalized for worsening shortness of breath and the patient is currently on 40% oxygen by nasal cannula with a pulse ox of 98%. The patient had a white cell count of 4.5 with a hemoglobin of 10.5 and a platelet count 225. Normal coagulation profile. BUN was 31 with a creatinine of 1.28. ProBNP level is 16,000 and the troponins at 0.032 respectively. She was started on IV heparin. Her most recent echocardiogram from 07/12/2021 showed an ejection fraction of 3035%, mild aortic regurgitation. Her last cardiac catheterization was in 2005. The chest x-ray shows patchy infiltrates throughout both lung martinez right more than left in addition to a right infrahilar mass seen on previous chest x-rays. Review of Systems Constitutional: Reports fatigue, Reports poor appetite, Reports weakness Eyes: denies as per HPI, denies blurred vision, denies bulging eye, denies decreased vision, denies diplopia, denies discharge, denies dry eye, denies irritation, denies itching, denies pain, denies photophobia, denies loss of peripheral vision, denies loss of vision, denies tunnel vision/blind spots Ears: deny: decreased hearing, ear discharge, earache, tinnitus Ears, nose, mouth and throat: Reports as per HPI Breasts: absent: as per HPI, change in shape, gynecomastia, masses, nipple discharge, pain, skin changes, swelling Cardiovascular: Reports as per HPI Respiratory: Reports as per HPI, Reports congestion, Reports cough, Reports dyspnea Gastrointestinal: Reports as per HPI Genitourinary: Reports as per HPI Menstruation: Reports as per HPI Musculoskeletal: Reports as per HPI Musculoskeletal: absent: ankle pain, ankle stiffness, ankle swelling, as per HPI, elbow pain, elbow stiffness, elbow swelling, foot pain, foot stiffness, foot swelling, hand pain, hand stiffness, hand swelling, hip pain, hip stiffness, hip swelling, knee pain, knee stiffness, knee swelling, shoulder pain, shoulder stiffness, shoulder swelling, wrist pain, wrist stiffness, wrist swelling Integumentary: Reports as per HPI Neurological: Reports as per HPI Psychiatric: Reports as per HPI Endocrine: Reports as per HPI Hematologic/Lymphatic: Reports as per HPI Allergic/Immunologic: Reports as per HPI Past Medical History Past Medical History: Atrial Fibrillation, Coronary Artery Disease (CAD), Heart Failure, COPD, Hyperlipidemia, Hypertension, Myocardial Infarction (WA), Renal Disease Additional Past Medical History / Comment(s): SCIATICA, irregular heartbeat, hx bergers disease Last Myocardial Infarction Date:: 2004 History of Any Multi-Drug Resistant Organisms: None Reported Past Surgical History: AICD, Heart Catheterization, Pacemaker Additional Past Surgical History / Comment(s): aortic bypass with bilateral femoral grafting. RONEY CATARACTS, AICD removed and changed to pacemaker Past Anesthesia/Blood Transfusion Reactions: No Reported Reaction Type of Cardiac Device: Permanent Pacemaker Device Placement Date:: UNKNOWN Past Psychological History: No Psychological Hx Reported Smoking Status: Former smoker Past Alcohol Use History: Occasional Past Drug Use History: None Reported - Past Family History Father Family Medical History: Cancer Additional Family Medical History / Comment(s): . Mother Family Medical History: No Reported History Additional Family Medical History / Comment(s): MOTHER AT AGE 97 YRS. Medications and Allergies Home Medications Medication Instructions Recorded Confirmed Type Isosorbide Mononitrate ER [Imdur] 60 mg PO DAILY 08/10/14 09/11/21 History Rosuvastatin Calcium [Crestor] 10 mg PO HS 01/02/15 09/11/21 History Cyanocobalamin (Vitamin B-12) 1,000 mcg PO DAILY 01/02/18 09/11/21 History [Vitamin B-12] Folic Acid 0.4 mg PO DAILY 01/02/18 09/11/21 History Aspirin 81 mg PO DAILY 04/20/21 09/11/21 History Cholecalciferol [Vitamin D3 (25 25 mcg PO DAILY 04/20/21 09/11/21 History Mcg = 1000 Iu)] Famotidine [Pepcid] 20 mg PO DAILY #30 tab 04/23/21 09/11/21 Rx Spironolactone [Aldactone] 25 mg PO DAILY #30 tab 04/23/21 09/11/21 Rx Albuterol Sulfate [Albuterol 1 puff INHALATION RT-Q4H PRN 05/24/21 09/11/21 History Sulfate Hfa] Theophylline 24 Hour [Bill-24] 300 mg PO HS #30 cap.er.24h 05/29/21 09/11/21 Rx hydrALAZINE HCL 50 mg PO TID #90 tab 05/29/21 09/11/21 Rx Ipratropium-Albuterol Nebulize 3 ml INHALATION RT-QID PRN 07/11/21 09/11/21 History [Duoneb 0.5 mg-3 mg/3 ml Soln] Furosemide [Lasix] 40 mg PO DAILY #30 tablet 07/16/21 09/11/21 Rx Losartan [Cozaar] 50 mg PO HS #30 tab 07/16/21 09/11/21 Rx Potassium Chloride ER [K-Dur 10] 10 meq PO DAILY #30 tab 07/16/21 09/11/21 Rx Budesonide/Formoterol Fumarate 2 puff INHALATION RT-BID 09/11/21 09/11/21 History [Symbicort 160-4.5 Mcg Inhaler] Fluticasone/Salmeterol [Advair 1 puff INHALATION RT-BID 09/11/21 09/11/21 History 250-50 Diskus] Melatonin 3 mg PO HS 09/11/21 09/11/21 History Metoprolol Tartrate [Lopressor] 50 mg PO BID 09/11/21 09/11/21 History guaiFENesin [Mucinex] 600 mg PO BID 09/11/21 09/11/21 History Allergies Allergy/AdvReac Type Severity Reaction Status Date / Time lisinopril Allergy Anaphylaxis, Verified 09/11/21 13:27 Angioedema Physical Exam Vitals: Vital Signs Temp Pulse Resp BP Pulse Ox 09/11/21 11:06 98.3 F 79 20 99/51 98 09/11/21 09:28 88 22 126/64 98 09/11/21 07:39 99.1 F 86 22 126/69 100 Intake and Output 09/11/21 09/11/21 09/11/21 06:59 14:59 22:59 Other: Weight 50.349 kg EYES: Pupils equal. Conjunctiva normal. Currently on 4 L about 2 by nasal cannula HEENT: External appearance of nose and ears normal, oral cavity grossly normal. NECK: JVD not raised; masses not palpable. HEART: First and second heart sounds are normal; no edema. LUNGS: Respiratory rate increased, decreased breath sounds expiratory wheezing. the patient has crackles in lung bases bilaterally. ABDOMEN: Soft, no tenderness, no guarding rigidity, liver spleen not palpable, no masses palpable. 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 NEUROLOGICAL: Cranial nerves grossly intact; no facial asymmetry, power and sensation grossly intact. LYMPHATICS: No lymph nodes palpable in the axilla and neck Results - Laboratory Findings CBC and BMP: 09/11/21 08:08 09/11/21 08:08 PT/INR, D-dimer PT 10.1 sec (9.0-12.0) 09/11/21 12:44 INR 0.9 (<1.2) 09/11/21 12:44 Abnormal lab findings: Abnormal Labs 09/11/21 09/11/21 09/11/21 08:08 08:08 08:08 RBC 3.26 L Hgb 10.5 L Hct 32.2 L Plt Count 125 L D Lymphocytes # 0.6 L APTT Sodium 134 L BUN 31 H Creatinine 1.28 H AST 52 H Troponin I 0.039 H* Total Protein 5.2 L Albumin 2.7 L Coronavirus (PCR) 09/11/21 09/11/21 09/11/21 08:08 12:44 12:44 RBC Hgb Hct Plt Count Lymphocytes # APTT 31.8 H Sodium BUN Creatinine AST Troponin I 0.039 H* Total Protein Albumin Coronavirus (PCR) Detected A 11/29/21 16:11 RBC Hgb Hct Plt Count Lymphocytes # APTT Sodium BUN Creatinine AST Troponin I 0.042 H* Total Protein Albumin Coronavirus (PCR) - Diagnostic Findings Chest x-ray: image reviewed Assessment and Plan Plan: 1 acute COVID 19 related pneumonia. The patient has not been vaccinated. The patient received monoclonal antibodies in the emergency department . The patient's is presenting with worsening shortness of breath, chest discomfort and hypoxic respiratory failure currently on 4 liters. 2 acute hypoxic respiratory failure currently on 4 L nasal cannula secondary to above 3 mediastinal mass in the right hilar area measuring 8 x 4 cm in size extending to the subcarinal and pretracheal and anterior tracheal area. Findings are highly suspicious for malignancy including primary bronchogenic carcinoma. The patient has also bilateral pleural effusions 4 COPD 5 acute decompensated heart failure with second and shortness of breath and development of bilateral pleural effusion secondary to decompensated heart failure, malignancy or malignant pleural effusions felt to be less likely. The patient's proBNP level is quite elevated. The patient benefits quite a bit of diuresis. Chest x-ray is improving. Oxygenation is stable for now. 6 Coronary artery disease with prior [place], consider non-STEMI, the patient is some limited troponin leak and EKG showing a paced rhythm at this point in time. 7 Chronic congestive heart failure from systolic dysfunction, from ischemic cardiomyopathy. EF 30% 8 Peripheral arterial disease 9 Essential hypertension 10 Vitamin B12 deficiency 11 Chronic kidney disease stage III likely nephrosclerosis 12 DO NOT RESUSCITATE 13 smoker 14 impaired performance and functional status. The patient's baseline performance and functional status is poor. She walks without a walker. She has chronic exertional dyspnea. 15 history of ischemic colitis, inactive in stable 16 hyperlipidemia 17 previous vascular intervention vessel bypass involving the lower extremities due to severe peripheral vascular disease Plan Check inflammatory markers including LDH, CRP and d-dimer Continued IV heparin Cardiology consultation Decadron 6 mg IV every 24 hours Monitor oxygenation and titrate the centimeters laceration above 90% Resume all medications Given a dose of Lasix 40 mg IV push, currently on oral Lasix Will follow
[2021-09-11] MEDS: SYMBICORT 160-4.5 MCG INHALER INHALATION SCH (19:53)
[2021-09-11] MEDS: dexAMETHasone 2 MG TAB PO SCH (20:31)
[2021-09-11] MEDS: METOPROLOL TARTRATE 25 MG TAB PO SCH (20:31)
[2021-09-11] MEDS: THEOPHYLLINE 24 HOUR 300 MG CAP.ER.24H PO SCH (20:31)
[2021-09-11] MEDS: ATORVASTATIN 20 MG TAB PO SCH (20:32)
[2021-09-11] MEDS: MELATONIN 3 MG TABLET PO SCH (20:32)
[2021-09-11] MEDS: LOSARTAN 50 MG TAB PO SCH (20:32)
[2021-09-11 21:02] LABS: C Reactive Protein 5.7 mg/dL (<1.0)
[2021-09-12 08:50] LABS: Basophils % (A) 0 %; Eosinophils % (A) 0 %; HCT 34.2 % (34.0-46.0); HGB 11.3 gm/dL (11.4-16.0); Lymphocytes # (A) 0.3 k/uL (1.0-4.8); Lymphocytes % (A) 6 %; MCH 32.4 pg (25.0-35.0); MCHC 33.2 g/dL (31.0-37.0); MCV 97.8 fL (80.0-100.0); Mean Platelet Volume 10.1; Monocytes # (A) 0.2 k/uL (0-1.0); Monocytes % (A) 3 %; Neutrophils # (A) 4.8 k/uL (1.3-7.7); Neutrophils % (A) 90 %; Platelet Count 120 k/uL (150-450); RDW 13.5 % (11.5-15.5); WBC 5.3 k/uL (3.8-10.6)
[2021-09-12] MEDS ORDERED: ASPIRIN 325 MG TAB PO SCH (09:00)
[2021-09-12 09:02] LABS: Calcium 8.8 mg/dL (8.4-10.2); INR 0.9 (<1.2); Potassium 4.4 mmol/L (3.5-5.1); Prothrombin Time 10.2 sec (9.0-12.0)
[2021-09-12] MEDS: ALBUTEROL HFA INHALER INHALATION SCH ×4 (09:53→20:39)
[2021-09-12] MEDS: ASCORBIC ACID 500 MG TAB PO SCH ×2 (09:57→20:54)
[2021-09-12] MEDS: ZINC SULFATE 220 MG CAP PO SCH (09:57)
[2021-09-12] MEDS: ASPIRIN 81 MG PO SCH (09:58)
[2021-09-12] MEDS: CYANOCOBALAMIN 500 MCG TAB PO SCH (09:58)
[2021-09-12] MEDS: METOPROLOL TARTRATE 25 MG TAB PO SCH ×2 (09:58→20:53)
[2021-09-12] MEDS: hydrALAZINE HCL 50 MG TAB PO SCH ×2 (09:58→10:13)
[2021-09-12] MEDS: FAMOTIDINE 20 MG TAB PO SCH (09:58)
[2021-09-12] MEDS: ISOSORBIDE MONONITRATE ER 60 MG TAB.ER.24H PO SCH (09:58)
[2021-09-12] MEDS: CHOLECALCIFEROL 25 MCG (1000 IU) TABLET PO SCH (09:58)
[2021-09-12] MEDS: guaiFENesin 600 MG TABLET.ER PO SCH ×4 (09:59→23:38)
[2021-09-12] MEDS: SPIRONOLACTONE 25 MG TAB PO SCH (09:59)
[2021-09-12] MEDS: dexAMETHasone 2 MG TAB PO SCH (09:59)
[2021-09-12] MEDS: FOLIC ACID 1 MG TAB PO SCH (09:59)
[2021-09-12] MEDS: FUROSEMIDE 40 MG TAB PO SCH (09:59)
[2021-09-12] MEDS: POTASSIUM CHLORIDE ER 10 MEQ TAB.ER.PRT PO SCH (09:59)
[2021-09-12] MEDS: NICOTINE 7MG/24HR PATCH TRANSDERM SCH (10:00)
[2021-09-12] MEDS: SYMBICORT 160-4.5 MCG INHALER INHALATION SCH ×2 (10:01→20:50)
--- NOTE | 2021-09-12 11:50 | ECHOF ---
Referral Reason:abnormal troponins, + covid MEASUREMENTS -------- HEIGHT: 162.6 cm WEIGHT: 50.3 kg BP: IVC: 2.2 cm IVSd: 1.4 cm (0.6 - 1.1) LVIDd: 4.4 cm (3.9 - 5.3) EDV(Teich): 89 ml LVPWd: 1.6 cm (0.6 - 1.1) IVSs: 1.7 cm %IVS Thck: 24 % LVIDs: 3.8 cm ESV(Teich): 64 ml EF(Teich): 29 % ESV(Cube): 57 ml EF(Cube): 35 % %FS: 13 % SV(Teich): 26 ml SI(Teich): 16.80 ml/m SV(Cube): 30 ml SI(Cube): 19.91 ml/m LVPWs: 1.6 cm %LVPW Thck: -3 % LVs Mass: 304.79 g LVs Mass Index: 200.52 g/m LVs Mass (ASE): 255.31 g LVs Mass Ind (ASE): 167.97 g/m FINDINGS -------- Limited for LV function. The left ventricular size is normal. There is moderate concentric left ventricular hypertrophy. O verall left ventricular systolic function is moderate-severely impaired with, an EF between 30 - 35 % . There is a small, generalized pericardial effusion present with possible clot. CONCLUSIONS -------- 1. AICD 2. The left ventricular size is normal. 3. There is moderate concentric left ventricular hypertrophy. 4. Overall left ventricular systolic function is moderate-severely impaired with, an EF between 30 - 35 %. 5. There is a small, generalized pericardial effusion present with possible clot. [employer]ATOR CHIEF: Nivia Tinsley, [facility]
--- NOTE | 2021-09-12 11:51 | P.PN ---
Subjective Progress Note Date: 09/12/21 From previous hospitalization. The patient is known to have COPD and a large 8 x 4 cm mass in the right hilar area extending into the subcarinal and paratracheal and anterior tracheal area very highly suspicious for malignancy. Nevertheless, the patient was not interested in doing any further diagnostic or testing to establish diagnosis. She is known to have CAD, CHF with systolic heart failure with an EF of around 30%, PAD, hypertension, chronic stage III kidney disease and hypertensive nephrosclerosis. The patient has also hypertension and hyperlipidemia and has a permanent AICD in place. The patient continues to smoke a few cigarettes on a daily basis. The patient presented to the hospital because of worsening shortness of breath. She had a congested cough. Minimal amount of sputum. She was also having some chest pain. She was feeling rundown and tired along with a poor appetite. She tested positive for COVID 19. She has not been vaccinated for the same by this. The patient received monoclonal antibodies in the emergency department and subsequently the patient was hospitalized for worsening shortness of breath and the patient is currently on 40% oxygen by nasal cannula with a pulse ox of 98%. The patient had a white cell count of 4.5 with a hemoglobin of 10.5 and a platelet count 225. Normal coagulation profile. BUN was 31 with a creatinine of 1.28. ProBNP level is 16,000 and the troponins at 0.032 respectively. She was started on IV heparin. Her most recent echocardiogram from 07/12/2021 showed an ejection fraction of 3035%, mild aortic regurgitation. Her last cardiac catheterization was in 2005. The chest x-ray shows patchy infiltrates throughout both lung martinez right more than left in addition to a right infrahilar mass seen on previous chest x-rays. 09/12/2021, the patient is being seen for a follow-up. She was seen yesterday in consultation and currently she is being seen for a follow-up. This morning, she was brought up to 9 L of oxygen by nasal cannula and his saturation is still above 95%. A currently dropped her down to 5 L and her saturations to 97%. She is afebrile. Her breathing is comfortable. She has a congested cough. Her d- dimer was at 2.91. Her CRP is at 5.7. LDH level is 613. Troponin was at 0.04. The proBNP level was 16,000. The patient remains on Decadron 6 mg by mouth daily. The patient is also on oral Lasix 40 mg by mouth daily. She did receive a dose of IV Lasix yesterday in the emergency department. Objective - Vital Signs Vital signs: Vital Signs Temp 97.7 F 09/12/21 08:00 Pulse 74 09/12/21 08:00 Resp 20 09/12/21 08:00 BP 95/54 09/12/21 08:00 Pulse Ox 98 09/12/21 08:00 Intake & Output 09/11/21 09/12/21 09/12/21 18:59 06:59 18:59 Intake Total 118 Output Total 300 Balance -300 118 Weight 50.349 kg 50.349 kg Intake: Oral 118 Output: Urine 300 Other: # Voids 1 - Exam EYES: Pupils equal. Conjunctiva normal. Currently on 9 L by nasal cannula HEENT: External appearance of nose and ears normal, oral cavity grossly normal. NECK: JVD not raised; masses not palpable. HEART: First and second heart sounds are normal; no edema. LUNGS: Respiratory rate increased, decreased breath sounds expiratory wheezing. the patient has crackles in lung bases bilaterally. ABDOMEN: Soft, no tenderness, no guarding rigidity, liver spleen not palpable, no masses palpable. 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 NEUROLOGICAL: Cranial nerves grossly intact; no facial asymmetry, power and sensation grossly intact. LYMPHATICS: No lymph nodes palpable in the axilla and neck - Labs CBC & Chem 7: 09/12/21 08:15 09/12/21 08:14 Labs: Abnormal Lab Results - Last 24 Hours (Table) 09/11/21 09/11/21 09/11/21 Range/Units 12:44 12:44 16:11 RBC (3.80-5.40) m/uL Hgb (11.4-16.0) gm/dL Plt Count (150-450) k/uL Lymphocytes # (1.0-4.8) k/uL APTT 31.8 H (22.0-30.0) sec D-Dimer (<0.60) mg/L FEU Sodium (137-145) mmol/L Carbon Dioxide (22-30) mmol/L BUN (7-17) mg/dL Creatinine (0.52-1.04) mg/dL Glucose (74-99) mg/dL Troponin I 0.039 H* 0.042 H* (0.000-0.034) ng/mL C-Reactive Protein (<1.0) mg/dL 09/11/21 09/11/21 09/11/21 Range/Units 19:04 19:04 22:25 RBC (3.80-5.40) m/uL Hgb (11.4-16.0) gm/dL Plt Count (150-450) k/uL Lymphocytes # (1.0-4.8) k/uL APTT 56.7 H (22.0-30.0) sec D-Dimer 2.91 H (<0.60) mg/L FEU Sodium (137-145) mmol/L Carbon Dioxide (22-30) mmol/L BUN (7-17) mg/dL Creatinine (0.52-1.04) mg/dL Glucose (74-99) mg/dL Troponin I (0.000-0.034) ng/mL C-Reactive Protein 5.7 H (<1.0) mg/dL 09/12/21 09/12/21 09/12/21 Range/Units 08:14 08:14 08:15 RBC 3.50 L (3.80-5.40) m/uL Hgb 11.3 L (11.4-16.0) gm/dL Plt Count 120 L (150-450) k/uL Lymphocytes # 0.3 L (1.0-4.8) k/uL APTT 53.0 H (22.0-30.0) sec D-Dimer (<0.60) mg/L FEU Sodium 134 L (137-145) mmol/L Carbon Dioxide 21 L (22-30) mmol/L BUN 39 H (7-17) mg/dL Creatinine 1.46 H (0.52-1.04) mg/dL Glucose 115 H (74-99) mg/dL Troponin I (0.000-0.034) ng/mL C-Reactive Protein (<1.0) mg/dL Assessment and Plan Plan: 1 acute COVID 19 related pneumonia. The patient has not been vaccinated. The patient received monoclonal antibodies in the emergency department . The patient's is presenting with worsening shortness of breath, chest discomfort and hypoxic respiratory failure currently on 4 liters. At the time of my arrival this morning, I saw this patient was as high as 9 L, I dropped her back down to 5 L and I'm going to wean her down to 4 as long as his saturation remains above 90%. She is quite stable for now. Inflammatory markers are mildly elevated and the patient remains on Decadron. 2 acute hypoxic respiratory failure currently on 4 L nasal cannula secondary to above 3 mediastinal mass in the right hilar area measuring 8 x 4 cm in size extending to the subcarinal and pretracheal and anterior tracheal area. Findings are highly suspicious for malignancy including primary bronchogenic carcinoma. The patient has also bilateral pleural effusions 4 COPD 5 acute decompensated heart failure with second and shortness of breath and development of bilateral pleural effusion secondary to decompensated heart failure, malignancy or malignant pleural effusions felt to be less likely. The patient's proBNP level is quite elevated. The patient benefits quite a bit of diuresis. Chest x-ray is improving. Oxygenation is stable for now. 6 Coronary artery disease with prior SD, consider non-STEMI, the patient is some limited troponin leak and EKG showing a paced rhythm at this point in time. 7 Chronic congestive heart failure from systolic dysfunction, from ischemic cardiomyopathy. EF 30% 8 Peripheral arterial disease 9 Essential hypertension 10 Vitamin B12 deficiency 11 Chronic kidney disease stage III likely nephrosclerosis 12 DO NOT RESUSCITATE 13 smoker 14 impaired performance and functional status. The patient's baseline performance and functional status is poor. She walks without a walker. She has chronic exertional dyspnea. 15 history of ischemic colitis, inactive in stable 16 hyperlipidemia 17 previous vascular intervention vessel bypass involving the lower extremities due to severe peripheral vascular disease Plan Stop the IV heparin and put the patient on Lovenox 40 mg subcu for DVT prophylaxis Check inflammatory markers including LDH, CRP and d-dimer and the patient has some minimal elevation of the inflammatory markers Decadron 6 mg IV every 24 hours Monitor oxygenation and titrate above 90% Resume all medications Given oral Lasix Will follow
[2021-09-12] MEDS ORDERED: HEPARIN SODIUM 1,000 UN/ML (10ML VL) IV PRN (12:27)
[2021-09-12 12:54] LABS: Chol/HDL Ratio 2.26 Ratio; LDL Cholesterol,Calculated 52.5 mg/dL (0.0-131.0); VLDL Calculation 15.54 mg/dL (5.00-40.00)
--- NOTE | 2021-09-12 13:16 | P.PN ---
Subjective CHIEF COMPLAINT: chest pain HISTORY OF PRESENT ILLNESS: This is a pleasant 86-year-old female past medical history significant for coronary artery disease (no stents), hypertension, dyslipidemia, diabetes mellitus and ischemic cardiomyopathy status post AICD, COPD, chronic kidney disease, peripheral vascular disease, 06/2021 CTA revealed mass-like consolidation in the right hilar area measuring 8 x 4 cm in size. She follows in the office with Dr. Gonzalez. We have been asked to see in consultation for chest pain. She presented to the hospital with chest discomfort and shortness of breath. Her symptoms started 3 days ago. Her chest pain is located on the left side of her chest, it is non-radiating. Unable to give specific aggravating or alleviating factors. She denies diaphoresis, lightheadedness, dizziness, or nausea. She describes her symptoms as similar to when she has a COPD exacerbation. She was found to be COVID-19 positive, she has not been vaccinated. Patient was admitted in 06/2021 with shortness of breath. She was diagnosed with acute systolic heart failure she was diuresed. 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 Pulmonary evaluated the patient and states that findings were highly suspicious for malignancy including primary bronchogenic carcinoma. Patient declined bronchoscopy at that time. DIAGNOSTICS Chest x-ray reveals patchy infiltrates throughout both lung martinez right greater than left compatible with underlying pneumonia. EKG reveals sinus rhythm, HR 90, with PACS and PVC, no acute ischemia. Prior EKG with similar findings Telemetry reviewed, patient in sinus with frequent PACs. Laboratory data reviewed, Initial troponin 0.039, WBC 4.5, hemoglobin 10.5, platelets 125, sodium 134, potassium 4.4, BUN 31, serum creatinine 1.2, proBNP 16,000,: 19 PCR positive Current daily cardiac medications include aspirin 81 mg daily, Imdur 60 mg daily, Lopressor 50 mg twice a day, hydralazine 50 mg 3 times a day, rosuvastatin 10 mg daily and Aldactone 25 mg daily. Most recent echocardiogram obtained 07/12/2021- EF 3035%, mild aortic regurgitation, mild aortic stenosis peak/mean gradient of 17 mmHg/8 mmHg, mild mitral regurgitation, tricuspid regurgitation small general lies pericardial effusion, small pleural effusion Cardiac catheterization performed in 2005 revealed ejection fraction at that time was 20% with a lesion noted in the mid LAD 10%, mid circumflex 50% and mid RCA 100%. 09/12/2021 Patient remains on the cardiac stepdown unit. Echocardiogram performed revealed ejection fraction 30-35%, moderate concentric left ventricular hypertrophy, and small generalized pericardial effusion with possible thrombus. She remains on IV heparin. She is on 8 L high flow nasal cannula with oxygen saturations greater then 92%. Blood pressure 95/54. PHYSICAL EXAM: Thorough physical exam not completed secondary to limited evaluation/examination due to Covid19 ASSESSMENT: Chest pain Shortness of breath Elevated troponin, not suggestive of ACS Small generalized pericardial effusion with possible thrombus COVID-19 Pneumonia Chronic kidney disease Mediastinal mass in the right hilar area measuring 8 x 4 cm in size seen on CTA in 06/2021 Coronary artery disease, chronically occluded RCA Ischemic cardiomyopathy status post AICD Hypertension Dyslipidemia Diabetes mellitus Former nicotine dependence PLAN: Current cardiac medications Discontinue hydralazine as blood pressures have been soft Continue IV heparin Further recommendations pending patient course Nurse practitioner note has been reviewed by physician. Signing provider agrees with the documented findings, assessment, and plan of care. Objective - Vital Signs Vital signs: Vital Signs Temp 97.7 F 09/12/21 08:00 Pulse 74 09/12/21 08:00 Resp 20 09/12/21 08:00 BP 95/54 09/12/21 08:00 Pulse Ox 98 09/12/21 08:00 Intake & Output 09/11/21 09/12/21 09/12/21 18:59 06:59 18:59 Intake Total 118 Output Total 300 Balance -300 118 Weight 50.349 kg 50.349 kg Intake: Oral 118 Output: Urine 300 Other: # Voids 1 - Labs CBC & Chem 7: 09/12/21 08:15 09/12/21 08:14 Labs: Abnormal Lab Results - Last 24 Hours (Table) 09/11/21 09/11/21 09/11/21 Range/Units 12:44 12:44 16:11 RBC (3.80-5.40) m/uL Hgb (11.4-16.0) gm/dL Plt Count (150-450) k/uL Lymphocytes # (1.0-4.8) k/uL APTT 31.8 H (22.0-30.0) sec D-Dimer (<0.60) mg/L FEU Sodium (137-145) mmol/L Carbon Dioxide (22-30) mmol/L BUN (7-17) mg/dL Creatinine (0.52-1.04) mg/dL Glucose (74-99) mg/dL Troponin I 0.039 H* 0.042 H* (0.000-0.034) ng/mL C-Reactive Protein (<1.0) mg/dL 09/11/21 09/11/21 09/11/21 Range/Units 19:04 19:04 22:25 RBC (3.80-5.40) m/uL Hgb (11.4-16.0) gm/dL Plt Count (150-450) k/uL Lymphocytes # (1.0-4.8) k/uL APTT 56.7 H (22.0-30.0) sec D-Dimer 2.91 H (<0.60) mg/L FEU Sodium (137-145) mmol/L Carbon Dioxide (22-30) mmol/L BUN (7-17) mg/dL Creatinine (0.52-1.04) mg/dL Glucose (74-99) mg/dL Troponin I (0.000-0.034) ng/mL C-Reactive Protein 5.7 H (<1.0) mg/dL 09/12/21 09/12/21 09/12/21 Range/Units 08:14 08:14 08:15 RBC 3.50 L (3.80-5.40) m/uL Hgb 11.3 L (11.4-16.0) gm/dL Plt Count 120 L (150-450) k/uL Lymphocytes # 0.3 L (1.0-4.8) k/uL APTT 53.0 H (22.0-30.0) sec D-Dimer (<0.60) mg/L FEU Sodium 134 L (137-145) mmol/L Carbon Dioxide 21 L (22-30) mmol/L BUN 39 H (7-17) mg/dL Creatinine 1.46 H (0.52-1.04) mg/dL Glucose 115 H (74-99) mg/dL Troponin I (0.000-0.034) ng/mL C-Reactive Protein (<1.0) mg/dL
[2021-09-12] MEDS: HEPARIN SOD,PORK IN 0.45% NACL 25,000 UNIT in 0.45% NACL 1 250ML.BAG IV SCH (15:05)
--- NOTE | 2021-09-12 18:02 | P.PN ---
Progress Note - Text Progress Note Date: 09/12/21 Chief Complaint: Short of breath History of presenting complaint: This is a pleasant 86-year-old patient who follows with visiting physicians Dr. Lowe. Chronic stable medical conditions include hyperlipidemia, hypertension, peripheral arterial disease with Bergers disease, AICD permanent pacemaker. CHF EF 40-45%, CAD, CKD stage III . Continues to smoke few cigarettes a day. Patient also has a lung mass. Because of patient's comorbidities and fragility not for any further workup. Patient presents with worsening short of breath. Wheezing. Heart a short of breath at rest. Has had congested cough. Little sputum. No fever and chills. Poor appetite. Tired rundown. Patient did not take the COVID-19 vaccine. Tested positive year. Generalized tiredness. No headaches. No diarrhea. Patient did receive monoclonal antibodies in the ER. September 12: reclining in bed. Congested cough. Eating about 25%. Short of breath. 2-D echocardiogram showed a possible blood clot. IV heparin continued. Review of systems: Was done for constitutional, cardiovascular, GI, pulmonary. relevant finding as above Active Medications Albuterol Sulfate (Albuterol Hfa Inhaler) 2 puff INHALATION RT-Q4H PRN PRN Reason: Shortness Of Breath Or Wheezing Albuterol Sulfate (Albuterol Hfa Inhaler) 4 puff INHALATION RT-QID [facility] Last Admin: 09/12/21 13:11 Dose: 4 puff Documented by: Ascorbic Acid (Ascorbic Acid 500 Mg Tab) 500 mg PO BID [facility] Last Admin: 09/12/21 09:57 Dose: 500 mg Documented by: Aspirin (Aspirin 81 Mg) 81 mg PO DAILY [facility] Last Admin: 09/12/21 09:58 Dose: 81 mg Documented by: Atorvastatin Calcium (Atorvastatin 20 Mg Tab) 20 mg PO HS [facility] Last Admin: 09/11/21 20:32 Dose: 20 mg Documented by: Budesonide/Formoterol Fumarate (Symbicort 160-4.5 Mcg Inhaler) 2 puff INHALATION RT-BID [facility] Last Admin: 09/12/21 10:01 Dose: 2 puff Documented by: Cholecalciferol (Cholecalciferol 25 Mcg (1000 Iu) Tablet) 100 mcg PO DAILY [facility] Last Admin: 09/12/21 09:58 Dose: 100 mcg Documented by: Cyanocobalamin (Cyanocobalamin 500 Mcg Tab) 1,000 mcg PO DAILY [facility] Last Admin: 09/12/21 09:58 Dose: 1,000 mcg Documented by: Dexamethasone (Dexamethasone 2 Mg Tab) 6 mg PO DAILY [facility] Last Admin: 09/12/21 09:59 Dose: 6 mg Documented by: Famotidine (Famotidine 20 Mg Tab) 20 mg PO DAILY [facility] Last Admin: 09/12/21 09:58 Dose: 20 mg Documented by: Folic Acid (Folic Acid 1 Mg Tab) 1 mg PO DAILY [facility] Last Admin: 09/12/21 09:59 Dose: 1 mg Documented by: Furosemide (Furosemide 40 Mg Tab) 40 mg PO DAILY [facility] Last Admin: 09/12/21 09:59 Dose: 40 mg Documented by: Guaifenesin (Guaifenesin 600 Mg Tablet.Er) 600 mg PO QID [facility] Last Admin: 09/12/21 13:54 Dose: 600 mg Documented by: Heparin Sodium (Porcine) (Heparin Sodium 1,000 Un/Ml (10ml Vl)) 0 unit IV PER PROTOCOL PRN; Protocol PRN Reason: Low PTT Heparin Sodium/Sodium Chloride (25,000 unit/ Sodium Chloride) 250 mls @ 9.063 mls/hr IV .Q24H [facility]; Protocol Last Admin: 09/12/21 15:05 Dose: 12 units/kg/hr, 6.042 mls/hr Documented by: Isosorbide Mononitrate (Isosorbide Mononitrate Er 60 Mg Tab.Er.24h) 60 mg PO DAILY [facility] Last Admin: 09/12/21 09:58 Dose: 60 mg Documented by: Losartan Potassium (Losartan 50 Mg Tab) 50 mg PO HS [facility] Last Admin: 09/11/21 20:32 Dose: 50 mg Documented by: Melatonin (Melatonin 3 Mg Tablet) 3 mg PO HS [facility] Last Admin: 09/11/21 20:32 Dose: 3 mg Documented by: Metoprolol Tartrate (Metoprolol Tartrate 25 Mg Tab) 75 mg PO BID [facility] Last Admin: 09/12/21 09:58 Dose: 75 mg Documented by: Nicotine (Nicotine 7mg/24hr Patch) 1 patch TRANSDERM DAILY [facility] Last Admin: 09/12/21 10:00 Dose: Not Given Documented by: Potassium Chloride (Potassium Chloride Er 10 Meq Tab.Er.Prt) 10 meq PO DAILY [facility] Last Admin: 09/12/21 09:59 Dose: 10 meq Documented by: Spironolactone (Spironolactone 25 Mg Tab) 25 mg PO DAILY [facility] Last Admin: 09/12/21 09:59 Dose: 25 mg Documented by: Theophylline (Theophylline 24 Hour 300 Mg Cap.Er.24h) 300 mg PO HS [facility] Last Admin: 09/11/21 20:31 Dose: 300 mg Documented by: Zinc Sulfate (Zinc Sulfate 220 Mg Cap) 220 mg PO DAILY [facility] Last Admin: 09/12/21 09:57 Dose: 220 mg Documented by: Past medical history to include: Hypertension, hyperlipidemia, coronary artery disease with [place], irregular heartbeat,bergers disease , peripheral bypass and bilateral femoral grafting, AICD/removed and changed to permanent pacemaker, ischemic colitis. CHF EF 30- 40% Social history: Occasionally uses a cane. Lives alone. Smoked for many years, now a few cigarettes a day. Alcohol occasionally. niece aMrah is the POA Family history: Cancer Physical examination: VITAL SIGNS: 98.2, 77, 20, 90/50, 92% on 3 L. 84% on room air GENERAL: reclining in bed, [ loss of muscle mass and subcutaneous fat,] short of breath, congested cough EYES: Pupils equal. Conjunctiva normal. HEENT: External appearance of nose and ears normal, oral cavity grossly normal. NECK: JVD raised; masses not palpable. HEART: First and second heart sounds are normal; no edema. LUNGS: Respiratory rate increased, decreased breath sounds ABDOMEN: Soft, no tenderness, no guarding rigidity, liver spleen not palpable, no masses palpable. PSYCH: Alert and oriented x3; mood and affect anxious MUSCULAR skeletal: Evidence of OA in multiple joints. INVESTIGATIONS, reviewed in the clinical context: September 12: White count 5.3 hemoglobin 11.3 platelets 120 potassium 4.4 BUN 39 creatinine 1.46 and LDL 52 2-D echocardiogram: Moderate concentric LVH. EF 30-35% possible clot WBC 4.5 hemoglobin 10.5 platelets 125 sodium 134 potassium 4.4 BUN 31 and 1.28 Troponin I 0.039, 0.039 albumin 2.7 Coronavirus [PCR]: Detected EKG tracing personally reviewed by me-normal sinus rhythm, PVC, intraventricular block Chest x-ray film personally reviewed by me-scattered infiltrates Assessment and plan: -Acute COVID 19 pneumonitis in non- vaccinated patient. Symptoms present for 3 days prior to presentation Received monoclonal antibodies in the ER. Vitamin C vitamin D and zinc. -Acute on Chronic congestive heart failure from systolic dysfunction, from ischemic cardiomyopathy. EF 30-35 %: IV Lasix 1 dose given by cardiology. Lasix 40 mg daily. - pleural effusion from CHF Received IV Lasix -Possible left ventricle small thrombus IV heparin -IV heparin monitoring Follow PTT -Acute COPD exacerbation in a previous heavy smoker, patient is still doing a few cigarettes a day: Not respond Ventolin HFA 4 puffs 4 times a day, Symbicort.theophylline 300 mg daily -Lung mass 8 x 4 cm. At the right hilum. Not keen for any further investigations which rather reasonable. -Chronic nicotine dependence, cigarette smoker Nicotine patch -Likely acute myocarditis from COVID-19 Telemetry -Coronary artery disease with prior [place] aspirin -Peripheral arterial disease Aspirin Crestor -Chronic hypoxic respiratory failure from COPD Home oxygen 2 L -Essential hypertension Lopressor 50 mg twice a day., Cozaar 50 mg daily at bedtime, hydralazine 50 mg 3 times a day -Vitamin B12 deficiency Continue B12 supplement -Chronic kidney disease stage III likely nephrosclerosis Follow BMP -DO NOT RESUSCITATE -DPOA: damion Crystal Dexamethasone. Bronchodilators. IV heparin. Discussed with the patient. Continue supportive care..
[2021-09-12] MEDS: MELATONIN 3 MG TABLET PO SCH (20:53)
[2021-09-12] MEDS: ATORVASTATIN 20 MG TAB PO SCH (20:53)
[2021-09-12] MEDS: LOSARTAN 50 MG TAB PO SCH (20:54)
[2021-09-12] MEDS ORDERED: LORazepam 2 MG/ML INJ IV PRN (22:26)
[2021-09-12] MEDS: THEOPHYLLINE 24 HOUR 300 MG CAP.ER.24H PO SCH (23:38)
[2021-09-13] MEDS: ALBUTEROL HFA INHALER INHALATION SCH ×4 (07:22→20:36)
[2021-09-13] MEDS: SYMBICORT 160-4.5 MCG INHALER INHALATION SCH ×2 (07:22→20:36)
[2021-09-13] MEDS: FOLIC ACID 1 MG TAB PO SCH (08:02)
[2021-09-13] MEDS: CHOLECALCIFEROL 25 MCG (1000 IU) TABLET PO SCH (08:02)
[2021-09-13] MEDS: ASPIRIN 81 MG PO SCH (08:03)
[2021-09-13] MEDS: ZINC SULFATE 220 MG CAP PO SCH (08:03)
[2021-09-13] MEDS: FAMOTIDINE 20 MG TAB PO SCH (08:03)
[2021-09-13] MEDS: NICOTINE 7MG/24HR PATCH TRANSDERM SCH (08:03)
[2021-09-13] MEDS: METOPROLOL TARTRATE 25 MG TAB PO SCH ×2 (08:03→21:32)
[2021-09-13] MEDS: dexAMETHasone 2 MG TAB PO SCH (08:03)
[2021-09-13] MEDS: SPIRONOLACTONE 25 MG TAB PO SCH (08:03)
[2021-09-13] MEDS: guaiFENesin 600 MG TABLET.ER PO SCH ×4 (08:03→21:33)
[2021-09-13] MEDS: ASCORBIC ACID 500 MG TAB PO SCH ×2 (08:03→21:33)
[2021-09-13] MEDS: CYANOCOBALAMIN 500 MCG TAB PO SCH (08:03)
[2021-09-13] MEDS: FUROSEMIDE 40 MG TAB PO SCH (08:04)
[2021-09-13] MEDS: POTASSIUM CHLORIDE ER 10 MEQ TAB.ER.PRT PO SCH (08:04)
[2021-09-13] MEDS: THEOPHYLLINE 24 HOUR 300 MG CAP.ER.24H PO SCH (08:04)
[2021-09-13] MEDS: ISOSORBIDE MONONITRATE ER 60 MG TAB.ER.24H PO SCH (08:04)
[2021-09-13] MEDS ORDERED: ENOXAPARIN 40 MG/0.4 ML SYRINGE SQ SCH (09:00)
[2021-09-13 10:23] LABS: Basophils % (A) 0 %; Eosinophils % (A) 0 %; HCT 32.3 % (34.0-46.0); HGB 10.4 gm/dL (11.4-16.0); Hypochromasia Slight; Lymphocytes # (A) 0.6 k/uL (1.0-4.8); Lymphocytes % (A) 13 %; MCH 31.8 pg (25.0-35.0); MCHC 32.1 g/dL (31.0-37.0); MCV 99.1 fL (80.0-100.0); Mean Platelet Volume 9.2; Monocytes # (A) 0.3 k/uL (0-1.0); Monocytes % (A) 6 %; Neutrophils # (A) 3.8 k/uL (1.3-7.7); Neutrophils % (A) 80 %; Platelet Count 150 k/uL (150-450); RBC 3.26 m/uL (3.80-5.40); RDW 13.6 % (11.5-15.5); WBC 4.8 k/uL (3.8-10.6)
[2021-09-13 10:40] LABS: C Reactive Protein 5.3 mg/dL (<1.0); Calcium 8.8 mg/dL (8.4-10.2)
[2021-09-13 10:48] LABS: Partial Thromboplastin Time 37.6 sec (22.0-30.0); Potassium 5.3 mmol/L (3.5-5.1)
--- NOTE | 2021-09-13 12:20 | P.PN ---
Subjective Progress Note Date: 09/13/21 From previous hospitalization. The patient is known to have COPD and a large 8 x 4 cm mass in the right hilar area extending into the subcarinal and paratracheal and anterior tracheal area very highly suspicious for malignancy. Nevertheless, the patient was not interested in doing any further diagnostic or testing to establish diagnosis. She is known to have CAD, CHF with systolic heart failure with an EF of around 30%, PAD, hypertension, chronic stage III kidney disease and hypertensive nephrosclerosis. The patient has also hypertension and hyperlipidemia and has a permanent AICD in place. The patient continues to smoke a few cigarettes on a daily basis. The patient presented to the hospital because of worsening shortness of breath. She had a congested cough. Minimal amount of sputum. She was also having some chest pain. She was feeling rundown and tired along with a poor appetite. She tested positive for COVID 19. She has not been vaccinated for the same by this. The patient received monoclonal antibodies in the emergency department and subsequently the patient was hospitalized for worsening shortness of breath and the patient is currently on 40% oxygen by nasal cannula with a pulse ox of 98%. The patient had a white cell count of 4.5 with a hemoglobin of 10.5 and a platelet count 225. Normal coagulation profile. BUN was 31 with a creatinine of 1.28. ProBNP level is 16,000 and the troponins at 0.032 respectively. She was started on IV heparin. Her most recent echocardiogram from 07/12/2021 showed an ejection fraction of 3035%, mild aortic regurgitation. Her last cardiac catheterization was in 2005. The chest x-ray shows patchy infiltrates throughout both lung martinez right more than left in addition to a right infrahilar mass seen on previous chest x-rays. 09/12/2021, the patient is being seen for a follow-up. She was seen yesterday in consultation and currently she is being seen for a follow-up. This morning, she was brought up to 9 L of oxygen by nasal cannula and his saturation is still above 95%. A currently dropped her down to 5 L and her saturations to 97%. She is afebrile. Her breathing is comfortable. She has a congested cough. Her d- dimer was at 2.91. Her CRP is at 5.7. LDH level is 613. Troponin was at 0.04. The proBNP level was 16,000. The patient remains on Decadron 6 mg by mouth daily. The patient is also on oral Lasix 40 mg by mouth daily. She did receive a dose of IV Lasix yesterday in the emergency department. 09/13/2021, the patient is 3 L of oxygen by nasal cannula her respiratory status is stable and her breathing is nonlabored and a pulse ox is 94%. She remains on Decadron 6 mg by mouth on a daily basis. Note that the patient also has a large right lung mass and the final diagnoses not been established. This mass is in the right hilum extending into the subcarinal and paratracheal area. She is also known to have multiple comorbidities including COPD, CHF with an EF around 30%, PAD, hypertension, chronic stage III kidney disease and hyperlipidemia the patient has a permanent AICD in place. Blood work shows a white cell count of 4.8 with a hemoglobin of 10.4. The d-dimer is down to 1.78. Potassium level is at 5.3. The patient's creatinine is currently at 1.7 with a mean of 61. Sodium level is at 133. Her most recent LDH level is up to 833 with a CRP of 5.3. Prognosis extremely poor specially with her comorbidities and underlying lung mass which is obviously consistent with locally advanced lung cancer. Objective - Vital Signs Vital signs: Vital Signs Temp 97.2 F L 09/13/21 12:03 Pulse 65 09/13/21 12:03 Resp 18 09/13/21 12:03 BP 122/60 09/13/21 12:03 Pulse Ox 94 L 09/13/21 12:03 Intake & Output 09/12/21 09/13/21 09/13/21 18:59 06:59 18:59 Intake Total 1106 128 Balance 1106 128 Weight 50.349 kg Intake: IV 10 10 Invasive Line 2 10 Invasive Line 3 10 Oral 1096 118 Other: # Voids 1 2 2 # Bowel Movements 1 - Exam EYES: Pupils equal. Conjunctiva normal. Currently on 3 L by nasal cannula HEENT: External appearance of nose and ears normal, oral cavity grossly normal. NECK: JVD not raised; masses not palpable. HEART: First and second heart sounds are normal; no edema. LUNGS: Respiratory rate increased, decreased breath sounds expiratory wheezing. the patient has crackles in lung bases bilaterally. ABDOMEN: Soft, no tenderness, no guarding rigidity, liver spleen not palpable, no masses palpable. 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 NEUROLOGICAL: Cranial nerves grossly intact; no facial asymmetry, power and sensation grossly intact. LYMPHATICS: No lymph nodes palpable in the axilla and neck - Labs CBC & Chem 7: 09/13/21 09:54 09/13/21 09:54 Labs: Abnormal Lab Results - Last 24 Hours (Table) 09/13/21 09/13/21 09/13/21 Range/Units 09:54 09:54 09:54 RBC 3.26 L (3.80-5.40) m/uL Hgb 10.4 L (11.4-16.0) gm/dL Hct 32.3 L (34.0-46.0) % Lymphocytes # 0.6 L (1.0-4.8) k/uL APTT 37.6 H (22.0-30.0) sec D-Dimer 1.78 H (<0.60) mg/L FEU Sodium 133 L (137-145) mmol/L Potassium 5.3 H (3.5-5.1) mmol/L Carbon Dioxide 21 L (22-30) mmol/L BUN 61 H (7-17) mg/dL Creatinine 1.73 H (0.52-1.04) mg/dL Glucose 133 H (74-99) mg/dL Lactate Dehydrogenase 833 H (313-618) U/L C-Reactive Protein 5.3 H (<1.0) mg/dL Assessment and Plan Plan: 1 acute COVID 19 related pneumonia. The patient has not been vaccinated. The patient received monoclonal antibodies in the emergency department . The patient's is presenting with worsening shortness of breath, chest discomfort and hypoxic respiratory failure currently on 4 liters. At the time of my arrival this morning, I saw this patient was as high as 9 L, I dropped her back down to 3 L . Inflammatory markers are mildly elevated and the patient remains on Decadron. 2 acute hypoxic respiratory failure currently on 3 L nasal cannula secondary to above 3 mediastinal mass in the right hilar area measuring 8 x 4 cm in size extending to the subcarinal and pretracheal and anterior tracheal area. Findings are highly suspicious for malignancy including primary bronchogenic carcinoma. The patient has also bilateral pleural effusions 4 COPD 5 acute decompensated heart failure with second and shortness of breath and development of bilateral pleural effusion secondary to decompensated heart fa ilure, malignancy or malignant pleural effusions felt to be less likely. The patient's proBNP level is quite elevated. The patient benefits quite a bit of diuresis. Chest x-ray is improving. Oxygenation is stable for now. 6 Coronary artery disease with prior OK, consider non-STEMI, the patient is some limited troponin leak and EKG showing a paced rhythm at this point in time. 7 Chronic congestive heart failure from systolic dysfunction, from ischemic cardiomyopathy. EF 30% 8 Peripheral arterial disease 9 Essential hypertension 10 Vitamin B12 deficiency 11 Chronic kidney disease stage III likely nephrosclerosis 12 DO NOT RESUSCITATE 13 smoker 14 impaired performance and functional status. The patient's baseline performance and functional status is poor. She walks without a walker. She has chronic exertional dyspnea. 15 history of ischemic colitis, inactive in stable 16 hyperlipidemia 17 previous vascular intervention vessel bypass involving the lower extremities due to severe peripheral vascular disease Plan Respiratory status is stable Decadron 6 mg IV every 24 hours Monitor oxygenation and titrate above 90% Resume all medications Given oral Lasix Patient was started on IV heparin by cardiology. ProBNP level is elevated. This is related to her chronic cardiac disease and possibly a component of non- STEMI. Extremely poor prognosis. Treatment is going to be essentially medical. Oxygenation is stable for now. In fact, I believe that the patient should be a hospice candidate based on her comorbidities and based on the fact that she has a terminal lung tumor as noted on the CAT scan of the chest. Discussion needs to be initiated with the medical team and the family members to consider hospice evaluation for this patient. She is a DNR/DNI CODE STATUS. Will follow
--- NOTE | 2021-09-13 13:20 | P.PN ---
Subjective Progress Note Date: 09/13/21 CHIEF COMPLAINT: chest pain HISTORY OF PRESENT ILLNESS: This is a pleasant 86-year-old female past medical history significant for coronary artery disease (no stents), hypertension, dyslipidemia, diabetes mellitus and ischemic cardiomyopathy status post AICD, COPD, chronic kidney disease, peripheral vascular disease, 06/2021 CTA revealed mass-like consolidation in the right hilar area measuring 8 x 4 cm in size. She follows in the office with Dr. Gonzalez. We have been asked to see in consultation for chest pain. She presented to the hospital with chest discomfort and shortness of breath. Her symptoms started 3 days ago. Her chest pain is located on the left side of her chest, it is non-radiating. Unable to give specific aggravating or alleviating factors. She denies diaphoresis, lightheadedness, dizziness, or nausea. She describes her symptoms as similar to when she has a COPD exacerbation. She was found to be COVID-19 positive, she has not been vaccinated. Patient was admitted in 06/2021 with shortness of breath. She was diagnosed with acute systolic heart failure she was diuresed. 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 Pulmonary evaluated the patient and states that findings were highly suspicious for malignancy including primary bronchogenic carcinoma. Patient declined bronchoscopy at that time. DIAGNOSTICS Chest x-ray reveals patchy infiltrates throughout both lung martinez right greater than left compatible with underlying pneumonia. EKG reveals sinus rhythm, HR 90, with PACS and PVC, no acute ischemia. Prior EKG with similar findings Telemetry reviewed, patient in sinus with frequent PACs. Laboratory data reviewed, Initial troponin 0.039, WBC 4.5, hemoglobin 10.5, platelets 125, sodium 134, potassium 4.4, BUN 31, serum creatinine 1.2, proBNP 16,000,: 19 PCR positive Current daily cardiac medications include aspirin 81 mg daily, Imdur 60 mg daily, Lopressor 50 mg twice a day, hydralazine 50 mg 3 times a day, rosuvastat in 10 mg daily and Aldactone 25 mg daily. Most recent echocardiogram obtained 07/12/2021- EF 3035%, mild aortic regurgitation, mild aortic stenosis peak/mean gradient of 17 mmHg/8 mmHg, mild mitral regurgitation, tricuspid regurgitation small general lies pericardial effusion, small pleural effusion Cardiac catheterization performed in 2005 revealed ejection fraction at that time was 20% with a lesion noted in the mid LAD 10%, mid circumflex 50% and mid RCA 100%. 09/12/2021 Patient remains on the cardiac stepdown unit. Echocardiogram performed revealed ejection fraction 30-35%, moderate concentric left ventricular hypertrophy, and small generalized pericardial effusion with possible thrombus. She remains on IV heparin. She is on 8 L high flow nasal cannula with oxygen saturations greater then 92%. Blood pressure 95/54. 09/13/2021 Patient remains on the cardiac stepdown unit. Patient remains on IV heparin. Hemoglobin 10.4. BUN 61. Creatinine 1.73. 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 Will transition to Eliquis tomorrow. Further recommendations pending patient course Nurse practitioner note has been reviewed by physician. Signing provider agrees with the documented findings, assessment, and plan of care. Objective - Vital Signs Vital signs: Vital Signs Temp 97.2 F L 09/13/21 12:03 Pulse 65 09/13/21 12:03 Resp 18 09/13/21 12:03 BP 122/60 09/13/21 12:03 Pulse Ox 94 L 09/13/21 12:03 Intake & Output 09/12/21 09/13/21 09/13/21 18:59 06:59 18:59 Intake Total 1106 128 Balance 1106 128 Weight 50.349 kg Intake: IV 10 10 Invasive Line 2 10 Invasive Line 3 10 Oral 1096 118 Other: # Voids 1 2 2 # Bowel Movements 1 - Labs CBC & Chem 7: 09/13/21 09:54 09/13/21 09:54 Labs: Abnormal Lab Results - Last 24 Hours (Table) 09/13/21 09/13/21 09/13/21 Range/Units 09:54 09:54 09:54 RBC 3.26 L (3.80-5.40) m/uL Hgb 10.4 L (11.4-16.0) gm/dL Hct 32.3 L (34.0-46.0) % Lymphocytes # 0.6 L (1.0-4.8) k/uL APTT 37.6 H (22.0-30.0) sec D-Dimer 1.78 H (<0.60) mg/L FEU Sodium 133 L (137-145) mmol/L Potassium 5.3 H (3.5-5.1) mmol/L Carbon Dioxide 21 L (22-30) mmol/L BUN 61 H (7-17) mg/dL Creatinine 1.73 H (0.52-1.04) mg/dL Glucose 133 H (74-99) mg/dL Lactate Dehydrogenase 833 H (313-618) U/L C-Reactive Protein 5.3 H (<1.0) mg/dL
[2021-09-13] MEDS: HEPARIN SOD,PORK IN 0.45% NACL 25,000 UNIT in 0.45% NACL 1 250ML.BAG IV SCH (14:58)
--- NOTE | 2021-09-13 17:08 | P.PN ---
Progress Note - Text Progress Note Date: 09/13/21 Chief Complaint: Short of breath History of presenting complaint: This is a pleasant 86-year-old patient who follows with visiting physicians Dr. Lowe. Chronic stable medical conditions include hyperlipidemia, hypertension, peripheral arterial disease with Bergers disease, AICD permanent pacemaker. CHF EF 40-45%, CAD, CKD stage III . Continues to smoke few cigarettes a day. Patient also has a lung mass. Because of patient's comorbidities and fragility not for any further workup. Patient presents with worsening short of breath. Wheezing. Heart a short of breath at rest. Has had congested cough. Little sputum. No fever and chills. Poor appetite. Tired rundown. Patient did not take the COVID-19 vaccine. Tested positive year. Generalized tiredness. No headaches. No diarrhea. Patient did receive monoclonal antibodies in the ER. September 12: reclining in bed. Congested cough. Eating about 25%. Short of breath. 2-D echocardiogram showed a possible blood clot. IV heparin continued. September 13: Laying in bed. Tired. 2 L of oxygen. IV heparin. Eating about 25%. Spoke to patient's niece Marah about possible hospice. Discussed with Dr. Dodge. Spoke to the patient Review of systems: Was done for constitutional, cardiovascular, GI, pulmonary. relevant finding as above Active Medications Albuterol Sulfate (Albuterol Hfa Inhaler) 2 puff INHALATION RT-Q4H PRN PRN Reason: Shortness Of Breath Or Wheezing Albuterol Sulfate (Albuterol Hfa Inhaler) 4 puff INHALATION RT-QID [facility] Last Admin: 09/13/21 11:19 Dose: 4 puff Documented by: Ascorbic Acid (Ascorbic Acid 500 Mg Tab) 500 mg PO BID [facility] Last Admin: 09/13/21 08:03 Dose: 500 mg Documented by: Aspirin (Aspirin 81 Mg) 81 mg PO DAILY [facility] Last Admin: 09/13/21 08:03 Dose: 81 mg Documented by: Atorvastatin Calcium (Atorvastatin 20 Mg Tab) 20 mg PO HS [facility] Last Admin: 09/12/21 20:53 Dose: 20 mg Documented by: Budesonide/Formoterol Fumarate (Symbicort 160-4.5 Mcg Inhaler) 2 puff INHALATION RT-BID [facility] Last Admin: 09/13/21 07:22 Dose: 2 puff Documented by: Cholecalciferol (Cholecalciferol 25 Mcg (1000 Iu) Tablet) 100 mcg PO DAILY [facility] Last Admin: 09/13/21 08:02 Dose: 100 mcg Documented by: Cyanocobalamin (Cyanocobalamin 500 Mcg Tab) 1,000 mcg PO DAILY [facility] Last Admin: 09/13/21 08:03 Dose: 1,000 mcg Documented by: Dexamethasone (Dexamethasone 2 Mg Tab) 6 mg PO DAILY [facility] Last Admin: 09/13/21 08:03 Dose: 6 mg Documented by: Famotidine (Famotidine 20 Mg Tab) 20 mg PO DAILY [facility] Last Admin: 09/13/21 08:03 Dose: 20 mg Documented by: Folic Acid (Folic Acid 1 Mg Tab) 1 mg PO DAILY [facility] Last Admin: 09/13/21 08:02 Dose: 1 mg Documented by: Furosemide (Furosemide 40 Mg Tab) 40 mg PO DAILY [facility] Last Admin: 09/13/21 08:04 Dose: 40 mg Documented by: Guaifenesin (Guaifenesin 600 Mg Tablet.Er) 600 mg PO QID [facility] Last Admin: 09/13/21 12:01 Dose: 600 mg Documented by: Heparin Sodium (Porcine) (Heparin Sodium 1,000 Un/Ml (10ml Vl)) 0 unit IV PER PROTOCOL PRN; Protocol PRN Reason: Low PTT Last Admin: 09/13/21 15:02 Dose: 3,648 unit Documented by: Heparin Sodium/Sodium Chloride (25,000 unit/ Sodium Chloride) 250 mls @ 9.063 mls/hr IV .Q24H [facility]; Protocol Last Admin: 09/13/21 14:58 Dose: 16 units/kg/hr, 8.056 mls/hr Documented by: Isosorbide Mononitrate (Isosorbide Mononitrate Er 60 Mg Tab.Er.24h) 60 mg PO DAILY [facility] Last Admin: 09/13/21 08:04 Dose: 60 mg Documented by: Lorazepam (Lorazepam 2 Mg/Ml Inj) 0.5 mg IV Q8HR PRN PRN Reason: Anxiety Last Admin: 09/12/21 22:36 Dose: 0.5 mg Documented by: Losartan Potassium (Losartan 50 Mg Tab) 50 mg PO HS [facility] Last Admin: 09/12/21 20:54 Dose: 50 mg Documented by: Melatonin (Melatonin 3 Mg Tablet) 3 mg PO HS [facility] Last Admin: 09/12/21 20:53 Dose: 3 mg Documented by: Metoprolol Tartrate (Metoprolol Tartrate 25 Mg Tab) 75 mg PO BID [facility] Last Admin: 09/13/21 08:03 Dose: 75 mg Documented by: Nicotine (Nicotine 7mg/24hr Patch) 1 patch TRANSDERM DAILY [facility] Last Admin: 09/13/21 08:03 Dose: 1 patch Documented by: Potassium Chloride (Potassium Chloride Er 10 Meq Tab.Er.Prt) 10 meq PO DAILY [facility] Last Admin: 09/13/21 08:04 Dose: 10 meq Documented by: Spironolactone (Spironolactone 25 Mg Tab) 25 mg PO DAILY [facility] Last Admin: 09/13/21 08:03 Dose: 25 mg Documented by: Theophylline (Theophylline 24 Hour 300 Mg Cap.Er.24h) 300 mg PO HS [facility] Last Admin: 09/13/21 08:04 Dose: 300 mg Documented by: Zinc Sulfate (Zinc Sulfate 220 Mg Cap) 220 mg PO DAILY [facility] Last Admin: 09/13/21 08:03 Dose: 220 mg Documented by: Past medical history to include: Hypertension, hyperlipidemia, coronary artery disease with VT, irregular heartbeat,bergers disease , peripheral bypass and bilateral femoral grafting, AICD/removed and changed to permanent pacemaker, ischemic colitis. CHF EF 30- 40% Social history: Occasionally uses a cane. Lives alone. Smoked for many years, now a few cigarettes a day. Alcohol occasionally. niece Marah is the POA Family history: Cancer Physical examination: VITAL SIGNS: 97.2, 65, 18, 122/60, 94% on 3 L GENERAL: reclining in bed, [ loss of muscle mass and subcutaneous fat,] short of breath, congested cough EYES: Pupils equal. Conjunctiva normal. LUNGS: Respiratory rate increased, . PSYCH: Alert and oriented x3; mood and affect anxious NEUROLOGICAL: No facial asymmetry. Moving all 4 limbs Rest of the exam per pulmonary and nursing INVESTIGATIONS, reviewed in the clinical context: September 13: White count 4.8 hemoglobin 10.4 d-dimer 1.78 potassium 5.3 BUN 61 and 1.73 September 12: White count 5.3 hemoglobin 11.3 platelets 120 potassium 4.4 BUN 39 creatinine 1.46 and LDL 52 2-D echocardiogram: Moderate concentric LVH. EF 30-35% possible clot WBC 4.5 hemoglobin 10.5 platelets 125 sodium 134 potassium 4.4 BUN 31 and 1.28 Troponin I 0.039, 0.039 albumin 2.7 Coronavirus [PCR]: Detected EKG tracing personally reviewed by me-normal sinus rhythm, PVC, intraventricular block Chest x-ray film personally reviewed by me-scattered infiltrates Assessment and plan: -Acute COVID 19 pneumonitis in non- vaccinated patient. Symptoms present for 3 days prior to presentation Received monoclonal antibodies in the ER. Vitamin C vitamin D and zinc. -Acute on Chronic congestive heart failure from systolic dysfunction, from ischemic cardiomyopathy. EF 30-35 %: IV Lasix 1 dose given by cardiology. Lasix 40 mg daily. - pleural effusion from CHF Received IV Lasix -Possible left ventricle small thrombus IV heparin -IV heparin monitoring Follow PTT -Acute COPD exacerbation in a previous heavy smoker, patient is still doing a few cigarettes a day: Slow respond Ventolin HFA 4 puffs 4 times a day, Symbicort.theophylline 300 mg daily -Lung mass 8 x 4 cm. At the right hilum. Not keen for any further investigations which rather reasonable. -Chronic nicotine dependence, cigarette smoker Nicotine patch -Likely acute myocarditis from COVID-19 Telemetry -Coronary artery disease with prior VT aspirin -Peripheral arterial disease Aspirin Crestor -Chronic hypoxic respiratory failure from COPD Home oxygen 2 L -Essential hypertension Lopressor 50 mg twice a day., Cozaar 50 mg daily at bedtime, hydralazine 50 mg 3 times a day -Vitamin B12 deficiency Continue B12 supplement -Chronic kidney disease stage III likely nephrosclerosis Follow BMP -DO NOT RESUSCITATE -DPOA: damion Crystal Dexamethasone. Bronchodilators. IV heparin. Discussed with Dr. Dodge. Discussed with the patient. Possible hospice. Continue supportive care. Advanced care planning: Discussed with patient's niece Marah over the phone. She understands patient is guarded prognosis. Patient rather weak and tired. Decreased oral intake. Patient had continued to smoke before coming to the hospital. She'll be looking at options today patient can go for possible hospice. She will talk to the keycase assembler tomorrow. Questions were answered. Time spent about 15 minutes
[2021-09-13] MEDS: ATORVASTATIN 20 MG TAB PO SCH (21:32)
[2021-09-13] MEDS: MELATONIN 3 MG TABLET PO SCH (21:33)
[2021-09-13] MEDS: LOSARTAN 50 MG TAB PO SCH (21:33)
[2021-09-14] MEDS: ALBUTEROL HFA INHALER INHALATION SCH ×4 (08:14→20:39)
[2021-09-14] MEDS: SYMBICORT 160-4.5 MCG INHALER INHALATION SCH ×2 (08:14→20:39)
[2021-09-14] MEDS: ZINC SULFATE 220 MG CAP PO SCH (10:03)
[2021-09-14] MEDS: POTASSIUM CHLORIDE ER 10 MEQ TAB.ER.PRT PO SCH (10:04)
[2021-09-14] MEDS: guaiFENesin 600 MG TABLET.ER PO SCH ×4 (10:04→21:26)
[2021-09-14] MEDS: FAMOTIDINE 20 MG TAB PO SCH (10:04)
[2021-09-14] MEDS: SPIRONOLACTONE 25 MG TAB PO SCH (10:04)
[2021-09-14] MEDS: ASCORBIC ACID 500 MG TAB PO SCH ×2 (10:05→21:22)
[2021-09-14] MEDS: CHOLECALCIFEROL 25 MCG (1000 IU) TABLET PO SCH (10:05)
[2021-09-14] MEDS: FOLIC ACID 1 MG TAB PO SCH (10:08)
[2021-09-14] MEDS: METOPROLOL TARTRATE 25 MG TAB PO SCH ×2 (10:09→21:22)
[2021-09-14] MEDS: ASPIRIN 81 MG PO SCH (10:09)
[2021-09-14] MEDS: dexAMETHasone 2 MG TAB PO SCH (10:09)
[2021-09-14] MEDS: FUROSEMIDE 40 MG TAB PO SCH (10:10)
[2021-09-14] MEDS: CYANOCOBALAMIN 500 MCG TAB PO SCH (10:11)
[2021-09-14] MEDS: ISOSORBIDE MONONITRATE ER 60 MG TAB.ER.24H PO SCH (10:13)
[2021-09-14] MEDS: NICOTINE 7MG/24HR PATCH TRANSDERM SCH (10:57)
[2021-09-14] MEDS: APIXABAN 2.5 MG TABLET PO SCH ×2 (10:57→21:25)
[2021-09-14 13:51] VITALS: BMI 17.2
--- NOTE | 2021-09-14 14:02 | P.PN ---
Subjective Progress Note Date: 09/14/21 CHIEF COMPLAINT: chest pain HISTORY OF PRESENT ILLNESS: This is a pleasant 86-year-old female past medical history significant for coronary artery disease (no stents), hypertension, dyslipidemia, diabetes mellitus and ischemic cardiomyopathy status post AICD, COPD, chronic kidney disease, peripheral vascular disease, 06/2021 CTA revealed mass-like consolidation in the right hilar area measuring 8 x 4 cm in size. She follows in the office with Dr. Gonzalez. We have been asked to see in consultation for chest pain. She presented to the hospital with chest discomfort and shortness of breath. Her symptoms started 3 days ago. Her chest pain is located on the left side of her chest, it is non-radiating. Unable to give specific aggravating or alleviating factors. She denies diaphoresis, lightheadedness, dizziness, or nausea. She describes her symptoms as similar to when she has a COPD exacerbation. She was found to be COVID-19 positive, she has not been vaccinated. Patient was admitted in 06/2021 with shortness of breath. She was diagnosed with acute systolic heart failure she was diuresed. 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 Pulmonary evaluated the patient and states that findings were highly suspicious for malignancy including primary bronchogenic carcinoma. Patient declined bronchoscopy at that time. DIAGNOSTICS Chest x-ray reveals patchy infiltrates throughout both lung martinez right greater than left compatible with underlying pneumonia. EKG reveals sinus rhythm, HR 90, with PACS and PVC, no acute ischemia. Prior EKG with similar findings Telemetry reviewed, patient in sinus with frequent PACs. Laboratory data reviewed, Initial troponin 0.039, WBC 4.5, hemoglobin 10.5, platelets 125, sodium 134, potassium 4.4, BUN 31, serum creatinine 1.2, proBNP 16,000,: 19 PCR positive Current daily cardiac medications include aspirin 81 mg daily, Imdur 60 mg daily, Lopressor 50 mg twice a day, hydralazine 50 mg 3 times a day, rosuvastat in 10 mg daily and Aldactone 25 mg daily. Most recent echocardiogram obtained 07/12/2021- EF 3035%, mild aortic regurgitation, mild aortic stenosis peak/mean gradient of 17 mmHg/8 mmHg, mild mitral regurgitation, tricuspid regurgitation small general lies pericardial effusion, small pleural effusion Cardiac catheterization performed in 2005 revealed ejection fraction at that time was 20% with a lesion noted in the mid LAD 10%, mid circumflex 50% and mid RCA 100%. 09/12/2021 Patient remains on the cardiac stepdown unit. Echocardiogram performed revealed ejection fraction 30-35%, moderate concentric left ventricular hypertrophy, and small generalized pericardial effusion with possible thrombus. She remains on IV heparin. She is on 8 L high flow nasal cannula with oxygen saturations greater then 92%. Blood pressure 95/54. 09/13/2021 Patient remains on the cardiac stepdown unit. Patient remains on IV heparin. Hemoglobin 10.4. BUN 61. Creatinine 1.73. 09/14/2021 Patient remains on the cardiac stepdown unit. She remains on IV heparin. She is on 2 L nasal cannula with oxygen saturations greater than 90%. Blood pressure 138/60. Telemetry reveals sinus mechanism with a heart rate in the 70s. PHYSICAL EXAM: Thorough physical exam not completed secondary to limited evaluation/examination due to Covid19 ASSESSMENT: Chest pain Shortness of breath Elevated troponin, not suggestive of ACS Small generalized pericardial effusion with possible thrombus COVID-19 Pneumonia Chronic kidney disease Mediastinal mass in the right hilar area measuring 8 x 4 cm in size seen on CTA in 06/2021 Coronary artery disease, chronically occluded RCA Ischemic cardiomyopathy status post AICD Hypertension Dyslipidemia Diabetes mellitus Former nicotine dependence PLAN: Current continue cardiac medications Discontinue IV heparin Begin Eliquis. Dr. Duvall would like the patient on 2.5mg BID. Further recommendations pending patient course Nurse practitioner note has been reviewed by physician. Signing provider agrees with the documented findings, assessment, and plan of care. Objective - Vital Signs Vital signs: Vital Signs Temp 97.1 F L 09/14/21 04:00 Pulse 74 09/14/21 04:00 Resp 18 09/14/21 04:00 BP 138/60 09/14/21 04:00 Pulse Ox 90 L 09/14/21 04:00 Intake & Output 09/13/21 09/14/21 09/14/21 18:59 06:59 18:59 Intake Total 802.336 228.538 236 Balance 802.336 228.538 236 Weight 45.6 kg 45.6 kg Intake: IV 20 Invasive Line 3 10 Invasive Line 4 10 Intake, IV Titration 144.336 108.538 Amount Heparin Sod,Pork in 0.45% 144.336 108.538 NaCl 25,000 unit In 0.45 % NaCl 1 250ml.bag @ 18 UNITS/KG/HR 9.063 mls/hr IV .Q24H [facility] Rx#: [id number] Oral [id number] 120 [id number] Other: # Voids 1 1 - Labs CBC & Chem 7: 09/13/21 09:54 09/13/21 09:54 Labs: Abnormal Lab Results - Last 24 Hours (Table) 09/13/21 09/14/21 Range/Units 21:45 05:15 APTT 85.0 H 60.6 H (22.0-30.0) sec
--- NOTE | 2021-09-14 18:09 | P.PN ---
Subjective Progress Note Date: 09/14/21 From previous hospitalization. The patient is known to have COPD and a large 8 x 4 cm mass in the right hilar area extending into the subcarinal and paratracheal and anterior tracheal area very highly suspicious for malignancy. Nevertheless, the patient was not interested in doing any further diagnostic or testing to establish diagnosis. She is known to have CAD, CHF with systolic heart failure with an EF of around 30%, PAD, hypertension, chronic stage III kidney disease and hypertensive nephrosclerosis. The patient has also hypertension and hyperlipidemia and has a permanent AICD in place. The patient continues to smoke a few cigarettes on a daily basis. The patient presented to the hospital because of worsening shortness of breath. She had a congested cough. Minimal amount of sputum. She was also having some chest pain. She was feeling rundown and tired along with a poor appetite. She tested positive for COVID 19. She has not been vaccinated for the same by this. The patient received monoclonal antibodies in the emergency department and subsequently the patient was hospitalized for worsening shortness of breath and the patient is currently on 40% oxygen by nasal cannula with a pulse ox of 98%. The patient had a white cell count of 4.5 with a hemoglobin of 10.5 and a platelet count 225. Normal coagulation profile. BUN was 31 with a creatinine of 1.28. ProBNP level is 16,000 and the troponins at 0.032 respectively. She was started on IV heparin. Her most recent echocardiogram from 07/12/2021 showed an ejection fraction of 3035%, mild aortic regurgitation. Her last cardiac catheterization was in 2005. The chest x-ray shows patchy infiltrates throughout both lung martinez right more than left in addition to a right infrahilar mass seen on previous chest x-rays. 09/12/2021, the patient is being seen for a follow-up. She was seen yesterday in consultation and currently she is being seen for a follow-up. This morning, she was brought up to 9 L of oxygen by nasal cannula and his saturation is still above 95%. A currently dropped her down to 5 L and her saturations to 97%. She is afebrile. Her breathing is comfortable. She has a congested cough. Her d- dimer was at 2.91. Her CRP is at 5.7. LDH level is 613. Troponin was at 0.04. The proBNP level was 16,000. The patient remains on Decadron 6 mg by mouth daily. The patient is also on oral Lasix 40 mg by mouth daily. She did receive a dose of IV Lasix yesterday in the emergency department. 09/13/2021, the patient is 3 L of oxygen by nasal cannula her respiratory status is stable and her breathing is nonlabored and a pulse ox is 94%. She remains on Decadron 6 mg by mouth on a daily basis. Note that the patient also has a large right lung mass and the final diagnoses not been established. This mass is in the right hilum extending into the subcarinal and paratracheal area. She is also known to have multiple comorbidities including COPD, CHF with an EF around 30%, PAD, hypertension, chronic stage III kidney disease and hyperlipidemia the patient has a permanent AICD in place. Blood work shows a white cell count of 4.8 with a hemoglobin of 10.4. The d-dimer is down to 1.78. Potassium level is at 5.3. The patient's creatinine is currently at 1.7 with a mean of 61. Sodium level is at 133. Her most recent LDH level is up to 833 with a CRP of 5.3. Prognosis extremely poor specially with her comorbidities and underlying lung mass which is obviously consistent with locally advanced lung cancer. 09/14/2021, the patient remains on oxygen at 2 L per minute nasal cannula. She is resting comfortably in bed. She has a congested cough. No significant sputum production. No chest pain. Altered mentation. She remains on Decadron 6 mg by mouth on a daily basis. He is also on long-term medical condition with Eliquis 2.5 mg by mouth twice a day that was started today. No other new complaints otherwise for now. She is known to have cardiomyopathy with reported ejection fraction of 30%. Her comorbidities of many which included a right hilar mass which is essentially an underlying cancer with subcarinal and paratracheal extension. The patient's blood work was noted. The patient has stage III chronic kidney disease. She wants to go home. Inflammatory markers are mildly elevated with an LDH level of 833. Objective - Vital Signs Vital signs: Vital Signs Temp 97.8 F 09/14/21 12:00 Pulse 80 09/14/21 14:00 Resp 20 09/14/21 14:00 BP 128/74 09/14/21 12:00 Pulse Ox 94 L 09/14/21 12:00 Intake & Output 09/13/21 09/14/21 09/14/21 18:59 06:59 18:59 Intake Total 802.336 228.538 236 Balance 802.336 228.538 236 Weight 45.6 kg 45.6 kg Intake: IV 20 Invasive Line 3 10 Invasive Line 4 10 Intake, IV Titration 144.336 108.538 Amount Heparin Sod,Pork in 0.45% 144.336 108.538 NaCl 25,000 unit In 0.45 % NaCl 1 250ml.bag @ 18 UNITS/KG/HR 9.063 mls/hr IV .Q24H [facility] Rx#: [id number] Oral [id number] 120 [id number] Other: # Voids 1 1 - Exam EYES: Pupils equal. Conjunctiva normal. Currently on 2 L by nasal cannula HEENT: External appearance of nose and ears normal, oral cavity grossly normal. NECK: JVD not raised; masses not palpable. HEART: First and second heart sounds are normal; no edema. LUNGS: Respiratory rate increased, decreased breath sounds expiratory wheezing. the patient has crackles in lung bases bilaterally. ABDOMEN: Soft, no tenderness, no guarding rigidity, liver spleen not palpable, no masses palpable. 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 NEUROLOGICAL: Cranial nerves grossly intact; no facial asymmetry, power and sensation grossly intact. LYMPHATICS: No lymph nodes palpable in the axilla and neck - Labs CBC & Chem 7: 09/13/21 09:54 09/13/21 09:54 Labs: Abnormal Lab Results - Last 24 Hours (Table) 09/13/21 09/14/21 Range/Units 21:45 05:15 APTT 85.0 H 60.6 H (22.0-30.0) sec Assessment and Plan Plan: 1 acute COVID 19 related pneumonia. The patient has not been vaccinated. The patient received monoclonal antibodies in the emergency department . The patien t's is presenting with worsening shortness of breath, chest discomfort and hypoxic respiratory failure currently on 4 liters. At the time of my arrival this morning, I saw this patient was as high as 9 L, I dropped her back down to 3 L . Inflammatory markers are mildly elevated and the patient remains on Decadron. 2 acute hypoxic respiratory failure currently on 3 L nasal cannula secondary to above 3 mediastinal mass in the right hilar area measuring 8 x 4 cm in size extending to the subcarinal and pretracheal and anterior tracheal area. Findings are highly suspicious for malignancy including primary bronchogenic carcinoma. The patient has also bilateral pleural effusions 4 COPD 5 acute decompensated heart failure with second and shortness of breath and development of bilateral pleural effusion secondary to decompensated heart failure, malignancy or malignant pleural effusions felt to be less likely. The patient's proBNP level is quite elevated. The patient benefits quite a bit of diuresis. Chest x-ray is improving. Oxygenation is stable for now. 6 Coronary artery disease with prior IA, consider non-STEMI, the patient is some limited troponin leak and EKG showing a paced rhythm at this point in time. 7 Chronic congestive heart failure from systolic dysfunction, from ischemic cardiomyopathy. EF 30% 8 Peripheral arterial disease 9 Essential hypertension 10 Vitamin B12 deficiency 11 Chronic kidney disease stage III likely nephrosclerosis 12 DO NOT RESUSCITATE 13 smoker 14 impaired performance and functional status. The patient's baseline perfor salomón and functional status is poor. She walks without a walker. She has chronic exertional dyspnea. 15 history of ischemic colitis, inactive in stable 16 hyperlipidemia 17 previous vascular intervention vessel bypass involving the lower extremities due to severe peripheral vascular disease Plan Respiratory status is stable Decadron 6 mg IV every 24 hours and completed total of 10 day course and this can be switched to oral Decadron once a day. Monitor oxygenation and titrate above 90% Resume all medications Continue anticoagulation with Eliquis Extremely poor prognosis. Treatment is going to be essentially medical. Oxygenation is stable for now. In fact, I believe that the patient should be a hospice candidate based on her comorbidities and based on the fact that she has a terminal lung tumor as noted on the CAT scan of the chest. Discussion needs to be initiated with the medical team and the family members to consider hospice evaluation for this patient. She is a DNR/DNI CODE STATUS. Will follow, recommend hospice care, recommend discharged from the hospital, her CODE STATUS is DNR/DNI. We'll see her when necessary basis.
--- NOTE | 2021-09-14 18:30 | P.PN ---
Progress Note - Text Progress Note Date: 09/14/21 Chief Complaint: Short of breath History of presenting complaint: This is a pleasant 86-year-old patient who follows with visiting physicians Dr. Lowe. Chronic stable medical conditions include hyperlipidemia, hypertension, peripheral arterial disease with Bergers disease, AICD permanent pacemaker. CHF EF 40-45%, CAD, CKD stage III . Continues to smoke few cigarettes a day. Patient also has a lung mass. Because of patient's comorbidities and fragility not for any further workup. Patient presents with worsening short of breath. Wheezing. Heart a short of breath at rest. Has had congested cough. Little sputum. No fever and chills. Poor appetite. Tired rundown. Patient did not take the COVID-19 vaccine. Tested positive year. Generalized tiredness. No headaches. No diarrhea. Patient did receive monoclonal antibodies in the ER. September 12: reclining in bed. Congested cough. Eating about 25%. Short of breath. 2-D echocardiogram showed a possible blood clot. IV heparin continued. September 13: Laying in bed. Tired. 2 L of oxygen. IV heparin. Eating about 25%. Spoke to patient's niece Marah about possible hospice. Discussed with Dr. Dodge. Spoke to the patient Advanced care planning: Discussed with patient's niece Marah over the phone. She understands patient is guarded prognosis. Patient rather weak and tired. Decreased oral intake. Patient had continued to smoke before coming to the hospital. She'll be looking at options today patient can go for possible hospice. She will talk to the field case manager tomorrow. Questions were answered. Time spent about 15 minutes September 14: Laying in bed. Eating about 25%. The short of breath. Some cough. Spoke to field case manager Louise. Family looking for a place. Review of systems: Was done for constitutional, cardiovascular, GI, pulmonary. relevant finding as above Active Medications Albuterol Sulfate (Albuterol Hfa Inhaler) 2 puff INHALATION RT-Q4H PRN PRN Reason: Shortness Of Breath Or Wheezing Albuterol Sulfate (Albuterol Hfa Inhaler) 4 puff INHALATION RT-QID [facility] Last Admin: 09/14/21 16:05 Dose: 4 puff Documented by: Apixaban (Apixaban 2.5 Mg Tablet) 2.5 mg PO BID [facility]; Protocol Last Admin: 09/14/21 10:57 Dose: 2.5 mg Documented by: Ascorbic Acid (Ascorbic Acid 500 Mg Tab) 500 mg PO BID [facility] Last Admin: 09/14/21 10:05 Dose: 500 mg Documented by: Aspirin (Aspirin 81 Mg) 81 mg PO DAILY [facility] Last Admin: 09/14/21 10:09 Dose: 81 mg Documented by: Atorvastatin Calcium (Atorvastatin 20 Mg Tab) 20 mg PO HS [facility] Last Admin: 09/13/21 21:32 Dose: 20 mg Documented by: Budesonide/Formoterol Fumarate (Symbicort 160-4.5 Mcg Inhaler) 2 puff INHALATION RT-BID [facility] Last Admin: 09/14/21 08:14 Dose: 2 puff Documented by: Cholecalciferol (Cholecalciferol 25 Mcg (1000 Iu) Tablet) 100 mcg PO DAILY [facility] Last Admin: 09/14/21 10:05 Dose: 100 mcg Documented by: Cyanocobalamin (Cyanocobalamin 500 Mcg Tab) 1,000 mcg PO DAILY [facility] Last Admin: 09/14/21 10:11 Dose: 1,000 mcg Documented by: Dexamethasone (Dexamethasone 2 Mg Tab) 6 mg PO DAILY [facility] Last Admin: 09/14/21 10:09 Dose: 6 mg Documented by: Famotidine (Famotidine 20 Mg Tab) 20 mg PO DAILY [facility] Last Admin: 09/14/21 10:04 Dose: 20 mg Documented by: Folic Acid (Folic Acid 1 Mg Tab) 1 mg PO DAILY [facility] Last Admin: 09/14/21 10:08 Dose: 1 mg Documented by: Furosemide (Furosemide 40 Mg Tab) 40 mg PO DAILY [facility] Last Admin: 09/14/21 10:10 Dose: 40 mg Documented by: Guaifenesin (Guaifenesin 600 Mg Tablet.Er) 600 mg PO QID [facility] Last Admin: 09/14/21 14:36 Dose: 600 mg Documented by: Heparin Sodium (Porcine) (Heparin Sodium 1,000 Un/Ml (10ml Vl)) 0 unit IV PER PROTOCOL PRN; Protocol PRN Reason: Low PTT Last Admin: 09/13/21 15:02 Dose: 3,648 unit Documented by: Isosorbide Mononitrate (Isosorbide Mononitrate Er 60 Mg Tab.Er.24h) 60 mg PO DAILY [facility] Last Admin: 09/14/21 10:13 Dose: 60 mg Documented by: Lorazepam (Lorazepam 2 Mg/Ml Inj) 0.5 mg IV Q8HR PRN PRN Reason: Anxiety Last Admin: 09/12/21 22:36 Dose: 0.5 mg Documented by: Losartan Potassium (Losartan 50 Mg Tab) 50 mg PO HS [facility] Last Admin: 09/13/21 21:33 Dose: 50 mg Documented by: Melatonin (Melatonin 3 Mg Tablet) 3 mg PO HS [facility] Last Admin: 09/13/21 21:33 Dose: 3 mg Documented by: Metoprolol Tartrate (Metoprolol Tartrate 25 Mg Tab) 75 mg PO BID [facility] Last Admin: 09/14/21 10:09 Dose: 75 mg Documented by: Nicotine (Nicotine 7mg/24hr Patch) 1 patch TRANSDERM DAILY [facility] Last Admin: 09/14/21 10:57 Dose: 1 patch Documented by: Potassium Chloride (Potassium Chloride Er 10 Meq Tab.Er.Prt) 10 meq PO DAILY [facility] Last Admin: 09/14/21 10:04 Dose: 10 meq Documented by: Spironolactone (Spironolactone 25 Mg Tab) 25 mg PO DAILY [facility] Last Admin: 09/14/21 10:04 Dose: 25 mg Documented by: Theophylline (Theophylline 24 Hour 300 Mg Cap.Er.24h) 300 mg PO HS [facility] Last Admin: 09/13/21 08:04 Dose: 300 mg Documented by: Zinc Sulfate (Zinc Sulfate 220 Mg Cap) 220 mg PO DAILY [facility] Last Admin: 09/14/21 10:03 Dose: 220 mg Documented by: Past medical history to include: Hypertension, hyperlipidemia, coronary artery disease with IA, irregular heartbeat,bergers disease , peripheral bypass and bilateral femoral grafting, AICD/removed and changed to permanent pacemaker, ischemic colitis. CHF EF 30- 40% Social history: Occasionally uses a cane. Lives alone. Smoked for many years, now a few cigarettes a day. Alcohol occasionally. niece Marah is the POA Family history: Cancer Physical examination: VITAL SIGNS: 97.8, 80, 20, 128/74, 94% on 2 L GENERAL: reclining in bed, [ loss of muscle mass and subcutaneous fat,] tired EYES: Pupils equal. Conjunctiva normal. LUNGS: Respiratory rate increased, . PSYCH: Alert and oriented x3; mood and affect anxious NEUROLOGICAL: No facial asymmetry. Moving all 4 limbs Rest of the exam per pulmonary and nursing INVESTIGATIONS, reviewed in the clinical context: September 13: White count 4.8 hemoglobin 10.4 d-dimer 1.78 potassium 5.3 BUN 61 and 1.73 September 12: White count 5.3 hemoglobin 11.3 platelets 120 potassium 4.4 BUN 39 creatinine 1.46 and LDL 52 2-D echocardiogram: Moderate concentric LVH. EF 30-35% possible clot WBC 4.5 hemoglobin 10.5 platelets 125 sodium 134 potassium 4.4 BUN 31 and 1.28 Troponin I 0.039, 0.039 albumin 2.7 Coronavirus [PCR]: Detected EKG tracing personally reviewed by me-normal sinus rhythm, PVC, intraventricular block Chest x-ray film personally reviewed by me-scattered infiltrates Assessment and plan: -Acute COVID 19 pneumonitis in non- vaccinated patient. Symptoms present for 3 days prior to presentation Received monoclonal antibodies in the ER. Vitamin C vitamin D and zinc. -Acute on Chronic congestive heart failure from systolic dysfunction, from ischemic cardiomyopathy. EF 30-35 %: IV Lasix 1 dose given by cardiology. Lasix 40 mg daily. - pleural effusion from CHF Received IV Lasix -Possible left ventricle small thrombus IV heparin. 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 Not keen for any further investigations which rather reasonable. -Chronic nicotine dependence, cigarette smoker Nicotine patch -Likely acute myocarditis from COVID-19 Telemetry -Coronary artery disease with prior IA aspirin -Peripheral arterial disease Aspirin Crestor -Chronic hypoxic respiratory failure from COPD Home oxygen 2 L -Essential hypertension Lopressor 50 mg twice a day., Cozaar 50 mg daily at bedtime, hydralazine 50 mg 3 times a day -Vitamin B12 deficiency Continue B12 supplement -Chronic kidney disease stage III likely nephrosclerosis Follow BMP -DO NOT RESUSCITATE -DPOA: damion Crystal Dexamethasone. Bronchodilators. Eliquis. Discussed with Louise field case manager. Pending placement. Prognosis guarded.
[2021-09-14] MEDS: THEOPHYLLINE 24 HOUR 300 MG CAP.ER.24H PO SCH (21:22)
[2021-09-14] MEDS: LOSARTAN 50 MG TAB PO SCH (21:22)
[2021-09-14] MEDS: ATORVASTATIN 20 MG TAB PO SCH (21:25)
[2021-09-14] MEDS: MELATONIN 3 MG TABLET PO SCH (21:25)
[2021-09-15] MEDS: dexAMETHasone 2 MG TAB PO SCH (08:55)
[2021-09-15] MEDS: NICOTINE 7MG/24HR PATCH TRANSDERM SCH (08:56)
[2021-09-15] MEDS: ZINC SULFATE 220 MG CAP PO SCH (08:56)
[2021-09-15] MEDS: SPIRONOLACTONE 25 MG TAB PO SCH (08:56)
[2021-09-15] MEDS: CYANOCOBALAMIN 500 MCG TAB PO SCH (08:56)
[2021-09-15] MEDS: ISOSORBIDE MONONITRATE ER 60 MG TAB.ER.24H PO SCH (08:56)
[2021-09-15] MEDS: CHOLECALCIFEROL 25 MCG (1000 IU) TABLET PO SCH (08:56)
[2021-09-15] MEDS: guaiFENesin 600 MG TABLET.ER PO SCH (08:56)
[2021-09-15] MEDS: ASCORBIC ACID 500 MG TAB PO SCH (08:56)
[2021-09-15] MEDS: ASPIRIN 81 MG PO SCH (08:57)
[2021-09-15] MEDS: METOPROLOL TARTRATE 25 MG TAB PO SCH (08:57)
[2021-09-15] MEDS: FOLIC ACID 1 MG TAB PO SCH (08:57)
[2021-09-15] MEDS: APIXABAN 2.5 MG TABLET PO SCH (08:57)
[2021-09-15] MEDS: POTASSIUM CHLORIDE ER 10 MEQ TAB.ER.PRT PO SCH (08:57)
[2021-09-15] MEDS: FAMOTIDINE 20 MG TAB PO SCH (08:57)
[2021-09-15] MEDS: FUROSEMIDE 40 MG TAB PO SCH (08:58)
[2021-09-15] MEDS: ALBUTEROL HFA INHALER INHALATION SCH ×3 (09:24→16:19)
[2021-09-15] MEDS: SYMBICORT 160-4.5 MCG INHALER INHALATION SCH (09:24)
--- NOTE | 2021-09-15 11:31 | P.PN ---
Subjective Progress Note Date: 09/15/21 CHIEF COMPLAINT: chest pain HISTORY OF PRESENT ILLNESS: This is a pleasant 86-year-old female past medical history significant for coronary artery disease (no stents), hypertension, dyslipidemia, diabetes mellitus and ischemic cardiomyopathy status post AICD, COPD, chronic kidney disease, peripheral vascular disease, 06/2021 CTA revealed mass-like consolidation in the right hilar area measuring 8 x 4 cm in size. She follows in the office with Dr. Gonzalez. We have been asked to see in consultation for chest pain. She presented to the hospital with chest discomfort and shortness of breath. Her symptoms started 3 days ago. Her chest pain is located on the left side of her chest, it is non-radiating. Unable to give specific aggravating or alleviating factors. She denies diaphoresis, lightheadedness, dizziness, or nausea. She describes her symptoms as similar to when she has a COPD exacerbation. She was found to be COVID-19 positive, she has not been vaccinated. Patient was admitted in 06/2021 with shortness of breath. She was diagnosed with acute systolic heart failure she was diuresed. 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 Pulmonary evaluated the patient and states that findings were highly suspicious for malignancy including primary bronchogenic carcinoma. Patient declined bronchoscopy at that time. DIAGNOSTICS Chest x-ray reveals patchy infiltrates throughout both lung martinez right greater than left compatible with underlying pneumonia. EKG reveals sinus rhythm, HR 90, with PACS and PVC, no acute ischemia. Prior EKG with similar findings Telemetry reviewed, patient in sinus with frequent PACs. Laboratory data reviewed, Initial troponin 0.039, WBC 4.5, hemoglobin 10.5, platelets 125, sodium 134, potassium 4.4, BUN 31, serum creatinine 1.2, proBNP 16,000,: 19 PCR positive Current daily cardiac medications include aspirin 81 mg daily, Imdur 60 mg daily, Lopressor 50 mg twice a day, hydralazine 50 mg 3 times a day, rosuvastat in 10 mg daily and Aldactone 25 mg daily. Most recent echocardiogram obtained 07/12/2021- EF 3035%, mild aortic regurgitation, mild aortic stenosis peak/mean gradient of 17 mmHg/8 mmHg, mild mitral regurgitation, tricuspid regurgitation small general lies pericardial effusion, small pleural effusion Cardiac catheterization performed in 2005 revealed ejection fraction at that time was 20% with a lesion noted in the mid LAD 10%, mid circumflex 50% and mid RCA 100%. 09/12/2021 Patient remains on the cardiac stepdown unit. Echocardiogram performed revealed ejection fraction 30-35%, moderate concentric left ventricular hypertrophy, and small generalized pericardial effusion with possible thrombus. She remains on IV heparin. She is on 8 L high flow nasal cannula with oxygen saturations greater then 92%. Blood pressure 95/54. 09/13/2021 Patient remains on the cardiac stepdown unit. Patient remains on IV heparin. Hemoglobin 10.4. BUN 61. Creatinine 1.73. 09/14/2021 Patient remains on the cardiac stepdown unit. She remains on IV heparin. She is on 2 L nasal cannula with oxygen saturations greater than 90%. Blood pressure 138/60. Telemetry reveals sinus mechanism with a heart rate in the 70s. 09/15/2021 Patient remains on the cardiac stepdown unit. Patient is on 5 L nasal cannula with oxygen saturations greater than 90%. Blood pressure 126/72. Telemetry reveals sinus mechanism. She has been transitioned to Eliquis. PHYSICAL EXAM: Thorough physical exam not completed secondary to limited evaluation/examination due to Covid19 ASSESSMENT: Chest pain Shortness of breath Elevated troponin, not suggestive of ACS Small generalized pericardial effusion with possible thrombus COVID-19 Pneumonia Chronic kidney disease Mediastinal mass in the right hilar area measuring 8 x 4 cm in size seen on CTA in 06/2021 Coronary artery disease, chronically occluded RCA Ischemic cardiomyopathy status post AICD Hypertension Dyslipidemia Diabetes mellitus Former nicotine dependence PLAN: Current continue cardiac medications Patient is currently stable from a cardiac standpoint Further recommendations pending patient course Nurse practitioner note has been reviewed by physician. Signing provider agrees with the documented findings, assessment, and plan of care. Objective - Vital Signs Vital signs: Vital Signs Temp 98.3 F 09/15/21 04:00 Pulse 74 09/15/21 04:00 Resp 20 09/15/21 04:00 BP 126/72 09/15/21 04:00 Pulse Ox 91 L 09/15/21 04:00 Intake & Output 09/14/21 09/15/21 09/15/21 18:59 06:59 18:59 Intake Total 236 Balance 236 Weight 45.6 kg 45 kg Intake: Oral 236 Other: # Voids 1 1 - Labs CBC & Chem 7: 09/13/21 09:54 09/13/21 09:54
--- NOTE | 2021-09-15 17:12 | P.DS ---
Providers Date of admission: 09/12/21 14:15 Expected date of discharge: 09/15/21 Attending physician: Bib Yoon Consults: 09/11/21 11:20 Consult Physician Routine Consulting Provider: Chris Dodge Consult Reason/Comments: covid Do you want consulting provider notified?: Yes Consult Physician Urgent Consulting Provider: Delroy Duvall Consult Reason/Comments: cp, covid Do you want consulting provider notified?: Yes Primary care physician: Mitesh Lowe [place] [facility] Course: Chief Complaint: Short of breath History of presenting complaint: This is a pleasant 86-year-old patient who follows with visiting physicians Dr. Lowe. Chronic stable medical conditions include hyperlipidemia, hypertension, peripheral arterial disease with Bergers disease, AICD permanent pacemaker. CHF EF 40-45%, CAD, CKD stage III . Continues to smoke few cigarettes a day. Patient also has a lung mass. Because of patient's comorbidities and fragility not for any further workup. Patient presents with worsening short of breath. Wheezing. Heart a short of breath at rest. Has had congested cough. Little sputum. No fever and chills. Poor appetite. Tired rundown. Patient did not take the COVID-19 vaccine. Tested positive year. Generalized tiredness. No headaches. No diarrhea. Patient did receive monoclonal antibodies in the ER. 2-D echocardiogram showed a possible blood clot. IV heparin . Spoke to patient's niece Marah after discussing with Dr. Dodge. Agree both to the patient home with possible hospice. Oral intake limited. On eliquis. Today: Discussed with patient. Home health is being set up. Oxygen. Medications continued. Consultation: Cardiology associates Dr. Dodge from pulmonary Past medical history to include: Hypertension, hyperlipidemia, coronary artery disease with AK, irregular heartbeat,bergers disease , peripheral bypass and bilateral femoral grafting, AICD/removed and changed to permanent pacemaker, ischemic colitis. CHF EF 30- 40% Social history: Occasionally uses a cane. Lives alone. Smoked for many years, now a few cigarettes a day. Alcohol occasionally. damion Crystal is the POA Family history: Cancer Physical examination: VITAL SIGNS: 98.2, Tom 84, 22, 145/80, 92% on 3 L GENERAL: reclining in bed, [ loss of muscle mass and subcutaneous fat,] tired EYES: Pupils equal. Conjunctiva normal. LUNGS: Respiratory rate increased, . PSYCH: Alert and oriented x3; mood and affect anxious NEUROLOGICAL: No facial asymmetry. Moving all 4 limbs Rest of the exam per pulmonary and nursing INVESTIGATIONS, reviewed in the clinical context: September 13: White count 4.8 hemoglobin 10.4 d-dimer 1.78 potassium 5.3 BUN 61 and 1.73 September 12: White count 5.3 hemoglobin 11.3 platelets 120 potassium 4.4 BUN 39 creatinine 1.46 and LDL 52 2-D echocardiogram: Moderate concentric LVH. EF 30-35% possible clot WBC 4.5 hemoglobin 10.5 platelets 125 sodium 134 potassium 4.4 BUN 31 and 1.28 Troponin I 0.039, 0.039 albumin 2.7 Coronavirus [PCR]: Detected EKG tracing personally reviewed by me-normal sinus rhythm, PVC, intraventricular block Chest x-ray film personally reviewed by me-scattered infiltrates Assessment and plan: -Acute COVID 19 pneumonitis in non- vaccinated patient. Symptoms present for 3 days prior to presentation Received monoclonal antibodies in the ER. Vitamin C vitamin D and zinc. -Acute on Chronic congestive heart failure from systolic dysfunction, from ischemic cardiomyopathy. EF 30-35 %: IV Lasix 1 dose given by cardiology. Lasix 40 mg daily. - pleural effusion from CHF Received IV Lasix -Possible left ventricle small thrombus IV heparin. 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 Not keen for any further investigations which rather reasonable. -Chronic nicotine dependence, cigarette smoker Nicotine patch -Likely acute myocarditis from COVID-19 Telemetry -Coronary artery disease with prior AK aspirin -Peripheral arterial disease Aspirin Crestor -Chronic hypoxic respiratory failure from COPD Home oxygen 2 L -Essential hypertension Lopressor 50 mg twice a day., Cozaar 50 mg daily at bedtime, hydralazine 50 mg 3 times a day -Vitamin B12 deficiency Continue B12 supplement -Chronic kidney disease stage III likely nephrosclerosis Follow BMP -DO NOT RESUSCITATE -DPOA: Marah, niece Disposition: Home with hospice Plan - Discharge Summary Discharge Rx Participant: No New Discharge Prescriptions: New predniSONE 10 mg PO DAILY #30 tab Nicotine 7Mg/24Hr Patch [Habitrol] 1 patch TRANSDERM DAILY #14 patch Apixaban [Eliquis] 2.5 mg PO BID #60 tab Zinc Sulfate [Orazinc] 220 mg PO DAILY #30 cap Ascorbic Acid [Vitamin C] 500 mg PO BID #60 tab Continue Isosorbide Mononitrate ER [Imdur] 60 mg PO DAILY Rosuvastatin Calcium [Crestor] 10 mg PO HS Folic Acid 0.4 mg PO DAILY Cyanocobalamin (Vitamin B-12) [Vitamin B-12] 1,000 mcg PO DAILY Famotidine [Pepcid] 20 mg PO DAILY #30 tab Cholecalciferol [Vitamin D3 (25 Mcg = 1000 Iu)] 25 mcg PO DAILY Spironolactone [Aldactone] 25 mg PO DAILY #30 tab Albuterol Sulfate [Albuterol Sulfate Hfa] 1 puff INHALATION RT-Q4H PRN PRN Reason: Shortness Of Breath Theophylline 24 Hour [Bill-24] 300 mg PO HS #30 cap.er.24h Losartan [Cozaar] 50 mg PO HS #30 tab Potassium Chloride ER [K-Dur 10] 10 meq PO DAILY #30 tab Furosemide [Lasix] 40 mg PO DAILY #30 tablet Budesonide/Formoterol Fumarate [Symbicort 160-4.5 Mcg Inhaler] 2 puff INHALATION RT-BID guaiFENesin [Mucinex] 600 mg PO BID Melatonin 3 mg PO HS Changed Metoprolol Tartrate [Lopressor] 75 mg PO BID #0 Ipratropium-Albuterol Nebulize [Duoneb 0.5 mg-3 mg/3 ml Soln] 3 ml INHALATION RT-QID #120 each Discontinued Fluticasone/Salmeterol [Advair 250-50 Diskus] 1 puff INHALATION RT-BID Aspirin 81 mg PO DAILY hydrALAZINE HCL 50 mg PO TID #90 tab Discharge Medication List Isosorbide Mononitrate ER [Imdur] 60 mg PO DAILY 08/10/14 [History] Rosuvastatin Calcium [Crestor] 10 mg PO HS 01/02/15 [History] Cyanocobalamin (Vitamin B-12) [Vitamin B-12] 1,000 mcg PO DAILY 01/02/18 [History] Folic Acid 0.4 mg PO DAILY 01/02/18 [History] Cholecalciferol [Vitamin D3 (25 Mcg = 1000 Iu)] 25 mcg PO DAILY 04/20/21 [History] Famotidine [Pepcid] 20 mg PO DAILY #30 tab 04/23/21 [Rx] Spironolactone [Aldactone] 25 mg PO DAILY #30 tab 04/23/21 [Rx] Albuterol Sulfate [Albuterol Sulfate Hfa] 1 puff INHALATION RT-Q4H PRN 05/24/21 [History] Theophylline 24 Hour [Bill-24] 300 mg PO HS #30 cap.er.24h 05/29/21 [Rx] Furosemide [Lasix] 40 mg PO DAILY #30 tablet 07/16/21 [Rx] Losartan [Cozaar] 50 mg PO HS #30 tab 07/16/21 [Rx] Potassium Chloride ER [K-Dur 10] 10 meq PO DAILY #30 tab 07/16/21 [Rx] Budesonide/Formoterol Fumarate [Symbicort 160-4.5 Mcg Inhaler] 2 puff INHALATION RT-BID 09/11/21 [History] Melatonin 3 mg PO HS 09/11/21 [History] guaiFENesin [Mucinex] 600 mg PO BID 09/11/21 [History] Apixaban [Eliquis] 2.5 mg PO BID #60 tab 09/14/21 [Rx] Ascorbic Acid [Vitamin C] 500 mg PO BID #60 tab 09/15/21 [Rx] Ipratropium-Albuterol Nebulize [Duoneb 0.5 mg-3 mg/3 ml Soln] 3 ml INHALATION RT-QID #120 each 09/15/21 [Rx] Metoprolol Tartrate [Lopressor] 75 mg PO BID #0 09/15/21 [Rx] Nicotine 7Mg/24Hr Patch [Habitrol] 1 patch TRANSDERM DAILY #14 patch 09/15/21 [Rx] Zinc Sulfate [Orazinc] 220 mg PO DAILY #30 cap 09/15/21 [Rx] predniSONE 10 mg PO DAILY #30 tab 09/15/21 [Rx] Follow up Appointment(s)/Referral(s): Julianne Reardon [NON-STAFF] - Mitesh Lowe MD [Primary Care Provider] - 1-2 days Activity/Diet/Wound Care/Special Instructions: Copay for conrado is $33. Discharge/Stand Alone Forms: Who Do I Call?, Help In The Home
[2021-09-15 19:02] VITALS: BP 130/74; PULSE 76; RESP 20; TEMP 97.8
== END 2021-09-15 17:21 | disposition home health service (06) | DRG 177 ==
LOC: EC 07:36 → 6NMEDSUR 11:20 → 3SCARD 19:28 → OBSVTOIN 09-12 14:15
PROVIDERS: ADMIT Hospitalist; ATTEND Hospitalist
PROC: XW033G6 Introduction of REGN-COV2 Monoclonal Antibody into Peripheral Vein, Percutaneous Approach, New Technology Group 6 (ICD-10-PCS; principal; 2021-09-11)
PROC: 5A0955A Assistance with Respiratory Ventilation, Greater than 96 Consecutive Hours, High Flow/Velocity Cannula (ICD-10-PCS; 2021-09-12)
DX: U07.1 COVID-19 (principal); I50.23 Acute on chronic systolic (congestive) heart failure; J96.21 Acute and chronic respiratory failure with hypoxia; J12.82 Pneumonia due to coronavirus disease 2019; N02.8 Recurrent and persistent hematuria with other morphologic changes; I13.0 Hypertensive heart and chronic kidney disease with heart failure and stage 1 through stage 4 chronic kidney disease, or unspecified chronic kidney disease; J44.1 Chronic obstructive pulmonary disease with (acute) exacerbation; C34.01 Malignant neoplasm of right main bronchus; I31.3 Pericardial effusion (noninflammatory); E11.22 Type 2 diabetes mellitus with diabetic chronic kidney disease; E11.51 Type 2 diabetes mellitus with diabetic peripheral angiopathy without gangrene; N18.30 Chronic kidney disease, stage 3 unspecified; Z66 Do not resuscitate; I25.5 Ischemic cardiomyopathy; E53.8 Deficiency of other specified B group vitamins; E78.5 Hyperlipidemia, unspecified; I08.3 Combined rheumatic disorders of mitral, aortic and tricuspid valves; I49.3 Ventricular premature depolarization; I45.4 Nonspecific intraventricular block; I25.10 Atherosclerotic heart disease of native coronary artery without angina pectoris; I25.2 Old myocardial infarction; M54.30 Sciatica, unspecified side; R77.8 Other specified abnormalities of plasma proteins; H91.90 Unspecified hearing loss, unspecified ear; F17.210 Nicotine dependence, cigarettes, uncomplicated; Z79.82 Long term (current) use of aspirin; Z79.51 Long term (current) use of inhaled steroids; Z79.899 Other long term (current) drug therapy; Z95.828 Presence of other vascular implants and grafts; Z86.79 Personal history of other diseases of the circulatory system; Z98.42 Cataract extraction status, left eye; Z98.41 Cataract extraction status, right eye; Z95.0 Presence of cardiac pacemaker; Z60.2 Problems related to living alone; Z87.19 Personal history of other diseases of the digestive system; Z98.890 Other specified postprocedural states; Z88.8 Allergy status to other drugs, medicaments and biological substances
CPT/HCPCS: 36415; 71046; 80048; 80053; 80061; 80198; 83605; 83615; 83880; 84484; 85025; 85379; 85610; 85730; 86140; 87635; 93005; 93308; 94640; 94760; 96365; 96375; 99285